=== PATIENT | female | born 1950 | race Caucasian/White ===

== ENCOUNTER 2017-10-14 11:00 | Outpatient (RCR) | payer MEDICARE, OTHER, SELFPAY ==
--- NOTE | 2017-06-27 13:07 | HP.PTEVAL_ITS ---
Patient's Visit Information DANIS CARRILLO is a 67 year old F referred to Physical Therapy by DO ZIA Reyna with a diagnosis of L knee scope. Date of Evaluation: 06/27/17 Physical Therapist: Anurag Beatty PT, - Visit Plan Frequency: 2-3x /Week Duration: 4 Weeks Plan: L LE stretching and strengthening, balance and proprio, core stab ex's, bike, and HEP - Subjective Subjective: DOS: 06/11/17. Pt reports a chronic Hx of L knee pain for several years. Pt reports she was able to hold off the pain with steroid injections until recently. Pt reports her L knee is still very sore. Pt notes she was hoping that her pain would lessen, but it still hasnt. Pt reports she will have to have a TKA in the future. Pt reports she is also starting to get LBP from sitting around a lot. Occasional tingling in L LE. No sleep diff secondary to pain. Pt does has stairs at home, she has been practicing with. Pt notes she can ascend stairs with no prob at this time, but descending stairs one at a time. 3/10 pain at rest, 6/10 at worst (walking too much) - Pain L knee pain Pain Intensity (Out of 10): 3 Pain Intensity Range: 6 - Objective Neuro: B LE sensation is WNL to light touch. B achilles reflex= 2/3. Girth at joint line: R knee 36 cm, L 37.5 cm. ROM: R knee 0-135, L knee 0-5-105. MMT: R knee 5/5, L knee 4-/5 and painful - Goals Goal 1:: Decrease L knee pain x 50% to aid with ambulation Goal Time Frame: 4-6 Weeks Goal 2:: Increase L knee strength x 1 grade to aid with stair negotiation Goal Time Frame: 4-6 Weeks Goal 3:: Increase L knee ROM x 20 degrees to aid with restoring a normalized gait pattern Goal Time Frame: 4-6 Weeks Goal 4:: I with HEP Goal Time Frame: 4-6 Weeks - Rehabilitation Potential Physical Therapy Diagnosis: L knee pain, swelling and weakness secondary to L knee arthroscopy Rehabilitation Potential: Good - Anticipated Interventions Patient/Client Instruction: Educate patient on: Condition, Plan of Care For the Purpose of:: To improve self management Therapeutic Exercise to Include: Strength training, Endurance training, Balance training, Flexibilty training, Gait and locomotor training, Dynamic Lumbar Stabilization For the Purpose of:: To decrease pain, To increase ROM, To improve muscle performance and motor function Cryotherapy (ice pack, ice massage): Yes For the Purpose of:: To decrease pain Thank you for the opportunity to evaluate your patient. For Medicare and Medicare HMO plans, please review the plan of care and approve it. It will need to be FAXED BACK to us at [phone] for Medicare purposes. Please let me know if there are questions or concerns regarding this plan of care. Physician Signature: Date:
--- NOTE | 2017-07-22 11:03 | HP.PTREVAL_ITS ---
Evans Elmore DO, It has been my pleasure to treat DANIS CARRILLO over the last 10 visits for L knee scope. Please see the progress note below for an update on the physical therapy plan of care! Subjective: Minor pain this date Objective/Function: L knee pain 0/10. L knee MMT: ext= 4/5, flex= 4+/5. L knee ROM: 0-2-122. Pt is progressing well toward Rx goals Plan Plan: L LE stretching and strengthening, balance and proprio, core stab ex's, bike, and HEP Goals Goal 1:: Decrease L knee pain x 50% to aid with ambulation Goal Time Frame: 4-6 Weeks Goal Progress: Goal Met Goal 2:: Increase L knee strength x 1 grade to aid with stair negotiation Goal Time Frame: 4-6 Weeks Goal Progress: Progressing Goal 3:: Increase L knee ROM x 20 degrees to aid with restoring a normalized gait pattern Goal Time Frame: 4-6 Weeks Goal Progress: Progressing Goal 4:: I with HEP Goal Time Frame: 4-6 Weeks Goal Progress: Progressing Anticipated Interventions Patient/Client Instruction: Educate patient on: Condition, Plan of Care For the Purpose of:: To improve self management Therapeutic Exercise to Include: Strength training, Endurance training, Balance training, Flexibilty training, Gait and locomotor training, Dynamic Lumbar Stabilization For the Purpose of:: To decrease pain, To increase ROM, To improve muscle performance and motor function Cryotherapy (ice pack, ice massage): Yes For the Purpose of:: To decrease pain Please do not hesitate to contact me at [phone] by phone or Fax: if you have questions or concerns regarding this new plan of care! Sincerely, Anurag Beatty, PT,
--- NOTE | 2017-08-29 11:15 | HP.PTREVAL_ITS ---
Evans Elmore DO, It has been my pleasure to treat DANIS CARRILLO over the last 20 visits for L knee scope. Please see the progress note below for an update on the physical therapy plan of care! Subjective: Pain is minimal this date Objective/Function: L knee pain 1/10, increases to 4/10 with prolonged walking. L knee ROM: 0-1-122. L knee strength: 4/5 throughout. I with HEP Plan Plan: F/U after vacation Goals Goal 1:: Decrease L knee pain x 50% to aid with ambulation Goal Time Frame: 4-6 Weeks Goal Progress: Goal Met Goal 2:: Increase L knee strength x 1 grade to aid with stair negotiation Goal Time Frame: 4-6 Weeks Goal Progress: Progressing Goal 3:: Increase L knee ROM x 20 degrees to aid with restoring a normalized gait pattern Goal Time Frame: 4-6 Weeks Goal Progress: Progressing Goal 4:: I with HEP Goal Time Frame: 4-6 Weeks Goal Progress: Progressing Anticipated Interventions Patient/Client Instruction: Educate patient on: Condition, Plan of Care For the Purpose of:: To improve self management Therapeutic Exercise to Include: Strength training, Endurance training, Balance training, Flexibilty training, Gait and locomotor training, Dynamic Lumbar Stabilization For the Purpose of:: To decrease pain, To increase ROM, To improve muscle performance and motor function Cryotherapy (ice pack, ice massage): Yes For the Purpose of:: To decrease pain Please do not hesitate to contact me at [phone] by phone or Fax: if you have questions or concerns regarding this new plan of care! Sincerely, Anurag Beatty PT,
--- NOTE | 2017-10-14 11:32 | HP.PTDCSUM ---
HP - PT D/C Summary It has been my pleasure to treat DANIS CARRILLO under orders from Evans Elmore DO, for the diagnosis of L knee scope for a total of 21 visit(s). Discharge Date: Please see the following information for a summary of their discharge status. - Subjective Subjective: Pt reports her pain is about the same today. - Pain L knee pain Pain Intensity (Out of 10): 3 - Overall Improvement % Improvement: 90 - Objective Objective/Function: L knee pain is ranging from 3/10-5/10. L knee ROM: 0-120 degrees. L knee MMT: Flex= 5/5, ext 4-/5 and painful. Pt is I with HEP - Goals Goal 1:: Decrease L knee pain x 50% to aid with ambulation Goal Progress: Goal Met Goal 2:: Increase L knee strength x 1 grade to aid with stair negotiation Goal Progress: Progressing Goal 3:: Increase L knee ROM x 20 degrees to aid with restoring a normalized gait pattern Goal Progress: Progressing Goal 4:: I with HEP Goal Progress: Progressing - Plan Plan: Discharge - D/C Information If there are questions or concerns regarding this patient's physical therapy, please feel free to call me at [phone]. Thank you for the referral of this patient. Sincerely, Anurag Beatty, PT,
== END 2017-10-14 19:00 | disposition home or self-care (01) ==
LOC: PT 11:00
PROVIDERS: Family Provider Internal Medicine; PCP Internal Medicine; Visit Provider Orthopaedic Surgery
DX: Z98.890 Other specified postprocedural states (principal)
CPT/HCPCS: 97110; 97161; 97164; 97530

== ENCOUNTER 2018-01-04 14:58 | Emergency (ER) | payer MEDICARE, OTHER, SELFPAY ==
[2018-01-04 14:58] VITALS: BP 141/78; PULSE 69; RESP 16; TEMP 36.2; BMI 25.9
--- NOTE | 2018-01-04 15:45 | RAD_ITS ---
STUDY: X-RAY - RIGHT WRIST REASON FOR EXAM: Female, 67 years old. Fall. Pain. TECHNIQUE: 4 view(s) of the wrist were obtained. COMPARISON: February 16, 2016 FINDINGS: There is generalized osteopenia. There is a transverse comminuted fracture of the distal radius with minimal displacement and intra-articular extension. Normal radiocarpal articulation. Normal distal radioulnar articulation. Normal carpal bones. There is moderate arthrosis of the radial carpal row. There is moderate arthrosis of the first carpometacarpal joint. Normal visualized metacarpal bones. The soft tissue structures are unremarkable. RAD/Wrist min 3 Views IMPRESSION: Osteopenia with osteoarthrosis. Distal radial fracture as described. Electronically Signed: Paulino Martinez MD at 16:41 EDT , Service support ,
--- NOTE | 2018-01-04 15:50 | RAD_ITS ---
STUDY: X-RAY - LEFT WRIST REASON FOR EXAM: Female, 67 years old. Fall. Pain. TECHNIQUE: Over view(s) of the wrist were obtained. COMPARISON: None. FINDINGS: There is generalized osteopenia. There is a nondisplaced comminuted transverse fracture of the distal radius with slight buckling at the fracture site. Normal radiocarpal articulation. Normal distal radioulnar articulation. Normal carpal bones. There is arthrosis of the radial carpal row. There is arthrosis of the first carpometacarpal joint. Normal visualized metacarpal bones. The soft tissue structures are unremarkable. RAD/Wrist min 3 Views IMPRESSION: Osteopenia with osteoarthrosis. Distal radial fracture as described. Electronically Signed: Paulino Martinez MD at 16:40 EDT , Service support ,
--- NOTE | 2018-01-04 17:27 | ED.VISSUMM ---
- ER Visit Summary Date of Service: 01/04/18 Chief Complaint: Bilateral wrist injuries History of Present Illness: The patient is a 67 F presents with bilateral wrist injuries occurred today. Patient states she tripped and fell and landed on her outstretched hands bilaterally. Patient states she felt something crack in both wrists. Patient admits to some swelling of the left wrist. Patient states her pain is worse with some movements. Patient denies any paresthesias or weakness. Patient denies any head injury or loss of consciousness. Patient denies any other injuries. Physical Examination: Vital signs are stable. Patient is afebrile. Patient is in no acute distress. Musculoskeletal exam reveals tenderness over the bilateral wrists and distal radius areas. There is some mild edema noted. There is no obvious deformity noted. Range of motion was limited in all motions of the wrist bilaterally secondary to pain. Radial pulses are equal bilateral. Sensation was intact to light touch in the radial, median, and ulnar areas bilaterally. Strength is 5/5 bilaterally in the upper extremities. The remaining physical exam is within normal limits. Test Results: X-rays of the bilateral wrists were obtained. There is a comminuted fracture of the left distal radius with extension into the radiocarpal joint. There is no displacement noted. There is also a nondisplaced fracture of the right distal radius. There is no extension into the radiocarpal joint. Emergency Department Course and Treatment: Patient was placed in AP splint bilaterally. Patient was given a prescription for Tylenol with codeine. Patient was instructed to ice and elevate the wrist bilaterally. Patient was instructed to follow-up with her orthopedic physician in 5-7 days. Patient and her understood and were agreeable with the plan. All questions were answered. Disposition: Discharged home Impression: Bilateral distal radius fracture This note was generated with [employer] dictation software. It may contain incorrect words, spelling, and punctuation that were not noted in review of the chart prior to signing ED Disposition - Plan for ED Patient: Disposition: Home or Assisted Living Chief Complaint: Upper Extremity Injury Diagnosis: Closed fracture of both radius bones Instructions: ED Fx Colles Wrist No Redu Requ Prescriptions: Acetaminophen with Codeine [Tylenol with Codeine #3 Tablet] 1 ea PO Q6H PRN PRN 3 Days #12 tab PRN Reason: Pain Referrals: Chelsea Moss DO [Primary Care Provider] -
[2018-01-04 18:04] VITALS: BP 159/92; PULSE 63; RESP 1; O2SAT 98
== END 2018-01-04 18:08 | disposition home or self-care (01) ==
PROVIDERS: Emergency Provider Emergency Medicine; Family Provider Internal Medicine; PCP Internal Medicine
DX: S52.501A Unspecified fracture of the lower end of right radius, initial encounter for closed fracture (principal); S52.502A Unspecified fracture of the lower end of left radius, initial encounter for closed fracture; W01.0XXA Fall on same level from slipping, tripping and stumbling without subsequent striking against object, initial encounter; Y93.9 Activity, unspecified; Y92.9 Unspecified place or not applicable; I10 Essential (primary) hypertension; Z96.642 Presence of left artificial hip joint; Z79.899 Other long term (current) drug therapy
CPT/HCPCS: 29125; 73110; 99282

== ENCOUNTER 2018-01-15 10:37 | Day surgery (SDC) | payer MEDICARE, OTHER, SELFPAY ==
[2018-01-15] VITALS (10 sets, daily range): BP systolic 130–164; BP diastolic 62–99; PULSE 63–85; RESP 14–16; TEMP 36.1–36.8; O2SAT 91–96; BMI 26.4
[2018-01-15 11:08] LABS: Hematocrit 41.7 % (37-47); Hemoglobin 13.8 g/dl (12.0-15.0); Mean Corp Hgb Conc 33.1 g/gl (32-36); Mean Corpuscular Hgb 30.1 pg (27.0-32.0); Mean Corpuscular Volume 90.8 fL (81-99); Mean Platelet Vol. 9.2 fl (6.2-12.0); Platelet Count 327 K/mm3 (150-450); RBC Distribution Width CV 13.7 % (11.6-14.6); RBC Distribution Width SD 45.3 fl (35.1-43.9); Red Blood Count 4.59 M/mm3 (4.2-5.4); Scan Indicated on CBC? Y/N NO; White Blood Count 4.7 K/mm3 (4.4-11.0)
[2018-01-15 11:19] LABS: Prothrombin Time (Protime)PT. 13.2 SECONDS (11.7-14.9)
[2018-01-15 11:20] LABS: Partial Thromboplast Time 26.1 Seconds (24.1-36.2)
[2018-01-15 11:28] LABS: AST(SGOT) 22 U/L (15-37); Alanine Aminotransfer ALT/SGPT 19 U/L (13-56); Albumin, Serum 3.6 g/dL (3.2-5.0); Alkaline Phosphatase 114 U/L (45-117); Anion Gap 8 (5-15); BUN 18 mg/dL (7-18); BUN/Creat Ratio 20.3 RATIO (10-20); Calcium,Total 9.2 mg/dL (8.5-10.1); Chloride 105 mmol/L (98-107); Creatinine, Serum 0.89 mg/dL (0.55-1.02); EST Glomerular Filtration Rate 67 mL/min (>60); Est Glom Filt Rate - Afr Amer 82 mL/min (>60); Estimated Creatinine Clearance 55.19 ml/min; Globulin 3.9 g/dL (2.2-4.2); Glucose 88 mg/dL (74-106); Potassium 3.7 mmol/L (3.5-5.1); Protein, Total 7.5 g/dL (6.4-8.2); Sodium Level 142 mmol/L (136-145)
--- NOTE | 2018-01-15 11:51 | PCM.DC.ORTHO ---
Discharge Diet: No Restrictions - may use fingers as much as possible, leave dressings in place, call with concerns, follow up in 2 weeks, keep dressing clean/dry Discharge Activity: May Not Drive May shower in (days): 1 Ice area for (Minutes): 20 - Every hour while awake. Weight Bearing Status: Weight bearing as tolerated Keep extremity elevated above heart level: Operative Extremity Call your doctor if your incision/area has: Continuous Slow Oozing, Sudden Increased Bleeding, Increased Pain/ Swelling, Increased Redness, Foul Smelling Discharge Call your doctor if you observe: Fever of 101 or Higher, Coldness, Increased Pain, Numbness or Tingling, Change in Color, Calf discomfort Allergies/Adverse Reactions: Allergies amoxicillin [From Augmentin] Allergy (Mild, Verified 01/15/18 10:55) diarrhea, nausea clavulanic acid [From Augmentin] Allergy (Mild, Verified 01/15/18 10:55) diarrhea, nausea pseudoephedrine [From Bettye-D] Allergy (Mild, Verified 01/15/18 10:55) unknown prochlorperazine edisylate [From Compazine] Adverse Reaction (Verified 01/15/18 10:55) Nausea/Vom/Diarrhea Medications to take at Discharge Cholecalciferol (Vitamin D3) [Vitamin D3] 5,000 unit PO DAILY 04/02/17 Escitalopram Oxalate [Lexapro] 10 mg PO DAILY 04/02/17 Fexofenadine HCl [Bettye Allergy] 60 mg PO DAILY 04/02/17 Hydrochlorothiazide [Hctz] 25 mg PO DAILY 04/02/17 Lorazepam [Ativan] 0.25 mg PO DAILY PRN PRN 04/02/17 Lactobacillus Combination No.4 [Probiotic] 1 each PO CONT 06/04/17 Naproxen Sodium 2 tab PO QHS 06/04/17 Acetaminophen with Codeine [Tylenol with Codeine #3 Tablet] 1 ea PO Q6H PRN PRN 3 Days #12 tab 01/04/18 tramadol 50 mg tablet 50 mg PO Q6H PRN #30 tab 01/10/18 Docusate Sodium [Colace] 100 mg PO PRN PRN 01/14/18 Hydrocodone Bitart/Apap 5-325 [[place] 5MG-325MG] 1 - 2 tablet PO Q6H PRN PRN 5 Days #40 tablet 01/15/18 The following prescriptions were given: Hydrocodone Bitart/Apap 5-325 [[place] 5MG-325MG] 1 - 2 tablet PO Q6H PRN PRN 5 Days #40 tablet PRN Reason: Pain Primary Care Physician: Chelsea Moss DO [Primary Care Provider] - Test Results: Test results from this visit will be discussed in further detail at your follow-up appointment, if applicable. Please Follow Up With: Deb Alba DO - [phone]
--- NOTE | 2018-01-15 11:54 | DCINST_ITS ---
Discharge Diet: No Restrictions - may use fingers as much as possible, leave dressings in place, call with concerns, follow up in 2 weeks, keep dressing clean/dry Discharge Activity: May Not Drive May shower in (days): 1 Ice area for (Minutes): 20 - Every hour while awake. Weight Bearing Status: Weight bearing as tolerated Keep extremity elevated above heart level: Operative Extremity Call your doctor if your incision/area has: Continuous Slow Oozing, Sudden Increased Bleeding, Increased Pain/ Swelling, Increased Redness, Foul Smelling Discharge Call your doctor if you observe: Fever of 101 or Higher, Coldness, Increased Pain, Numbness or Tingling, Change in Color, Calf discomfort Allergies/Adverse Reactions: Allergies amoxicillin [From Augmentin] Allergy (Mild, Verified 01/15/18 10:55) diarrhea, nausea clavulanic acid [From Augmentin] Allergy (Mild, Verified 01/15/18 10:55) diarrhea, nausea pseudoephedrine [From Bettye-D] Allergy (Mild, Verified 01/15/18 10:55) unknown prochlorperazine edisylate [From Compazine] Adverse Reaction (Verified 01/15/18 10:55) Nausea/Vom/Diarrhea Medications to take at Discharge Cholecalciferol (Vitamin D3) [Vitamin D3] 5,000 unit PO DAILY 04/02/17 Escitalopram Oxalate [Lexapro] 10 mg PO DAILY 04/02/17 Fexofenadine HCl [Bettye Allergy] 60 mg PO DAILY 04/02/17 Hydrochlorothiazide [Hctz] 25 mg PO DAILY 04/02/17 Lorazepam [Ativan] 0.25 mg PO DAILY PRN PRN 04/02/17 Lactobacillus Combination No.4 [Probiotic] 1 each PO CONT 06/04/17 Naproxen Sodium 2 tab PO QHS 06/04/17 Acetaminophen with Codeine [Tylenol with Codeine #3 Tablet] 1 ea PO Q6H PRN PRN 3 Days #12 tab 01/04/18 tramadol 50 mg tablet 50 mg PO Q6H PRN #30 tab 01/10/18 Docusate Sodium [Colace] 100 mg PO PRN PRN 01/14/18 Hydrocodone Bitart/Apap 5-325 [[place] 5MG-325MG] 1 - 2 tablet PO Q6H PRN PRN 5 Days #40 tablet 01/15/18 The following prescriptions were given: Hydrocodone Bitart/Apap 5-325 [[place] 5MG-325MG] 1 - 2 tablet PO Q6H PRN PRN 5 Days #40 tablet PRN Reason: Pain Primary Care Physician: Chelsea Moss DO [Primary Care Provider] - Test Results: Test results from this visit will be discussed in further detail at your follow- up appointment, if applicable. Please Follow Up With: Deb Alba DO - [phone]
--- NOTE | 2018-01-15 11:56 | OP.PCM_ITS ---
Report of Operation Date of Procedure: 01/15/18 Pre-Operative Diagnosis: bilateral distal radius fracture, right carpal tunnel syndrome Post-Operative Diagnosis: same Surgery/Procedure Performed:: b/l distal radius orif, right ctr guide alpine: Pablo Clifford guide alpine: Vane Guajardo Type of Anesthesia:: General Anesthesiologist: Levon Bravo Estimated Blood Loss (mL): none Fluids Replaced: 1100ml Description of Procedure: Preoperative note Patient is a 67-year-old female who is seen in my clinic. Patient fell and tripped and extended both of her wrists and had bilateral distal radius fracture is extra-articular. Patient was in the office and is having some carpal tunnel like symptoms that started after her fall. They are not acute or progressive in nature however she was having some numbness and tingling. At that time the decision was made to take her to the OR to do an ORIF of her distal radius and a right carpal tunnel release. On the left side she was not having carpal tunnel symptoms however because patient is in a wedding in a few weeks patient elected to proceed with a plate and screws so she would not have to wear a cast. Risks benefits and alternatives surgery discussed with patient. Risks including but not limited to blood loss, blood clot, infection, neurovascular injury, failure procedure, loss of life and loss of limb. Patient is aware would like proceed with right carpal tunnel release ORIF distal radius left distal radius ORIF. Operative note Patient seen and examined preoperative holding area. Right wrist was marked for carpal tunnel release. Patient was brought to the operating room placed supine on the operating table. Sign, anesthesia, antibiotics were administered. The right arm by the right arm was first prepped and draped in usual sterile fashion with a tourniquet around her upper arm. Timeout was performed. We then marked out our incision for our distal radius fracture as well as her carpal tunnel release. The arm was elevated exsanguinated and tourniquet was raised her pressure of 250 torr. We then used a 15 blade to cut through the skin over the level of the distal radius just medial to the FCR. We then dissected outside the level of the FCR fascia this is released we then dissected down further to the pronator quadratus was excised sharply off of its radial border and he is an elevator to sweep it ulnarly. We then were able place our plate and then transfixed with 2 K wires at the appropriate level of the distal radius. We then placed 3 proximal screws to 7 cortical screws and then placed a screw in the radial styloid as well as the ulnar facet of the radial radius and this restored our volar tilt better. We then placed locking screws in the remaining holes. We irrigated with copious nonsterile saline we placed a pronator on top of the plate we sewed the subcuticular with 2 oh excuse me 3-0 Vicryl the skin with 4-0 running Monocryl sterile series were applied. We then moved to her carpal tunnel release. We marked out our incisions for our carpal tunnel release at the intersection of Roberth's line in the fourth ray flexed. We extended about a centimeter and a half. We then used a 15 blade to make a skin incision. We then dissected down tenotomies down to the level of the transverse carpal ligament. We then used a new 15 blade cut through the transverse carpal ligament down to the level of the median nerve. We then further released the median nerve the combination of the 15 blade and tenotomies. The nerve was grayish in color and adherent to the transverse carpal ligament volarly. We released the transverse carpal ligament distally to the fat pad and then proximally under standard technique. We then palpated to ensure that we released all of the transverse carpal ligament which we did. We irrigated the incision with copious amounts of sterile saline. All bleeders were coagulated. The incision was closed with interrupted 4-0 nylon stitches. Tourniquet was deflated for total working time of 60 minutes. We then moved to the left distal radius. The left arm was prepped ed and draped in usual sterile fashion with a tourniquet around her upper arm. Timeout was performed. We then marked out our incision for our distal radius fracture. The arm was elevated exsanguinated and tourniquet was raised her pressure of 250 torr. We then used a 15 blade to cut through the skin over the level of the distal radius just medial to the FCR. We then dissected outside the level of the FCR fascia this is released we then dissected down further to the pronator quadratus was excised sharply off of its radial border and he is an elevator to sweep it ulnarly. We then were able place our plate and then transfixed with 2 K wires at the appropriate level of the distal radius. We then placed 3 proximal screws to 7 cortical screws and then placed a screw in the radial styloid as well as the ulnar facet of the radial radius and this restored our volar tilt better. We then placed locking screws in the remaining holes. We irrigated with copious nonsterile saline we placed a pronator on top of the plate we sewed the subcuticular with 2 oh excuse me 3-0 Vicryl the skin with 4-0 running Monocryl sterile series were applied. Patient tolerated procedure well there were no complications. Patient transferred to recovery room in stable condition. right VA [address] plate, right 6 hole head/3 hole shaft 3 2.7 cortex screw shaft 12, 14mm, 14mm 2 2.7 corex scrw distal 18mm 4 2.4 locking screws distal 16mm, 18mm left 6 hole head/3 hole shaft 3 2.7 cortex screw shaft 12,14mm 2 2.4 cortex screw distal 20mm 4 2.4 VA locking screws distal 16/20 Postoperative note Hospital pharmacy has prescription Leave dressing clean dry and intact Follow-up in 2 weeks Call with concerns This note was generated with [employer] dictation software. It may contain incorrect words, spelling, and punctuation that were not noted in checking the note before signing
[2018-01-15] MEDS: Cefazolin 2 GM in 0.9% Normal Saline 100 ML IV (12:03)
--- NOTE | 2018-01-15 12:10 | RAD_ITS ---
STUDY: X-RAY - RIGHT WRIST REASON FOR EXAM: ORIF right wrist. TECHNIQUE: 4 fluoroscopic view(s) of the wrist were obtained. COMPARISON: Radiographs 01/04/2018. FINDINGS: There is an orthopedic plate and screws transfixing a distal radial fracture in anatomical alignment and position. Electronically Signed: Lambert Pardo MD at 16:32 EDT Tel , Service support , RAD/Wrist min 3 Views
--- NOTE | 2018-01-15 13:25 | RAD_ITS ---
STUDY: X-RAY - LEFT WRIST REASON FOR EXAM: Female, 67 years old. Fracture TECHNIQUE: 3 view(s) of the wrist were obtained. COMPARISON: 01/15/2018 FINDINGS: There is fixation at the distal radius. RAD/Wrist min 3 Views IMPRESSION: Status post fixation, distal radius Electronically Signed: Abhilash Pyle MD at 21:14 EDT Tel , Service support ,
[2018-01-15] MEDS: HYDROcodone Bitartrate/Apap 5/325 Tablet PO (16:50)
== END 2018-01-15 18:10 | disposition home or self-care (01) ==
LOC: SDC 10:37 → AC 10:39
PROVIDERS: Family Provider Internal Medicine; PCP Internal Medicine; Visit Provider Orthopaedic Surgery
PROC: (CPT 25607; principal; 2018-01-15 12:25)
DX: S52.552A Other extraarticular fracture of lower end of left radius, initial encounter for closed fracture (principal); S52.551A Other extraarticular fracture of lower end of right radius, initial encounter for closed fracture; W01.0XXA Fall on same level from slipping, tripping and stumbling without subsequent striking against object, initial encounter; Y93.9 Activity, unspecified; Y92.9 Unspecified place or not applicable; G56.01 Carpal tunnel syndrome, right upper limb; K21.9 Gastro-esophageal reflux disease without esophagitis; I10 Essential (primary) hypertension; Z79.899 Other long term (current) drug therapy
CPT/HCPCS: 25607; 64721; 36415; 73110; 76000; 80048; 80076; 85027; 85610; 85730; 93005; C1713; J7120; J2405

== ENCOUNTER → 2018-01-28 09:47 | Outpatient (CLI) | payer MEDICARE, OTHER, SELFPAY | PROVIDERS: Family Provider Internal Medicine; PCP Internal Medicine; Visit Provider Orthopaedic Surgery | DX: M25.531 Pain in right wrist (principal); M25.532 Pain in left wrist | CPT/HCPCS: 73110 ==

== ENCOUNTER 2018-03-06 11:00 | Outpatient (RCR) | payer MEDICARE, OTHER, SELFPAY ==
--- NOTE | 2018-01-28 16:27 | HP.OTEVAL_ITS ---
Patient's Visit Information DANIS CARRILLO is a 67 year old F, referred to Occupational Therapy by Deb Alba DO, with a diagnosis of Bilateral ORIF, R CTR. Date of Evaluation: 01/28/18 Occupational Therapist: Eboni Valentin - Subjective Subjective: Pt seen for initial occupational therapy evaluation s/p fall onto bilateral wrists when tripped over a cord and fell into a wall. Pt had bilateral ORIF's and R CTR 01/15/18. Pt lives with spouse, bilevel home, pt has been mowing on riding mower. She requires some assist with BADL's; cutting her food, spouse assisting with meals and shower tasks as needed. L hand dominent. - Pain L wrist 4 Pain Intensity Range: 0, 1, 2, 3, 4 - Objective Objective/Observation: Pt demo decreased ROM of bilateral wrists with decreased bilateral hand strength to complete all BADL's/IADL's independently. - ROM Wrist: R 35/30 L 45/45 Opposition: Not able to complete Thumb Oppostion R hand ROM Comments: Pt able to make composite fists. - Strength Core Drill Operator: R 15#, L 30# Lateral Pinch: R 4#, L 6# Tripod Pinch: R 0#, L 4# - Edema Other: Pt demo slight edema bilateral wrists - Sensation Sensation Comments: Pt states numbness at incision sites bilateral wrists and Numbness/tingling R digits 1, 2, and 3. - DASH-Disabilities of Arm, Shoulder& Hand DASH Sum: 89 - Goals Goal:: Pt will progress with R hand manager housekeeping strength by 25# to increase her independence with cooking tasks. Pt will progress with L hand manager housekeeping strength by 15# to increase her independence with self feeding cutting her food independently. Goal:: Pt will progress with L wrist extension by 5' and L wrist flexion by 15' to increase independence to complete all grooming and bathing tasks independently. Pt will progress with R wrist extension by 10' and L wrist flexion by 15' to increase independence with BADL's. Goal:: Pt will demo 1/10 or less pain bilateral wrists by d/c from OT services. Goal:: Pt will be educated on scar mngmt techniques of bilateral wrists and R hand with good understanding and demo 100%x. Goal:: Pt will be independent with all BADL's and light meal prep tasks by d/c from OT services. Goal:: Pt will be educated on BUE HEP with good understanding and demo 100%x. - Rehabilitation General Assessment: Pt demonstrates decreased bilateral wrist ROM and R thumb opposition with increased pain of bilateral wrists. Pt demonstrates decreased bilateral wrist/hand strength. Pt would benefit from direct skilled occupational therapy services to increase bilateral wrist/hand ROM, R thumb opposition, educate on scar mngmt techniques, increase bilateral wrist/hand strength and educate on HEP all to increase independence with functional living tasks, BADL's to return back to PLOF with decreased pain of bilateral wrists/ hands. Rehabilitation Potential: Excellent - Anticipated Interventions Anticipated Interventions: A/AAROM/PROM, Strengthening, Edema Control, Scar Care , Massage, Desensitization, Modalities, Orthoses, Joint Protection/Energy Conservation, Fine Motor Coord/Sukhdeep, ADL Training, Education re Skin Care and Precautions, Education re Self Massage Techniques, Education re Correct Donning Tech,Care&Wearing Sched Comp Garments, Caregiver Training, Home Program - Visit Plan Frequency: 1-2x /Week Duration: 4-6 Weeks General Plan: Pt demonstrates decreased bilateral wrist ROM and R thumb opposition with increased pain of bilateral wrists. Pt demonstrates decreased bilateral wrist/hand strength. Pt would benefit from direct skilled occupational therapy services to increase bilateral wrist/hand ROM, R thumb opposition, educate on scar mngmt techniques, increase bilateral wrist/hand strength and educate on HEP all to increase independence with functional living tasks, BADL's to return back to PLOF with decreased pain of bilateral wrists/ hands. TEXT: Thank you for the opportunity to evaluate your patient. For Medicare and Medicare HMO plans, please review the plan of care and approve it. It will need to be FAXED BACK to us at [phone] for Medicare purposes. Please let me know if there are questions or concerns regarding this plan of care. Physician Signature: Date:
--- NOTE | 2018-07-02 10:18 | HP.OT.NRP ---
HP - Discharge Summary - Patient Information DANIS CARRILLO was seen in my office for initial evaluation on 01/28/18. The following Plan of Care was established for this patient: Initial Frequency: 1-2x /Week Initial Duration: 4-6 Weeks Plan: cont w/ prior POC - Anticipated Interventions Anticipated Interventions: A/AAROM/PROM, Strengthening, Edema Control, Scar Care, Massage, Desensitization, Modalities, Orthoses, Joint Protection/Energy Conservation, Fine Motor Coord/Sukhdeep, ADL Training, Education re Skin Care and Precautions, Education re Self Massage Techniques, Education re Correct Donning Tech,Care&Wearing Sched Comp Garments, Caregiver Training, Home Program This patient was last seen in our office 03/06/18. Pertinent comments regarding their Occupational therapy will appear below: Pt last seen 03/06/18. Pt was participating with direct occupational therapy care for scar managment techniques to bilateral wrists and increasing bilateral wrist ROM and bilateral networks computer consultant strength activities/exercises. D/C OT services secondary to non-returning pt. At this point I will be discontinuing this patient from occupational therapy. I would be happy to see this patient again in the future if found appropriate by the physician. Thank you! Eboni Valentin
== END 2018-03-06 19:00 | disposition home or self-care (01) ==
LOC: OT 11:00
PROVIDERS: Family Provider Internal Medicine; PCP Internal Medicine; Visit Provider Orthopaedic Surgery
DX: M25.531 Pain in right wrist (principal); M25.532 Pain in left wrist
CPT/HCPCS: 73110; 97110; 97140; 97166; 97530

== ENCOUNTER → 2018-04-15 10:50 | Outpatient (CLI) | payer MEDICARE, OTHER, SELFPAY ==
--- NOTE | 2018-04-15 10:53 | RAD_ITS ---
STUDY: X-RAY - RIGHT WRIST REASON FOR EXAM: Female, 67 years old. Postoperative evaluation after ORIF of distal radius. TECHNIQUE: 3 view(s) of the wrist were obtained. COMPARISON: January 28, 2018 FINDINGS: There is stable generalized osteopenia. The volar plate and screw fixation of the distal radius is stable with increased callus formation at the fracture site. Normal radiocarpal articulation. Normal distal radioulnar articulation. Normal carpal bones. There is arthrosis of the radial carpal row unchanged. There is stable arthrosis of the first carpometacarpal joint. Normal second through fifth carpometacarpal articulations. Normal visualized metacarpal bones. The soft tissue structures are unremarkable. RAD/Wrist min 3 Views IMPRESSION: Stable appearance of the right wrist with no complications. Electronically Signed: Paulino Martinez MD at 16:50 EST , Service support ,
--- NOTE | 2018-04-15 10:53 | RAD_ITS ---
STUDY: X-RAY - LEFT WRIST REASON FOR EXAM: 3 month postop follow-up. TECHNIQUE: 3 view(s) of the wrist were obtained. COMPARISON: Radiographs 01/28/2018. FINDINGS: There is osteopenia. There is orthopedic plate and screws transfixing a healing distal radial fracture in anatomical alignment and position. Normal radiocarpal articulation. Normal distal radioulnar articulation. Normal carpal bones. There is joint space narrowing of the triscaphe articulation. Normal carpometacarpal articulation of the thumb. Normal second through fifth carpometacarpal articulations. Normal visualized metacarpal bones. The soft tissue structures are unremarkable. RAD/Wrist min 3 Views IMPRESSION: ORIF of healing distal radial fracture without evidence of complication. Triscaphe arthrosis. Electronically Signed: Lambert Pardo MD at 7:29 EST Tel , Service support ,
== END ==
PROVIDERS: Family Provider Internal Medicine; PCP Internal Medicine; Referring Provider Orthopaedic Surgery; Visit Provider Orthopaedic Surgery
DX: M25.531 Pain in right wrist (principal); M25.532 Pain in left wrist
CPT/HCPCS: 73110

== ENCOUNTER 2018-10-12 10:08 | Emergency (ER) | payer MEDICARE, OTHER, SELFPAY ==
[2018-10-12 10:09] VITALS: BP 120/97; PULSE 57; RESP 17; TEMP 36.7; O2SAT 100; BMI 27.8
--- NOTE | 2018-10-12 10:28 | CT_ITS ---
STUDY: CT ABDOMEN AND PELVIS WITHOUT CONTRAST REASON FOR EXAM: Female, 68 years old. Right flank pain into right lower quadrant since this morning. Cholecystectomy and appendectomy and left hip replacement. RADIATION DOSAGE (If Supplied By Facility): CTDIvol = ( 9.02 ) mGy, DLP = ( 450.81 ) mGycm TECHNIQUE: Transaxial images were obtained from the dome of the diaphragm to the symphysis pubis without oral contrast, and without intravenous contrast. Sagittal and coronal images were reconstructed. Individualized dose optimization techniques were used for this CT. COMPARISON: None. FINDINGS: The visualized lung bases demonstrate bibasilar dependent atelectasis and a small focus of subsegmental atelectasis within the lateral periphery of the left lower lobe. The visualized portions of the heart are within normal limits. Normal liver. The patient is status post cholecystectomy. There is approximately 1.9 cm distention of the common bile duct without CT evident etiology, sequence 2, image 46. 2 punctate calcifications involve the splenic parenchyma. The spleen otherwise appears unremarkable. Normal pancreas. Normal bilateral adrenal glands. Normal right kidney. Normal left kidney. There is no ureteral calculi. There is no ureterectasis. Normal visualized stomach. Normal small intestine. Multiple uncomplicated diverticula are seen throughout the colon, predominantly involving the sigmoid colon. Surgical clips are seen at the cecal tip in the region of the appendix. No appendix is visualized. Normal abdominal aorta except for calcified plaque throughout the aortoiliac system. No demonstrated aneurysm.. Normal inferior vena cava. Normal retroperitoneum. There is no free fluid. There is no free air. No evidence of obstruction. Normal urinary bladder. The uterus is surgically absent. Both ovaries are surgically absent. There is a tiny fatty umbilical hernia, sequence 2, image 100. There is no acute osseous abnormality. There is no suspicious lytic or blastic osseous pathology. Diffuse spinal degenerative changes are identified. Patient is status post left hip arthroplasty which appears in anatomic alignment. No evidence of hardware failure or loosening on the submitted images. CT/Abdomen/Pelvis without Cont IMPRESSION: No evident nephrolithiasis/nephrocalcinosis, hydronephrosis, ureteral calculi or ureterectasis. The urinary bladder appears unremarkable. Status post appendectomy and BORIS/BSO. Diverticulosis without evidence of diverticulitis. Status post cholecystectomy with distention of the common bile duct. Please note that biliary ectasia is a common finding in postcholecystectomy patients. No free fluid. No free air. No evidence of obstruction. Multifocal calcified vascular plaque throughout the aortoiliac system without demonstration of aneurysm. Punctate splenic calcifications are most consistent with sequela of prior systemic infection with granulomatous disease. Electronically Signed: Alan Allen MD at 11:40 EDT , Service support ,
[2018-10-12] MEDS: 0.9% Normal Saline 1,000 ML 150 ML IV (10:43)
[2018-10-12] MEDS: HYDROmorphone 1 MG/ML Syringe IV ×2 (10:43→12:05)
[2018-10-12] MEDS: Ketorolac 15 MG/ML Vial IV (10:43)
[2018-10-12] MEDS: Ondansetron 4 MG/2 ML Vial IV (10:43)
[2018-10-12 10:55] LABS: Absolute Lymphocyte Count 1.52 X10^3/ul (0.83-4.51); Absolute Neutrophil Count 3.3 X10^3/uL (2.0-7.7); Basophil# 0.02 X10^3/uL; Basophil% 0.4 % (0-1); Eosinophil# 0.15 X10^3/uL; Eosinophils% 2.8 % (0-5); Hemoglobin 14.3 g/dl (12.0-15.0); Lymphocyte # 1.52 X10^3/ul (4.0); Lymphocyte % 27.9 % (19-41); Mean Corp Hgb Conc 33.3 g/gl (32-36); Mean Corpuscular Hgb 30.4 pg (27.0-32.0); Mean Corpuscular Volume 91.5 fL (81-99); Mean Platelet Vol. 9.4 fl (6.2-12.0); Monocyte# 0.44 X10^3/uL; Monocyte% 8.1 % (0-10); Neutrophil % 60.6 % (47-70); POSITIVE COUNT NO; POSITIVE DIFFERENTIAL NO; POSITIVE MORPHOLOGY NO; Platelet Count 290 K/mm3 (150-450); RBC Distribution Width CV 14.1 % (11.6-14.6); RBC Distribution Width SD 47.5 fl (35.1-43.9); White Blood Count 5.4 K/mm3 (4.4-11.0)
[2018-10-12 11:03] LABS: BUN 16 mg/dL (7-18); BUN/Creat Ratio 16.6 RATIO (10-20); Calcium,Total 8.8 mg/dL (8.5-10.1); Chloride 106 mmol/L (98-107); Creatinine, Serum 0.96 mg/dL (0.55-1.02); EST Glomerular Filtration Rate 61 mL/min (>60); Est Glom Filt Rate - Afr Amer 74 mL/min (>60); Estimated Creatinine Clearance 50.47 ml/min; Glucose 112 mg/dL (74-106); Potassium 3.5 mmol/L (3.5-5.1); Sodium Level 143 mmol/L (136-145)
[2018-10-12 11:04] LABS: Anion Gap 8 (5-15)
[2018-10-12 11:31] LABS: Bacteria 0 SEEN /hpf (None Seen); Color, Urine Yellow (Yellow); Glucose, Dipstick Normal (Normal); Ketone-Dipstick Negative (Negative); Leukocyte Esterase-Dipstick Negative /ul (Negative); Mucous, Urine 0 SEEN /hpf (<or=2+); Nitrite-Dipstick Negative (Negative); Occult Blood-Urine 10 /ul (Negative); Protein-Dipstick 15 mg/dl (Negative); Red Blood Cells-Urine 0 SEEN /hpf (0-5); Urine Bilirubin Dipstick Negative (Negative); Urine Clarity Clear (Clear); Urine Urobilinogen Normal (Normal); White Blood Cells 0 SEEN /hpf (0-5)
[2018-10-12 11:38] LABS: Squamous Epithelial Cells - UA 0-5 SEEN /hpf (5-10)
[2018-10-12 12:17] LABS: D-Dimer Quantitative (DVT/PE) 0.56 FEU/ug/m (0.27-0.49)
--- NOTE | 2018-10-12 12:22 | CT_ITS ---
STUDY: CTA OF THE ABDOMINAL AORTA REASON FOR EXAM: Female, 68 years old. Back pain. Abdominal pain RADIATION DOSAGE (If Supplied By Facility): CTDIvol = ( 12.98 ) mGy, DLP = ( 820.57 ) mGycm TECHNIQUE: Axial CT angiography multi-detector data acquisition was obtained from the diaphragm to the sacrum following intravenous administration of 100ml IV Isovue 370. Axial images and MIP images were reconstructed from the axial data set. Post-processing of the angiographic images was performed, with multiplanar reformation and 3D reconstruction. Individualized dose optimization techniques were used for this CT. TECHNICAL QUALITY: Good COMPARISON: CT. Descriptors of Narrowing: None (0%) Mild (< 50%) Moderate (50-70%) Severe (70-90%) Subtotal/Total Occlusion (90-100%) Non-Evaluable (technically non-diagnostic FINDINGS: Abdominal aorta: There is diffuse atherosclerotic calcification of the abdominal aorta, without a demonstrated aneurysm. No demonstrated narrowing. Celiac and superior mesenteric arteries: No demonstrated narrowing. Inferior mesenteric artery: No demonstrated narrowing. Right renal artery(arteries): No demonstrated narrowing. Left renal artery(arteries): No demonstrated narrowing. Right common iliac artery: No demonstrated narrowing. Mild plaque. Right external iliac artery: No demonstrated narrowing. Right internal iliac artery: No demonstrated narrowing. Left common iliac artery: No demonstrated narrowing. Mild plaque. Left external iliac artery: No demonstrated narrowing. Left internal iliac artery: No demonstrated narrowing. There are scattered small right pulmonary calcifications consistent with old granulomatous disease. The visualized portions of the heart are within normal limits. Normal liver. There are surgical clips in the gallbladder fossa consistent with a prior cholecystectomy. The common bile duct measures 1.0 cm at the pancreatic head. Normal spleen. Normal pancreas. Normal bilateral adrenal glands. Normal right kidney. Normal left kidney. Normal visualized stomach. Normal small intestine. There are multiple colonic diverticula consistent with diverticulosis. There are surgical clips in the region of the appendix consistent with a prior appendectomy. Normal inferior vena cava. Normal retroperitoneum. Normal abdominal wall. There are diffuse degenerative changes of the visualized lumbar spine. CT/CTA Abdomen W/WO Contrast IMPRESSION: Atherosclerosis. No high-grade stenosis or occlusion. No aneurysm or dissection. Colonic diverticulosis. No obstruction or abscess. Postoperative change. Electronically Signed: Iron Huffman MD at 13:22 EDT , Service support ,
--- NOTE | 2018-10-12 12:22 | CT_ITS ---
STUDY: CTA CHEST REASON FOR EXAM: Female, 68 years old. Pain. RADIATION DOSAGE (If Supplied By Facility): CTDIvol = ( 12.98 ) mGy, DLP = ( 820.57 ) mGycm TECHNIQUE: The examination was performed with the intravenous administration of 100ml IV Isovue 370. Post-processing of the angiographic images was performed, with multiplanar reformation and 3D reconstruction. Individualized dose optimization techniques were used for this CT. COMPARISON: None. FINDINGS: Normal enhancement of the main pulmonary artery and right and left pulmonary arteries. Normal enhancement of the bilateral peripheral pulmonary arteries. There is no demonstrated pulmonary embolism. Normal thoracic aorta and visualized great vessels. There is no demonstrated aortic dissection. Normal heart and pericardium. Normal mediastinum. There is a nonspecific 1 cm calcified lymph node in the right hilar region.. Normal visualized trachea and bronchi. There is mild bibasilar compressive atelectasis. Normal pulmonary parenchyma. Normal pleura. Normal chest wall structures. Normal osseous structures. Normal visualized upper abdomen. CT/CTA Chest W/WO Contrast IMPRESSION: Bibasilar compressive atelectasis. No evidence for pulmonary embolism. Nonspecific calcified lymph node in the right hilar region. Old granulomatous disease is a possibility. Electronically Signed: Cole Irene, at 13:12 EDT Tel , Service support ,
[2018-10-12 12:27] VITALS: BP 119/75; PULSE 56; RESP 12; O2SAT 93
--- NOTE | 2018-10-12 13:27 | ED.VISSUMM ---
- ER Visit Summary Date of Service: 10/12/18 Chief Complaint: [Right flank pain] History of Present Illness: The patient is a 68 F [presents to the ER with complaint of pain in her right flank that she initially noticed last evening. Patient states that this morning the pain became severe and more unbearable. Patient states that pain tends to radiate a little bit to the right lower abdomen. She denies urinary symptoms. She is never had pain like this before. She denies any injury to her back. She denies any pain radiating down her legs or paresthesias or weakness in extremities. Patient states she recently came home from [place] and she and her had driven back and just got back yesterday. Patient denies any fever or urinary symptoms.] Physical Examination: [HEENT-PERRLA, EOMI. Cranial nerves II through XII grossly intact. TMs clear. Mucous membranes moist. No adenopathy. Cardiovascular-regular rate and rhythm without murmur or ectopy Lungs-clear to auscultation, chest wall stable without crepitus or subcu emphysema Abdomen-normoactive bowel sounds, soft. Patient has some mild tenderness over the right lower quadrant. There is no rebound, rigidity, or perineal signs. She does have CVA tenderness on the right. Back exam-patient has no tenderness over the thoracic or lumbar spine. Patient does have tenderness palpation of the right lumbar paraspinal musculature that seems to somewhat read to produce her pain. Extremities-intact ?4, normal range of motion, normal pulses, atraumatic] Test Results: CBC with differential obtained was normal. Chemistries were normal. Urinalysis was normal. CT flank showed diverticulosis otherwise nothing acute. Patient had a d-dimer test that was elevated 0.56 however when corrected for age it was technically normal. Patient is adamant that she does not feel that her pain is musculoskeletal and a CTA of the chest and abdomen was obtained to further rule out dissection versus renal infarct versus lower lobe PE. Both CTA of the abdomen and chest were unremarkable.] Emergency Department Course and Treatment: [Patient was medicated with Dilaudid and Zofran initially and she had some relief with that however the pain returned and she needed a second dose of Dilaudid.] Treatment Plan: [Patient will be given a prescription for Percocet as well as Flexeril. Patient follow-up with her primary care physician within next 3 to 5 days. Patient advised to return if worsening pain, fever, or condition should worsen anyway.] Disposition: [Discharged home in stable condition] Impression: [Right flank pain-suspect muscular skeletal etiology] This note was generated with [employer] dictation software. It may contain incorrect words, spelling, and punctuation that were not noted in review of the chart prior to signing ED Disposition - Plan for ED Patient: Referrals: Chelsea Moss DO [Primary Care Provider] -
--- NOTE | 2018-10-12 13:30 | ED.DEP ---
ED Disposition - Plan for ED Patient: Instructions: ED Flank Pain Uncertain Cause Prescriptions: Oxycodone HCl/Acetaminophen [Percocet 5/325] 1 tab PO Q6H PRN PRN 5 Days #20 tab PRN Reason: Pain Cyclobenzaprine [Flexeril] 10 mg PO TID PRN #20 tab PRN Reason: Muscle Spasm Referrals: Chelsea Moss DO [Primary Care Provider] - 3-5 Days
[2018-10-12 13:41] VITALS: BP 117/89; PULSE 877; RESP 144; O2SAT 99
== END 2018-10-12 13:44 | disposition home or self-care (01) ==
PROVIDERS: Emergency Provider Emergency Medicine; Family Provider Internal Medicine; PCP Internal Medicine
DX: R10.31 Right lower quadrant pain (principal); M54.5 Low back pain; R11.0 Nausea; I10 Essential (primary) hypertension; F41.9 Anxiety disorder, unspecified; Z90.49 Acquired absence of other specified parts of digestive tract; Z79.899 Other long term (current) drug therapy
CPT/HCPCS: 71275; 74175; 74176; 80048; 81001; 85025; 85379; 96361; 96374; 96375; 96376; 99283; J7030; Q9967; A4216; J2405

== ENCOUNTER → 2019-11-06 11:07 | Outpatient (CLI) | payer MEDICARE, OTHER, SELFPAY ==
[2019-10-22 13:51] VITALS: BMI 27.8
--- NOTE | 2019-11-06 11:09 | MRI_ITS ---
STUDY: MRI RIGHT KNEE REASON FOR EXAM: Mechanical right knee pain, catching and locking for 3 months, no specific injury, prior surgery in 1989. TECHNIQUE: Standardized fat and water weighted pulse sequences were obtained in all 3 orthogonal planes. COMPARISON: Radiographs 11/12/2016. FINDINGS: Normal medial meniscus. There is mild arthrosis of the medial femorotibial compartment with small marginal osteophytes and mild chondral thinning of the medial femoral condyle (T2 sagittal image 19). Normal medial femoral condyle and tibial plateau. Normal medial collateral ligamentous complex (MCL). Normal distal semimembranosus, gracilis and semitendinosus tendons. There is a partial lateral meniscectomy. There is a complex signal alteration of the posterior horn of the lateral meniscus (proton density sagittal images 13-17) and body of the lateral meniscus (proton-density coronal images 16-18), either scarring or recurrent lateral meniscal tear. There is peripheral subluxation of the lateral meniscus. There is arthrosis of the lateral femorotibial compartment with marginal osteophytes, chondral loss (T2 coronal image 16) and mild subchondral bone edema of the lateral tibial plateau. Normal proximal tibiofibular articulation. Normal lateral collateral (fibular) ligament. Normal popliteus tendon. Normal biceps femoris tendon. Normal anterior cruciate ligament (ACL). Normal posterior cruciate ligament (PCL). Normal congruent patellofemoral articulation. Normal hyaline cartilage of the patellofemoral compartment. There are minimal marginal osteophytes of the patellofemoral compartment. Normal medial and lateral patellar retinaculum. Normal visualized quadriceps tendon. Normal patellar tendon. Normal Hoffa''s fat pad. There is a small joint effusion. There is a popliteal cyst measuring 6.9 cm in length with extravasation of fluid (T2 sagittal images 13-21). There is mild edema in the anterior subcutis adipose space. There is a very small focus of bone edema in the inferior aspect of the medial patella (T2 coronal image 32). MRI/Lower Ext Joint Only (Routine) IMPRESSION: Partial lateral meniscectomy with signal alteration of the lateral meniscus, either scarring or recurrent lateral meniscal tear. Arthrosis of the lateral femorotibial compartment and mild arthrosis of the medial femorotibial compartment. Small joint effusion. Popliteal cyst with extravasation of fluid. Electronically Signed: Lambert Pardo MD at 13:04 EDT Tel , Service support ,
[2020-02-08 10:48] VITALS: BMI 27.4
--- OUTSIDE RECORDS SUMMARY | 2020-03-22 19:20 | XMS RPT_ITS | CCD ---
:1950 External Reference #:[id number] Author Organization [facility] Care Team Providers Name Role Phone Kailyn Unavailable Shriner Unavailable Saleh Unavailable Natasha, E Unavailable [facility] Unavailable Ramírez, S Unavailable Chicorelli Unavailable Physical Therapy Unavailable Messenger Unavailable Unavailable Flaquito Unavailable Unavailable Slarb Unavailable Unavailable [facility] [place] Unavailable Phillips PSYCH THERAPIST, S Unavailable Ramírez, S Unavailable Baum, N Unavailable Baum, N Unavailable KAMILLE, H Unavailable Unavailable BABKA Unavailable Unavailable KAILYN, K Unavailable Unavailable KAMILLE, H Unavailable Unavailable SELF Unavailable Unavailable KAILYN, K Unavailable Unavailable KAMILLE, H Unavailable Unavailable KAMILLE, H Unavailable Unavailable KAILYN, K Unavailable Unavailable Kailyn Unavailable Shriner Unavailable Saleh Unavailable Natasha, E Unavailable [facility] Unavailable Ramírez, S Unavailable Chicorelli Unavailable Physical Therapy Unavailable Messenger Unavailable Unavailable Flaquito Unavailable Unavailable Slarb Unavailable Unavailable [facility] Unavailable Long, L Unavailable Unavailable Baum, N Unavailable Baum, N Unavailable Phillips PSYCH THERAPIST, S Unavailable Mike Unavailable Unavailable Kulwinder 74 Unavailable Messenger Unavailable Unavailable Gravius Unavailable Unavailable Manchak Unavailable Unavailable Cross Unavailable Unavailable Allergies Reported Allergen Reaction(s) Severity Date of Onset Location fexofenadine Critical, 09-17-2013 - [facility] Medicine and Orthopaedics (8 8787) prochlorperazine nausea Critical, 09-17-2013 - [facility] Medicine and Orthopaedics (5 5847) Prochlorperazine Comprehensi ve Translations: [ Internal Med icine Compazine (75304) *ANTIPSYCHOTICS*] Medications Medication Name Sig Date Prescriber Location Albuterol ProAir RespiClick 07-31-2019 Jeimy Mar Compreh ensive 108 (90 Base) Internal Medic ine MCG/ACT Inhalation (02044) Aerosol Powder Breath Activated 2 (two) Puff q 6hr prn sob or cough for 0 days Quantity: 1 {Inhaler} Refills: 0 Ordered: 31-Jul-2019 Jeimy Mar RN Start : 31-Jul-2019 Active Alendronate Alendronate Sodium 05-14-2016 Jeimy Abebee hensive 70 MG Oral Tablet 1 - Internal Medicine (one) Tablet Tablet 12-19-2018 (08466) qweek for 0 days Quantity: 12 {Tablet} Refills: 3 Ordered: 19-Dec-2018 Jeimy Mar RN Start : 14-May-2016 End : 19-Dec-2018 Inactive Amoxicillin AMOXICILLIN, 875MG 04-23-2007 Jeimy Abebee hensive (Oral Tablet) 1 - Internal Med icine Tablet Twice daily 09-10-2007 (86879) for 0 days Quantity: 10 {Tablet} Refills: 0 Ordered: 23-Apr-2007 Jeimy Mar RN Start : 23-Apr-2007 End : 10-Sep-2007 Inactive Amoxicillin / Amoxicillin-Pot 01-30-2019 Jeimy Ibrahim nsive Clavulanate Clavulanate 875-125 - Internal Medicine MG Oral Tablet 1 09-18-2019 (73369) (one) Tablet bid for 0 days Quantity: 20 {Tablet} Refills: 0 Ordered: 18-Sep-2019 Jeimy Mar RN Start : 30-Jan-2019 End : 18-Sep-2019 Inactive Augmentin 875-125 MG 04-30-2017 - Jeimy Crockett Comprehensi ve Internal Oral Tablet 1 Tablet bid 05-14-2017 Medicin e (32279) for 14 days Quantity: 28 {Tablet} Refills: 0 Ordered: 30-Apr-2017 Jeimy Crockett Start : 30-Apr-2017 End : 14-May-2017 Inactive Ascorbic Acid / CENTRUM SILVER 09-10-2007 Jeimy Mar Compreh ensive Internal Beta Carotene / (Oral Tablet) 50+ Medicin e (53704) Copper Sulfate / for 0 days Refills: Selenite / 0 Ordered: Vitamin E / Zinc 10-Sep-2007 Jeimy Paiz RN End : 10-Sep-2007 Inactive Menopause Oral Tablet 1 qd Jeimy Abebe ehensive Internal Medicine Active Comments: 731 (74233) Comment: 731 aspirin ASPIRIN LOW DOSE, 12-11-2011 - Jeimy Mar [facility] 81MG (Oral Tablet) 1 05-02-2015 Sports Medicine and QD for 0 days Orthopaedics ( 05344) Refills: 0 Ordered: 02-May-2015 Jeimy Mar RN Start : 27-Feb-2013 End : 02-May-2015 Inactive ASPIRIN 81 MG TABS One tablet by 12-11-2011 [facility] Sports Medicine mouth daily ASPIRIN a nd Orthopaedics (22941) [id number] Deb Alba Azithromycin Zithromax Z-Izabela 250 07-31-2019 - Jeimy Abebe ehensive MG Oral Tablet tad 09-18-2019 Internal Medicine Tablet qd for 0 (79817) days Quantity: 1 {Package} Refills: 0 Ordered: 18-Sep-2019 Jeimy Mar RN Start : 31-Jul-2019 End : 18-Sep-2019 Inactive ZITHROMAX Z-IZABELA, 250MG 06-08-2008 Pamela Machadoen sive Internal (Oral Tablet) 1 Tablet 12-24-2008 Medicine (01838) TAD for 0 days Quantity: 1 {Package(s)} Refills: 0 Ordered: 08-Jun-2008 DONNA Polk Start : 08-Jun-2008 End : 24-Dec-2008 Inactive benzonatate Benzonatate 200 MG 07-31-2019 - Jeimy Lanier hensive Oral Capsule 1 (one) 09-18-2019 Interna l Medicine Capsule tid prn for (22543) 0 days Quantity: 30 {Capsule} Refills: 0 Ordered: 18-Sep-2019 Jeimy Mar RN Start : 31-Jul-2019 End : 18-Sep-2019 Inactive Biactive Biactive End : 03-12-2007 Crystal Galindo 12-Mar-2007 Internal Medici ne Discontinued (07679) Biactive End : 12-Mar-200703-12-2007 Crystal Lanier [facility] Internal Medicine Discontinued (29793) Biactive End : 12-Mar-200703-12-2007 [facility] Internal Medicine Discontinued (58332) Biactive End : 12-Mar-200703-12-2007 [facility] Internal Medicine Discontinued (89776) Biactive End : 12-Mar-200703-12-2007 [facility] Internal Medicine Discontinued (92447) Biactive End : 12-Mar-200703-12-2007 Crystal [facility] Internal Medicine Discontinued (29319) Biactive End : 12-Mar-200703-12-2007 Crystal [facility] Internal Medicine Discontinued (26209) Biactive End : 12-Mar-200703-12-2007 Crystal Patel [facility] Internal Medicine Discontinued (57077) Biactive End : 12-Mar-200703-12-2007 [facility] Internal Medicine Discontinued (89090) Biactive End : 12-Mar-200703-12-2007 Crystal [facility] Internal Medicine Discontinued (15941) Biactive End : 12-Mar-200703-12-2007 Crystal Pat[facility] Internal Medicine Discontinued (76412) Biactive End : 12-Mar-200703-12-2007 Crystal [facility] Internal Medicine Discontinued (25702) Biactive End : 12-Mar-200703-12-2007 Crystal Pat[facility] Internal Medicine Discontinued (94516) Biactive End : 12-Mar-200703-12-2007 Crystal Pat[facility] Internal Medicine Discontinued (53137) Biactive End : 12-Mar-200703-12-2007 Crystal Pat[facility] Internal Medicine Discontinued (25078) Biactive End : 12-Mar-200703-12-2007 Crystal Pat[facility] Internal Medicine Discontinued (30109) Calcium 600 + CALCIUM 600 + 09-10-2007 Jeimy Mar Compreh lilliana Minerals MINERALS, Jeimy Mar Internal Med icine [id number]-IFIC (Oral (00736) Tablet) 2 QD for 0 days Refills: 0 Ordered: 10-Sep-2007 Jeimy Mar LPN End : 10-Sep-2007 Inactive CALCIUM 600 + CALCIUM 600 + 09-10-2007 Jeimy Mar Comprehens lilliana MINERALS, MINERALS, Internal Medici ne [id number]-[id number] (Oral (4469 1) (Oral Tablet) Tablet) 2 QD for 0 days Refills: 0 Ordered: 10-Sep-2007 Jeimy Mar RN End : 10-Sep-2007 Inactive CALCIUM 600 + MINERALS, 09-10-2007 Jeimy Mar Comprehely nsive Internal [id number] (Oral Tablet) 2 M edicine (41685) QD for 0 days Refills: 0 Ordered: 10-Sep-2007 Jeimy Mar RN End : 10-Sep-2007 Inactive CALCIUM 600 + MINERALS, 09-10-2007 Jeimy Ibrahim nsive Internal [id number] (Oral Tablet) 2 M edicine (95401) QD for 0 days Refills: 0 Ordered: 10-Sep-2007 Jeimy Mar RN End : 10-Sep-2007 Inactive CALCIUM 600 + MINERALS, 09-10-2007 Jeimy Ibrahim nsive Internal [id number] (Oral Tablet) 2 M edicine (19740) QD for 0 days Refills: 0 Ordered: 10-Sep-2007 Jeimy Mar RN End : 10-Sep-2007 Inactive CALCIUM 600 + MINERALS, 09-10-2007 Jeimy Ibrahim nsive Internal [id number] (Oral Tablet) 2 M edicine (94669) QD for 0 days Refills: 0 Ordered: 10-Sep-2007 Jeimy Mar RN End : 10-Sep-2007 Inactive CALCIUM 600 + MINERALS, 09-10-2007 Jeimy Ibrahim nsive Internal [id number] (Oral Tablet) 2 M edicine (27395) QD for 0 days Refills: 0 Ordered: 10-Sep-2007 Jeimy Mar RN End : 10-Sep-2007 Inactive CALCIUM 600 + MINERALS, 09-10-2007 Jeimy Ibrahim nsive Internal [id number] (Oral Tablet) 2 M edicine (34744) QD for 0 days Refills: 0 Ordered: 10-Sep-2007 Jeimy Mar LPN End : 10-Sep-2007 Inactive CALCIUM 600 + MINERALS, 09-10-2007 Jeimy Mar Comprehe nsive Internal [id number] (Oral Tablet) 2 M edicine (16313) QD for 0 days Refills: 0 Ordered: 10-Sep-2007 Jeimy Mar LPN End : 10-Sep-2007 Inactive CALCIUM 600 + MINERALS, 09-10-2007 Jeimy Mar Comprehe nsive Internal [id number] (Oral Tablet) 2 M edicine (75546) QD for 0 days Refills: 0 Ordered: 10-Sep-2007 Jeimy Mar LPN End : 10-Sep-2007 Inactive CALCIUM 600 + MINERALS, 09-10-2007 Jemiy Isabela Comprehe nsive Internal [id number] (Oral Tablet) 2 M edicine (06573) QD for 0 days Refills: 0 Ordered: 10-Sep-2007 Jeimy Mar LPN End : 10-Sep-2007 Inactive CALCIUM 600 + MINERALS, 09-10-2007 Jeimy Isabela Comprehe nsive Internal [id number] (Oral Tablet) 2 M edicine (87394) QD for 0 days Refills: 0 Ordered: 10-Sep-2007 Jeimy Mar LPN End : 10-Sep-2007 Inactive CALCIUM 600 + MINERALS, 09-10-2007 Jeimy Isabela Comprehe nsive Internal [id number] (Oral Tablet) 2 M edicine (91777) QD for 0 days Refills: 0 Ordered: 10-Sep-2007 Jeimy Mar LPN End : 10-Sep-2007 Inactive CALCIUM 600 + MINERALS, 09-10-2007 Jeimy Isabela Comprehe nsive Internal [id number] (Oral Tablet) 2 M edicine (79462) QD for 0 days Refills: 0 Ordered: 10-Sep-2007 Jeimy Mar LPN End : 10-Sep-2007 Inactive CALCIUM 600 + MINERALS, 09-10-2007 Jeimy Isabela Comprehe nsive Internal [id number] (Oral Tablet) 2 M edicine (02941) QD for 0 days Refills: 0 Ordered: 10-Sep-2007 Jeimy Mar LPN End : 10-Sep-2007 Inactive CALCIUM 600 + MINERALS, 09-10-2007 Jeimy Isabela Comprehe nsive Internal [id number] (Oral Tablet) 2 M edicine (60084) QD for 0 days Refills: 0 Ordered: 10-Sep-2007 Jeimy Mar LPN End : 10-Sep-2007 Inactive celecoxib CeleBREX 200 MG Oral 06-01-2019 Basia Prince [facility] Capsule 1 Capsule qd Chelsea Kailyn Spor ts Medicine and for 90 days Quantity: Orthop aedics (35761) 90 {Capsule} Refills: 2 Ordered: 01-Jun-2019 Kailyn DO, Chelsea Kailyn DO, Chelsea Start : 01-Jun-2019 Active CeleBREX 200 MG Oral 02-23-2019 Jaylin Rick Green [facility] Capsule 1 Capsule qd Chelsea Kailyn Sports Medi cine and for 90 days Quantity: Orthopaedi cs (29526) 90 {Capsule} Refills: 0 Ordered: 23-Feb-2019 Kailyn DO, Chelsea Kailyn DO, Chelsea Start : 23-Feb-2019 Active CeleBREX 200 MG Oral 12-03-2018 Jeimy Mar [facility] Capsule 1 Capsule qd Chelsea Kailyn Sports Medi cine and for 90 days Quantity: Orthopaedi cs (58469) 90 {Capsule} Refills: 0 Ordered: 03-Dec-2018 Kailyn DO, Chelsea Kailyn DO, Chelsea Start : 03-Dec-2018 Active CeleBREX 200 MG Oral 08-01-2018 Chelsea Kailyn [facility] Capsule 1 Capsule qd Sports Medi cine and for 0 days Quantity: Orthopaedic s (17999) 30 {Capsule} Refills: 3 Ordered: 01-Aug-2018 Kailyn DO, Chelsea Kailyn DO, Chelsea Start : 01-Aug-2018 Active CeleBREX 200 MG Oral 04-04-2017 Chelsea Kailyn [facility] Capsule 1 Capsule qd Sports Medi cine and for 0 days Quantity: Orthopaedic s (71426) 30 {Capsule} Refills: 3 Ordered: 04-Apr-2017 Kailyn DO, Chelsea Kailyn DO, Chelsea Start : 04-Apr-2017 Active CELEBREX CAPS as 09-17-2013 [facility] directed Sports Medic ine and CELECOXIB CAPS Orthopaedics (36 499) [id number] Deb Alba CELEBREX CAPS as 09-17-[address] [facility] [address] directed Sports Medic ine and CELECOXIB CAPS Orthopaedics (44 691) [id number] Deb Chaneyli CELEBREX CAPS as 09-17-[address] [facility] [address] directed Sports Medic ine and CELECOXIB CAPS Orthopaedics (44 691) [id number] Deb Verdugoorelli CELEBREX CAPS as 09-17-[address] [facility] [address] directed Sports Medic ine and CELECOXIB CAPS Orthopaedics (44 691) [id number] Deb Verdugoorelli CELEBREX CAPS as 09-17-[address] [facility] [address] directed Sports Medic ine and CELECOXIB CAPS Orthopaedics (44 691) [id number] Deb Verdugoorelli CELEBREX CAPS as 09-17-[address] [facility] [address] directed Sports Medic ine and CELECOXIB CAPS Orthopaedics (44 691) [id number] Deb Verdugoorelli CELEBREX CAPS as 09-17-[address] [facility] [address] directed Sports Medic ine and CELECOXIB CAPS Orthopaedics (44 691) [id number] Deb Verdugoorelli CELEBREX CAPS as 09-17-[address] [facility] [address] directed Sports Medic ine and CELECOXIB CAPS Orthopaedics (44 691) [id number] Deb Verdugoorelli CELEBREX CAPS as 09-17-[address] [facility] [address] directed Sports Medic ine and CELECOXIB CAPS Orthopaedics (44 691) [id number] Adrianaely Alba CELEBREX, 200MG (Oral 07-20-2013 - Chelsea Avina [facility] Capsule) 1 (one) 07-20-2013 Sports Medicine and Capsule daily for 0 Orthopaedics (97256) days Quantity: 30 {Capsule} Refills: 3 Ordered: 20-Jul-2013 Chelsea Avina DO, DO, Kathleen Start : 20-Jul-2013 End : 20-Jul-2013 Inactive Comments: nsaid use with possible gastritis Comment: nsaid use with possible augustus ritis Centrum Silver CENTRUM SILVER 09-10-2007 Jeimy Messenger Comprehe nsive (Oral Tablet) 50+ Jeimy Messenger Interna l Medicine for 0 days Refills: (33456) 0 Ordered: 10-Sep-2007 Jeimy Mar LPN End : 10-Sep-2007 Inactive CENTRUM SILVER CENTRUM SILVER 09-10-2007 Jeimy Mar Comprehe nsive (Oral Tablet) (Oral Tablet) 50+ Internal Medicine for 0 days Refills: (43585) 0 Ordered: 10-Sep-2007 Jeimy Mar RN End : 10-Sep-2007 Inactive CENTRUM SILVER (Oral Tablet) 09-10-2007 Jeimy Mar Com prehensive Internal 50+ for 0 days Refills: 0 Medici ne (55561) Ordered: 10-Sep-2007 Jeimy Mar RN End : 10-Sep-2007 Inactive CENTRUM SILVER (Oral Tablet) 09-10-2007 Jeimy Isabela Com prehensive Internal 50+ for 0 days Refills: 0 Medici ne (43006) Ordered: 10-Sep-2007 Jeimy Mar LPN End : 10-Sep-2007 Inactive CENTRUM SILVER (Oral Tablet) 09-10-2007 Jeimy Isabela Com prehensive Internal 50+ for 0 days Refills: 0 Medici ne (55330) Ordered: 10-Sep-2007 Jeimy Mar LPN End : 10-Sep-2007 Inactive CENTRUM SILVER (Oral Tablet) 09-10-2007 Jeimy Isabela Com prehensive Internal 50+ for 0 days Refills: 0 Medici ne (66810) Ordered: 10-Sep-2007 Jeimy Mar LPN End : 10-Sep-2007 Inactive CENTRUM SILVER (Oral Tablet) 09-10-2007 Jeimy Isabela Com prehensive Internal 50+ for 0 days Refills: 0 Medici ne (94086) Ordered: 10-Sep-2007 Jeimy Mar LPN End : 10-Sep-2007 Inactive CENTRUM SILVER (Oral Tablet) 09-10-2007 Jeimy Isabela Com prehensive Internal 50+ for 0 days Refills: 0 Medici ne (42827) Ordered: 10-Sep-2007 Jeimy Mar LPN End : 10-Sep-2007 Inactive CENTRUM SILVER (Oral Tablet) 09-10-2007 Jeimy Isabela Com prehensive Internal 50+ for 0 days Refills: 0 Medici ne (85244) Ordered: 10-Sep-2007 Jeimy Mar LPN End : 10-Sep-2007 Inactive CENTRUM SILVER (Oral Tablet) 09-10-2007 Jeimy Mar Com prehensive Internal 50+ for 0 days Refills: 0 Medici ne (55695) Ordered: 10-Sep-2007 Jeimy Mar MICHELLE End : 10-Sep-2007 Inactive CENTRUM SILVER (Oral Tablet) 09-10-2007 Jeimy Casas prehensive Internal 50+ for 0 days Refills: 0 Medici ne (13089) Ordered: 10-Sep-2007 Jeimy Mar PSYCH THERAPIST End : 10-Sep-2007 Inactive CENTRUM SILVER (Oral Tablet) 09-10-2007 Jeimy Casas prehensive Internal 50+ for 0 days Refills: 0 Medici ne (32364) Ordered: 10-Sep-2007 Jeimy Mar PSYCH THERAPIST End : 10-Sep-2007 Inactive Cholecalciferol Vitamin D3 125 MCG Jeimy Casas prehensive (5000 UT) Oral Tablet Adobe Maker al Medicine Disintegrating 1 bid (90825) (125 MCG (5000 UT)) Active Ciprofloxacin Ciprofloxacin HCl 500 Chelsealizzie Ovalleson [facility] MG Oral Tablet 1 (one) 0 Inter nal Medicine Tablet bid for 0 days (33854 ) Quantity: 20 {Tablet} Refills: 0 Ordered: 21-Mar-2020 Chelsea Avina DO, DO, Kathleen Start : 21-Mar-2020 Active CIPRO, 500MG (Oral 03-08-2014 - Comprehensive Internal Tablet) 1 (one) Tablet 03-18-2014 Medicine (88198) bid for 10 days Quantity: 20 {Tablet} Refills: 0 Ordered: 08-Mar-2014 Start : 08-Mar-2014 End : 18-Mar-2014 Inactive CIPRO, 250MG (Oral 08-08-2012 - Jeimy Mar Comprehensive Internal Tablet) 1 Tablet bid 08-18-2012 Chelsea Avina Medicine (4 4691) for 10 days Quantity: 20 {Tablet} Refills: 0 Ordered: 08-Aug-2012 Chelsea Avina DO, DO, Kathleen Start : 08-Aug-2012 End : 18-Aug-2012 Inactive Clarithromycin BIAXIN, 500MG (Oral 04-30-2012 - Shanta Allen Compre hensive Tablet) 1 Tablet bid 05-10-2012 Interna l Medicine for 10 days (35127) Quantity: 20 {Tablet} Refills: 0 Ordered: 30-Apr-2012 Shanta Allen CNP Start : 30-Apr-2012 End : 10-May-2012 Inactive Codeine / GUAIATUSSIN AC, 06-08-2008 - DONNA Comprehensiv e guaiFENesin 100-10MG/5ML (Oral 12-24-2008 [facility] Medicine Syrup) 1 Syrup 1tsp (89310) at hs for 0 days Quantity: 6 {Ounce(s)} Refills: 0 Ordered: 08-Jun-2008 DONNA Polk LPN Start : 08-Jun-2008 End : 24-Dec-2008 Inactive cyclobenzaprine Cyclobenzaprine HCl 05-29-2019 - Jeimy Compr ehensive 10 MG Oral Tablet 1 06-08-2019 [facility] Internal Medicine Tablet tid for 10 (98278) days Quantity: 30 {Tablet} Refills: 0 Ordered: 29-May-2019 Jeimy Mar RN Start : 29-May-2019 End : 08-Jun-2019 Inactive Desoximetasone Topicort 0.25 % 03-08-2017 - Jeimy Tejeda lilliana External Cream TAD 12-19-2018 [facility] Internal Medicine Cream daily for 0 (01136) days Quantity: 15 {Applicator} Refills: 4 Ordered: 19-Dec-2018 Jeimy Mar RN Start : 08-Mar-2017 End : 19-Dec-2018 Inactive DULoxetine CYMBALTA, 30MG (Oral 03-12-2007 - DONNA Machado ensive Capsule Delayed 05-22-2007 [facility] Internal Med icine Release Particles) 1 (38131) (one) Capsule DR Part Daily for 0 days Quantity: 30 {Capsule_DR_Part} Refills: 8 Ordered: 22-May-2007 DONNA Polk LPN Start : 12-Mar-2007 End : 22-May-2007 Discontinued CYMBALTA, 30MG (Oral 03-12-2007 - DONNA Tejedai ve Internal Capsule Delayed Release 05-22-2007 Medicine (34734) Particles) 1 (one) Capsule DR Part Daily for 0 days Quantity: 30 {Capsule_DR_Part} Refills: 8 Ordered: 22-May-2007 DONNA Polk Start : 12-Mar-2007 End : 22-May-2007 Discontinued escitalopram Lexapro 20 MG [facility] 08-24-2019 [facility] Tablet QD Chelsea [facility] Sports Medicine and for 0 days Quantity: Orthopa edics (11904) 90 {Tablet} Refills: 3 Ordered: 24-Aug-2019 Kailyn DO, Chelsea Kailyn DO, Chelsea Start : 24-Aug-2019 Active Lexapro 20 MG Oral Tablet 03-04-2018 Jeimy Mar [facility] Sports 1 Tablet QD for 0 days Chelsea Kailyn Medicine and Orthopaedics Quantity: 90 {Tablet} (61555) Refills: 3 Ordered: 04-Mar-2018 Kailyn DO, Chelsea Kailyn DO, Chelsea Start : 04-Mar-2018 Active LEXAPRO TABS as directed 09-17-2013 [facility] ESCITALOPRAM Medicine and Orthopaedics OXALATE TABS [id number] (58118) Deb Alba LEXAPRO TABS as directed 09-17-2013 [facility] ESCITALOPRAM Medicine and Orthopaedics OXALATE TABS [id number] (57084) Deb Alba LEXAPRO TABS as directed 09-17-2013 [facility] ESCITALOPRAM Medicine and Orthopaedics OXALATE TABS [id number] (19570) Deb Alba LEXAPRO TABS as directed 09-17-2013 [facility] ESCITALOPRAM Medicine and Orthopaedics OXALATE TABS [id number] (83233) Deb Alba LEXAPRO TABS as directed 09-17-2013 [facility] ESCITALOPRAM Medicine and Orthopaedics OXALATE TABS [id number] (83815) Deb Alba LEXAPRO TABS as directed 09-17-2013 [facility] ESCITALOPRAM Medicine and Orthopaedics OXALATE TABS [id number] (48567) Deb Alba LEXAPRO TABS as directed 09-17-2013 [facility] ESCITALOPRAM Medicine and Orthopaedics OXALATE TABS [id number] (17390) Deb Alba LEXAPRO TABS as directed 09-17-2013 [facility] ESCITALOPRAM Medicine and Orthopaedics OXALATE TABS [id number] (50033) Deb Alba LEXAPRO TABS as directed 09-17-2013 [facility] ESCITALOPRAM Medicine and Orthopaedics OXALATE TABS [id number] (66735) Deb Alba Estradiol LILIANA-DOT, 04-13-2011 - Jeimy Mar Comprehensiv e 0.05MG/24HR 08-17-2011 Internal Medici ne (Transdermal Patch (70611) Biweekly) 1 Patch Biweekly uad for 0 days Quantity: 24 {Patch_Biweekly} Refills: 3 Ordered: 17-Aug-2011 Messenger Jeimy PEREZ Start : 13-Apr-2011 End : 17-Aug-2011 Inactive Comments: taper off Comment: taper off fexofenadine SNEHA ALLERGY TABS [facility] daily Medici ne and Orthopaedics FEXOFENADINE HCL (30251) TABS [id number] Adrianaely Verdugoorelli SNEHA ALLERGY TABS One 12-11-2011 [facility] Sports tablet by mouth daily Medicine a nd Orthopaedics FEXOFENADINE HCL (446 91) TABS [id number] Adriana Chicorelli SNEHA ALLERGY TABS One 12-11-[address] [facility] Sports tablet by mouth daily Medicine a nd Orthopaedics FEXOFENADINE HCL (446 91) TABS [id number] Adriana Chicorelli SNEHA ALLERGY TABS One 12-11-2011 [facility] Sports tablet by mouth daily Medicine a nd Orthopaedics FEXOFENADINE HCL (446 91) TABS [id number] Adriana Chicorelli SNEHA ALLERGY TABS One 12-11-2011 [facility] Sports tablet by mouth daily Medicine a nd Orthopaedics FEXOFENADINE HCL (446 91) TABS [id number] Adriana Chicorelli SNEHA ALLERGY TABS One 12-11-2011 [facility] Sports tablet by mouth daily Medicine a nd Orthopaedics FEXOFENADINE HCL (446 91) TABS [id number] Deb Chaneyli SNEHA ALLERGY TABS One 12-11-2011 [facility] Sports tablet by mouth daily Medicine a nd Orthopaedics FEXOFENADINE HCL (446 91) TABS [id number] Deb Camacho Chicorelli SNEHA ALLERGY TABS One 12-11-2011 [facility] Sports tablet by mouth daily Medicine a nd Orthopaedics FEXOFENADINE HCL (446 91) TABS [id number] Deb Chaneyli SNEHA ALLERGY TABS One 12-11-2011 [facility] by mouth daily Medicine a nd Orthopaedics FEXOFENADINE HCL (446 91) TABS [id number] Deb Alba SNEHA, 180MG (Oral Tablet) 12-07-2010 Stella Estrada [facility] Sports 1 Tablet qd prn for 0 days Medic ine and Orthopaedics Quantity: 30 {Tablet} (58469) Refills: 3 Ordered: 07-Dec-2010 Stella Estrada Start : 07-Dec-2010 Active Fluconazole Fluconazole 150 MG 03-21-2020 Chelsea Avina Compre hensive Internal Oral Tablet 1 (one) Medicine (60792) Tablet once, then repeat when done with antibiotic for 0 days Quantity: 2 {Tablet} Refills: 1 Ordered: 21-Mar-2020 Chelsea Avina DO, DO, Kathleen Start : 21-Mar-2020 Active Diflucan 150 MG Oral 10-12-2015 - Itzel Slarb Comprehensi ve Internal Tablet 1 (one) Tablet qd 12-20-2015 Medicin e (90793) for 0 days Quantity: 2 {Tablet} Refills: 0 Ordered: 20-Dec-2015 Slarb PSYCH THERAPIST Itzel Start : 12-Oct-2015 End : 20-Dec-2015 Discontinued Comments: take one now and repeat in 4 days. FLUCONAZOLE, 150MG (Oral 12-07-2010 - Pauly Kan Compreh ensive Internal Tablet) 1 (one) Tablet 09-12-2011 Medicine (27069) once for 0 days Quantity: 1 {Tablet} Refills: 0 Ordered: 12-Sep-2011 Pauly Kan LPN Start : 07-Dec-2010 End : 12-Sep-2011 Inactive DIFLUCAN, 150MG (Oral 04-01-2008 - Megan Johnna Comprehens lilliana Internal Tablet) 1 Tablet one 06-08-2008 Medicine (4 4691) time dose for 0 days Quantity: 1 {Tablet} Refills: 0 Ordered: 01-Apr-2008 Megan Oropeza Start : 01-Apr-2008 End : 08-Jun-2008 Discontinued Comment: take one now and repeat in 4 days. FLUoxetine PROZAC, 20MG (Oral 02-15-2012 - Chelsea Avina Comprely hensive Capsule) 1/2 (one 02-15-2012 Internal M edicine half) Capsule qd for (19209) 0 days Quantity: 30 {Capsule} Refills: 3 Ordered: 15-Feb-2012 Chelsea Avina DO, DO, Kathleen Start : 15-Feb-2012 End : 15-Feb-2012 Discontinued Comments: christine Comment: christine fluticasone Fluticasone 03-27-2019 [facility] Propionate 50 MCG/ACT Chelsea Avina Spo rts Medicine and Nasal Suspension 1 Orthopaed ics (30497) (one) Suspension each nostril daily for 0 days Quantity: 3 {Bottle} Refills: 3 Ordered: 27-Mar-2019 Chelsea Avina DO, DO, Kathleen Start : 27-Mar-2019 Active Fluticasone Propionate 08-23-2017 [facility] MCG/ACT Nasal Sports Medicine and Suspension 1 (one) Orthopaedics (09588) Suspension each nostril daily for 0 days Quantity: 3 {Bottle} Refills: 3 Ordered: 23-Aug-2017 Chelsea Avina DO, DO, Kathleen Start : 23-Aug-2017 Active FLONASE SUSP as needed 12-11-2011 [facility] FLUTICASONE Sports Me dicine and PROPIONATE SUSP Orthopaedics (88 711) [id number] Deb Alba FLONASE SUSP as needed 12-11-2011 [facility] FLUTICASONE Sports Me dicine and PROPIONATE SUSP Orthopaedics (99 992) [id number] Adriana Chicorelli FLONASE SUSP as needed 12-11-2011 [facility] FLUTICASONE Sports Me dicine and PROPIONATE SUSP Orthopaedics (44 691) [id number] Deb Chaneyli FLONASE SUSP as needed 12-11-2011 [facility] FLUTICASONE Sports Me dicine and PROPIONATE SUSP Orthopaedics (44 691) [id number] Deb Verdugoorelli FLONASE SUSP as needed 12-11-2011 [facility] FLUTICASONE Sports Me dicine and PROPIONATE SUSP Orthopaedics (44 691) [id number] Deb Chaneyli FLONASE SUSP as needed 12-11-2011 [facility] FLUTICASONE Sports Me dicine and PROPIONATE SUSP Orthopaedics (44 691) [id number] Deb Verdugoorelli FLONASE SUSP as needed 12-11-2011 [facility] FLUTICASONE Sports Me dicine and PROPIONATE SUSP Orthopaedics (44 691) [id number] Deb Chaneyli FLONASE SUSP as needed 12-11-2011 [facility] FLUTICASONE Sports Me dicine and PROPIONATE SUSP Orthopaedics (44 691) [id number] Deb Chaneyli FLONASE SUSP as needed 12-11-2011 [facility] FLUTICASONE Sports Me dicine and PROPIONATE SUSP Orthopaedics (44 691) [id number] Deb PATNASE, 50MCG/DOSE 07-01-2006 - Pauly Kan [facility] (Nasal Inhalant) 1 spray 07-01-2006 Sports Medicine and PRN QD for 0 days Orthopaedics ( 00895) Refills: 0 Ordered: 01-Jul-2006 Pauly Kan LPN Start : 01-Jul-2006 End : 01-Jul-2006 Discontinued Comments: This order discontinued per [facility]. Comment: This order discontinued per [facility]. gabapentin NEURONTIN, 300MG 07-14-2015 - Jeimy dejesusive (Oral Capsule) 1 08-31-2015 Internal Me dicine (one) Capsule qhs (68892) for 5days and then bid for 0 days Quantity: 60 {Capsule} Refills: 0 Ordered: 31-Aug-2015 Jeimy Mar RN Start : 14-Jul-2015 End : 31-Aug-2015 Inactive Comments: substitue generic Comment: substitue generic hydroCHLOROthiazide hydroCHLOROthiazide 25 02-29-2020 Radha bauer [facility] Oral Tablet 1 (one) [facility] Tablet daily for 0 days Kailyn Medi cine and Quantity: 90 {Tablet} Orthop aedics Refills: 3 Ordered: (14047) 29-Feb-2020 Akilyn DO, Chelsea Kailyn DO, Chelsea Start : 29-Feb-2020 Active hydroCHLOROthiazide 25 MG Oral 02-23-2019 Jaylin Cabrera [facility] Tablet 1 (one) Tablet daily for Chelsea Kailyn Sports Medicine and 0 days Quantity: 90 {Tablet} Ort hopaedics (75509) Refills: 3 Ordered: 23-Feb-2019 Kailyn DO, Chelsea Kailyn DO, Chelsea Start : 23-Feb-2019 Active HydroCHLOROthiazide 25 MG Oral 02-26-2018 Jeimy [facility] Tablet 1 (one) Tablet daily for Chelsea Kailyn Sports Medicine and 0 days Quantity: 90 {Tablet} Ort hopaedics (49721) Refills: 3 Ordered: 26-Feb-2018 Kailyn DO, Chelsea Kailyn DO, Chelsea Start : 26-Feb-2018 Active HYDROCHLOROTHIAZIDE TABS as 09-17-2013 [facility] directed Sports Medic ine and HYDROCHLOROTHIAZIDE TABS Orthopa edics (91966) [id number] Deb Alba HYDROCHLOROTHIAZIDE TABS as 09-17-2013 [facility] directed Sports Medic ine and HYDROCHLOROTHIAZIDE TABS Orthopa edics (60675) [id number] Deb Alba HYDROCHLOROTHIAZIDE TABS as 09-17-2013 [facility] directed Sports Medic ine and HYDROCHLOROTHIAZIDE TABS Orthopa edics (79814) [id number] Deb Alba HYDROCHLOROTHIAZIDE TABS as 09-17-2013 [facility] directed Sports Medic ine and HYDROCHLOROTHIAZIDE TABS Orthopa edics (07777) [id number] Deb Camacho Anjali HYDROCHLOROTHIAZIDE TABS as 09-17-2013 [facility] directed Sports Medic ine and HYDROCHLOROTHIAZIDE TABS Orthopa edics (64220) [id number] Deb Verdugosean HYDROCHLOROTHIAZIDE TABS as 09-17-2013 [facility] directed Sports Medic ine and HYDROCHLOROTHIAZIDE TABS Orthopa edics (40670) [id number] Deb Verdugosean HYDROCHLOROTHIAZIDE TABS as 09-17-2013 [facility] directed Sports Medic ine and HYDROCHLOROTHIAZIDE TABS Orthopa edics (01327) [id number] Deb Camacho Anjali HYDROCHLOROTHIAZIDE TABS as 09-17-2013 [facility] directed Sports Medic ine and HYDROCHLOROTHIAZIDE TABS Orthopa edics (74190) [id number] Deb Camacho Anjali HYDROCHLOROTHIAZIDE TABS as 09-17-2013 [facility] directed Sports Medic ine and HYDROCHLOROTHIAZIDE TABS Orthopa edics (84677) [id number] Deb Alba HYDROCHLOROTHIAZIDE 25 MG TABS 12-11-2011 [facility] One tablet by mouth daily Sports Medicine and HYDROCHLOROTHIAZIDE O rthopaedics (06008) [id number] Deb Alba Ibuprofen IBUPROFEN, 800MG 08-17-2011 - DONNA Dumont sive (Oral Tablet) 1 04-30-2012 Internal Med icine Tablet tid with food (35045) for 0 days Quantity: 60 {Tablet} Refills: 0 Ordered: 30-Apr-2012 DONNA Polk LPN Start : 17-Aug-2011 End : 30-Apr-2012 Inactive Comments: sixty Comment: sixty Lactobacillus CULTURELLE, 10B 09-12-2011 - DONNA Phillip ve rhamnosus GG CELL (Oral Capsule) 04-30-2012 [facility] Medicine 1 Capsule bid for 0 (21153) days Quantity: 30 {Capsule} Refills: 0 Ordered: 30-Apr-2012 DONNA Polk LPN Start : 12-Sep-2011 End : 30-Apr-2012 Inactive levoFLOXacin LEVAQUIN, 500MG 04-01-2008 - Megan Calame Comprehensi ve (Oral Tablet) 1 06-08-2008 Internal Med icine (one) Tablet Daily (55343) for 0 days Quantity: 10 {Tablet} Refills: 0 Ordered: 01-Apr-2008 Megan Oropeza Start : 01-Apr-2008 End : 08-Jun-2008 Discontinued LORazepam LORazepam 0.5 MG 08-24-2019 - Basia Comprehensi ve Oral Tablet 1 09-23-2019 [facility] Tablet qd prn for Chelsea (37803) 30 days Quantity: Kailyn 30 {Tablet} Refills: 0 Ordered: 24-Aug-2019 Kailyn DOChelseaon DO, Chelsea Start : 24-Aug-2019 End : 23-Sep-2019 Inactive Comments: THIRTYanxiety F41.9 LORazepam 0.5 MG Oral 06-17-2018 - Jeimy Machadoens lilliana Internal Tablet 1 Tablet qd prn 07-17-2018 Chelsea Ovalleson Medicine (63256) for 30 days Quantity: 30 {Tablet} Refills: 0 Ordered: 17-Jun-2018 Kailyn DO, Chelsea Kailyn DO, Chelsea Start : 17-Jun-2018 End : 17-Jul-2018 Inactive Comments: THIRTYanxiety F41.9 Comment: THIRTYanxiety F41.9 Menopause Oral Tablet Menopause Oral Tablet Jeimy miranda Comprehensive Internal 1 qd Active Comments: Medici ne (27799) 731 Menopause Oral Tablet 1 qd Jeimy Abebe ensive Internal Medicine Active Comments: 731 (69003) Comment: 731 metaxalone Metaxalone 800 MG 09-05-2016 - Jeimy Mar Compreh ensive Oral Tablet 1 03-08-2017 Internal Medic ine Tablet tid for 0 (21768) days Quantity: 30 {Tablet} Refills: 0 Ordered: 08-Mar-2017 Jeimy Mar RN Start : 05-Sep-2016 End : 08-Mar-2017 Inactive Comments: thirty Comment: thirty methylprednisoLONE MEDROL 4 MG TBPK take as 01-18-2016 [facility] directed Ramírez Sports M edicine METHYLPREDNISOLONE and Ortho paedics [phone] [facility] (46848 ) Ramírez MEDROL 4 MG TBPK take as directed 01-18-[address] [facility] Sports METHYLPREDNISOLONE Me dicine and Orthopaedics [phone] [facility] [place] (4469 1) MEDROL 4 MG TBPK take as directed 01-18-[address] [facility] Sports METHYLPREDNISOLONE Me dicine and Orthopaedics [phone] [facility] [place] (4469 1) MEDROL 4 MG TBPK take as directed 01-18-[address] [facility] Sports METHYLPREDNISOLONE Me dicine and Orthopaedics [phone] [facility] [place] (4469 1) MEDROL 4 MG TBPK take as directed 01-18-[address] [facility] Sports METHYLPREDNISOLONE Me dicine and Orthopaedics [phone] [facility] [place] (4469 1) Mometasone NASONEX, 50MCG/ACT 09-24-2011 - Jeimy Abebee hensive (Nasal Suspension) 2 11-29-2011 Interna l Medicine (two) Suspension (89874) daily for 0 days Quantity: 1 {Suspension} Refills: 1 Ordered: 29-Nov-2011 Jeimy Mar RN Start : 24-Sep-2011 End : 29-Nov-2011 Inactive Morphine Morphine Sulfate 15 08-01-2016 - Jeimy Abebe ehensive MG Oral Tablet 1 03-08-2017 Internal Me dicine (one) Tablet Tablet (76958) bid for 0 days Quantity: 30 {Tablet} Refills: 0 Ordered: 08-Mar-2017 Jeimy Mar RN Start : 01-Aug-2016 End : 08-Mar-2017 Inactive Comments: thirty Comment: thirty naproxen NAPROXEN SODIUM, 02-27-2013 - Jeimy Mar [facility] 220MG (Oral Capsule) 08-31-2015 Sports Medicine and 1 Capsule Capsule qd Orthopa edics (73312) for 30 days Refills: 0 Ordered: 31-Aug-2015 Jeimy Mar RN Start : 27-Feb-2013 End : 31-Aug-2015 Inactive ALEVE 220 MG TABS One tablet by 12-11-2011 [facility] Sports Medicine mouth daily NAPROXEN and Orthopaedics (16541) SODIUM [id number] Deb Alba Nitrofurantoin Nitrofurantoin 07-08-2019 - Jeimy Comprehi ve Macrocrystal 100 MG 09-18-2019 [facility] Internal Medicine Oral Capsule 1 (10450) (one) Capsule bid for 0 days Quantity: 20 {Capsule} Refills: 0 Ordered: 18-Sep-2019 Messenger ANAJeimy Start : 08-Jul-2019 End : 18-Sep-2019 Inactive NITROFURANTOIN, Macrobid 100 MG 11-25-2017 - Chelsea Dumont sive MACROCRYSTALS / Oral Capsule 1 12-05-2017 Kailyn Internal M edicine Nitrofurantoin, (one) Capsule bid (08015) Monohydrate for 10 days Quantity: 20 {Capsule} Refills: 0 Ordered: 25-Nov-2017 Kailyn DOChelsea DOChelsea Start : 25-Nov-2017 End : 05-Dec-2017 Inactive Nystatin NYSTATIN, 04-04-2012 - Shanta Sykes [facility] Comprehensive [id number] 04-14-2012 Internal Medic ine (External Powder) 1 (93315) Powder bid for 10 days Refills: 0 Ordered: 04-Apr-2012 Ciesa SHARONDAShanta Start : 04-Apr-2012 End : 14-Apr-2012 Inactive NYSTATIN, 899944ZGXG/GM 04-04-2012 - Mary Lou Ciesa Comprehe nsive Internal (External Powder) 1 04-14-2012 Medicine (44 691) Powder bid for 10 days Refills: 0 Ordered: 04-Apr-2012 Ciesa SHARONDAShanta Start : 04-Apr-2012 End : 14-Apr-2012 Inactive NYSTATIN, 739715CFZN/GM 04-04-2012 - Mary Lou Ciesa Comprehe nsive Internal (External Powder) 1 04-14-2012 Medicine (44 691) Powder bid for 10 days Refills: 0 Ordered: 04-Apr-2012 Ciesa SHARONDAShanta Start : 04-Apr-2012 End : 14-Apr-2012 Inactive NYSTATIN, 673169GSLA/GM 04-04-2012 - Mary Lou Ciesa Comprehe nsive Internal (External Powder) 1 04-14-2012 Medicine (44 691) Powder bid for 10 days Refills: 0 Ordered: 04-Apr-2012 Ciesa SHARONDAShanta Start : 04-Apr-2012 End : 14-Apr-2012 Inactive NYSTATIN, 744332LBUH/GM 04-04-2012 - Shanta Sykes [facility] Comprehe nsive Internal (External Powder) 1 04-14-2012 Medicine (44 691) Powder bid for 10 days Refills: 0 Ordered: 04-Apr-2012 hSanta Allen CNP Start : 04-Apr-2012 End : 14-Apr-2012 Inactive NYSTATIN, 685691SJNN/GM 04-04-2012 - Shanta Sykes [place] Comprehe nsive Internal (External Powder) 1 04-14-2012 Medicine (44 691) Powder bid for 10 days Refills: 0 Ordered: 04-Apr-2012 Shanta Allen CNP Start : 04-Apr-2012 End : 14-Apr-2012 Inactive NYSTATIN, 243041QASH/GM 04-04-2012 - Shanta Sykes [place] Comprehe nsive Internal (External Powder) 1 04-14-2012 Medicine (44 691) Powder bid for 10 days Refills: 0 Ordered: 04-Apr-2012 Shanta Allen CNP Start : 04-Apr-2012 End : 14-Apr-2012 Inactive NYSTATIN, 042254DMPT/GM 04-04-2012 - Shanta Sykes [place] Comprehe nsive Internal (External Powder) 1 04-14-2012 Medicine (44 691) Powder bid for 10 days Refills: 0 Ordered: 04-Apr-2012 Shanta Allen CNP Start : 04-Apr-2012 End : 14-Apr-2012 Inactive NYSTATIN, 595903ZWRR/GM 04-04-2012 - Shanta Sykes [place]iesa Comprehe nsive Internal (External Powder) 1 04-14-2012 Medicine (44 691) Powder bid for 10 days Refills: 0 Ordered: 04-Apr-2012 Shanta Allen CNP Start : 04-Apr-2012 End : 14-Apr-2012 Inactive NYSTATIN, 812862EJVB/GM 04-04-2012 - Shanta Sykes Ciesa Comprehe nsive Internal (External Powder) 1 04-14-2012 Medicine (44 691) Powder bid for 10 days Refills: 0 Ordered: 04-Apr-2012 Shanta Allen CNP Start : 04-Apr-2012 End : 14-Apr-2012 Inactive NYSTATIN, 327445PZXU/GM 04-04-2012 - Shanta Sykes Ciesa Comprehe nsive Internal (External Powder) 1 04-14-2012 Medicine (44 691) Powder bid for 10 days Refills: 0 Ordered: 04-Apr-2012 Shanta Allen CNP Start : 04-Apr-2012 End : 14-Apr-2012 Inactive NYSTATIN, 063954KPYX/GM 04-04-2012 - Shanta Ibrahim nsive Internal (External Powder) 1 04-14-2012 Medicine (44 691) Powder bid for 10 days Refills: 0 Ordered: 04-Apr-2012 Shanta Allen CNP Start : 04-Apr-2012 End : 14-Apr-2012 Inactive Ospemifene OSPHENA, 60MG (Oral 11-03-2013 - Jeimy Mar Compr ehensive Tablet) 1 (one) 05-02-2015 Internal Med icine Tablet Tablet daily (52759) for 0 days Quantity: 30 {Tablet} Refills: 11 Ordered: 02-May-2015 Jeimy Mar RN Start : 03-Nov-2013 End : 02-May-2015 Inactive pantoprazole PROTONIX, 40MG 12-24-2013 - [facility] ([facility] Tablet 05-02-2015 Sports Medicine and Delayed Release) 1 Orthopaed ics (59283) (one) Tablet DR Tablet DR qd for 30 days Quantity: 30 {Tablet} Refills: 3 Ordered: 02-May-2015 Jeimy Mar RN Start : 24-Dec-2013 End : 02-May-2015 Inactive PROTONIX TBEC as directed 09-17-2013 [facility] Sports Medicine PANTOPRAZOLE SODIUM TBEC [id number] and Orthopaedics (24179) Deb Alba PROTONIX TBEC as directed 09-17-2013 [facility] Sports Medicine PANTOPRAZOLE SODIUM TBEC 62827455123 and Orthopaedics (02783) Deb Verdugoorelgiuseppe PROTONIX TBEC as directed 09-17-2013 [facility] Sports Medicine PANTOPRAZOLE SODIUM TBEC 00543360031 and Orthopaedics (97422) Deb Verdugoorelgiuseppe PROTONIX TBEC as directed 09-17-2013 [facility] Sports Medicine PANTOPRAZOLE SODIUM TBEC 32347474184 and Orthopaedics (32819) Deb Verdugoorelgiuseppe PROTONIX TBEC as directed 09-17-2013 [facility] Sports [facility] PANTOPRAZOLE SODIUM TBEC 84859800864 and Orthopaedics (33883) AdrianaJanice Alba PROTONIX TBEC as directed 09-17-2013 [facility] PANTOPRAZOLE SODIUM TBEC [id number] and Orthopaedics (53214) Adrianaely Alba PROTONIX TBEC as directed 09-17-2013 [facility] Sports [facility] PANTOPRAZOLE SODIUM TBEC 90846344091 and Orthopaedics (59207) Adrianaely Alba PROTONIX TBEC as directed 09-17-2013 [facility] PANTOPRAZOLE SODIUM TBEC [id number] and Orthopaedics (12295) Deb Alba PROTONIX TBEC as directed 09-17-2013 [facility] PANTOPRAZOLE SODIUM TBEC [id number] and Orthopaedics (45598) Deb Alba Phenazopyridine Pyridium 100 MG 12-20-2015 - Shanta Machadoen sive Oral Tablet 1 12-22-2015 Internal Medic ine Tablet tid for 2 (47118) days Quantity: 6 {Tablet} Refills: 0 Ordered: 20-Dec-2015 Shanta Allen CNP Start : 20-Dec-2015 End : 22-Dec-2015 Inactive Potassium Chloride KLOR-CON M20, 07-14-2013 - Jeimy Mar Compr ehensive 20MEQ (Oral 05-02-2015 Internal Medici ne Tablet Extended (97678) Release) 1 (one) Tablet ER Tablet ER bid for 30 days Refills: 0 Ordered: 02-May-2015 Jeimy Mar RN Start : 14-Jul-2013 End : 02-May-2015 Inactive prasterone Intrarosa 6.5 MG 09-24-2019 Chelsea Avina Comprehely nsive Vaginal Insert 1 Internal Me dicine (one) Unit qhs (73023) for 0 days Quantity: 30 {Applicator} Refills: 3 Ordered: 24-Sep-2019 Chelsea Avina DO, DO, Kathleen Start : 24-Sep-2019 Active predniSONE predniSONE 10 MG 07-31-2019 - Jeimy Messenger Comprehe nsive Oral Tablet 1 09-18-2019 Internal Medic ine (one) Tablet qd (68492) for 0 days Quantity: 3 {Tablet} Refills: 0 Ordered: 18-Sep-2019 Jeimy Mar RN Start : 31-Jul-2019 End : 18-Sep-2019 Inactive PredniSONE 20 MG Oral 03-21-2017 - Jeimy Tejeda lilliana Internal Tablet 1 (one) Tablet 03-29-2017 Medicine ( 61373) bid for 2days then qd wiht food for 0 days Quantity: 9 {Tablet} Refills: 0 Ordered: 29-Mar-2017 Jeimy Mar RN Start : 21-Mar-2017 End : 29-Mar-2017 Inactive traMADol TraMADol HCl 50 MG Jeimy Mar Comprely hensive Oral Tablet 1 prn (50 Adobe Maker al Medicine MG) Inactive (19423) valACYclovir VALTREX, 1GM (Oral 04-10-20 Jeimy Mar Comprely hensive Tablet) 1 Tablet tid 10 - Interna l Medicine for 0 days Quantity: 08-17-19 (31425) 21 {Tablet} Refills: 12 0 Ordered: 17-Aug-2011 Jeimy Mar RN Start : 10-Apr-2010 End : 17-Aug-2011 Inactive Wt Smart one A day Wt Smart one A day 06-28-19 Pauly Suggs omprehensive End : 28-Jun-2006 07 Internal M edicine Discontinued (41695) Wt Smart one A day End : 06-28-2006 Pauly Kan Compreh ensive Internal 28-Jun-2006 Discontinued Medicin e (79634) Wt Smart one A day End : 06-28-2006 Pauly Kan Compreh ensive Internal 28-Jun-2006 Discontinued Medicin e (51168) Wt Smart one A day End : 06-28-2006 Pauly Kan Compreh ensive Internal 28-Jun-2006 Discontinued Medicin e (95755) Wt Smart one A day End : 06-28-2006 Pauly Kan Compreh ensive Internal 28-Jun-2006 Discontinued Medicin e (43015) Wt Smart one A day End : 06-28-2006 Pauly Kan Compreh ensive Internal 28-Jun-2006 Discontinued Medicin e (99759) Wt Smart one A day End : 06-28-2006 Pauly Kan Compreh ensive Internal 28-Jun-2006 Discontinued Medicin e (85121) Wt Smart one A day End : 06-28-2006 Pauly Lucius Compreh ensive Internal 28-Jun-2006 Discontinued Medicin e (83104) Wt Smart one A day End : 06-28-2006 Pauly Lucius Compreh ensive Internal 28-Jun-2006 Discontinued Medicin e (92486) Wt Smart one A day End : 06-28-2006 Pauly Lucius Compreh ensive Internal 28-Jun-2006 Discontinued Medicin e (04484) Wt Smart one A day End : 06-28-2006 Pauly Lucius Compreh ensive Internal 28-Jun-2006 Discontinued Medicin e (61785) Wt Smart one A day End : 06-28-2006 Pauly Lucius Compreh ensive Internal 28-Jun-2006 Discontinued Medicin e (08135) Wt Smart one A day End : 06-28-2006 Pauly Lucius Compreh ensive Internal 28-Jun-2006 Discontinued Medicin e (72144) Wt Smart one A day End : 06-28-2006 Pauly Lucius Compreh ensive Internal 28-Jun-2006 Discontinued Medicin e (42253) Wt Smart one A day End : 06-28-2006 Pauly Lucius Compreh ensive Internal 28-Jun-2006 Discontinued Medicin e (44247) Wt Smart one A day End : 06-28-2006 Pauly Lucius Compreh ensive Internal 28-Jun-2006 Discontinued Medicin e (18465) zolpidem Ambien 10 MG Oral 09-24-2019 Jeimy [facility] Tablet 1 Tablet Chelsea Avina Sports Me dicine and qhs/prn for 0 days Orthopaed ics (98234) Quantity: 30 {Tablet} Refills: 1 Ordered: 24-Sep-2019 Chelsea Avina DO, DO, Kathleen Start : 24-Sep-2019 Active Ambien 10 MG Oral Tablet 12-19-2018 [facility] Sports 1 Tablet qhs for 0 days Medicine and Orthopaedics Quantity: 30 {Tablet} (09824) Refills: 1 Ordered: 19-Dec-2018 Jeimy Mar LPN Start : 19-Dec-2018 Active Ambien 10 MG Oral Tablet 08-23-2017 [facility] Sports 1 Tablet qhs for 0 days Chelsealizzie Avina Medicine and Orthopaedics Quantity: 30 {Tablet} (67752) Refills: 1 Ordered: 23-Aug-2017 Chelsea Avina DO, DO Chelsea Start : 23-Aug-2017 Active AMBIEN 10 MG TABS as 12-11-2011 [facility] Sports needed Medicine and O rthopaedics ZOLPIDEM TARTRATE (08517) [id number] Deb Camacho Anjali Problems Active Problems Category Problem Name Status Date Location Abdominal pain Acute abdominal pain Active 05-02-2015 - Compr ehensive Internal Medicine (37052 ) Comment: ? divert vs appy Acute bronchitis Acute bronchitis Active 12-20-2009 - Compreh ensive Internal Medicine (57360 ) Allergic reactions Eczema Active Comprehen sive Internal Medicine (41325 ) Anxiety disorders Anxiety Active Comprehens lilliana Internal Medicine (51281 ) Chronic obstructive Bronchitis Active 09-24-2019 - Comprehe nsive Internal pulmonary disease and Medici ne (35917) bronchiectasis Conditions associated Dizziness and Active Compr ehensive Internal with dizziness or giddiness Medicine ( 16959) vertigo Comment: apart of sinus or discontinu ation sx of lexapro Disorders of lipid Hypercholesterolemia Active C omprehensive metabolism Internal Medici ne (41063) Essential Benign essential Active Comprehensi ve hypertension hypertension Internal Medici ne (36811) Fluid and electrolyte Hyperpotassemia Active Com prehensive disorders [place] (01272) Genitourinary Blood in urine Active 09-24-19 Comprehensiv e symptoms and 20 - Internal Medici ne ill-defined (62058) conditions Immunizations and Need for prophylactic Active C omprehensive screening for vaccination and inoculation Internal Medicine infectious disease against influenza (977 24) Infective arthritis Unspecified infective Active Comprehensive and osteomyelitis arthritis, site unspecified Internal Medicine (except that caused (23395) by tuberculosis or sexually transmitted disease) Joint disorders and Derangement of knee Active 04-05-20 [facility] dislocations; 16 - Sports Medicin e and trauma-related Orthopaedics (42698) Lymphadenitis Lymphadenopathy Active Comprehensi ve Internal Medici ne (33910) Comment: will send ct to dr mclean to see if he thinks it needs bx -- but clustered no dominant nodule , and not of clinical signif size Menopausal disorders Menopausal syndrome Active Comprehensive Internal Medicine (13619) Comment: weaning off hrt -- rec takin g evening primrose Mood disorders [facility] Internal Medicine (34342) Comment: doesnt want more meds - she talks her self out of--very short lived Mycoses Candidiasis Active 02-27-2013 - Comprehensive I nternal Medicine (87981) Comment: bilateral underarms Nausea and vomiting Nausea Active 05-02-2015 - Comprehe nsive Internal Medicine (78847) Comment: etiology unclear?- part of p roblem or from pot supplements at this point 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 gerd? cbd stone?- Nutritional deficiencies Vitamin D deficiency Active Comprehensive Internal Medicine (35627 ) Comment: currently taking 10K daily f or immunity building with covid Osteoarthritis Osteoarthritis of left Active [facility] knee joint Sports Medicine and Orthopaedics (4 6360) Other [facility] (50168) Other circulatory disease Elevated blood-pressure Active Comprehensive Internal reading without diagnosis Me joyce (80774) of hypertension Other connective tissue Tendinitis Active Comp rehensive Internal disease Medicine (94477 ) Comment: h/o s/p clip Other connective Pain in right lower Active Comp rehensive Internal tissue disease limb Medicine (737 40) Other connective Hematoma Active 11-02-2008 - Comprehensi ve Internal tissue disease Medicine (470 02) Comment: reassurance has gotten small er. told when need to call Other connective tissue disease Spasm Active Comprehensive Internal Medicine (61588) Comment: muscle energy technique done to rlease spasm-- pt did get immediate relief Other connective tissue Other bursitis of hip, Active Comprehensive Internal disease left hip Medicine (80724 ) Other diseases of veins Other lymphedema Active [facility] Internal and lymphatics Medicine (768 64) Other endocrine disorders Disorder of endocrine Active [facility] Internal system Medicine (40292 ) Other female genital Leukorrhea, not Active Comp rehensive Internal disorders specified as infective Medic ine (64072) Other female genital Dyspareunia Active Compreh ensive Internal disorders Medicine (82390 ) Other female genital Vaginal dryness Active Comp rehensive Internal disorders Medicine (16528 ) Other gastrointestinal Personal history of Active [facility] Internal disorders other diseases of Medicine ( 48355) digestive system Other lower respiratory Cough Active Comp rehensive Internal disease 0 - Medicine (35828 ) Other lower respiratory Wheezing Active Comp rehensive Internal disease 9 - Medicine (06868 ) Other nervous system Cervical radiculopathy Active [facility] disorders 6 - Sports Medicine and Orthopaedics (4 4691) Other nervous system Hyperreflexia Active Compre hensive Internal disorders Medicine (31051 ) Other non-traumatic joint Knee pain Active [facility] disorders 4 - Sports Medicine and Orthopaedics (4 4691) Other non-traumatic joint Joint pain Active [facility] Internal disorders Medicine (73403 ) Other non-traumatic joint Hip pain Active [facility] m[facility] Internal disorders Medicine (63514 ) Other nutritional; Body mass index 25-29 Active [facility] Internal endocrine; and metabolic - overweight 7 - Med icine (43474) disorders Other screening for Mammography abnormal Active [facility] Internal suspected conditions (not 6 - Me dicine (28500) mental disorders or infectious disease) Comment: didnt repeat bc on pred - Other skin disorders Inflamed seborrheic Active 12-24-2008 - [facility] Internal keratosis Medicine (53950 ) Other upper Allergic rhinitis Active Comprehens lilliana Internal respiratory disease due to other Medicine (19016) allergen Other upper Pain in throat Active [facility] Internal respiratory disease Medicine (48942) Other upper Allergic rhinitis Active Comprehens lilliana Internal respiratory disease Medicine (79116) Other upper Chronic rhinitis Active Comprehensi ve Internal respiratory disease Medicine (88034) Other upper Congestion of nasal Active Comprehe nsive Internal respiratory disease sinus Medicine (96243) Comment: allergy and drainage related --n hernandez pot Other upper Posterior rhinorrhea Active 09-12-2011 - Compreh ensive Internal respiratory infections Medic ine (27819) Otitis media and Otitis media Active 11-02-2008 - Comprehensi ve Internal related conditions Medicine (25907) Residual codes; History of Active Comprehensiv e Internal unclassified appendectomy Medicine (93309 ) Comment: 01/15 Residual codes; Body mass index (BMI) Active Com prehensive Internal unclassified 24.0-24.9, adult Medicine (4 4200) Residual codes; Decreased libido Active Comprehe nsive Internal unclassified Medicine (22530 ) Residual codes; Postmenopausal state Active Comp rehensive Internal unclassified Medicine (71412 ) Comment: dexa done 2015 Residual codes; Insomnia Active Comprehensiv e Internal unclassified Medicine (21952 ) Residual codes; Needs influenza Active Comprehen sive Internal unclassified immunization Medicine (80503 ) Skin and subcutaneous Wound cellulitis Active 09-24-2019 Co mprehensive Internal tissue infections - Medicine ( 19068) Comment: accidnetal dog bite Spondylosis; Sciatica Active 04-28-2014 - [facility] intervertebral disc Sports M edicine and disorders; other back Orthop aedics (53284) problems Unclassified Unilateral primary Active 07-18-2017 - [facility] osteoarthritis, left [facility] knee / M17.12(ICD-10) (00803 ) Unclassified Knee Pain / 269769() Active 07-18-2017 - [facility] (86327) Unclassified Follow-up / 145() Active 07-18-2017 - [facility] (12481) Unclassified Presence of left Active 07-18-2017 - [facility] artificial hip joint / [facility] Z96.642(ICD-10) (84659) Unclassified Non-smoker Active Comprehensive Internal Medici ne (91745) Unclassified Iliotibial band Active Comprehensiv e tendonitis Internal Medici ne (95634) Unclassified Osteoarthritis of both Active Compr ehensive knees, unspecified Internal Medicine osteoarthritis type (29123) Unclassified Abnormal TSH Active [facility] Internal Medici ne (05259) Unclassified Fall at home, initial Active Compre hensive encounter Internal Medici ne (29359) Unclassified Inversion sprain of Active Comprehe nsive ankle, right, initial [employer] Medicine encounter (61366) Unclassified Bursitis of left hip Active Compreh ensive Internal Medici ne (19695) Unclassified BMI 25.0-25.9,adult Active Comprehe nsive Internal Medici ne (76247) Unclassified Chronic pain of both Active Compreh ensive knees Internal Medici ne (93318) Unclassified Breast cancer Active Comprehensive screening Internal Medici ne (27356) Unclassified BMI 26.0-26.9,adult Active Comprehe nsive Internal Medici ne (76587) Unclassified Chronic pain of left Active Compreh ensive knee Internal Medici ne (79272) Unclassified Diverticulosis Active Comprehensive (562.10) Internal Medic[place] (09330) Unclassified Breast mass (611.72) Active Compreh ensive Internal Medici ne (44436) Unclassified CANDIDIASIS, Active Comprehensive VULVA/VAGINA (112.1) Interna l Medicine (98707) Unclassified Well Woman Exam Active Comprehensiv e (V72.31) Internal Medici ne (Pap,Mammo,Routine (58740) Female) Unclassified Current non-smoker Active Comprehen sive Internal Medici ne (84826) Unclassified Shingles (053.9) Active Comprehensi ve Internal Medici ne (97113) Unclassified Active Comprehensive Internal Medici ne (39730) Unclassified Muscle spasm (728.85) Active Compre hensive Internal Medici ne (86624) Unclassified Elevated Blood Active Comprehensive Pressure without Internal Me dicine diagnosis of (16458) Hypertension (796.2) Unclassified Unspecified Active Comprehensive psychosexual disorder [employer] Medicine (302.9) (53957) Urinary tract Urinary tract Active 12-20-2009 - Comprehensive infections infectious disease Internal Medicine (20983) Varicose veins of Varicose veins of Active Compr ehensive lower extremity lower extremity Internal Medicine (59566) Viral infection Viral disease Active 08-17-2011 - Comprehensi ve Internal Medici ne (59830) Comment: going out of town Past or Other Problems Category Problem Name Status Date Location Administrative/social Medical Completed 02-27-2013 [facility] admission examinations/reports - Interna l Medicine status (19489) Diverticulosis and Diverticulosis of Comp rehensive diverticulitis large intestine Internal M edicine (11298) External cause codes: Fall in home Compre hensive Fall Internal Medici ne (66056) Comment: missed step Hemorrhoids Hemorrhoids Completed 12-20-2009 - [facility] I nternal Medicine (99471) Comment: Internal - colonoscopy 07/13 Influenza Influenza Comprehensive I nternal Medicine (85098 ) 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 2 - Me dicine (48244) Nonmalignant breast Breast lump Completed Comprehe nsive Internal conditions 2 - Medicine (11879 ) Other aftercare Follow-up orthopedic Completed [facility] assessment 4 - Sports Medicine and Orthopaedics (4 2091) Other aftercare Other tear of lateral Completed [facility] meniscus, current 4 - Sports Med icine and injury, left knee, Orthopaed ics (03626) subsequent encounter Other connective tissue Foot pain Completed Comp rehensive Internal disease 5 - Medicine (06037 ) Other connective tissue Bursitis of left hip Comprehensive Internal disease Medicine (62896 ) Other connective tissue Trochanteric bursitis Completed [facility] disease Sports Medicine and Orthopaedics (4 4691) Other connective tissue Olecranon bursitis Completed [facility] disease Sports Medicine and Orthopaedics (4 4691) Other ear and sense Impacted cerumen Completed Comp rehensive Internal organ disorders 9 - Medicine (44 691) Other ear and sense Otalgia Completed Comprehe nsive Internal organ disorders 9 - Medicine (44 691) Other ear and sense Impacted cerumen in C omprehensive Internal organ disorders right ear Medicine (44 691) Other fractures Stress fracture, Completed [facility] unspecified site, 7 - Sports Med icine and initial encounter for Orthop aedics (52434) fracture Other non-traumatic Pain in wrist Completed [facility] joint disorders 6 - - Sports Medic ine and Orthopaedics (4 4691) 0 - Other non-traumatic Pain in left knee Completed [facility] joint disorders 4 - Sports Medic ine and Orthopaedics (4 4691) Other non-traumatic Pain in unspecified Completed [facility] joint disorders hip 4 - Sports Medic ine and Orthopaedics (4 4691) Other skin disorders Eruption Completed Compreh ensive Internal 3 - Medicine (54869 ) Comment: bilateral under arms sometim e abdominal area itching Sprains and Supination-internal Completed 04-04-2017 - Comprehe nsive strains rotation injury of ankle Int ernal Medicine (49958) Superficial Contusion of right wrist, Completed 02-20-2016 - [facility] injury; contusion initial encounter Sport s Medicine and Orthopaedics (26270) Unclassified Unilateral primary 07-18-2017 - [place] [facility] osteoarthritis, left knee [facility] (58439) Unclassified Follow-up 07-18-2017 - [facility] (24135) Unclassified Presence of left 07-18-2017 - [facility] artificial hip joint [facility] (03525) Unclassified NEOP, NOS, BONE/SOFT Compreh ensive TISSUE/SKIN (239.2) Internal Medicine (81506) Unclassified LYMPHEDEMA NEC (457.1) Compr ehensive Internal Medici ne (10599) Unclassified LYMPHADENOPATHY, NOS Compreh ensive (785.6) Internal Medici ne (53942) Unclassified Rash (782.1) Comprehensive Internal Medici ne (37763) Unclassified Cora infection (112.9) Co mprehensive Internal Medici ne (83061) Unclassified Otalgia, unspecified Compreh ensive (388.70) Internal Medici ne (00310) Unclassified Foot pain, left Comprehensiv e Internal Medici ne (12921) Unclassified Abdominal Pain,LUQ Comprehen sive (789.02) Internal Medici ne (92201) Unclassified Abdominal Comprehensive Pain,RUQ(789.01) Internal Me dicine (39462) Unclassified Abnormal CT of Comprehensive Abdomen(794.9) Internal Medi cine (66184) Unclassified Cerumen impaction (380.4) Co mprehensive Internal Medici ne (83694) Unclassified Midline thoracic back Compre hensive pain Internal Medici ne (34796) Unclassified Muscle spasm Comprehensive Internal Medici ne (67971) Unclassified Cervical radiculopathy, Comp rehensive acute Internal Medici ne (80935) Unclassified Post-menopausal Comprehensiv e Internal Medici ne (97520) Unclassified Other abnormal finding of Co mprehensive urine Internal Medici ne (45430) Unclassified ETD (Eustachian tube Compreh ensive dysfunction), left Internal Medicine (62929) Unclassified Pain of right anterior Compr ehensive lower extremity Internal Med icine (04491) Unclassified Varicose vein of leg Compreh ensive Internal Medici ne (56240) Unclassified Encounter for screening Completed Comp rehensive mammogram for breast Interna l Medicine cancer (Renamed from (83738) Encounter for screening mammogram for malignant neoplasm of breast) Unclassified Impacted cerumen of right Co mprehensive ear Internal Medici ne (33009) Unclassified Arthralgia, unspecified Comp rehensive joint Internal Medici ne (73013) Unclassified CRP elevated Comprehensive Internal Medici ne (61954) Unclassified Acute pain of left knee Comp rehensive Internal Medici ne (68682) Unclassified Knee osteoarthritis Comprehe nsive Internal Medici ne (12852) Unclassified Primary osteoarthritis of Co mprehensive left knee Internal Medici ne (20118) Unclassified UTI symptoms Comprehensive Internal Medici ne (29931) Unclassified Hip pain, left Comprehensive Internal Medici ne (36665) Unclassified Osteoarthritis of left Compr ehensive hip, unspecified Internal Me dicine osteoarthritis type (40857) Unclassified Wrist pain, acute, right Com prehensive Internal Medici ne (80402) Unclassified Sciatica of left side Compre hensive Internal Medici ne (59703) Unclassified Abdominal Pain,RLQ Comprehen sive (789.03) Internal Medici ne (64527) Unclassified Patient encounter status Com prehensive Internal Medici ne (50406) Unclassified vaginal discharge 623.5 Comp rehensive (Renamed from Leukorrhea, In ternal Medicine not specified as (96002) infective (623.5)) Unclassified Body mass index 20-24 - Comp rehensive normal Internal Medici ne (00279) Unclassified Abnormal mammogram Comprehen sive (793.80) Internal Medici ne (13437) Unclassified ARTHRITIS, INFECTIVE NOS, Co mprehensive UNSPECIFIED SITE (711.90) In ternal Medicine (99325) Unclassified Unspecified Diagnosis Compre hensive Internal Medici ne (95846) Unclassified Screening status Comprehensi ve Internal Medici ne (61124) Comment: orederd cologard Unclassified History of repair of hip joint Comprehensive Internal Medicine (18903) Unclassified Leukorrhea, not specified as Comprehensive Internal Medicine infective (623.5) (40311) Unclassified Hysterectomy, Total Comprehe nsive Internal Medicine (97925) Unclassified Cellulitis of left lower Com prehensive Internal Medicine extremity (94541) Unclassified Hormonal Imbalance (259.9) C omprehensive Internal Medicine (96209) Unclassified Hot Flashes (782.62) Compreh ensive Internal Medicine (18327) Unclassified Exposure to SARS virus Compr ehensive Internal Medicine (64100) Unclassified Vaginal cora Comprehensiv e Internal Medicine (39406) Results Result Name Value Range Unit Interpretation Flag Date Location urinalysis, office (81481) Ordered By: Basia Prince on 2020-03-21 Bilirubin Ql (U) + Abnormal 03-21-2020 [facility] Internal Medicine ( 74356) Glucose Test strip (U) Negative Normal 020 [facility] Internal [Mass/Vol] Medicine (09219) Hemoglobin Ql (U) Negative Normal 03-21-2020 [facility] Medicine ( 37395) Ketones Ql (U) Negative Normal 03-21-2020 Comp rehensive Internal Medicine ( 51658) Leukocyte esterase Test Negative Normal 2019 Comprehensive Internal strip Ql (U) Medicin e (11618) Nitrite Ql (U) Negative Normal 03-21-2020 [facility] ( 34529) pH (U) 6.0 1 Normal 03-21-2020 [facility] ( 84673) Protein Ql (U) Trace Normal 03-21-2020 Comp [facility] Medicine ( 81508) Specific gravity (U) 1.030 1 Abnormal 0 Comprehensive Internal [Rel density] Medici ne (63377) Urobilinogen (24H U) 2 mg/dL Normal 0 Comprehensive Internal [Mass/Time] Medicine (49133) sars-cov-2 antibody, igg Ordered By: Instrument Processing Tech on 2019-12-07 Negative Normal 12-07-2019 [facility] Internal [facility] (08425) Comment: This sample does not contain detectable SARS-CoV-2 IgG antibodies.This negative result does not rul e out SARS-CoV-2 infection.Correlation with epidemiologic risk factors a nd other clinical andlaboratory findings is recommended. Serologic resul ts should not beused as the sole basis to diagnose or exclude recent S [id number].This assay was performed using the Sharma SARS-CoV-2 IgG assay. Test(s) 715733-BBWW-XpY-5 An tibody, IgGhas not been FDA cleared or approved. This test hasbeen authorized by FDA under an Emergency Use Authorization(EUA). This destinee t is only authorized for the duration of thedeclaration that circumst ances exist justifying the authorizationof emergency use of in vitro di agnostics for detection and/ordiagnosis of COVID-19 under Section 564(b )(1) of the Act, 21U.S.C. 360bbb-3(b)(1), unless the authorization is termina daysi orrevoked sooner. This test has been authorized only for detectin gthe presence of antibodies against SARS-CoV-2, not for any otherviruses or pathogens.PATIENT NOT FASTINGPERFORMED BY: LETICIA RealScoutox [facility] [id number] urinalysis, w/ micro (96244) Ordered By: Instrument Processing Tech on 2019-09-25 Appearance (U) Clear Normal 09-25-2019 [facility] Internal Medicine (96455) Comment: Test(s) 323220-IOH-S; 269085 -LDL-C; 732517-NXX-O; 156323-Blrwwlhirkyeu; 042149-Kxszhanavlt, Total; 8 33628-DFL-N (Total);902677-Bjzxv LDL-P; 921018-BXZ Size; 282382-ZZ-M R Scorewas developed and its performance characteristics determinedby [employer]. It has not been cleared or approved by the Foodand Drug Administrat [facility].PATIENT WAS FASTINGPERFORMED BY: Torax MedicalMatheny Medical and Educational CenterPhgyyezzrc7140 [facility] [id number] BY: [employer] Mzjcie7004 Pardo ad[facility] [id number] Bilirubin Ql (U) Negative Normal 09-25-2019 [facility] Internal Medicine (78349) Comment: Test(s) 897475-WKY-P; 480873 -LDL-C; 011771-TUJ-R; 891702-Ungudmirjbned; 470774-Zyhireawiaj, Total; 8 74806-VAD-B (Total);490733-Iizjy LDL-P; 242888-LMN Size; 703081-TO-H R Scorewas developed and its performance characteristics determinedby [employer]. It has not been cleared or approved by the Foodand Drug Administrat ion.PATIENT WAS FASTINGPERFORMED BY: Kleermail [facility] [id number] BY: Savelli70 Pardo [facility] [id number] Color (U) Yellow Normal 09-25-2019 [facility] Internal [facility] (85018) Comment: Test(s) 035525-EAZ-P; 881697 -LDL-C; 785175-QCN-N; 525743-Lquhgjlrjolon; 309258-Bnbzolzzhrz, Total; 8 69979-XQT-T (Total);442431-Uvifj LDL-P; 499364-UCT Size; 020531-JC-J R Scorewas developed and its performance characteristics determinedby [employer]. It has not been cleared or approved by the Foodand Drug Administrat ion.PATIENT WAS FASTINGPERFORMED BY: Magnetic Software7 [facility] [id number] BY: Melon #[email or web address] Pardo [facility] [id number] Glucose Ql (U) Negative Normal 09-25-2019 [facility] Internal Medicine (46593) Comment: Test(s) 893413-MKL-B; 447365 -LDL-C; 971581-PJJ-A; 859033-Oumzfabmiyfzs; 054408-Szxalafgsef, Total; 8 11128-CXF-I (Total);730224-Mtdty LDL-P; 196234-IXI Size; 018254-KL-X R Scorewas developed and its performance characteristics determinedby [employer]. It has not been cleared or approved by the Foodand Drug Administrat ion.PATIENT WAS FASTINGPERFORMED BY: Kleermail [facility] [id number] BY: GeckoGo6370 Pardo Ro [facility] [id number] Hemoglobin Ql (U) Negative Normal 09-25-2019 [facility] Internal [facility] (95020) Comment: Test(s) 626021-GQR-I; 719148 -LDL-C; 451089-TPQ-S; 656821-Uqluprpuzzane; 225137-Uycqyywvbnw, Total; 8 62075-KPK-U (Total);538627-Zgzjr LDL-P; 304561-OPJ Size; 161782-NO-Z R Scorewas developed and its performance characteristics determinedby [employer]. It has not been cleared or approved by the Foodand Drug Administrat ion.PATIENT WAS FASTINGPERFORMED BY: [employer] [place] [address] [id number] BY: GeckoGo6370 Pardo Ro [facility] [id number] Ketones Ql (U) Negative Normal 09-25-2019 [facility] Internal [facility] (91882) Comment: Test(s) 459325-KGQ-O; 579201 -LDL-C; 679792-DHN-G; 246013-Mtxcambktsyaq; 323368-Sbpeavyadwn, Total; 8 26544-AWP-N (Total);885393-Hqlkj LDL-P; 207747-RHM Size; 712243-SG-G R Scorewas developed and its performance characteristics determinedby [employer]. It has not been cleared or approved by the Foodand Drug Administrat ion.PATIENT WAS FASTINGPERFORMED BY: Team Everest[address] [id number] BY: GeckoGo6370 Pardo [facility] [id number] Leukocyte esterase Test Negative Normal 2019 Comprehensive Internal strip Ql (U) Medicin e (30730) Comment: Test(s) 323604-TOU-P; 989924 -LDL-C; 922713-UMH-O; 954983-Hbmoagrvhlmxn; 764165-Gtnlyobbblk, Total; 8 23598-LES-B (Total);283237-Dxgek LDL-P; 014457-YBW Size; 383485-GY-H R Scorewas developed and its performance characteristics determinedby [employer]. It has not been cleared or approved by the Foodand Drug Administrat [facility].PATIENT WAS FASTINGPERFORMED BY: Team Everest[address] [id number] BY: Events [employer] Jstmwq8379 Pardo [place] [id number] Microscopic observation See below: Normal 09-24 Comprehensive Internal LM Nom (Urine sed) [facility] (46061) Comment: Microscopic was indicated an d was performed. Test(s) 408872-TVB-L; 428259 -LDL-C; 892695-JGP-M; 864681-Fmxkktbazoogg; 273207-Niutslmmdna, Total; 8 10317-BUV-U (Total);525460-Vmuhe LDL-P; 704244-ZFM Size; 447840-TA-O R Scorewas developed and its performance characteristics determinedby [employer]. It has not been cleared or approved by the Foodand Drug Administrat ion.PATIENT WAS FASTINGPERFORMED BY: Team Everest[address] [id number] BY: Metabarrp Zzdyyw8614 Pardo [place] [id number] Microscopic observation LM MICRON Normal Comprehensive Internal Nom (Urine sed) [facility] (06462) Comment: Microscopic follows if indic ated. Test(s) 043659-QYF-W; 228091 -LDL-C; 077100-KRR-K; 642796-Nvvjtpmajqtge; 404351-Xlbwklwvhud, Total; 8 76005-DDD-B (Total);265752-Wjabh LDL-P; 496186-OSF Size; 220555-WR-F R Scorewas developed and its performance characteristics determinedby [employer]. It has not been cleared or approved by the Foodand Drug Administrat ion.PATIENT WAS FASTINGPERFORMED BY: Enviviorp Imofdetbax1104 [facility] [id number] BY: CB [facility] Awroim9489 Pardo [place] [id number] Nitrite Ql (U) Negative Normal 09-25-2019 Comp rehensive Internal Medicine (48658) Comment: Test(s) 349193-WNW-B; 661320 -LDL-C; 304968-EHF-Y; 036156-Xfxntpdmpilwd; 412376-Xxyquaupncn, Total; 8 28623-HCE-F (Total);009366-Ignjx LDL-P; 784259-RUG Size; 828015-TY-B R Scorewas developed and its performance characteristics determinedby [employer]. It has not been cleared or approved by the Foodand Drug Administrat ion.PATIENT WAS FASTINGPERFORMED BY: Team Everest[address] [id number] BY: Savelli70 Pardo [facility] [id number] pH (U) 5.5 5.0-7.5 1 Normal 09-25-2019 [facility] Internal [facility] (98290) Comment: Test(s) 490631-PHX-E; 688667 -LDL-C; 335043-GKI-B; 211838-Dcobergbbocfw; 110326-Nklexopohor, Total; 8 62618-GES-G (Total);993108-Qhaqu LDL-P; 435932-FEK Size; 039573-RS-F R Scorewas developed and its performance characteristics determinedby [employer]. It has not been cleared or approved by the Foodand Drug Administrat ion.PATIENT WAS FASTINGPERFORMED BY: Team Everestton1447 [facility] [id number] BY: GeckoGo6370 Pardo [facility] [id number] Protein Ql (U) Trace Normal 09-25-2019 [facility] (02930) Comment: Test(s) 058109-ZKX-Z; 649949 -LDL-C; 820620-KHP-S; 084981-Hxgfkfveunznd; 057532-Fdxzbdhuonv, Total; 8 57580-VNZ-G (Total);663929-Jimbr LDL-P; 729636-KIA Size; 696448-OV-L R Scorewas developed and its performance characteristics determinedby [employer]. It has not been cleared or approved by the Foodand Drug Administrat ion.PATIENT WAS FASTINGPERFORMED BY: [employer] Networks1447 [facility] [id number] BY: Savelli70 Pardo Ro [facility] [id number] Specific gravity (U) 1.028 1.005-1.030 1 Normal 020 Comprehensive Internal [Rel density] Medici ne (44134) Comment: Test(s) 588154-UVG-G; 125454 -LDL-C; 929176-JZC-O; 621893-Ysctelfnskkmu; 174657-Ifqytlmzupr, Total; 8 69850-XXG-H (Total);929827-Pjrls LDL-P; 545516-RQW Size; 966670-WE-W R Scorewas developed and its performance characteristics determinedby [employer]. It has not been cleared or approved by the Foodand Drug Administrat [facility].PATIENT WAS FASTINGPERFORMED BY: [employer] [place] [address] [id number] BY: Savelli70 Pardo [facility] [id number] Urobilinogen Test strip 0.2 0.2-1.0 mg/dL Normal 2019 [facility] Internal (U) [Mass/Vol] Medic ine (20417) Comment: Test(s) 227250-TEE-S; 365184 -LDL-C; 136290-MSA-X; 089346-Nboapupunylpn; 698060-Sgcdvlxvpla, Total; 8 25769-DTP-Z (Total);406473-Xicvc LDL-P; 826524-ECB Size; 532264-BP-J R Scorewas developed and its performance characteristics determinedby [employer]. It has not been cleared or approved by the Foodand Drug Administrat [facility].PATIENT WAS FASTINGPERFORMED BY: [employer]1447 [facility] [id number] BY: GeckoGo6370 P[facility] [id number] tsh (41765) Ordered By: Instrument Processing Tech on 2019-09-25 TSH Qn 3.720 0.450-4.500 {uIU/mL} Normal 09-25-[address] [facility] Internal Medicine (62277) Comment: Test(s) 086773-FLW-X; 841984 -LDL-C; 682555-PDK-S; 518835-Rtedmqivyormi; 755057-Ckzubiziyey, Total; 8 60300-QUR-Z (Total);612365-Bpxgt LDL-P; 813657-YBG Size; 505340-NJ-R R Scorewas developed and its performance characteristics determinedby [employer]. It has not been cleared or approved by the Foodand Drug Administrat ion.PATIENT WAS FASTINGPERFORMED BY: Kleermail [facility] [id number] BY: Savelli70 P[facility] [id number] nmr profile (75822) Ordered By: Instrument Processing Tech on 2019-09-25 Cholesterol [Mass/Vol] 219 100-199 mg/dL Abnormal 020 [facility] Internal [facility] ( [address]) Comment: Test(s) 947791-NRX-U; 627560 -LDL-C; 345896-MAM-N; 974465-Yarkhstlzogfa; 728604-Tqiojdgidck, Total; 8 56784-WQX-S (Total);335455-Uibbi LDL-P; 453088-PQR Size; 236581-KM-D R Scorewas developed and its performance characteristics determinedby [employer]. It has not been cleared or approved by the Foodand Drug Administrat [facility].PATIENT WAS FASTINGPERFORMED BY: Kleermail [facility] [id number] BY: GeckoGo6370 [facility] [id number] Lipoprotein.alpha [Moles/Vol] 41.1 umol/L Normal 09-25-2019 [facility] Internal Medicine ( 37574) Comment: Test(s) 798482-MBQ-V; 254127 -LDL-C; 255015-HTK-Q; 096062-Lvjjhhbafcsgr; 512038-Mdeqplqsujr, Total; 8 20308-MIF-K (Total);535805-Vhyfi LDL-P; 979971-OMX Size; 168685-YS-G R Scorewas developed and its performance characteristics determinedby [employer]. It has not been cleared or approved by the Foodand Drug Administrat ion.PATIENT WAS FASTINGPERFORMED BY: [employer]1447 [facility] [id number] BY: [employer] Ifbrbe8156 [facility] [id number] Lipoprotein.beta.subparticle 21.4 nm Normal 0 09-25-2019 [facility] [Entitic length] Int [facility] (84438) Comment: INTERPRETATIVE INFORMATION PARTICLE AMAYA NTRATION AND SIZE <--Lower CVD Risk Higher CVD Risk--> LDL AND HDL PARTICLE S Percentile in Reference Population HDL-P (total) High 75th 50th 25th Low >34.9 34.9 30.5 26.7 <26.7 . Small LDL-P Low 25th 50th 75th High <117 117 527 839 >839 . LDL Size <-Large (Pattern A)-> <-Small (Pattern B)-> 23.0 2 0.6 20.5 19.0 Small LDL-P and LDL Size are associated with CVD risk, but not afterLDL-P is taken into account. Test(s) 607005-XBP-L; 828059 -LDL-C; 907812-MGL-L; 435311-Ywvmsguzwxwbn; 908567-Zromnyxpifm, Total; 8 87013-XOJ-E (Total);766782-Stcmq LDL-P; 424224-MSK Size; 935885-LP-R R Scorewas developed and its performance characteristics determinedby [employer]. It has not been cleared or approved by the Foodand Drug Administrat ion.PATIENT WAS FASTINGPERFORMED BY: Moozeyton1447 [facility] [id number] BY: [facility] Goivum8305 Pardo [facility] [id number] Lipoprotein.beta.subparticle 1470 nmol/L Abnormal 0 09-25-2019 [facility] [Moles/Vol] Internal Medicine (93439) Comment: Low < 1000 Moderate 1000 - 1 299 Borderline-High 1300 - 1599 High 1600 - 2000 Very High > 2000 Test(s) 396118-UWH-Q; 789868 -LDL-C; 778076-YZZ-S; 986131-Oviekrhfynitq; 723791-Uzgrlbglfuu, Total; 8 47395-NGU-P (Total);737736-Zhpxc LDL-P; 024293-YEI Size; 959757-WZ-T R Scorewas developed and its performance characteristics determinedby [employer]. It has not been cleared or approved by the Foodand Drug Administrat ion.PATIENT WAS FASTINGPERFORMED BY: [employer]7 [facility] [id number] BY: GeckoGo6370 [facility] [id number] Lipoprotein.beta.subparticle.small 564 nmol/L Abnor mal 09-25-2019 [facility] [Moles/Vol] Internal Medicine (75515) Comment: Test(s) 057340-PTG-Y; 572038 -LDL-C; 735632-CQZ-T; 086561-Avlhglymlwcjw; 138875-Zhupkfqnslo, Total; 8 34558-HMQ-O (Total);844370-Seitf LDL-P; 484395-EUJ Size; 272282-VY-L R Scorewas developed and its performance characteristics determinedby [employer]. It has not been cleared or approved by the Foodand Drug Administrat ion.PATIENT WAS FASTINGPERFORMED BY: Team Everestton1447 [facility] [id number] BY: [facility] Ycrkji1943 Pardo [facility] [id number] Triglyceride [Mass/Vol] 144 0-149 mg/dL Normal 2019 [facility] Internal Medicine ( 45852) Comment: Test(s) 456472-IWW-Q; 990797 -LDL-C; 119769-ZVV-G; 603964-Zbxpzztbsifop; 856061-Brsgvrneboh, Total; 8 80373-RUP-G (Total);250805-Bksig LDL-P; 969493-DLY Size; 115330-XN-Y R Scorewas developed and its performance characteristics determinedby [employer]. It has not been cleared or approved by the Foodand Drug Administrat ion.PATIENT WAS FASTINGPERFORMED BY: Team Everest[address] [id number] BY: Fobbler6370 [facility] [id number] 131 0-99 mg/dL Abnormal 09-25-2019 [facility] Internal Medicine (84011) Comment: . Optimal < 100 Above optima l 100 - 129 Borderline 130 - 159 High 160 - 189 Very high > 189 .LDL-C is in accurate if patient is non-fasting. Test(s) 510443-ETX-A; 622980 -LDL-C; 157892-VHA-Q; 284213-Rpraxwswexioj; 793080-Jkccccqqjzu, Total; 8 53831-TES-H (Total);267725-Vfupd LDL-P; 944564-HYB Size; 618084-BQ-S R Scorewas developed and its performance characteristics determinedby [employer]. It has not been cleared or approved by the Foodand Drug Administrat ion.PATIENT WAS FASTINGPERFORMED BY: Moozeyton1447 [facility] [id number] BY: Cloudtoplin6370 [facility] [id number] 59 mg/dL Normal 09-25-2019 [facility] Internal Medicine (00100) Comment: Test(s) 553484-CUP-X; 023845 -LDL-C; 244255-WPB-T; 622985-Cnknwtkfmryhc; 900667-Hmssrcaeizc, Total; 8 95781-ISF-O (Total);325950-Rhzcg LDL-P; 322443-RJF Size; 131196-JS-U R Scorewas developed and its performance characteristics determinedby [employer]. It has not been cleared or approved by the Foodand Drug Administrat ion.PATIENT WAS FASTINGPERFORMED BY: Team Everest[address] [id number] BY: [facility] Ifejhu5492 [facility] [id number] microalbumin Ordered By: Instrument Processing Tech on 2019-09-25 Albumin DL <= 20 mg/L (U) 21.9 ug/mL Normal 09-08 [facility] Internal [Mass/Vol] Medicine (98760) Comment: Test(s) 107465-AXH-T; 809802 -LDL-C; 328655-HOF-F; 297350-Bvpjohcnsidnr; 382727-Nawakaxfqkv, Total; 8 86668-CFE-T (Total);231665-Dvtfw LDL-P; 605310-QXU Size; 594434-NH-P R Scorewas developed and its performance characteristics determinedby [employer]. It has not been cleared or approved by the Foodand Drug Administrat [facility].PATIENT WAS FASTINGPERFORMED BY: [employer]1447 [facility] [id number] BY: LETICIA [facility] Yfdpgp4013 Pardo [facility] [id number] Albumin/Creatinine (U) 8 0-29 {mg/g_creat} Normal 09-08 [facility] [Mass ratio] Interna l Medicine (49593) Comment: Normal: 0 - 29 Moderately in creased: 30 - 300 Severely increased: >300 Please note reference inte rval change Test(s) 723521-GVN-Q; 919200 -LDL-C; 598359-AMU-N; 442288-Fhdqaktmcfuvc; 163643-Xhwdihikzds, Total; 8 66224-EEL-F (Total);988258-Dhfqe LDL-P; 136502-BLH Size; 454602-VI-T R Scorewas developed and its performance characteristics determinedby [employer]. It has not been cleared or approved by the Foodand Drug Administrat [facility].PATIENT WAS FASTINGPERFORMED BY: Team Everest[address] [id number] BY: Savelli70 [facility] [id number] Creatinine (U) [Mass/Vol] 264.3 mg/dL Normal 09-08 [facility] Internal Medicine ( 23676) Comment: Test(s) 454406-TIO-C; 378336 -LDL-C; 021262-ZZM-F; 918917-Wfelnraojmwfa; 142699-Bbkoyxfkaim, Total; 8 91109-MDX-C (Total);011572-Uqjmq LDL-P; 697038-RKG Size; 739309-QD-S R Scorewas developed and its performance characteristics determinedby [employer]. It has not been cleared or approved by the Foodand Drug Administrat ion.PATIENT WAS FASTINGPERFORMED BY: Team Everest[address] [id number] BY: GeckoGo6370 [facility] [id number] metabolic panel, comprehensive (78839) Ordered By: Instrument Processing Tech on 2019-09-25 Albumin [Mass/Vol] 4.2 3.8-4.8 g/dL Normal 09-25-2019 [facility] Internal [facility] (21503) Comment: Test(s) 883909-EUF-X; 757379 -LDL-C; 149620-QVS-N; 258269-Laeraplnhlmwn; 735985-Jbxnojoizlk, Total; 8 54787-RQB-E (Total);121854-Xlxfw LDL-P; 774850-RPP Size; 994615-RS-O R Scorewas developed and its performance characteristics determinedby [employer]. It has not been cleared or approved by the Foodand Drug Administrat [facility].PATIENT WAS FASTINGPERFORMED BY: Team Everest[address] [id number] BY: GeckoGo6370 [facility] [id number] Albumin/Globulin [Mass 1.5 1.2-2.2 1 Normal 020 [facility] Internal [facility]] Medicine ( 37677) Comment: Test(s) 807204-ASZ-N; 861664 -LDL-C; 889846-XIU-I; 002851-Itguyefuhbijm; 352404-Aklckxwoqgf, Total; 8 72336-CAT-Z (Total);868138-Kexfr LDL-P; 457698-BVZ Size; 741153-QS-D R Scorewas developed and its performance characteristics determinedby [employer]. It has not been cleared or approved by the Foodand Drug Administrat ion.PATIENT WAS FASTINGPERFORMED BY: [employer] [id number] BY: Tor[facility] MedicalHudson County Meadowview HospitalXqfptw3149 P[facility] [id number] ALP [Catalytic 104 39-117 [iU]/L Normal 09-25-2019 Comp rehensive Internal activity/Vol] Medici [place] (50610) Comment: Test(s) 212725-RFQ-I; 784193 -LDL-C; 403078-WCB-D; 270252-Umnytawbcdpym; 859997-Swiygkijbfe, Total; 8 78135-RMK-R (Total);226160-Rmzmt LDL-P; 567134-MJI Size; 142112-XH-F R Scorewas developed and its performance characteristics determinedby [employer]. It has not been cleared or approved by the Foodand Drug Administrat ion.PATIENT WAS FASTINGPERFORMED BY: [employer] [id number] BY: Tor[facility] MedicalSanta Fe Indian HospitalPyytpp0448 P[facility] [id number] ALT [Catalytic 18 0-32 [iU]/L Normal 09-25-2019 Comp rehensive Internal activity/Vol] Medici ne (58991) Comment: Test(s) 285650-PVA-U; 822322 -LDL-C; 683261-KYK-X; 103605-Jkibwyahdyigy; 416380-Aruycqfoaee, Total; 8 00097-HVM-N (Total);985881-Asrjp LDL-P; 780466-NXK Size; 079623-QH-Z R Scorewas developed and its performance characteristics determinedby [employer]. It has not been cleared or approved by the Foodand Drug Administrat ion.PATIENT WAS FASTINGPERFORMED BY: [employer] [id number] BY: GeckoGo6370 [place] ad[place] [id number] AST [Catalytic 23 0-40 [iU]/L Normal 09-25-2019 Comp rehensive Internal activity/Vol] Medici ne (34649) Comment: Test(s) 326959-BYX-A; 354660 -LDL-C; 828366-UKP-H; 328759-Fhftnrftiueka; 786356-Hkdmoukxxye, Total; 8 34167-NXG-M (Total);855425-Vkskt LDL-P; 120516-WMO Size; 292809-HP-W R Scorewas developed and its performance characteristics determinedby [employer]. It has not been cleared or approved by the Foodand Drug Administrat ion.PATIENT WAS FASTINGPERFORMED BY: Team Everest[address] [id number] BY: GeckoGo6370 [place] adDublin [place] [id number] Bilirubin [Mass/Vol] 0.3 0.0-1.2 mg/dL Normal 0 [facility] Internal Medicine ( 13968) Comment: Test(s) 114436-ZSP-U; 011319 -LDL-C; 483429-YGT-V; 869983-Wkvgqofldtuky; 826889-Sanjgdmhcfg, Total; 8 88009-PVT-N (Total);848758-Cxkgr LDL-P; 854190-FBT Size; 051819-OJ-T R Scorewas developed and its performance characteristics determinedby [employer]. It has not been cleared or approved by the Foodand Drug Administrat ion.PATIENT WAS FASTINGPERFORMED BY: Team Everest[address] [id number] BY: GeckoGo6370 [place] ad[place] [id number] Calcium [Mass/Vol] 9.5 8.7-10.3 mg/dL Normal 09-25-2019 [facility] Internal Medicine ( 23837) Comment: Test(s) 741407-PCT-E; 609920 -LDL-C; 470757-HAV-C; 610835-Ignipwvsrhxuz; 915852-Qmstqisadop, Total; 8 66593-RUY-K (Total);132176-Guuqu LDL-P; 128945-UQI Size; 335393-SF-Z R Scorewas developed and its performance characteristics determinedby [employer]. It has not been cleared or approved by the Foodand Drug Administrat ion.PATIENT WAS FASTINGPERFORMED BY: Team Everestton1447 [facility] [id number] BY: [facility] Fmppfw9095 Pardo adDAt[facility] [id number] Chloride [Moles/Vol] 102 96-106 mmol/L Normal [address] [place] [address] Internal Medicine ( 04733) Comment: Test(s) 722620-SZE-C; 082325 -LDL-C; 605645-SYW-D; 197733-Pzzrsuezeidze; 955671-Yfcxwzmanrs, Total; 8 95376-QTM-Q (Total);311964-Asvbg LDL-P; 497526-THX Size; 514612-PR-N R Scorewas developed and its performance characteristics determinedby [employer]. It has not been cleared or approved by the Foodand Drug Administrat ion.PATIENT WAS FASTINGPERFORMED BY: Team Everest[address] [id number] BY: Metabar Yizkgl6027 Pardo adDAtrium Health Cabarrus [id number] CO2 [Moles/Vol] 23 20-29 mmol/L Normal 09-25-2019 [facility] Internal Medicine (65997) Comment: Test(s) 841449-WHL-F; 305518 -LDL-C; 765270-MOU-H; 634397-Hqizxsremzbre; 697368-Felpztkwzdg, Total; 8 51240-LOE-L (Total);565272-Crpzn LDL-P; 695278-IUZ Size; 142716-OY-G R Scorewas developed and its performance characteristics determinedby [employer]. It has not been cleared or approved by the Foodand Drug Administrat ion.PATIENT WAS FASTINGPERFORMED BY: Team Everest[address] [id number] BY: [employer] Ebdiao3542 [facility] [id number] Creatinine [Mass/Vol] 0.95 0.57-1.00 mg/dL Normal 09-25-19 [facility] Internal Medicine ( 14460) Comment: Test(s) 852535-FNW-H; 944758 -LDL-C; 816667-FCO-X; 572976-Mvfotmhfvcmvp; 948633-Puqdwrswzfi, Total; 8 03831-NDI-K (Total);673336-Ekmnq LDL-P; 795585-PQT Size; 416322-CT-E R Scorewas developed and its performance characteristics determinedby [employer]. It has not been cleared or approved by the Foodand Drug Administrat ion.PATIENT WAS FASTINGPERFORMED BY: [employer] [place] [address] [id number] BY: Fobbler6370 [facility] [id number] GFR/1.73 sq M predicted 71 mL/min/1.73 Normal 09-08 [facility] Internal among blacks CKD-EPI [facility] (03931) (S/P/Bld) [Vol rate/Area] Comment: Test(s) 434447-NOF-B; 627422 -LDL-C; 806704-RUU-B; 202898-Vmjyajtiehdwa; 626145-Sulkhesufms, Total; 8 78382-CND-E (Total);907179-Dddqn LDL-P; 162861-PLZ Size; 616730-CW-I R Scorewas developed and its performance characteristics determinedby [employer]. It has not been cleared or approved by the Foodand Drug Administrat ion.PATIENT WAS FASTINGPERFORMED BY: Moozey[address] [id number] BY: [employer] Yvddoy5567 [facility] [id number] GFR/1.73 sq M predicted 61 mL/min/1.73 Normal 09-08 [facility] Internal among non-blacks CKD-EPI Medicine (21010) (S/P/Bld) [Vol rate/Area] Comment: Test(s) 310449-YZJ-A; 430508 -LDL-C; 182356-VMH-M; 000445-Aofgjmnftcipo; 484491-Dxrurbbzpkn, Total; 8 82289-TCT-P (Total);557292-Sasay LDL-P; 930270-QVJ Size; 296626-AY-V R Scorewas developed and its performance characteristics determinedby [employer]. It has not been cleared or approved by the Foodand Drug Administrat ion.PATIENT WAS FASTINGPERFORMED BY: Moozey[address] [id number] BY: [facility] Fwqlrc5732 [facility] [id number] Globulin (S) [Mass/Vol] 2.8 1.5-4.5 g/dL Normal 2019 [facility] Internal Medicine ( 70795) Comment: Test(s) 686191-HGM-T; 047975 -LDL-C; 877658-LNA-Q; 119058-Ozjwmbyfwwrbo; 229372-Srmuhydylml, Total; 8 71331-KVU-G (Total);611299-Ewpbw LDL-P; 102036-LEZ Size; 067260-LZ-B R Scorewas developed and its performance characteristics determinedby [employer]. It has not been cleared or approved by the Foodand Drug Administrat ion.PATIENT WAS FASTINGPERFORMED BY: Moozeyton1447 [facility] [id number] BY: Fobbler6370 [facility] [id number] Glucose [Mass/Vol] 89 65-99 mg/dL Normal 09-25-2019 [facility] Internal Medicine (31058) Comment: Test(s) 142143-TBE-N; 947918 -LDL-C; 959126-UHF-H; 935477-Dsiffbjvxgoyp; 230667-Rzxawhidqgp, Total; 8 33860-UYJ-E (Total);820897-Ihmjs LDL-P; 311936-JFN Size; 193998-KJ-S R Scorewas developed and its performance characteristics determinedby [employer]. It has not been cleared or approved by the Foodand Drug Administrat ion.PATIENT WAS FASTINGPERFORMED BY: Team Everest[address] [id number] BY: [employer] Ayapgf3087 [facility] [id number] Potassium [Moles/Vol] 4.2 3.5-5.2 mmol/L Normal 09-25-19 [facility] Internal Medicine ( 12911) Comment: Test(s) 040209-FDH-A; 762831 -LDL-C; 433332-SKQ-U; 008458-Fkkweazvcluve; 374408-Hfofyxxakcf, Total; 8 46837-WGI-G (Total);285292-Ensho LDL-P; 593834-PDF Size; 613166-XV-G R Scorewas developed and its performance characteristics determinedby [employer]. It has not been cleared or approved by the Foodand Drug Administrat ion.PATIENT WAS FASTINGPERFORMED BY: Team Everest[address] [id number] BY: GeckoGo6370 [facility] [id number] Protein [Mass/Vol] 7.0 6.0-8.5 g/dL Normal 09-25-2019 [facility] Internal Medicine (03568) Comment: Test(s) 680113-TEG-F; 099249 -LDL-C; 026032-JKI-H; 206446-Wsqeyxirnyfcw; 571061-Djiwbreqjjy, Total; 8 95191-TXA-C (Total);952622-Wuhuv LDL-P; 832502-ECM Size; 754439-UD-T R Scorewas developed and its performance characteristics determinedby [employer]. It has not been cleared or approved by the Foodand Drug Administrat [facility].PATIENT WAS FASTINGPERFORMED BY: Team Everestton1447 [facility] [id number] BY: GeckoGo6370 [facility] [id number] Sodium [Moles/Vol] 140 134-144 mmol/L Normal 09-25-2019 [facility] Internal Medicine ( 25835) Comment: Test(s) 300042-DDB-R; 378643 -LDL-C; 216933-CUA-H; 749328-Lvzazfmtnlate; 919032-Eqwzrrorqub, Total; 8 52693-QTS-F (Total);707429-Krrxd LDL-P; 074868-XIS Size; 209271-ZP-T R Scorewas developed and its performance characteristics determinedby [employer]. It has not been cleared or approved by the Foodand Drug Administrat [facility].PATIENT WAS FASTINGPERFORMED BY: Team Everest[address] [id number] BY: [address]70 Pardo [facility] [id number] Urea nitrogen [Mass/Vol] 21 8-27 mg/dL Normal 09-24 [facility] Internal Medicine ( 16772) Comment: Test(s) 058851-HBA-C; 426878 -LDL-C; 000926-FUK-N; 432273-Rdkkmoupuuxgy; 992210-Kmxsbljgxiq, Total; 8 48838-BLQ-G (Total);446335-Lcnpo LDL-P; 026322-FGZ Size; 097771-NY-K R Scorewas developed and its performance characteristics determinedby [employer]. It has not been cleared or approved by the Foodand Drug Administrat [facility].PATIENT WAS FASTINGPERFORMED BY: Team Everest[address] [id number] BY: Savelli70 Pardo [facility] [id number] Urea nitrogen/Creatinine [Mass 22 12-28 1 Normal 09-25-2019 [facility] Internal [facility] Medicine ( 53668) Comment: Test(s) 733404-DCG-T; 762285 -LDL-C; 678556-RLM-C; 018438-Vqzhnyvthjyvm; 189475-Nbpejmmuxmb, Total; 8 59867-AKL-U (Total);670840-Zwzmf LDL-P; 956048-SMN Size; 469187-BM-H R Scorewas developed and its performance characteristics determinedby [employer]. It has not been cleared or approved by the Foodand Drug Administrat [facility].PATIENT WAS FASTINGPERFORMED BY: Team Everest[address] [id number] BY: Savelli70 [facility] [id number] cbc w/auto diff wbc (69781) Ordered By: Instrument Processing Tech on 2019-09-25 Basophils (Bld) 0.0 0.0-0.2 {x10E3/uL} Normal 09-25-2019 [facility] Internal [#/Vol] Medicine ( 74047) Comment: Test(s) 949149-BZO-P; 140347 -LDL-C; 425813-WGZ-F; 372690-Tnoetbddktchr; 230035-Mgnlxvuufdv, Total; 8 36283-JZZ-T (Total);565844-Cyyfu LDL-P; 254805-PNN Size; 421181-NO-M R Scorewas developed and its performance characteristics determinedby [employer]. It has not been cleared or approved by the Foodand Drug Administrat ion.PATIENT WAS FASTINGPERFORMED BY: Team Everest[address] [id number] BY: [address]70 [facility] [id number] Basophils/100 WBC (Bld) 1 % Normal 2019 [facility] Internal Medicine (79965) Comment: Test(s) 935739-ETX-P; 113902 -LDL-C; 189810-NZN-M; 613077-Izxjlzcpxaqqx; 737749-Hcnknqihcru, Total; 8 45825-RDL-N (Total);626085-Bqjvz LDL-P; 469450-ORD Size; 566557-MS-W R Scorewas developed and its performance characteristics determinedby [employer]. It has not been cleared or approved by the Foodand Drug Administrat [facility].PATIENT WAS FASTINGPERFORMED BY: Team Everest[address] [id number] BY: Fobbler6370 [facility] [id number] Eosinophils (Bld) 0.2 0.0-0.4 {x10E3/uL} Normal 09-25-2019 [facility] Internal [#/Vol] Medicine ( 90202) Comment: Test(s) 172319-NLD-P; 582190 -LDL-C; 540086-ZNQ-N; 411680-Jeyxokcghmhxr; 693869-Ucbhmmzqknp, Total; 8 87021-RFR-K (Total);577981-Wgwir LDL-P; 656750-ONK Size; 966079-II-A R Scorewas developed and its performance characteristics determinedby [employer]. It has not been cleared or approved by the Foodand Drug Administrat ion.PATIENT WAS FASTINGPERFORMED BY: Team Everest[address] [id number] BY: [facility] MedicalHudson County Meadowview HospitalYimdaw0375 [facility] [id number] Eosinophils/100 WBC (Bld) 4 % Normal 09-08 [facility] (65636) Comment: Test(s) 248457-VXO-L; 678682 -LDL-C; 159660-GUJ-W; 559826-Ivlzweuzvftau; 004242-Yckrngphuis, Total; 8 64787-NLB-X (Total);221936-Kefjh LDL-P; 661692-TFE Size; 323969-FK-W R Scorewas developed and its performance characteristics determinedby [employer]. It has not been cleared or approved by the Foodand Drug Administrat [facility].PATIENT WAS FASTINGPERFORMED BY: Team Everest[address] [id number] BY: [facility] MedicalSanta Fe Indian [id number] [facility] [id number] Erythrocyte distribution 13.3 11.7-15.4 % Normal 09-24 [facility] width (RBC) [Ratio] Medicine (31720) Comment: Test(s) 284582-MSY-Q; 851112 -LDL-C; 923648-DMS-G; 040073-Pqvhxamdtulnb; 714272-Acuaqlsnsoc, Total; 8 85347-QRC-N (Total);423716-Idjas LDL-P; 768043-NWN Size; 702727-NE-N R Scorewas developed and its performance characteristics determinedby [employer]. It has not been cleared or approved by the Foodand Drug Administrat [facility].PATIENT WAS FASTINGPERFORMED BY: Team Everest[address] [id number] BY: GeckoGo6370 [facility] [id number] Hematocrit (Bld) [Volume 43.7 34.0-46.6 % Normal 09-24 [facility] Internal fraction] Medicine ( 58129) Comment: Test(s) 015916-YJQ-N; 502132 -LDL-C; 569996-NDI-Y; 419950-Auirwuoipidat; 790762-Bhixlefmafq, Total; 8 64878-THG-Q (Total);391664-Uvelj LDL-P; 311131-MBW Size; 040743-LX-V R Scorewas developed and its performance characteristics determinedby [employer]. It has not been cleared or approved by the Foodand Drug Administrat ion.PATIENT WAS FASTINGPERFORMED BY: Team Everest[address] [id number] BY: GeckoGo6370 [facility] [id number] Hemoglobin (Bld) 14.1 11.1-15.9 g/dL Normal 09-25-2019 [facility] Internal [Mass/Vol] Medicine (21789) Comment: Test(s) 850248-IBC-D; 984436 -LDL-C; 003950-WNA-U; 754670-Lhxnwhrfdbszq; 950776-Tfpbetttlix, Total; 8 60166-RHM-G (Total);568020-Eldqf LDL-P; 459129-BXW Size; 822956-OG-U R Scorewas developed and its performance characteristics determinedby [employer]. It has not been cleared or approved by the Foodand Drug Administrat [facility].PATIENT WAS FASTINGPERFORMED BY: [employer] [address] [id number] BY: GeckoGo6370 [facility] [id number] Immature granulocytes 0.0 0.0-0.1 {x10E3/uL} Normal 020 [facility] Internal (Bld) [#/Vol] Medici ne (78121) Comment: Test(s) 836481-GMP-Y; 041988 -LDL-C; 391429-CLX-N; 014184-Kfdgsukmmjgma; 396065-Fxljaojtyow, Total; 8 04473-IHA-F (Total);441863-Beols LDL-P; 994437-FAF Size; 415093-UI-O R Scorewas developed and its performance characteristics determinedby [employer]. It has not been cleared or approved by the Foodand Drug Administrat ion.PATIENT WAS FASTINGPERFORMED BY: Team Everestton1447 [facility] [id number] BY: [address] Stark70 [facility] [id number] Immature granulocytes/100 WBC 0 % Normal 09-25-2019 [facility] Internal (Bld) Medicine ( 48683) Comment: Test(s) 226141-JMO-F; 657748 -LDL-C; 578000-PRY-P; 891876-Iqhdlxazpivvi; 505126-Pyxsfsnxwnn, Total; 8 74427-XOO-C (Total);544944-Vmagi LDL-P; 381094-KNF Size; 400551-PK-D R Scorewas developed and its performance characteristics determinedby [employer]. It has not been cleared or approved by the Foodand Drug Administrat ion.PATIENT WAS FASTINGPERFORMED BY: [employer]1447 [facility] [id number] BY: GeckoGo6370 [facility] [id number] Lymphocytes (Bld) 1.3 0.7-3.1 {x10E3/uL} Normal 09-25-2019 [facility] Internal [#/Vol] Medicine ( 19519) Comment: Test(s) 179612-BMM-P; 236955 -LDL-C; 731403-JFU-W; 700956-Igjckpwwtunet; 251890-Qhcpllschwx, Total; 8 61513-HCI-G (Total);650780-Jyubs LDL-P; 162387-WMX Size; 758740-KH-G R Scorewas developed and its performance characteristics determinedby [employer]. It has not been cleared or approved by the Foodand Drug Administrat ion.PATIENT WAS FASTINGPERFORMED BY: Team Everest[address] [id number] BY: Metabar Fhkcbp9602 [facility] [id number] Lymphocytes/100 WBC (Bld) 29 % Normal 09-08 [facility] Internal [facility] (84074) Comment: Test(s) 058264-RIY-B; 419501 -LDL-C; 305115-MFM-G; 264788-Mgqacifecqdpd; 102074-Aaxjuflvfdu, Total; 8 97694-CMC-U (Total);513158-Nlvvy LDL-P; 024703-PJK Size; 521637-JB-B R Scorewas developed and its performance characteristics determinedby [employer]. It has not been cleared or approved by the Foodand Drug Administrat ion.PATIENT WAS FASTINGPERFORMED BY: Team Everestton1447 [facility] [id number] BY: GeckoGo6370 [facility] [id number] MCH (RBC) [Entitic 29.5 26.6-33.0 pg Normal 09-25-2019 [facility] Internal [facility] ( 33670) Comment: Test(s) 236239-OPE-C; 013949 -LDL-C; 176001-ZMI-C; 644157-Dljrlzxwszywc; 604613-Cqjopmhuexx, Total; 8 61732-RCN-A (Total);169385-Yhmae LDL-P; 958331-UTW Size; 670248-EO-P R Scorewas developed and its performance characteristics determinedby [employer]. It has not been cleared or approved by the Foodand Drug Administrat ion.PATIENT WAS FASTINGPERFORMED BY: Team Everestton1447 [facility] [id number] BY: Metabar Wlpcva4006 [facility] [id number] MCHC (RBC) [Mass/Vol] 32.3 31.5-35.7 g/dL Normal 09-25-19 [facility] Internal [facility] ( 05427) Comment: Test(s) 971986-BOS-B; 505191 -LDL-C; 554187-YGI-N; 225863-Rrimhklxifliv; 921853-Nvqzbdsszlh, Total; 8 41057-KQN-S (Total);162415-Ckhzl LDL-P; 290757-PKA Size; 223526-LQ-P R Scorewas developed and its performance characteristics determinedby [employer]. It has not been cleared or approved by the Foodand Drug Administrat ion.PATIENT WAS FASTINGPERFORMED BY: Team Everest[address] [id number] BY: LETICIA [employer] Hjcvqm5625 [facility] [id number] MCV (RBC) [Entitic vol] 91 79-97 fL Normal 2019 [facility] Internal Medicine (28824) Comment: Test(s) 248331-TSA-P; 300470 -LDL-C; 396746-VVW-S; 533519-Wmsihbugmkhhw; 440808-Tblpnwetxvg, Total; 8 40059-KZX-E (Total);243661-Glhgw LDL-P; 489787-YAC Size; 370531-RG-E R Scorewas developed and its performance characteristics determinedby [employer]. It has not been cleared or approved by the Foodand Drug Administrat ion.PATIENT WAS FASTINGPERFORMED BY: [employer] [place] [address] [id number] BY: LETICIA Fobbler6370 [facility] [id number] Monocytes (Bld) 0.4 0.1-0.9 {x10E3/uL} Normal 09-25-2019 [facility] Internal [#/Vol] Medicine ( 22033) Comment: Test(s) 392740-VCV-S; 503564 -LDL-C; 259834-HYJ-Y; 180310-Xetbxlpyjrxho; 162945-Qtvvvbdeoox, Total; 8 22734-LFM-C (Total);925093-Cnlks LDL-P; 941665-UFN Size; 824158-EA-A R Scorewas developed and its performance characteristics determinedby [employer]. It has not been cleared or approved by the Foodand Drug Administrat ion.PATIENT WAS FASTINGPERFORMED BY: Team Everest[address] [id number] BY: Fobbler6370 [facility] [id number] Monocytes/100 WBC (Bld) 8 % Normal 2019 [facility] Internal Medicine (53776) Comment: Test(s) 522562-TGF-J; 540193 -LDL-C; 548882-AFW-T; 037577-Mauqslepxkwvm; 825143-Uaqgpianzsk, Total; 8 88725-LKC-O (Total);812567-Mxcvv LDL-P; 106441-EEG Size; 241151-QC-J R Scorewas developed and its performance characteristics determinedby [employer]. It has not been cleared or approved by the Foodand Drug Administrat ion.PATIENT WAS FASTINGPERFORMED BY: Team Everest[address] [id number] BY: GeckoGo6370 [facility] [id number] Neutrophils (Bld) 2.7 1.4-7.0 {x10E3/uL} Normal 09-25-2019 [facility] Internal [#/Vol] Medicine ( 81165) Comment: Test(s) 566070-SSR-W; 797245 -LDL-C; 236692-CIF-D; 945057-Euhlkvlrbgsqj; 902292-Tliceqcmbnm, Total; 8 55189-TUL-K (Total);933785-Mhvco LDL-P; 574661-UHV Size; 636236-CC-J R Scorewas developed and its performance characteristics determinedby [employer]. It has not been cleared or approved by the Foodand Drug Administrat ion.PATIENT WAS FASTINGPERFORMED BY: Team Everest[address] [id number] BY: Cloudtoplin6370 [facility] [id number] Neutrophils/100 WBC (Bld) 58 % Normal 09-08 [facility] Internal Medicine (63056) Comment: Test(s) 521958-XAR-K; 475191 -LDL-C; 733857-HZA-A; 391264-Cpezztxdxoswk; 659873-Plammggiaga, Total; 8 49593-MZX-S (Total);748771-Qypim LDL-P; 574471-TRP Size; 205708-NU-E R Scorewas developed and its performance characteristics determinedby [employer]. It has not been cleared or approved by the Foodand Drug Administrat ion.PATIENT WAS FASTINGPERFORMED BY: Ofelia Feliz [facility] Irrphnvkdn0081 [facility] [id number] BY: LETICIA [employer] Srcmvu2233 [facility] [id number] Platelets (Bld) 364 150-450 {x10E3/uL} Normal 09-25-2019 [facility] Internal [#/Vol] Medicine ( 86229) Comment: Test(s) 816074-MNX-B; 635053 -LDL-C; 254116-RZS-G; 766196-Medanyfeievge; 060522-Mdgzsmntbrl, Total; 8 80522-YVN-S (Total);243909-Ktsee LDL-P; 663765-OOU Size; 939253-TA-E R Scorewas developed and its performance characteristics determinedby [employer]. It has not been cleared or approved by the Foodand Drug Administrat ion.PATIENT WAS FASTINGPERFORMED BY: Enviviorp Ax[address]rye[address] [id number] BY: [facility] Qacpfq1288 [facility] [id number] RBC (Bld) [#/Vol] 4.78 3.77-5.28 {x10E6/uL} Normal 09-25-2019 [facility] Internal Medicine ( 42188) Comment: Test(s) 649459-WKJ-K; 596406 -LDL-C; 100779-PRL-Q; 936684-Kyrginxvmqhur; 075675-Qosnutqrzjl, Total; 8 88742-NQH-W (Total);326536-Zwzpe LDL-P; 907188-UMH Size; 878510-QP-E R Scorewas developed and its performance characteristics determinedby [employer]. It has not been cleared or approved by the Foodand Drug Administrat ion.PATIENT WAS FASTINGPERFORMED BY: [facility]. [facility] Mtysgpawpc6201 [facility] [id number] BY: CB [employer] Onpkez2807 [address] [place] [id number] WBC (Bld) [#/Vol] 4.6 3.4-10.8 {x10E3/uL} Normal 09-25-2019 [facility] ( 16986) Comment: Test(s) 753986-UOW-S; 041351 -LDL-C; 534401-NDD-R; 000873-Xvukdxbbzkrdl; 536702-Yviydjmvaoq, Total; 8 78244-NBP-B (Total);800022-Kkozp LDL-P; 045405-PCA Size; 749351-RN-E R Scorewas developed and its performance characteristics determinedby [employer]. It has not been cleared or approved by the Foodand Drug Administrat [facility].PATIENT WAS FASTINGPERFORMED BY: Torax MedicalJoanne [place] 062777 [facility] [id number] BY: [facility] Buebnx3996 [address] adDublin [place] [id number] calcifidiol (66652) vit d 25 Ordered By: Instrument Processing Tech on 2019-09-25 25-Hydroxyvitamin 72.1 30.0-100.0 ng/mL Normal 09-25-2019 Comprehensive D2+25-Hydroxyvitamin D3 Internal Medicine [Mass/Vol] (25996) Comment: Vitamin D deficiency has bee n defined by the [place] ofMedicine and an Endocrine Society practice g uideline as alevel of serum 25-OH vitamin D less than 20 ng/mL (1,2).The Endo crine Society went on to further define vitamin Dinsufficiency as a level be tween 21 and 29 ng/mL (2).1. IOM ([place] of Medicine). 2010. Dietary ref erence intakes for calcium and D. [place]: The National Academies Press .2. Alina MF, Sundeep NC, Shannen VILLALBA, et al. Evaluation, treatment , and prevention of vitamin D deficiency: an Endocrine Society clinical p joe guideline. JCEM. 2010; 96(7):1911-30. Test(s) 830520-XAC-I; 121803 -LDL-C; 701564-JKM-L; 695517-Ufsjkuhrkesgz; 343226-Etascdrrrhi, Total; 8 13218-NWO-K (Total);192847-Qaior LDL-P; 147912-IYN Size; 027225-JP-L R Scorewas developed and its performance characteristics determinedby [facility]. It has not been cleared or approved by the Foodand Drug Administrat [facility].PATIENT WAS FASTINGPERFORMED BY: [facility]1447 [facility] [id number] BY: LETICIA [facility] Nfhyex7483 [facility] [id number] urine alexandru culture-identificatn (17314) Ordered By: Instrument Processing Tech on 2019-07-08 Bacteria identified Escherichia coli Abnormal [facility] Internal Cx Nom (U) Medicine (50120) Comment: Greater than 100,000 colony forming units per mLCefazolin <=4 ug/mLCefazolin with an LENIN <=16 predicts ryan sceptibility to the oral agentscefaclor, cefdinir, cefpodoxime, cefpr ozil, cefuroxime, cephalexin,and loracarbef when used for therapy of uncompli cated urinary tractinfections due to E. coli, Klebsiella pneumoniae, and P roteusmirabilis. PATIENT NOT FASTINGPERFORMED BY: LETICIA [facility] Qjtlux0837 [facility] [id number] Information: SRC:PRITI Bacteria identified Cx Final report Abnormal 06-11 [facility] Internal Nom (U) Medicine ( 39459) Comment: PATIENT NOT FASTINGPERFORMED BY: [facility]6370 [facility] [id number] Information: SRC:PRITI Other Antibiotic [Susc] MIHEAD Normal 2019 [facility] Medicine (52132) Comment: S = Susceptible; I = Inte rmediate; R = Resistant P = Positive; N = Negative MICS are expressed in micrograms per mL Antibiotic RSLT#1 RSLT#2 RSLT#3 RSLT#4Amoxicillin/Cla vulanic Acid SAmpicillin SCefepime SCeftriaxone SCefuroxime SCiprofloxacin S Ertapenem SGentamicin SImipenem SLevofloxacin SMeropenem SNitrofurantoin S Piperacillin/Tazobactam STetracycline STobramycin STrimethoprim/Ryan lfa S PATIENT NOT FASTINGPERFORMED BY: CB [facility] Ppttkv1735 [place] [id number] Information: SRC:PRITI urinalysis, office (83775) Ordered By: DONAN Polk on 2019-07-08 Bilirubin Ql (U) Negative Normal 07-08-2019 [facility] m[facility] Medicine ( 47367) Glucose Test strip (U) Negative Normal 020 [facility] Internal [Mass/Vol] Medicine (05654) Hemoglobin Ql (U) + Abnormal 07-08-2019 C omprehensive Internal Medicine ( 37717) Ketones Ql (U) Negative Normal 07-08-2019 Comp rehensive Internal Medicine ( 91111) Leukocyte esterase Test Moderate Normal 2019 Comprehensive Internal strip Ql (U) Medicin e (65091) Nitrite Ql (U) Negative Normal 07-08-2019 Comp rehensive Internal Medicine ( 28893) pH (U) 6.0 1 Normal 07-08-2019 Comprehen sive Internal Medicine ( 78356) Protein Ql (U) Negative Normal 07-08-2019 Comp rehensive Internal Medicine ( 37595) Specific gravity (U) 1.015 1 Normal 0 [facility] Internal [Rel density] Medici ne (98360) Urobilinogen (24H U) 2 mg/dL Normal 0 [facility] Internal [Mass/Time] Medicine (80776) prothrombin time w/inr Ordered By: Instrument Processing Tech on 2018-01-15 INR Coag RelTime (PPP) 1.0 1 Normal 018 [facility] Medicine (24464) Comment: [facility] [address] [place], [address] Prothrombin time (PT) 13.2 11.7-14.9 s Normal 01-16-20 18 [facility] Internal Coag time (PPP) Medi cine (16767) Comment: [facility] [address] [place], [address] partial thromboplast time Ordered By: Instrument Processing Tech on 2018-01-15 aPTT Coag time (Bld) 26.1 24.1-36.2 s Normal 8 [facility] ( 59435) aPTT Coag time (PPP) 26.1 24.1-36.2 s Normal 8 [facility] ( 60914) Comment: [facility] [address] [place], [place], [address] liver profile Ordere d By: Instrument Processing Tech on 2018-01-15 Albumin mass conc 3.6 3.2-5.0 g/dL Normal 01-15-2018 C omprehensive Internal Medicine (28540) Comment: [facility] [address] [place], [place], [address] ALP enzyme act/vol 114 45-117 U/L Normal 01-15-2018 [facility] (23936) [facility] [place], [place], [address] ALT enzyme act/vol 19 13-56 U/L Normal 01-15-2018 [facility] (76202) [facility] [place], [place], [address] AST enzyme act/vol 22 15-37 U/L Normal 01-15-2018 [facility] (67646) [facility] [place], [place], [address] Bilirubin mass conc 0.40 0.20-1.00 mg/dL Normal 01-15-2018 [facility] ( 10833) [facility] [place], [place], [address] Bilirubin.direct mass 0.10 0.00-0.30 mg/dL Normal 01-16-20 18 Comprehensive conc Internal M edicine (34755) Comment: [facility] [place], [place], [address] Globulin Calculated mass 3.9 2.2-4.2 g/dL Normal 01-15 [facility] Internal conc (S) Medicine ( 12313) Globulin mass conc (S) 3.9 2.2-4.2 g/dL Normal 018 [facility] ( 41120) [facility] [place], [address] Protein mass conc 7.5 6.4-8.2 g/dL Normal 01-15-2018 C omprehensive Internal Medicine (92675) Comment: [facility] [place], [address] cbc-complete blood cnt no diff Ordered By: Instrument Processing Tech on 2018-01-15 Erythrocyte distribution 13.7 11.6-14.6 % Normal 01-15 [facility] Internal width Auto Ratio (RBC) Medicine (77074) Erythrocyte distribution 13.7 11.6-14.6 % Normal 01-15 [facility] Internal width Ratio (RBC) Nv dicine (19570) Comment: [facility] [place], [address] Hematocrit Auto Volume 41.7 37-47 % Normal 018 [facility] Internal Fraction (Bld) Medic ine (68183) Hematocrit Volume Fraction 41.7 37-47 % Normal [facility] Internal (Bld) Medicine ( 99192) Comment: [facility] [place], [address] Hemoglobin mass conc 13.8 12.0-15.0 g/dL Normal 8 [facility] Internal (Bld) Medicine ( 77640) Comment: [facility] [place], [id number] MCH Auto Entitic mass 30.1 27.0-32.0 pg Normal 01-16-20 18 [facility] Internal (RBC) Medicine ( 41721) MCH Entitic mass (RBC) 30.1 27.0-32.0 pg Normal 018 [facility] Medicine ( 81620) Comment: [facility] [place], [address] MCHC Auto mass conc 33.1 32-36 {g/gl} Normal 01-15-2018 [facility] Internal (RBC) Medicine ( 65310) MCHC mass conc (RBC) 33.1 32-36 {g/gl} Normal 8 [facility] ( 38463) Comment: [facility] [address] [place], [address] MCV Auto Entitic volume 90.8 81-99 fL Normal 2017 [facility] (RBC) Medicine ( 95685) MCV Entitic volume (RBC) 90.8 81-99 fL Normal 01-15 [facility] Medicine ( 74198) Comment: [facility] [address] [place], [address] Platelet mean volume 9.2 6.2-12.0 fL Normal 8 [facility] Internal Auto Entitic volume Medicine (01153) (Bld) Platelet mean volume 9.2 6.2-12.0 fL Normal 8 [facility] Internal Entitic volume (Bld) Medicine (57679) Comment: [facility] [address] [place], [place], [address] Platelets #/vol (Bld) 327 150-450 K/mm3 Normal 01-16-20 18 [facility] ( 76483) Comment: [facility] [address] [place], [place], [address] Platelets Auto #/vol 327 150-450 K/mm3 Normal 8 [facility] Internal (Bld) Medicine ( 50987) RBC #/vol (Bld) 4.59 4.2-5.4 {M/mm3} Normal 01-15-2018 [facility] prehensive Internal Medicine ( 46409) Comment: [facility] [address] [place], [place], [address] RBC Auto #/vol 4.59 4.2-5.4 {M/mm3} Normal 01-15-2018 [facility] rehensive Internal (Bld) Medicine ( 01478) WBC #/vol (Bld) 4.7 4.4-11.0 K/mm3 Normal 01-15-2018 Com prehensive Internal Medicine ( 45190) Comment: [facility] [address] [place], [place], [address] WBC Auto #/vol 4.7 4.4-11.0 K/mm3 Normal 01-15-2018 Comp rehensive Internal (Bld) Medicine ( 59380) 45.3 35.1-43.9 fL Abnormal 01-15-2018 Comprehen sive Internal Medicine ( 32815) Comment: [facility] [address] [place], [place], [address] basic metabolic profile (bmp) Ordered By: Instrument Processing Tech on 2018-01-15 Basic metabolic 2000 panel 8 5-15 1 Normal [facility] Medicine (76449) Comment: [facility] [address] [place], [place], [address] Basic metabolic 2000 20.3 10-20 {RATIO} Abnormal 8 Comprehensive Internal panel Medicine ( 60867) Comment: [facility] [address] [place], [place], [address] Basic metabolic 2000 9.2 8.5-10.1 mg/dL Normal 8 Comprehensive Internal panel Medicine ( 74766) Comment: [facility] [address] [place], [place], [address] Basic metabolic 2000 panel 67 mL/min Normal [facility] Internal Medicine ( 83561) Comment: Non- GFR Jamar c [facility] [address] [place], [place], [address] Basic metabolic 2000 0.89 0.55-1.02 mg/dL Normal 8 [facility] Internal panel Medicine ( 83245) Comment: The validity of the calculat ed GFR AND GFRAA in patients over70 years has not been determined. Clinica l correlation isessential. [facility] [address] [place], [place], [address] Basic metabolic 2000 55.19 ml/min Normal 8 [facility] Internal panel Medicine ( 97256) Comment: [facility] [place], [place], [address] Basic metabolic 2000 29.0 21.0-32.0 mmol/L Normal 8 [facility] Internal panel Medicine ( 59360) Comment: [facility] [place], [place], [address] Basic metabolic 2000 panel 82 mL/min Normal [facility] Medicine ( 03476) Comment: GFR Calc [facility] [place], [place], [address] Basic metabolic 2000 18 7-18 mg/dL Normal 8 Comprehensive Internal panel Medicine ( 84593) Comment: [place] [address] [place], [place], [address] Basic metabolic 2000 3.7 3.5-5.1 mmol/L Normal 8 [facility] Internal panel Medicine ( 92276) Comment: [facility] [place], [place], [address] Basic metabolic 2000 88 74-106 mg/dL Normal 8 [facility] Internal panel Medicine ( 80522) Comment: Please note revised GLUCOSE reference range vjcsovepo71/02/2018. [facility] [place], [place], [address] Basic metabolic 2000 142 136-145 mmol/L Normal 201 8 [facility] Internal panel Medicine ( 57576) Comment: [facility] [place], [place], [address] Basic metabolic 2000 105 98-107 mmol/L Normal 201 8 [facility] Internal panel Medicine ( 17484) Comment: [facility] [place], [place], [address] urine alexandru culture-emily col count (09167) Ordered By: Instrument Processing Tech on 2017-11-25 Bacteria identified Citrobacter koseri Abnormal 0 11-25-2017 [facility] Internal Cx Nom (U) Medicine (26690) Comment: Greater than 100,000 colony forming units per mL PATIENT NOT FASTINGPERFORMED BY: LETICIA [facility] Cgbzhp5166 [facility] [id number] Information: SRC:PRITI Bacteria identified Cx Final report Abnormal 11-08 [facility] Internal Nom (U) Medicine ( 03515) Comment: PATIENT NOT FASTINGPERFORMED BY: LETICIA [facility] Iqkdmr5454 [facility] [id number] Information: SRC:PRITI Other Antibiotic susc MIHEAD Normal 11-26-19 [facility] Medicine (21242) Comment: S = Susceptible; I = Inte rmediate; R = Resistant P = Positive; N = Negative MICS are expressed in micrograms per mL Antibiotic RSLT#1 RSLT#2 RSLT#3 RSLT#4Amoxicillin/Cla vulanic Acid SCefepime SCeftriaxone SCefuroxime ICiprofloxacin SErtapenem SG entamicin SImipenem SLevofloxacin SMeropenem SNitrofurantoin SPiperacilli n/Tazobactam STetracycline STobramycin STrimethoprim/Sulfa S PATIENT NOT FASTINGPERFORMED BY: LETICIA [facility] Qaxbor0344 [facility] [id number] Information: SRC:PRITI urinalysis, office (74157) Ordered By: Jeimy Mar on 2017-11-25 Bilirubin Ql (U) Negative Normal 11-25-2017 Co mprehensive Internal Medicine ( 05513) Glucose Test strip Negative Normal 11-25-2017 [facility] Internal mass conc (U) Medici ne (40391) Hemoglobin Ql (U) Hemolyzed Small Normal 2017 [facility] ( 76479) Hemoglobin Test strip Hemolyzed Small Normal [facility] Internal Ql (U) Medicine ( 90427) Ketones Ql (U) Negative Normal 11-25-2017 Comp rehensive Internal Medicine ( 88816) Leukocyte esterase Moderate Normal 11-25-2017 [facility] Internal Test strip Ql (U) Me dicine (48076) Nitrite Ql (U) Negative Normal 11-25-2017 Comp rehensive Internal Medicine ( 27760) Nitrite Test strip Ql Negative Normal 11-26-19 18 [facility] (U) Medicine ( 66874) pH (U) 6 1 Abnormal 11-25-2017 Comprehen sive Internal Medicine ( 47189) pH Test strip (U) 6 1 Abnormal 11-25-2017 C omprehensive Internal Medicine ( 58940) Protein Ql (U) Negative Normal 11-25-2017 Comp rehensive Internal Medicine ( 43659) Protein Test strip Ql Negative Normal 11-26-19 18 [facility] (U) Medicine ( 38480) Specific gravity 1.015 1 Normal 11-25-2017 Co mprehensive Internal Relative Density (U) Medicine (81186) Urobilinogen mass/time Normal Normal 018 [facility] (24H U) Medicine ( 42548) xr knee left with bilateral standing 1 v iew on 2017-07-22 XR KNEE LEFT ADDENDUM #1 Tiny Nor mal 07-22-2017 [facility] WITH BILATERAL focus of intra-articular air in University STANDING 1 VIEW the superior and lateral aspect [facility] knee joint is most Center (48515) likely iatrogenic given patient had a left knee jointinjection prior to obtaining the radiograph. I personally viewed and interpreted these images and I have reviewed andapproved this report. ORIGINAL REPORT EXAM: XR KNEE LEFT WITH BILATERAL STANDING 2 VIEWS 4 VIEWS, 07/18/2017 13:52PMCOMPARISON: No prior studies available for comparison.CLINICAL INDICATIONS: PainRELEVANT CLINICAL HISTORY: M17.12:Unilateral primary osteoarthritis, leftkneeFINDINGS: 4 images obtained.Effusion: There is a joint effusion present.Soft Tissue: There is no significant soft tissue swelling.Bone: No acute osseous abnormality. Joint: Medial compartment predominant osteoarthritis of the left knee, withsevere medial compartment joint space narrowing, and subchondral cystformation.TibFib syndesmosis: The proximal tibiofibular syndesmosis is anatomicallyaligned.Limited evaluation of the right knee demonstrate moderate to severebicompartmental osteoarthritis, with severe lateral compartment joint spacenarrowing.IMPRESSION: 1. Severe medial compartment predominant tricompartmental osteoarthritis ofthe left knee joint. Joint effusion is present.2. Lateral compartment predominant osteoarthritis of the right knee joint. I personally viewed and interpreted these images and I have reviewed andapproved this report. xr hip left 2 views on 2017-07-18 XR HIP LEFT 2 EXAM: XR HIP LEFT 3 VIEWS,, Normal 07-18-2017 [facility] 07/18/2017 11:26 AMCOMPARISON: [facility] Compared to prior study dated [facility] January 16, 2017.CLINICAL (14371) INDICATIONS: hip painRELEVANT CLINICAL HISTORY: Z96.642:Presence of left artificial hip jointFINDINGS:3 images obtained.Soft Tissue: There is no obvious soft tissue swelling.Bone: No acute osseous abnormality is identified.Hip: Total hip arthroplasty in place. Hardware intact and stable inalignment. No periprosthetic lucency.IMPRESSION: Stable left total hip arthroplasty. No acute osseous abnormality. rapid strep test, office (12046) Ordered By: Jaylin Green on 2017-04-30 S. pyogenes Ag IA Ql Negative Normal 7 [facility] (Unsp spec) Medicine (32877) metabolic panel, basic (46526) Ordered By: Instrument Processing Tech on 2017-04-04 Calcium mass conc 9.5 8.7-10.3 mg/dL Normal 04-04-2017 C omprehensive Internal Medicine ( 73580) Comment: PATIENT NOT FASTINGPERFORMED BY: CB [facility] Kwfimj6185 [facility] [id number] Chloride molar conc 97 96-106 mmol/L Normal 04-04-2017 [facility] ( 67320) Comment: PATIENT NOT FASTINGPERFORMED BY: CB [facility] Ribxqr6367 [address] [facility] [id number] CO2 molar conc 27 18-29 mmol/L Normal 04-04-2017 [facility] Internal Medicine (68654) Comment: PATIENT NOT FASTINGPERFORMED BY: CB [facility] Gbrzek3181 Pardo RoadDublin [place] [id number] Creatinine mass conc 0.80 0.57-1.00 mg/dL Normal 7 [facility] ( 56132) Comment: PATIENT NOT FASTINGPERFORMED BY: CB [facility] Stqgjf6378 Pardo RoadDublin [place] [id number] GFR/1.73 sq M predicted 89 mL/min/1.73 Normal 03-11 [facility] Internal among blacks CKD-EPI Medicine (85688) vol rate/area (S/P/Bld) Comment: PATIENT NOT FASTINGPERFORMED BY: CB [facility] Esclcq7333 Pardo Roadblin [place] [id number] GFR/1.73 sq M predicted 77 mL/min/1.73 Normal 03-11 [facility] Internal among non-blacks CKD-EPI Medicine (67063) vol rate/area (S/P/Bld) Comment: PATIENT NOT FASTINGPERFORMED BY: CB [facility] Svaimm7717 [address] [facility] [place] [id number] Glucose mass conc 94 65-99 mg/dL Normal 04-04-2017 [facility] (04462) Comment: PATIENT NOT FASTINGPERFORMED BY: CB [facility] Exwyna7803 [address] [facility] [place] [id number] Potassium molar conc 3.8 3.5-5.2 mmol/L Normal 7 [facility] ( 09953) Comment: PATIENT NOT FASTINGPERFORMED BY: CB [facility] Vgkvkj0643 Pardo RoadMission Family [facility] Centerin [place] [id number] Sodium molar conc 143 134-144 mmol/L Normal 04-04-2017 [facility] ( 86050) Comment: PATIENT NOT FASTINGPERFORMED BY: CB [facility] Jncqrg7011 [address]ardo Roadblin [place] [id number] Urea nitrogen mass conc 16 8-27 mg/dL Normal 2016 [facility] Medicine ( 96724) Comment: PATIENT NOT FASTINGPERFORMED BY: CB [facility] Dqjgng0234 [address] [facility]in [place] [id number] Urea nitrogen/Creatinine mass 20 - 1 Normal 04-04-2017 [facility] ratio Medicine ( 59974) Comment: PATIENT NOT FASTINGPERFORMED BY: LETICIA [facility] Hmqcop5232 [facility] [id number] lactic acid Ordered By: Instrument Processing Tech on 2017-04-02 Lactate molar conc 1.5 0.4-2.0 mmol/L Normal 04-02-2017 [facility] ( 29790) Comment: Yes/No query for Sepsis Lact ate Rule [facility] [address] [place], [place], [id number] erythrocyte sed rate Ordered By: Instrument Processing Tech on 2017-04-02 51 0-30 mm/h Abnormal 04-02-2017 [facility] Internal Medicine (37365) Comment: [facility] [address] [place], [place], [phone] crp Ordered By: [employer] on 2017-04-02 CRP High sensitivity 102.00 0.0-3.0 mg/L Abnormal 7 [facility] Internal method mass conc Med icine (58681) Comment: C-Reactive Protein (CRP) pro tom useful information for thediagnosis, therapy and monitoring of in flammatory processesand associated diseases. For the evaluation of Relative R iskfor Cardiovascular Disease, a High Sensitivity CRP (HSCRP)shoul d be ordered. [facility] [address] [place], [place], [phone] comprehensive metabolic profil Ordered By: Instrument Processing Tech on 2017-04-02 Comprehensive metabolic 14 7-18 mg/dL Normal 2016 [facility] Internal 2000 panel Medicine (20880) Comment: [facility] [address] [place], [address] Comprehensive metabolic 3.9 2.2-4.2 g/dL Normal 2016 [facility] Internal 2000 panel Medicine (12381) Comment: [facility] [address] [place], [place], [id number] Comprehensive metabolic 0.30 0.20-1.00 mg/dL Normal 2016 [facility] Internal 2000 panel Medicine (81318) Comment: [facility] [address] [place], [place], [address] Comprehensive metabolic 0.87 0.55-1.02 mg/dL Normal 2016 [facility] Internal 2000 panel Medicine (35318) Comment: The validity of the calculat ed GFR AND GFRAA in patients over70 years has not been determined. Clinica l correlation isessential. [facility] af[address] [place], [place], [address] Comprehensive metabolic 2000 6 5-15 1 Normal 1 [facility] Internal panel Medicine ( 79622) Comment: [facility] [address] [place], [place], [address] Comprehensive metabolic 32.0 21.0-32.0 mmol/L Normal 2016 [facility] Internal 2000 panel Medicine (24790) Comment: [facility] [address] [place], [place], [address] Comprehensive metabolic 97 98-107 mmol/L Abnormal 2016 [facility] Internal 2000 panel Medicine (59230) Comment: [facility] [address] [place], [place], [address] Comprehensive metabolic 16.1 10-20 {RATIO} Normal 2016 [facility] Internal 2000 panel Medicine (31529) Comment: [facility] [address] [place], [place], [address] Comprehensive metabolic 3.1 3.5-5.1 mmol/L Abnormal 2016 [facility] Internal 2000 panel Medicine (81476) Comment: [facility] [address] [place], [place], [address] Comprehensive metabolic 2000 83 mL/min Normal 1 [facility] Internal panel Medicine ( 42708) Comment: GFR Calc [facility] [address] [place], [place], [address] Comprehensive metabolic 135 136-145 mmol/L Abnormal 2016 [facility] Internal 2000 panel Medicine (79541) Comment: [facility] [address] [place], [place], [phone] Comprehensive metabolic 78 45-117 U/L Normal 2016 [facility] Internal 2000 panel Medicine (06534) Comment: [facility] [address] [place], [place], [address] Comprehensive metabolic 21 12-78 U/L Normal 2016 [facility] Internal 2000 panel Medicine (39152) Comment: [facility] [address] [place], [place], [address] Comprehensive metabolic 0.8 0.9-2.4 {RATIO} Abnormal 2016 [facility] Internal 2000 panel Medicine (74313) Comment: [facility] [address] [place], [place], [address] Comprehensive metabolic 2000 69 mL/min Normal 1 [facility] Internal panel Medicine ( 21243) Comment: Non- GFR Jamar c [facility] [address] [place], [place], [address] Comprehensive metabolic 3.1 3.4-5.0 g/dL Abnormal 2016 [facility] Internal 2000 panel Medicine (02449) Comment: Please note revised Albumin AND Globulin reference rangeeffective 2017. [facility] [address] [place], [place], [address] Comprehensive metabolic 25 15-37 U/L Normal 2016 [facility] Internal 2000 panel Medicine (98566) Comment: [facility] [address] [place], [place], [address] Comprehensive metabolic 8.6 8.5-10.1 mg/dL Normal 2016 [facility] Internal 2000 panel Medicine (81183) Comment: [facility] [address] [place], [place], [address] Comprehensive metabolic 7.0 6.4-8.2 g/dL Normal 2016 [facility] Internal 2000 panel Medicine (22147) Comment: [facility] [address] [place], [place], [address] Comprehensive metabolic 57.24 ml/min Normal 2016 [facility] Internal 2000 panel Medicine (96540) Comment: [facility] [address] [place], [place], [address] Comprehensive metabolic 127 70-110 mg/dL Abnormal 2016 [facility] Internal 2000 panel Medicine (90559) Comment: Fasting Glucose result great er than or equal to 126 mg/dLsuggests DIABETES MELLITUS per A.D.A. criteria . [facility] [address] [place], [place], [phone] cbc w/diff, automated Ordered By: Instrument Processing Tech on 2017-04-02 Absolute Neut 5.4 2.0-7.7 {X10_3/uL} Normal 04-02-2017 [facility] rehensive Internal Medicine ( 63700) Comment: [facility] dom[address]mart[address] [place], [place], [phone](815 Basophils/100 WBC (Bld) 0.0 0-1 % Normal 2016 [facility] (66307) Comment: [facility] [place], [address] Basophils/100 WBC Auto (Bld) 0.0 0-1 % Normal 1 [facility] ( 90214) Eosinophils/100 WBC (Bld) 0.7 0-5 % Normal - [facility] ( 04027) Comment: [facility] [address] [place], [address] Eosinophils/100 WBC Auto 0.7 0-5 % Normal 04-02 [facility] (Bld) Medicine ( 02142) Erythrocyte distribution 13.3 11.6-14.6 % Normal 04-02 [facility] Internal width Auto Ratio (RBC) Medicine (41628) Erythrocyte distribution 13.3 11.6-14.6 % Normal 04-02 [facility] Internal width Ratio (RBC) Me dicine (63244) Comment: [facility] [address] [place], [place], [address] Hematocrit Auto Volume 38.9 37-47 % Normal 017 [facility] Internal Fraction (Bld) Medic ine (42125) Hematocrit Volume Fraction 38.9 37-47 % Normal [facility] (Bld) Medicine ( 93895) Comment: [facility] [address] [place], [address] Hemoglobin mass conc 12.4 12.0-15.0 g/dL Normal 7 [facility] (Bld) Medicine ( 72843) Comment: [facility] [address] [place], [place], [phone] IM GRAN % 0.100 0.0-0.9 % Normal 04-02-2017 Comprehen [facility] Internal Medicine (41295) Comment: IG% - Immature Granulocytes (promyelocytes, myelocytes andmetamyelocytes) > 1% indicates that a LEFT BRIAN FT is Present. [facility] [address] [place], [place], [phone] Lymphocytes #/vol 0.96 0.83-4.51 {X10_3/ul} Normal 04-02-2017 Comprehensive (Bld) Internal M edicine (28783) Comment: [facility] [address] [place], [address] Lymphocytes/100 WBC (Bld) 14.2 19-41 % Abnormal 03-11 [facility] ( 81208) Comment: [facility] [address] [place], [address] Lymphocytes/100 WBC Auto 14.2 19-41 % Abnormal 04-02 [facility] (Bld) Medicine ( 95250) MCH Auto Entitic mass 30.3 27.0-32.0 pg Normal 04-02-20 17 [facility] (RBC) Medicine ( 15422) MCH Entitic mass (RBC) 30.3 27.0-32.0 pg Normal 017 [facility] Medicine ( 82776) Comment: [facility] [address] [place], [address] MCHC Auto mass conc 31.9 32-36 {g/gl} Abnormal 04-02-2017 [facility] (RBC) Medicine ( 85808) MCHC mass conc (RBC) 31.9 32-36 {g/gl} Abnormal 7 [facility] ( 23805) Comment: [facility] [address] [place], [address] MCV Auto Entitic volume 95.1 81-99 fL Normal 2016 [facility] (RBC) Medicine ( 41683) MCV Entitic volume (RBC) 95.1 81-99 fL Normal 04-02 [facility] ( 87813) Comment: [facility] [place], [address] Monocytes/100 WBC (Bld) 4.3 0-10 % Normal 2016 [facility] (19852) Comment: [facility] [place], [address] Monocytes/100 WBC Auto 4.3 0-10 % Normal 017 [facility] (Bld) Medicine ( 61106) Neutrophils/100 WBC (Bld) 80.7 47-70 % Abnormal 03-11 [facility] ( 14260) Comment: [facility] [address] [place], [address] Neutrophils/100 WBC Auto 80.7 47-70 % Abnormal 04-02 [facility] (Bld) Medicine ( 22686) Platelet mean volume Auto 9.1 6.2-12.0 fL Normal 03-11 [facility] Internal Entitic volume (Bld) Medicine (67730) Platelet mean volume 9.1 6.2-12.0 fL Normal 7 [facility] Internal Entitic volume (Bld) Medicine (62767) Comment: [facility] [address] [place], [place], [address] Platelets #/vol (Bld) 350 150-450 K/mm3 Normal 04-02-20 17 [facility] Medicine ( 38394) Comment: [facility] [address] [place], [place], [address] Platelets Auto #/vol 350 150-450 K/mm3 Normal 7 [facility] (Bld) Medicine ( 72001) RBC #/vol (Bld) 4.09 4.2-5.4 {M/mm3} Abnormal 04-02-2017 [facility] prehensive Internal Medicine ( 47905) Comment: [facility] [address] [place], [place], [address] RBC Auto #/vol 4.09 4.2-5.4 {M/mm3} Abnormal 04-02-2017 Comp rehensive Internal (d) Medicine ( 55054) RDW SD 46.0 35.1-43.9 fL Abnormal 04-02-2017 [facility] Internal Medicine ( 02155) Comment: [facility] [place], [place], [address] WBC #/vol (Bld) 6.7 4.4-11.0 K/mm3 Normal 04-02-2017 [facility] prehensive Internal Medicine (70627) Comment: [facility] [place], [place], [address] WBC Auto #/vol 6.7 4.4-11.0 K/mm3 Normal 04-02-2017 Comp rehensive Internal (Bld) Medicine ( 04268) 0.100 0.0-0.9 % Normal 04-02-2017 [facility] Internal [facility] ( 10086) Comment: IG% - Immature Granulocytes (promyelocytes, myelocytes andmetamyelocytes) > 1% indicates that a LEFT BRIAN FT is Present. 46.0 35.1-43.9 fL Abnormal 04-02-2017 [facility] Internal Medicine (76895) 0.96 0.83-4.51 {X10_3/ul} Normal 04-02-2017 Comprehe nsive Internal Medicine (12214) 5.4 2.0-7.7 {X10_3/uL} Normal 04-02-2017 [facility] (92951) tsh (83457) Ordered By: Instrument Processing Tech on 2017-03-29 Thyrotropin Qn 1.590 0.450-4.500 {uIU/mL} Normal 03-29-2017 Co mprehensive Internal Medicine ( 73185) Comment: PATIENT NOT FASTINGPERFORMED BY: CB [facility] Cojpjs4893 [address]ardo RoadDublin [place] [id number] t4, free (thyroxine) (29395) Ordered By: Instrument Processing Tech on 2017-03-29 T4 free mass conc 1.40 0.82-1.77 ng/dL Normal 03-29-2017 [facility] ( 82559) Comment: PATIENT NOT FASTINGPERFORMED BY: CB [facility] Ylxloj9167 [address] RoadDublin [place] [id number] t3, free (tridothyronine) (99354) Ordered By: Instrument Processing Tech on 2017-03-29 T3 free mass conc 3.0 2.0-4.4 pg/mL Normal 03-29-2017 [facility] (40822) Comment: PATIENT NOT FASTINGPERFORMED BY: LETICIA [facility] Wdhfrx5895 [address] RoadDublin [place] [id number] sed rate erythrocyte (56998) Ordered By: Instrument Processing Tech on 2017-03-29 ESR Velocity (Bld) 16 0-40 mm/h Normal 03-29-2017 [facility] (22742) Comment: PATIENT NOT FASTINGPERFORMED BY: CB [facility] Yiosif8736 [address] RoadDublin [place] [id number] rheumatoid factor-quant (39344) Ordered By: Instrument Processing Tech on 2017-03-29 Rheumatoid factor Qn 10.4 0.0-13.9 {IU/mL} Normal 7 [facility] Medicine ( 38830) Comment: PATIENT NOT FASTINGPERFORMED BY: CB [facility] Uvjncp9472 [address] RoadDublin [place] [id number] metabolic panel, comprehensive (43710) Ordered By: Instrument Processing Tech on 2017-03-29 Albumin mass conc 3.8 3.6-4.8 g/dL Normal 03-29-2017 C omprehensive Internal Medicine (09399) Comment: PATIENT NOT FASTINGPERFORMED BY: LETICIA Hanks6370 [facility] [id number] Albumin/Globulin mass ratio 1.4 1.2-2.2 1 Normal Comprehensive Internal Medicine ( 54695) Comment: PATIENT NOT FASTINGPERFORMED BY: LETICIA Ng70 [facility] [id number] ALP enzyme act/vol 76 39-117 [iU]/L Normal 03-29-2017 [facility] Medicine (69192) Comment: PATIENT NOT FASTINGPERFORMED BY: LETICIA Hanks6370 [facility] [id number] ALT enzyme act/vol 15 0-32 [iU]/L Normal 03-29-2017 [facility] Medicine (44936) Comment: PATIENT NOT FASTINGPERFORMED BY: LETICIA Hanks6370 [facility] [id number] AST enzyme act/vol 17 0-40 [iU]/L Normal 03-29-2017 [facility] Medicine (92840) Comment: PATIENT NOT FASTINGPERFORMED BY: LETICIA Hanks6370 [facility] [id number] Bilirubin mass conc 0.4 0.0-1.2 mg/dL Normal 03-29-2017 [facility] ( 22062) Comment: PATIENT NOT FASTINGPERFORMED BY: LETICIA Hanks6370 [facility] [id number] Calcium mass conc 9.4 8.7-10.3 mg/dL Normal 03-29-2017 [facility] ( 00731) Comment: PATIENT NOT FASTINGPERFORMED BY: LETICIA Hanks6370 [facility] [id number] Chloride molar conc 99 96-106 mmol/L Normal 03-29-2017 [facility] Medicine ( 89839) Comment: PATIENT NOT FASTINGPERFORMED BY: LETICIA Wallslin6370 [facility] [id number] CO2 molar conc 25 18-29 mmol/L Normal 03-29-2017 [facility] Internal Medicine (14211) Comment: PATIENT NOT FASTINGPERFORMED BY: CB [facility] Lbclcr9885 [address] RoadDublin [place] [id number] Creatinine mass conc 0.79 0.57-1.00 mg/dL Normal 7 Comprehensive Internal Medicine ( 72489) Comment: PATIENT NOT FASTINGPERFORMED BY: CB [facility] Cfrtsv6648 [address] RoadDublin [place] [id number] GFR/1.73 sq M predicted 90 mL/min/1.73 Normal 03-11 Comprehensive Internal among blacks CKD-EPI Medicine (31202) vol rate/area (S/P/Bld) Comment: PATIENT NOT FASTINGPERFORMED BY: CB [facility] Amjsjc6497 [address] RoadDublin [place] [id number] GFR/1.73 sq M predicted 78 mL/min/1.73 Normal 03-11 [facility] Internal among non-blacks CKD-EPI Medicine (89944) vol rate/area (S/P/Bld) Comment: PATIENT NOT FASTINGPERFORMED BY: CB [facility] Zzegwl4184 [address] RoadDublin [place] [id number] Globulin Calculated mass 2.8 1.5-4.5 g/dL Normal 03-29 Comprehensive Internal conc (S) Medicine ( 35709) Globulin mass conc (S) 2.8 1.5-4.5 g/dL Normal 017 Comprehensive Internal Medicine ( 45786) Comment: PATIENT NOT FASTINGPERFORMED BY: CB [facility] Jfprxd8067 [address] RoadDublin [place] [id number] Glucose mass conc 83 65-99 mg/dL Normal 03-29-2017 [facility] Internal Medicine (48417) Comment: PATIENT NOT FASTINGPERFORMED BY: CB [facility] Zwupdf8680 [address] RoadDublin [place] [id number] Potassium molar conc 4.4 3.5-5.2 mmol/L Normal 7 Comprehensive Internal Medicine ( 61639) Comment: PATIENT NOT FASTINGPERFORMED BY: CB [facility] Fziurc6864 [address] RoadDublin [place] [id number] Protein mass conc 6.6 6.0-8.5 g/dL Normal 03-29-2017 C omprehensive Internal Medicine (62539) Comment: PATIENT NOT FASTINGPERFORMED BY: LETICIA [facility] Vaqmht2596 [address] [facility] [id number] Sodium molar conc 142 134-144 mmol/L Normal 03-29-2017 C omprehensive Internal Medicine ( 90733) Comment: PATIENT NOT FASTINGPERFORMED BY: CB [facility] Ubdayu1154 [address] [facility] [id number] Urea nitrogen mass conc 16 8-27 mg/dL Normal 2016 Comprehensive Internal Medicine ( 84494) Comment: PATIENT NOT FASTINGPERFORMED BY: CB [facility] Eldhpi4565 [address] [facility] [id number] Urea nitrogen/Creatinine mass 20 12- 1 Normal 03-29-2017 Comprehensive Internal ratio Medicine ( 05650) Comment: PATIENT NOT FASTINGPERFORMED BY: CB [facility] Cdkmir7821 [facility] [id number] lyme disease antibody w/ reflex (45489) Ordered By: Instrument Processing Tech on 2017-03-29 B. burgdorferi <0.91 0.00-0.90 {index_val} Normal 03-29-2017 Co mprehensive IgG+IgM Qn (S) Inter nal Medicine (55435) Comment: Negative <0.91 Equivocal 0.9 1 - 1.09 Positive >1.09 PATIENT NOT FASTINGPERFORMED BY: CB [facility] Hecmab8022 [facility] [id number] cbc (auto) (28443) O rdered By: Instrument Processing Tech on 2017-03-29 Erythrocyte distribution 13.6 12.3-15.4 % Normal 03-29 Comprehensive Internal width Auto Ratio (RBC) Medicine (62396) Erythrocyte distribution 13.6 12.3-15.4 % Normal 03-29 Comprehensive Internal width Ratio (RBC) Nv dicine (71337) Comment: PATIENT NOT FASTINGPERFORMED BY: CB [facility] Mvbjrn4411 [address] [facility] [id number] Hematocrit Auto Volume 42.6 34.0-46.6 % Normal 017 Comprehensive Internal Fraction (Bld) Medic ine (67466) Hematocrit Volume 42.6 34.0-46.6 % Normal 03-29-2017 C omprehensive Internal Fraction (Bld) Medic ine (77554) Comment: PATIENT NOT FASTINGPERFORMED BY: CB [facility] Bdmahj5871 [address] [facility] [place] [id number] Hemoglobin mass conc 14.4 11.1-15.9 g/dL Normal 7 Comprehensive Internal (Bld) Medicine ( 09025) Comment: PATIENT NOT FASTINGPERFORMED BY: CB [facility] Wqlylk9468 [address]ardo RoadMission [facility] Centerin [place] [id number] MCH Auto Entitic mass 30.6 26.6-33.0 pg Normal 03-29-20 17 Comprehensive Internal (RBC) Medicine ( 47245) MCH Entitic mass (RBC) 30.6 26.6-33.0 pg Normal 017 Comprehensive Internal Medicine ( 05805) Comment: PATIENT NOT FASTINGPERFORMED BY: CB [facility] Tyjdfb3196 [address] [facility] [id number] MCHC Auto mass conc 33.8 31.5-35.7 g/dL Normal 03-29-2017 Comprehensive Internal (RBC) Medicine ( 55700) MCHC mass conc (RBC) 33.8 31.5-35.7 g/dL Normal 7 Comprehensive Internal Medicine ( 75431) Comment: PATIENT NOT FASTINGPERFORMED BY: CB [facility] Dykeaw7973 [address] [facility] [id number] MCV Auto Entitic volume 90 79-97 fL Normal 2016 Comprehensive Internal (RBC) Medicine ( 01330) MCV Entitic volume (RBC) 90 79-97 fL Normal 03-29 Comprehensive Internal Medicine ( 67610) Comment: PATIENT NOT FASTINGPERFORMED BY: CB [facility] Halcmz0877 [address] [facility] [facility] [place] [id number] Platelets #/vol 401 150-379 {x10E3/uL} Abnormal 03-29-2017 [facility] mprehensive Internal (Bld) Medicine ( 19567) Comment: PATIENT NOT FASTINGPERFORMED BY: CB [facility] Gwxajp3867 [address] [facility] [place] [id number] Platelets Auto 401 150-379 {x10E3/uL} Abnormal 03-29-2017 Com prehensive #/vol (Bld) Internal Medicine (09702) RBC #/vol (Bld) 4.71 3.77-5.28 {x10E6/uL} Normal 03-29-2017 [facility] [place] [facility] edicine (29216) Comment: PATIENT NOT FASTINGPERFORMED BY: CB [facility] Jbjbpl3863 Pardo RoadDublin [place] [id number] RBC Auto #/vol 4.71 3.77-5.28 {x10E6/uL} Normal 03-29-2017 Com prehensive Internal (Bld) Medicine ( 24040) WBC #/vol (Bld) 5.9 3.4-10.8 {x10E3/uL} Normal 03-29-2017 [facility] ( 53563) Comment: PATIENT NOT FASTINGPERFORMED BY: CB [facility] Nwrchz0602 [address]ardo RoadDublin [place] [id number] WBC Auto #/vol 5.9 3.4-10.8 {x10E3/uL} Normal 03-29-2017 Com prehensive Internal (d) Medicine ( 55167) c-reactive protein (47642) Ordered By: Instrument Processing Tech on 2017-03-29 CRP mass conc 63.6 0.0-4.9 mg/L Abnormal 03-29-2017 [facility] (61536) Comment: PATIENT NOT FASTINGPERFORMED BY: CB [facility] Ukuxgb3418 Pardo RoadM[facility] Centerin [place] [id number] angtensin 1-convrt enzym (96678) Ordered By: Instrument Processing Tech on 2017-03-29 Angiotensin converting 67 14-82 U/L Normal 017 [facility] Internal enzyme enzyme act/vol Medicine (95102) Comment: PATIENT NOT FASTINGPERFORMED BY: CB [facility] Ondzkv0677 [address]ardo RoadDublin [place] [id number] becki (antinuclear antibody) (07779) Ordered By: Instrument Processing Tech on 2017-03-29 Nuclear Ab Ql (S) Negative Normal 03-29-2017 C omprehensive Internal Medicine (83255) Comment: PATIENT NOT FASTINGPERFORMED BY: CB [facility] Sozllf1963 [address] [facility]Duinspir[facility] [place] [id number] office visit on 12-17-27 Protein mass Done Invalid 03-07-2017 - [facility] conc Interpretation Code 03-07-2017 [facility] (54549) Tobacco Never Invalid 03-07-2017 [facility] smoking status Interpretation Code 03-07 [facility] NHIS and Orthop aedics (90607) Tobacco Never smoker Invalid 03-07-2017 - [facility] smoking status Interpretation Code 03-07 [facility] and Orthop aedics (47017) office visit on 12-14-25 Documentation of Done Invalid 01-02-2017 - [facility] current medications Interpretation Code 01-02-2017 [facility] (procedure) Medicine and Orthopaedi cs (34205) Protein mass conc Done 01-02-2017 - [facility] 01-02-2017 [facility] (77498) Tobacco smoking Never 01-02-2017 - [facility] status [facility] smoker 01-02-2017 [facility] (22863) Tobacco smoking Never Invalid 01-02-2017 - [facility] Interpretation Code 01-03-20 17 [facility] a nd Orthopaedi [facility] (23886) Tobacco use CPHS Never Invalid 01-02-2017 - [facility] smoker Interpretation Code 01-02-2017 [facility]opa[facility] (93279) office visit on 12-14-12 Documentation of Done Invalid 12-20-2016 - [facility] current medications Interpretation Code 12-20-2016 [facility] (procedure) Medicine and Orthopaedi cs (18404) Tobacco smoking Never Invalid 12-20-2016 - [facility] status NH[facility] Interpretation Code 12-21-19 17 [facility] nd Orthopaedi cs (93231) Tobacco use CPHS Never Invalid 12-20-2016 - [facility] smoker Interpretation Code 12-20-2016 [facility]opa[facility] (94222) office visit on 201 12-13-04 Documentation of Done Invalid 11-12-2016 - [facility] current medications Interpretation Code 11-12-2016 [facility] (procedure) Medicine and Orthopaedi cs (64064) Protein mass conc Done 11-12-2016 - [facility] 11-12-2016 [facility] (93996) Tobacco smoking Never 11-12-2016 - [facility] status [facility] smoker 11-12-2016 [facility] (99056) Tobacco smoking Never Invalid 11-12-2016 - [facility] status [facility] Interpretation Code 11-13-19 [facility] (23533) Tobacco use CPHS Never Invalid 11-12-2016 - [facility] smoker Interpretation Code 11-12-2016 [facility]opa[facility] (71342) office visit on 201 11-17-26 Documentation of Done Invalid 04-05-2016 - [facility] current medications Interpretation Code 04-05-2016 [facility] (procedure) Medicine and Orthopaedi cs (95822) Tobacco smoking Never Invalid 04-05-2016 - [facility] status NHIS Interpretation Code 04-05-20 16 [facility] nd [facility]opaedi cs (93098) Tobacco use CPHS Never Invalid 04-05-2016 - [facility] smoker Interpretation Code 04-05-2016 [facility] a nd Orthopaedi cs (73611) urine alexandru culture-emily col count (14825) Ordered By: Instrument Processing Tech on 2015-12-20 Bacteria identified Escherichia coli Abnormal Comprehensive Internal Cx Nom (U) Medicine (53368) Comment: Greater than 100,000 colony forming units per mL PATIENT NOT FASTINGPERFORMED BY: CB [facility] Ygpusp2430 [address] [facility] [id number] Information: SRC:UR [id number] Bacteria identified Cx Final report Abnormal 12-08 [facility] Internal Nom (U) Medicine ( 41529) Comment: PATIENT NOT FASTINGPERFORMED BY: CB [facility] Plertz0492 [address] [facility] [id number] Information: SRC:URC [id number] Other Antibiotic susc MIHEAD Normal 12-20-19 [facility] Internal Medicine (91508) Comment: S = Susceptible; I = Inte rmediate; R = Resistant P = Positive; N = Negative MICS are expressed in micrograms per mL Antibiotic RSLT#1 RSLT#2 RSLT#3 RSLT#4Amoxicillin/Cla vulanic Acid SAmpicillin SCefepime SCeftriaxone SCefuroxime ICephalothin ICi profloxacin SErtapenem SGentamicin SImipenem SLevofloxacin SNitrofurantoi n SPiperacillin STetracycline STobramycin STrimethoprim/Sulfa S PATIENT NOT FASTINGPERFORMED BY: LETICIA [facility] Phmiuy5712 Pardo RoadDublin [place] [id number] Information: SRC:[facility] [id number] urinalysis, office (14458) Ordered By: Bakari Riggs on 2015-12-20 Bilirubin Ql (U) Negative Normal 12-20-2015 [facility] Medicine ( 20281) Glucose Test strip Negative Normal 12-20-2015 [facility] Internal mass conc (U) Medici ne (55272) Hemoglobin Ql (U) Hemolyzed Large Normal 2015 [facility] Medicine ( 44320) Hemoglobin Test strip Hemolyzed Large Normal [facility] Internal Ql (U) Medicine ( 33765) Ketones Ql (U) Small Normal 12-20-2015 Comp rehensive Internal Medicine ( 57406) Leukocyte esterase Small Normal 12-20-2015 [facility] Internal Test strip Ql (U) Me dicine (08494) Nitrite Ql (U) Negative Normal 12-20-2015 Comp rehensive Internal Medicine ( 91470) Nitrite Test strip Ql Negative Normal 12-20-19 16 [facility] Internal (U) Medicine ( 50913) pH (U) 5 1 Abnormal 12-20-2015 [facility] ( 70945) pH Test strip (U) 5 1 Abnormal 12-20-2015 C omprehensive Internal Medicine ( 75657) Protein Ql (U) Negative Normal 12-20-2015 Comp rehensive Internal Medicine ( 62339) Protein Test strip Ql Negative Normal 12-20-19 16 [facility] Internal (U) Medicine ( 71421) Specific gravity 1.030 1 Abnormal 12-20-2015 Co m[facility] Internal Relative Density (U) Medicine (83877) Urobilinogen mass/time Normal Normal 016 [facility] Internal (24H U) Medicine ( 18386) fecal occult blood , office (82602) Ordered By: Bakari Riggs on 2015-11-30 Hemoglobin.gastrointestinal Ql negative Normal 11-30-2015 Comprehensive (St) Internal M edicine (00724) potassium Ordered By : Instrument Processing Tech on 2015-09-05 Potassium molar conc 4.4 3.5-5.1 mmol/L Normal 6 [facility] Internal Medicine ( 70213) Comment: [facility] [address] [place], [address] urinalysis, w/ micro (49547) Ordered By: Instrument Processing Tech on 2015-08-31 Appearance Nom (U) Clear Normal 08-31-2015 [facility] Internal Medicine (60635) Comment: PATIENT WAS FASTINGPERFORMED BY: CB [facility] Dfpbwu5058 [address]ardo RoadDublin [place] [id number] Bilirubin Ql (U) Negative Normal 08-31-2015 [facility] Internal Medicine (18550) Comment: PATIENT WAS FASTINGPERFORMED BY: CB [facility] Zmwcbr6696 [address] RoadDublin [place] [id number] Color Nom (U) Yellow Normal 08-31-2015 [facility] (08399) Comment: PATIENT WAS FASTINGPERFORMED BY: CB [facility] Gbkfya0625 [address] RoadDublin [place] [id number] Glucose Ql (U) Negative Normal 08-31-2015 [facility] Medicine (25692) Comment: PATIENT WAS FASTINGPERFORMED BY: CB [facility] Psgfub1715 [address] RoadDublin [place] [id number] Hemoglobin Ql (U) Negative Normal 08-31-2015 [facility] (26855) Comment: PATIENT WAS FASTINGPERFORMED BY: CB [facility] Mvfiqy3004 [address] RoadDublin [place] [id number] Hemoglobin Test strip Ql Negative Normal 08-30 [facility] Internal (U) Medicine ( 19501) Ketones Ql (U) Negative Normal 08-31-2015 [facility] ( 81652) Comment: PATIENT WAS FASTINGPERFORMED BY: CB [facility] Cnaage2793 [address] RoadDublin [place] [id number] Leukocyte esterase Test Negative Normal 2015 Comprehensive Internal strip Ql (U) Medicin e (13490) Comment: PATIENT WAS FASTINGPERFORMED BY: CB [facility] Tflhku4839 [address] RoadDublin [place] [id number] Microscopic observation See below: Normal 08-30 [facility] Internal LM Nom (Urine sed) M edicine (98205) Comment: Microscopic was indicated an d was performed. PATIENT WAS FASTINGPERFORMED BY: LETICIA [facility] Nsblmc1654 [address] RoadDublin [place] [id number] Nitrite Ql (U) Negative Normal 08-31-2015 [facility] (74522) Comment: PATIENT WAS FASTINGPERFORMED BY: CB [facility] Ncersp0006 [address] RoadDublin [place] [id number] Nitrite Test strip Ql Negative Normal 08-31-19 16 [facility] Internal (U) Medicine ( 22605) pH (U) 7.0 5.0-7.5 1 Normal 08-31-2015 [facility] Internal Medicine ( 87700) Comment: PATIENT WAS FASTINGPERFORMED BY: LETICIA [facility] Wsjhkx3144 [address] RoadDublin [place] [id number] pH Test strip (U) 7.0 5.0-7.5 1 Normal 08-31-2015 C omprehensive Internal Medicine (66642) Protein Ql (U) 1+ Abnormal 08-31-2015 [facility] Internal Medicine (24184) Comment: PATIENT WAS FASTINGPERFORMED BY: LETICIA [facility] Omveta9661 [address] RoadDublin [place] [id number] Protein Test strip 1+ Abnormal 08-31-2015 [facility] Internal Ql (U) Medicine ( 22368) Specific gravity 1.026 1.005-1.030 1 Normal 08-31-2015 [facility] Internal Relative Density (U) Medicine (85428) Comment: PATIENT WAS FASTINGPERFORMED BY: CB [facility] Zfdera7293 [address] RoadDublin [place] [id number] Urobilinogen Test strip 0.2 0.2-1.0 mg/dL Normal 2015 Comprehensive Internal mass conc (U) Medici ne (67446) Comment: PATIENT WAS FASTINGPERFORMED BY: CB [facility] Ocwjsa8941 [address] RoadDublin [place] [id number] tsh (80631) Ordered By: Instrument Processing Tech on 2015-08-31 Thyrotropin Qn 3.210 0.450-4.500 {uIU/mL} Normal 08-31-2015 [facility] [place] [facility] ( 48441) Comment: PATIENT WAS FASTINGPERFORMED BY: LETICIA [facility] Ufqela7714 [address] RoadDublin [place] [id number] microscopic examination Ordered By: Instrument Processing Tech on 2015-08-31 Bacteria LM.HPF #/area None seen Normal 016 [facility] Internal (Urine sed) Medicine (76065) Comment: PATIENT WAS FASTINGPERFORMED BY: CB [facility] Juwzkz9110 [address] RoadDublin [place] [id number] Epithelial cells LM.HPF 0-10 0 - 10 Normal 2015 Comprehensive Internal #/area (Urine sed) M edicine (91010) Comment: PATIENT WAS FASTINGPERFORMED BY: CB [facility] Qjsixf5119 [address] RoadDublin [place] [id number] Mucus LM Ql (Urine sed) Present Normal 2015 [facility] Internal Medicine (26936) Mucus Ql (Urine sed) Present Normal 6 [facility] Internal Medicine (98233) Comment: PATIENT WAS FASTINGPERFORMED BY: CB [facility] Gvftwc0573 [address] RoadDublin [place] [id number] RBC LM.HPF #/area (Urine 0-2 0 - 2 Normal 08-30 [facility] Internal Medicine sed) (40108) Comment: PATIENT WAS FASTINGPERFORMED BY: CB [facility] Nejugv8535 [address] RoadDublin [place] [id number] WBC LM.HPF #/area (Urine 0-5 0 - 5 Normal 08-30 [facility] Internal Medicine sed) (93929) Comment: PATIENT WAS FASTINGPERFORMED BY: CB [facility] Oactjz0574 [address] RoadDublin [place] [id number] microalbumin Ordered By: Instrument Processing Tech on 2015-08-31 Albumin DL <= 20 22.1 0.0-17.0 ug/mL Abnormal 08-31-2015 [facility] [place] [facility] Internal mg/L mass conc (U) M edicine (46593) Comment: PATIENT WAS FASTINGPERFORMED BY: CB [facility] Khxjzs0728 [address] RoadDublin [place] [id number] Albumin/Creatinine mass 12.2 0.0-30.0 {mg/g_creat} Normal Comprehensive ratio (U) Internal M edicine (60449) Comment: PATIENT WAS FASTINGPERFORMED BY: LETICIA LabCodiaz HanksHfgfxo0147 [address] [facility] [place] [id number] Creatinine mass conc 180.9 15.0-278.0 mg/dL Normal 08-31-19 16 Comprehensive Internal (U) Medicine ( 08061) Comment: PATIENT WAS FASTINGPERFORMED BY: LETICIA [facility] Irfkew5405 [address] [facility] [place] [id number] metabolic panel, comprehensive (55123) Ordered By: Instrument Processing Tech on 2015-08-31 Albumin mass conc 4.3 3.6-4.8 g/dL Normal 08-31-2015 C ompohiohealthensive Internal Medicine (18221) Comment: PATIENT WAS FASTINGPERFORMED BY: LETICIA [facility] Psvuue8713 [address] [facility] [place] [id number] Albumin/Globulin mass ratio 1.5 1.1-2.5 1 Normal Comprehensive Internal Medicine ( 97423) Comment: PATIENT WAS FASTINGPERFORMED BY: LETICIA [facility] Gpfxcf3371 [address] [facility]in [place] [id number] ALP enzyme act/vol 108 39-117 [iU]/L Normal 08-31-2015 Comprehensive Internal Medicine ( 39920) Comment: PATIENT WAS FASTINGPERFORMED BY: LETICIA [facility] Dbsfus5016 [address] [facility] [place] [id number] ALT enzyme act/vol 15 0-32 [iU]/L Normal 08-31-2015 [facility] Internal Medicine (75142) Comment: PATIENT WAS FASTINGPERFORMED BY: [facility] Hnvjac0894 [address] [facility] [place] [id number] AST enzyme act/vol 23 0-40 [iU]/L Normal 08-31-2015 Comprehensive Internal Medicine (42985) Comment: PATIENT WAS FASTINGPERFORMED BY: LETICIA [facility] Fjixdr0493 [address] [facility] [place] [id number] Bilirubin mass conc 0.3 0.0-1.2 mg/dL Normal 08-31-2015 [facility] Internal Medicine ( 25217) Comment: PATIENT WAS FASTINGPERFORMED BY: [facility] Iuqowx0141 [address] [facility] [place] [id number] Calcium mass conc 9.8 8.7-10.3 mg/dL Normal 08-31-2015 [facility] Internal Medicine ( 65472) Comment: PATIENT WAS FASTINGPERFORMED BY: LETICIA LabCodiaz WallsTttxec3044 [facility] [id number] Chloride molar conc 101 97-108 mmol/L Normal 08-31-2015 Comprehensive Internal Medicine ( 44807) Comment: PATIENT WAS FASTINGPERFORMED BY: CB [facility] Zzmchp2769 [facility] [id number] CO2 molar conc 25 18-29 mmol/L Normal 08-31-2015 [facility] Internal Medicine (00818) Comment: PATIENT WAS FASTINGPERFORMED BY: LETICIA [facility] Mphoro1690 [facility] [id number] Creatinine mass conc 0.89 0.57-1.00 mg/dL Normal 6 Comprehensive Internal Medicine ( 52087) Comment: PATIENT WAS FASTINGPERFORMED BY: LETICIA [facility] Xrtcet1144 [facility] [id number] GFR/1.73 sq M predicted 79 mL/min/1.73 Normal 08-09 Comprehensive Internal among blacks CKD-EPI Medicine (66354) vol rate/area (S/P/Bld) Comment: PATIENT WAS FASTINGPERFORMED BY: [facility] Znlmuj8781 [facility] [id number] GFR/1.73 sq M predicted 68 mL/min/1.73 Normal 08-09 Comprehensive Internal among non-blacks CKD-EPI Medicine (77761) vol rate/area (S/P/Bld) Comment: PATIENT WAS FASTINGPERFORMED BY: CB [facility] Vtadep4127 [facility] [id number] Globulin Calculated mass 2.8 1.5-4.5 g/dL Normal 08-30 Comprehensive Internal conc (S) Medicine ( 45619) Globulin mass conc (S) 2.8 1.5-4.5 g/dL Normal 016 [facility] Internal Medicine ( 53965) Comment: PATIENT WAS FASTINGPERFORMED BY: LETICIA [facility] Kpuxwv0998 [facility] [id number] Glucose mass conc 84 65-99 mg/dL Normal 08-31-2015 [facility] (31153) Comment: PATIENT WAS FASTINGPERFORMED BY: LETICIA Hanks6370 [facility] [id number] Potassium molar conc 5.4 3.5-5.2 mmol/L Abnormal 6 Comprehensive Internal Medicine ( 43314) Comment: PATIENT WAS FASTINGPERFORMED BY: LETICIA Sheryl Hanks6370 [facility] [id number] Protein mass conc 7.1 6.0-8.5 g/dL Normal 08-31-2015 [facility] Internal Medicine (67890) Comment: PATIENT WAS FASTINGPERFORMED BY: LETICIA Sheryl Hanks6370 [facility] [id number] Sodium molar conc 144 134-144 mmol/L Normal 08-31-2015 [facility] Internal Medicine ( 88492) Comment: PATIENT WAS FASTINGPERFORMED BY: LETICIA Sheryl Hanks6370 [facility] [id number] Urea nitrogen mass conc 19 8-27 mg/dL Normal 2015 Comprehensive Internal Medicine ( 75541) Comment: PATIENT WAS FASTINGPERFORMED BY: LETICIA Hanks6370 [facility] [id number] Urea nitrogen/Creatinine mass 21 11-26 1 Normal 08-31-2015 Comprehensive Internal ratio Medicine ( 51142) Comment: PATIENT WAS FASTINGPERFORMED BY: LETICIA Ada Cdopus0606 [facility] [id number] lipid panel (24463) Ordered By: Instrument Processing Tech on 2015-08-31 Cholesterol in HDL mass 67 mg/dL Normal 2015 Comprehensive Internal [facility] Medicine ( 64806) Comment: According to ATP-III Guideli zainab, HDL-C >59 mg/dL is considered anegative risk factor for CHD. PATIENT WAS FASTINGPERFORMED BY: LETICIA SocratesCo Elluak2690 [facility] [id number] Cholesterol in LDL mass 142 0-99 mg/dL Abnormal 2015 Comprehensive Internal [facility] Medicine ( 80351) Comment: PATIENT WAS FASTINGPERFORMED BY: [facility] Cxjjgo9752 [facility] [id number] Cholesterol in 2.1 0.0-3.2 {ratio_units} Normal 08-31-2015 [facility] LDL/Cholesterol in HDL Internal Medicine mass ratio (71533) Comment: LDL/HDL Ratio Men Women 1/2 Avg.Risk 1.0 1.5 Avg.Risk 3.6 3.2 2X Avg.Risk 6.2 5.0 3X Avg.Risk 8.0 6.1 PATIENT WAS FASTINGPERFORMED BY: [facility] Aznxmo3065 [facility] [id number] Cholesterol in VLDL mass 29 5-40 mg/dL Normal 08-30 [facility] Internal [facility] Medicine ( 68030) Comment: PATIENT WAS FASTINGPERFORMED BY: [facility] Ewscft9354 [facility] [id number] Cholesterol mass conc 238 100-199 mg/dL Abnormal 08-31-19 16 [facility] Internal Medicine ( 09178) Comment: PATIENT WAS FASTINGPERFORMED BY: [facility] Hsdfdu8111 [facility] [id number] Triglyceride mass conc 144 0-149 mg/dL Normal 016 [facility] Internal Medicine ( 67934) Comment: PATIENT WAS FASTINGPERFORMED BY: [facility] Hsfbwe3127 [facility] [id number] cbc w/auto diff wbc (95642) Ordered By: Instrument Processing Tech on 2015-08-31 Basophils #/vol 0.0 0.0-0.2 {x10E3/uL} Normal 08-31-2015 Fl mprehensive Internal (Bld) Medicine ( 32794) Comment: PATIENT WAS FASTINGPERFORMED BY: [facility] Rsbscu1882 [facility] [id number] Information: [id number] Basophils Auto #/vol 0.0 0.0-0.2 {x10E3/uL} Normal 08-31-19 16 Comprehensive Internal (d) Medicine ( 03896) Basophils/100 WBC 1 % Normal 08-31-2015 C omprehensive Internal (Bld) Medicine ( 35532) Comment: PATIENT WAS FASTINGPERFORMED BY: [facility]6370 [facility] [id number] Information: [id number] Basophils/100 WBC Auto 1 % Normal 016 [facility] Internal (Bld) Medicine ( 62517) Eosinophils #/vol (Bld) 0.1 0.0-0.4 {x10E3/uL} Normal 08-30 [facility] Internal Medicine ( 33729) Comment: PATIENT WAS FASTINGPERFORMED BY: [facility]CoH[facility]owview HospitalOmucbe9939 [facility] [id number] Information: [id number] Eosinophils Auto 0.1 0.0-0.4 {x10E3/uL} Normal 08-31-2015 C omprehensive Internal #/vol (Bld) Medicine (70218) Eosinophils/100 WBC 2 % Normal 08-31-2015 Comprehensive Internal (Bld) Medicine ( 50404) Comment: PATIENT WAS FASTINGPERFORMED BY: [facility]6370 [facility] [id number] Information: [id number] Eosinophils/100 WBC Auto 2 % Normal 08-30 [facility] Internal (Bld) Medicine ( 93948) Erythrocyte distribution 14.0 12.3-15.4 % Normal 08-30 Comprehensive Internal width Auto Ratio (RBC) [facility] (53246) Erythrocyte distribution 14.0 12.3-15.4 % Normal 08-30 Comprehensive Internal width Ratio (RBC) [facility] (88871) Comment: PATIENT WAS FASTINGPERFORMED BY: [facility]6370 [facility] [id number] Information: [id number] Hematocrit Auto Volume 43.2 34.0-46.6 % Normal 016 Comprehensive Internal Fraction (Bld) Medic ine (44639) Hematocrit Volume 43.2 34.0-46.6 % Normal 08-31-2015 C omprehensive Internal Fraction (Bld) Medic ine (14125) Comment: PATIENT WAS FASTINGPERFORMED BY: LabCore[facility]6370 [facility] [id number] Information: [id number] Hemoglobin mass conc 14.4 11.1-15.9 g/dL Normal 6 Comprehensive Internal (Bld) Medicine ( 80050) Comment: PATIENT WAS FASTINGPERFORMED BY: LETICIA [facility]6370 [facility] [id number] Information: [id number] Immature granulocytes 0.0 0.0-0.1 {x10E3/uL} Normal 016 Comprehensive Internal #/vol (Bld) Medicine (40235) Comment: PATIENT WAS FASTINGPERFORMED BY: [address] [id number] Information: [id number] Immature granulocytes/100 WBC 0 % Normal 08-31-2015 Comprehensive Internal (Bld) Medicine ( 40324) Comment: PATIENT WAS FASTINGPERFORMED BY: [address] [id number] Information: [id number] Lymphocytes #/vol 1.9 0.7-3.1 {x10E3/uL} Normal 08-31-2015 Comprehensive Internal (Bld) Medicine ( 62650) Comment: PATIENT WAS FASTINGPERFORMED BY: LabCore[facility]6370 [facility] [id number] Information: [id number] Lymphocytes Auto 1.9 0.7-3.1 {x10E3/uL} Normal 08-31-2015 C omprehensive Internal #/vol (Bld) Medicine (53836) Lymphocytes/100 WBC 33 % Normal 08-31-2015 Comprehensive Internal (Bld) Medicine ( 86093) Comment: PATIENT WAS FASTINGPERFORMED BY: [place] 9420470 [facility] [id number] Information: [id number] Lymphocytes/100 WBC Auto 33 % Normal 08-30 Comprehensive Internal (Bld) Medicine ( 83298) MCH Auto Entitic mass 30.2 26.6-33.0 pg Normal 08-31-19 16 Comprehensive Internal ([facility]) Medicine ( 51569) MCH Entitic mass (RBC) 30.2 26.6-33.0 pg Normal 016 Comprehensive Internal Medicine ( 79676) Comment: PATIENT WAS FASTINGPERFORMED BY: LETICIA LabCorewell [facility] Hospital6370 [facility] [id number] Information: [id number] MCHC Auto mass conc 33.3 31.5-35.7 g/dL Normal 08-31-2015 Comprehensive Internal (RBC) Medicine ( 10571) MCHC mass conc (RBC) 33.3 31.5-35.7 g/dL Normal 6 Comprehensive Internal Medicine ( 68466) Comment: PATIENT WAS FASTINGPERFORMED BY: LETICIA LabCoVictor [place] 1733570 [facility] [id number] Information: [id number] MCV Auto Entitic volume 91 79-97 fL Normal 2015 Comprehensive Internal (RBC) Medicine ( 57382) MCV Entitic volume (RBC) 91 79-97 fL Normal 08-30 [facility] Internal Medicine ( 42145) Comment: PATIENT WAS FASTINGPERFORMED BY: LETICIA LabCoHudson County Meadowview HospitalSeleut8779 [facility] [id number] Information: [id number] Monocytes #/vol 0.5 0.1-0.9 {x10E3/uL} Normal 08-31-2015 Co mprehensive Internal (Bld) Medicine ( 26700) Comment: PATIENT WAS FASTINGPERFORMED BY: LETICIA LabCorewell Health Greenville Hospital6370 [facility] [id number] Information: [id number] Monocytes Auto #/vol 0.5 0.1-0.9 {x10E3/uL} Normal 08-31-19 16 [facility] Internal (Bld) Medicine ( 45632) Monocytes/100 WBC 8 % Normal 08-31-2015 C omprehensive Internal (Bld) Medicine ( 55215) Comment: PATIENT WAS FASTINGPERFORMED BY: LETICIA LabCoHudson County Meadowview HospitalYayeim7915 [facility] [id number] Information: [id number] Monocytes/100 WBC Auto 8 % Normal 016 [facility] Internal (d) Medicine ( 35784) Neutrophils #/vol (Bld) 3.2 1.4-7.0 {x10E3/uL} Normal 08-30 [facility] Internal Medicine ( 98433) Comment: PATIENT WAS FASTINGPERFORMED BY: LETICIA SocratesYannick WallsPbqeiw5496 [facility] [id number] Information: [id number] Neutrophils Auto 3.2 1.4-7.0 {x10E3/uL} Normal 08-31-2015 C omprehensive Internal #/vol (Bld) Medicine (01674) Neutrophils/100 WBC 56 % Normal 08-31-2015 [facility] Internal (d) Medicine ( 46167) Comment: PATIENT WAS FASTINGPERFORMED BY: LETICIA Hanks6370 [facility] [id number] Information: [id number] Neutrophils/100 WBC Auto 56 % Normal 08-30 [facility] ([facility]) Internal edicine (32688) Platelets #/vol (Bld) 355 150-379 {x10E3/uL} Normal 016 [facility] Internal edicine (09253) Comment: PATIENT WAS FASTINGPERFORMED BY: LETICIA LabYannick WallsLuctzh1162 [facility] [id number] Information: [id number] Platelets Auto 355 150-379 {x10E3/uL} Normal 08-31-2015 [facility] prehensive Internal #/vol (Bld) Medicine (13190) RBC #/vol (Bld) 4.77 3.77-5.28 {x10E6/uL} Normal 08-31-2015 [facility] Internal Medicine ( 53040) Comment: PATIENT WAS FASTINGPERFORMED BY: LETICIA [facility] Axkihr1242 [facility] [id number] Information: [id number] RBC Auto #/vol 4.77 3.77-5.28 {x10E6/uL} Normal 08-31-2015 [facility] prehensive Internal (Bld) Medicine ( 90775) WBC #/vol (Bld) 5.8 3.4-10.8 {x10E3/uL} Normal 08-31-2015 Co mprehensive Internal Medicine ( 15739) Comment: PATIENT WAS FASTINGPERFORMED BY: LETICIA Fobbler6370 [facility]in [place] [id number] Information: [id number] WBC Auto #/vol 5.8 3.4-10.8 {x10E3/uL} Normal 08-31-2015 Com prehensive Internal (Bld) Medicine ( 84584) calcifidiol (72740) vit d 25 Ordered By: Instrument Processing Tech on 2015-08-31 25-Hydroxyvitamin 42.2 30.0-100.0 ng/mL Normal 08-31-2015 Comprehensive D2+25-Hydroxyvitamin D3 Internal Medicine mass conc (03379) Comment: Vitamin D deficiency has bee n defined by the [place] ofMedicine and an Endocrine Society practice g uideline as alevel of serum 25-OH vitamin D less than 20 ng/mL (1,2).The Endo crine Society went on to further define vitamin Dinsufficiency as a level be tween 21 and 29 ng/mL (2).1. IOM ([place] of Medicine). 2010. Dietary ref erence intakes for calcium and D. [place]: The National Academies Press .2. Alina MF, Sundeep NC, Shannen VILLALBA, et al. Evaluation, treatment , and prevention of vitamin D deficiency: an Endocrine Society clinical p joe guideline. JCEM. 2010; 96(7):1911-30. PATIENT WAS FASTINGPERFORMED BY: Metabarrp Slzzlj1367 [facility] [id number] tsh (51670) Ordered By: Instrument Processing Tech on 2015-07-01 Thyrotropin Qn 3.550 0.450-4.500 {uIU/mL} Normal 07-01-2015 Co mprehensive Internal Medicine ( 03043) Comment: PATIENT NOT FASTINGPERFORMED BY: Tufin [facility] Hegcwy6880 [facility]in [place] [id number] t4, free (thyroxine) (71435) Ordered By: Instrument Processing Tech on 2015-07-01 T4 free mass conc 1.05 0.82-1.77 ng/dL Normal 07-01-2015 C omprehensive Internal Medicine ( 53298) Comment: PATIENT NOT FASTINGPERFORMED BY: CB [facility] Zaetta8736 [address]ardo RoadDublin [place] [id number] Information: [id number] t3, free (tridothyronine) (45447) Ordered By: Instrument Processing Tech on 2015-07-01 T3 free mass conc 2.5 2.0-4.4 pg/mL Normal 07-01-2015 [facility] Internal Medicine (66025) Comment: PATIENT NOT FASTINGPERFORMED BY: CB [facility] Tkllne3501 [address]ardo RoadDublin [place] [id number] urinalysis, w/ micro (06069) Ordered By: Instrument Processing Tech on 2015-05-03 Appearance Nom (U) Clear Normal 05-03-2015 Comprehensive Internal Medicine (25462) Comment: PATIENT WAS FASTINGPERFORMED BY: CB [facility] Jqetad2273 [address]ardo RoadDublin [place] [id number] Bilirubin Ql (U) Negative Normal 05-03-2015 [facility] Internal Medicine (49186) Comment: PATIENT WAS FASTINGPERFORMED BY: CB [facility] Cflkcg7722 [address] RoadDublin [place] [id number] Color Nom (U) Yellow Normal 05-03-2015 [facility] Internal Medicine (30724) Comment: PATIENT WAS FASTINGPERFORMED BY: CB [facility] Yoypwh2120 [address] RoadDublin [place] [id number] Glucose Ql (U) Negative Normal 05-03-2015 [facility] (99773) Comment: PATIENT WAS FASTINGPERFORMED BY: CB [facility] Fzlqph8091 [address]ardo RoadDublin [place] [id number] Hemoglobin Ql (U) Negative Normal 05-03-2015 [facility] Internal Medicine (35690) Comment: PATIENT WAS FASTINGPERFORMED BY: CB [facility] Adxycz7032 [address] RoadDublin [place] [id number] Hemoglobin Test strip Ql Negative Normal 05-03 Comprehensive Internal (U) Medicine ( 34724) Ketones Ql (U) Negative Normal 05-03-2015 [facility] ( 39544) Comment: PATIENT WAS FASTINGPERFORMED BY: CB [facility] Sldacs4955 [address] RoadDublin [place] [id number] Leukocyte esterase Test Trace Abnormal 2014 Comprehensive Internal strip Ql (U) Medicin e (28436) Comment: PATIENT WAS FASTINGPERFORMED BY: LETICIA [facility] Lrfnrc2443 [address] RoadDublin [place] [id number] Microscopic observation See below: Normal 05-03 Comprehensive Internal LM Nom (Urine sed) M edicine (89566) Comment: Microscopic was indicated an d was performed. PATIENT WAS FASTINGPERFORMED BY: CB [facility] Zbetbh7133 [address]ardo RoadDublin [place] [id number] Nitrite Ql (U) Negative Normal 05-03-2015 [facility] Internal Medicine (90249) Comment: PATIENT WAS FASTINGPERFORMED BY: CB [facility] Qsxvhz0134 [address] RoadDublin [place] [id number] Nitrite Test strip Ql Negative Normal 05-03-20 15 Comprehensive Internal (U) Medicine ( 80879) pH (U) 6.5 5.0-7.5 1 Normal 05-03-2015 [facility] Internal Medicine ( 52860) Comment: PATIENT WAS FASTINGPERFORMED BY: CB [facility] Dyehrp2483 [address]ardo RoadDublin [place] [id number] pH Test strip (U) 6.5 5.0-7.5 1 Normal 05-03-2015 [facility] (50914) Protein Ql (U) Trace Normal 05-03-2015 [facility] Internal Medicine (47100) Comment: PATIENT WAS FASTINGPERFORMED BY: CB [facility] Sdkwzh6935 [address] RoadDublin [place] [id number] Protein Test strip Ql Trace Normal 05-03-20 15 Comprehensive Internal (U) Medicine ( 31756) Specific gravity 1.024 1.005-1.030 1 Normal 05-03-2015 Comprehensive Internal Relative Density (U) Medicine (75830) Comment: PATIENT WAS FASTINGPERFORMED BY: CB [facility] Xmyeen0795 [address] RoadDublin [place] [id number] Urobilinogen Test strip 0.2 0.2-1.0 mg/dL Normal 2014 Comprehensive Internal mass conc (U) Medici ne (60544) Comment: PATIENT WAS FASTINGPERFORMED BY: LETICIA LabCo Awddxl6611 [address] [facility] [id number] tsh (31136) Ordered By: Instrument Processing Tech on 2015-05-03 Thyrotropin Qn 5.130 0.450-4.500 {uIU/mL} Abnormal 05-03-2015 [facility] ( 56592) Comment: PATIENT WAS FASTINGPERFORMED BY: LETICIA LabCo Vdfegc9809 [address] [facility] [id number] microscopic examination Ordered By: Instrument Processing Tech on 2015-05-03 Bacteria LM.HPF #/area Few Normal 015 Comprehensive Internal Medicine (Urine sed) (88826) Comment: PATIENT WAS FASTINGPERFORMED BY: LETICIA [facility]Co Yaikbr1616 [facility] [id number] Epithelial cells LM.HPF 0-10 0 - 10 Normal 2014 Comprehensive Internal #/area (Urine sed) M edicine (40740) Comment: PATIENT WAS FASTINGPERFORMED BY: LETICIA [facility] Xkdmae6137 [facility] [id number] Mucus LM Ql (Urine sed) Present Normal 2014 Comprehensive Internal Medicine (94791) Mucus Ql (Urine sed) Present Normal 5 Comprehensive Internal Medicine (54163) Comment: PATIENT WAS FASTINGPERFORMED BY: LETICIA LabCo Udljcm2642 [facility]in [place] [id number] RBC LM.HPF #/area (Urine 0-2 0 - 2 Normal 05-03 Comprehensive Internal Medicine sed) (48719) Comment: PATIENT WAS FASTINGPERFORMED BY: LETICIA LabCo Nhwrxf9326 [facility] [id number] WBC LM.HPF #/area (Urine 0-5 0 - 5 Normal 05-03 Comprehensive Internal Medicine sed) (48913) Comment: PATIENT WAS FASTINGPERFORMED BY: LETICIA LabCo Phhocg9565 [facility] [id number] microalbumin Ordered By: Instrument Processing Tech on 2015-05-03 Albumin DL <= 20 28.8 0.0-17.0 ug/mL Abnormal 05-03-2015 Co mprehensive Internal mg/L mass conc (U) M edicine (37774) Comment: PATIENT WAS FASTINGPERFORMED BY: [facility] Bzmvgd3088 [address]ardo RoadDublin [place] [id number] Albumin/Creatinine mass 12.2 0.0-30.0 {mg/g_creat} Normal Comprehensive ratio (U) Internal edicine (70703) Comment: PATIENT WAS FASTINGPERFORMED BY: [facility] Dactum9774 [address] [facility] Hospitalblin [place] [id number] Creatinine mass conc 235.5 15.0-278.0 mg/dL Normal 05-03-20 15 Comprehensive Internal (U) Medicine ( 31715) Comment: PATIENT WAS FASTINGPERFORMED BY: [facility] Kljbfs0866 [address] [facility] Hospitalblin [place] [id number] metabolic panel, comprehensive (97076) Ordered By: Instrument Processing Tech on 2015-05-03 Albumin mass conc 4.2 3.6-4.8 g/dL Normal 05-03-2015 C omprehensive Internal Medicine (52154) Comment: PATIENT WAS FASTINGPERFORMED BY: LabCo Hfnagd5171 [address] [facility]in [place] [id number] Albumin/Globulin mass ratio 1.5 1.1-2.5 1 Normal Comprehensive Internal Medicine ( 35175) Comment: PATIENT WAS FASTINGPERFORMED BY: [facility] Qfdvhk2223 [address] [facility] [id number] ALP enzyme act/vol 97 39-117 [iU]/L Normal 05-03-2015 Comprehensive Internal Medicine (74900) Comment: PATIENT WAS FASTINGPERFORMED BY: [facility] Hgswgf1830 [address] [facility] [id number] ALT enzyme act/vol 14 0-32 [iU]/L Normal 05-03-2015 Comprehensive Internal Medicine (36284) Comment: PATIENT WAS FASTINGPERFORMED BY: CB [facility] Nnhjxq4129 [address] [facility]bl[facility] [place] [id number] AST enzyme act/vol 23 0-40 [iU]/L Normal 05-03-2015 Comprehensive Internal Medicine (09939) Comment: PATIENT WAS FASTINGPERFORMED BY: [facility] Krffju5163 [address] [facility] [id number] Bilirubin mass conc 0.3 0.0-1.2 mg/dL Normal 05-03-2015 Comprehensive Internal Medicine ( 45784) Comment: PATIENT WAS FASTINGPERFORMED BY: CB [facility] Ycxqie3895 [address] [facility] [id number] Calcium mass conc 9.8 8.7-10.3 mg/dL Normal 05-03-2015 [facility] ( 88651) Comment: PATIENT WAS FASTINGPERFORMED BY: CB [facility] Bmfocl4981 [address] [facility] [id number] Chloride molar conc 100 97-108 mmol/L Normal 05-03-2015 Comprehensive Internal Medicine ( 89446) Comment: PATIENT WAS FASTINGPERFORMED BY: CB [facility] Tipcuh2456 [address] [facility] [id number] CO2 molar conc 26 18-29 mmol/L Normal 05-03-2015 [facility] Internal Medicine (21417) Comment: PATIENT WAS FASTINGPERFORMED BY: CB [facility] Hktrxq2969 [facility] [id number] Creatinine mass conc 1.02 0.57-1.00 mg/dL Abnormal 5 Comprehensive Internal Medicine ( 38655) Comment: PATIENT WAS FASTINGPERFORMED BY: CB [facility] Jpobzd6129 [address] [facility] [id number] GFR/1.73 sq M predicted 67 mL/min/1.73 Normal 04-11 Comprehensive Internal among blacks CKD-EPI Medicine (07110) vol rate/area (S/P/Bld) Comment: PATIENT WAS FASTINGPERFORMED BY: CB [facility] Hskqlb5758 [facility] [id number] GFR/1.73 sq M predicted 58 mL/min/1.73 Abnormal 04-11 Comprehensive Internal among non-blacks Med icine (31026) CKD-EPI vol rate/area (S/P/Bld) Comment: PATIENT WAS FASTINGPERFORMED BY: CB [facility] Nzcynq6629 [address] [facility] [id number] Globulin Calculated mass 2.8 1.5-4.5 g/dL Normal 05-03 Comprehensive Internal conc (S) Medicine ( 55619) Globulin mass conc (S) 2.8 1.5-4.5 g/dL Normal 015 Comprehensive Internal Medicine ( 31218) Comment: PATIENT WAS FASTINGPERFORMED BY: LETICIA LabCodiaz WallsVkvjxf7658 [facility] [id number] Glucose mass conc 85 65-99 mg/dL Normal 05-03-2015 [facility] (12170) Comment: PATIENT WAS FASTINGPERFORMED BY: LETICIA [facility] Gsxkee1416 [facility] [id number] Potassium molar conc 5.1 3.5-5.2 mmol/L Normal 5 Comprehensive Internal Medicine ( 60046) Comment: PATIENT WAS FASTINGPERFORMED BY: LETICIA [facility] Ypgkpa5111 [facility] [id number] Protein mass conc 7.0 6.0-8.5 g/dL Normal 05-03-2015 [facility] Internal Medicine (23322) Comment: PATIENT WAS FASTINGPERFORMED BY: LETICIA [facility] Szscax8467 [facility] [id number] Sodium molar conc 139 134-144 mmol/L Normal 05-03-2015 [facility] Internal Medicine ( 85356) Comment: PATIENT WAS FASTINGPERFORMED BY: LETICIA [facility] Oodlav1351 [facility] [id number] Urea nitrogen mass conc 17 8-27 mg/dL Normal 2014 Comprehensive Internal Medicine ( 06711) Comment: PATIENT WAS FASTINGPERFORMED BY: LETICIA [facility] Ihmafd8098 [facility] [id number] Urea nitrogen/Creatinine mass 17 - 1 Normal 05-03-2015 Comprehensive Internal ratio Medicine ( 45812) Comment: PATIENT WAS FASTINGPERFORMED BY: LETICIA [facility] Wvbirj3910 [facility] [id number] lipid panel (99979) Ordered By: Instrument Processing Tech on 2015-05-03 Cholesterol in HDL mass 73 mg/dL Normal 2014 Comprehensive Internal [facility] Medicine ( 71796) Comment: According to ATP-III Guideli zainab, HDL-C >59 mg/dL is considered anegative risk factor for CHD. PATIENT WAS FASTINGPERFORMED BY: LETICIA [facility] Hicqjd2293 [facility] [id number] Cholesterol in LDL mass 125 0-99 mg/dL Abnormal 2014 [facility] Internal [facility] Medicine ( 53947) Comment: PATIENT WAS FASTINGPERFORMED BY: LETICIA [facility] Mvxisu2496 [facility] [id number] Cholesterol in 1.7 0.0-3.2 {ratio_units} Normal 05-03-2015 [facility] LDL/Cholesterol in HDL Internal Medicine mass ratio (32048) Comment: LDL/HDL Ratio Men Women 1/2 Avg.Risk 1.0 1.5 Avg.Risk 3.6 3.2 2X Avg.Risk 6.2 5.0 3X Avg.Risk 8.0 6.1 PATIENT WAS FASTINGPERFORMED BY: LETICIA LabCoHudson County Meadowview HospitalBbvqbk8781 [facility] [id number] Cholesterol in VLDL mass 22 5-40 mg/dL Normal 05-03 [facility] Internal [facility] Medicine ( 17776) Comment: PATIENT WAS FASTINGPERFORMED BY: LETICIA [facility] Xfxqyi6785 [facility] [id number] Cholesterol mass conc 220 100-199 mg/dL Abnormal 05-03-20 15 [facility] Internal Medicine ( 44582) Comment: PATIENT WAS FASTINGPERFORMED BY: LETICIA [facility] Tbrzva8614 [facility] [id number] Triglyceride mass conc 110 0-149 mg/dL Normal 015 [facility] Internal Medicine ( 55404) Comment: PATIENT WAS FASTINGPERFORMED BY: [facility] Lkebzv0131 [facility] [id number] cbc w/auto diff wbc (10580) Ordered By: Instrument Processing Tech on 2015-05-03 Basophils #/vol 0.0 0.0-0.2 {x10E3/uL} Normal 05-03-2015 [facility] Internal (Bld) Medicine ( 93101) Comment: PATIENT WAS FASTINGPERFORMED BY: LETICIA [facility] Izzixm3383 [facility] [id number] Information: [id number] Basophils Auto #/vol 0.0 0.0-0.2 {x10E3/uL} Normal 05-03-20 15 Comprehensive Internal (Bld) Medicine ( 91933) Basophils/100 WBC 1 % Normal 05-03-2015 C omprehensive Internal (Bld) Medicine ( 13919) Comment: PATIENT WAS FASTINGPERFORMED BY: LETICIA [facility]6370 [facility] [id number] Information: [id number] Basophils/100 WBC Auto 1 % Normal 015 Comprehensive Internal (Bld) Medicine ( 69475) Eosinophils #/vol (Bld) 0.2 0.0-0.4 {x10E3/uL} Normal 05-03 [facility] Internal Medicine ( 27628) Comment: PATIENT WAS FASTINGPERFORMED BY: LETICIA [facility]6370 [facility] [id number] Information: [id number] Eosinophils Auto 0.2 0.0-0.4 {x10E3/uL} Normal 05-03-2015 C omprehensive Internal #/vol (Bld) Medicine (50650) Eosinophils/100 WBC 3 % Normal 05-03-2015 Comprehensive Internal (Bld) Medicine ( 02223) Comment: PATIENT WAS FASTINGPERFORMED BY: [address] [id number] Information: [id number] Eosinophils/100 WBC Auto 3 % Normal 05-03 Comprehensive Internal (Bld) Medicine ( 29417) Erythrocyte distribution 14.4 12.3-15.4 % Normal 05-03 Comprehensive Internal width Auto Ratio (RBC) Medicine (37840) Erythrocyte distribution 14.4 12.3-15.4 % Normal 05-03 Comprehensive Internal width Ratio (RBC) [facility] (14138) Comment: PATIENT WAS FASTINGPERFORMED BY: [place] 9420470 [facility] [id number] Information: [id number] Hematocrit Auto Volume 41.1 34.0-46.6 % Normal 015 Comprehensive Internal Fraction (Bld) Medic ine (17548) Hematocrit Volume 41.1 34.0-46.6 % Normal 05-03-2015 C omprehensive Internal Fraction (Bld) Medic ine (42092) Comment: PATIENT WAS FASTINGPERFORMED BY: LETICIA Caballero Zzbckd0743 [facility] [id number] Information: [id number] Hemoglobin mass conc 13.7 11.1-15.9 g/dL Normal 5 Comprehensive Internal (Bld) Medicine ( 20454) Comment: PATIENT WAS FASTINGPERFORMED BY: LabAnthony Ville 0836270 [facility] [id number] Information: [id number] Immature granulocytes 0.0 0.0-0.1 {x10E3/uL} Normal 015 Comprehensive Internal #/vol (Bld) Medicine (98871) Comment: PATIENT WAS FASTINGPERFORMED BY: [address] [id number] Information: [id number] Immature granulocytes/100 WBC 0 % Normal 05-03-2015 Comprehensive Internal (Bld) Medicine ( 62397) Comment: PATIENT WAS FASTINGPERFORMED BY: LabCorewell [facility] Hospital6370 [facility] [id number] Information: [id number] Lymphocytes #/vol 1.6 0.7-3.1 {x10E3/uL} Normal 05-03-2015 Comprehensive Internal (Bld) Medicine ( 06210) Comment: PATIENT WAS FASTINGPERFORMED BY: LabCorewell [facility]ville Hospital6370 [facility] [id number] Information: [id number] Lymphocytes Auto 1.6 0.7-3.1 {x10E3/uL} Normal 05-03-2015 C omprehensive Internal #/vol (Bld) Medicine (76499) Lymphocytes/100 WBC 28 % Normal 05-03-2015 Comprehensive Internal (Bld) Medicine ( 74985) Comment: PATIENT WAS FASTINGPERFORMED BY: LabCorewell [facility] Hospital6370 [facility] [id number] Information: [id number] Lymphocytes/100 WBC Auto 28 % Normal 05-03 Comprehensive Internal (Bld) Medicine ( 31830) MCH Auto Entitic mass 29.7 26.6-33.0 pg Normal 05-03-20 15 Comprehensive Internal (RBC) Medicine ( 71070) MCH Entitic mass (RBC) 29.7 26.6-33.0 pg Normal 015 Comprehensive Internal Medicine ( 68169) Comment: PATIENT WAS FASTINGPERFORMED BY: LETICIA LabCoHudson County Meadowview HospitalJzwwqa5061 [facility] [id number] Information: [id number] MCHC Auto mass conc 33.3 31.5-35.7 g/dL Normal 05-03-2015 Comprehensive Internal (RBC) Medicine ( 36118) MCHC mass conc (RBC) 33.3 31.5-35.7 g/dL Normal 5 Comprehensive Internal Medicine ( 83105) Comment: PATIENT WAS FASTINGPERFORMED BY: LETICIA LabCoHudson County Meadowview HospitalHpoyzo2505 [facility] [id number] Information: [id number] MCV Auto Entitic volume 89 79-97 fL Normal 2014 Comprehensive Internal (RBC) Medicine ( 46188) MCV Entitic volume (RBC) 89 79-97 fL Normal 05-03 [facility] Internal Medicine ( 22064) Comment: PATIENT WAS FASTINGPERFORMED BY: LETICIA LabCoHudson County Meadowview HospitalJrkgei4472 [facility] [id number] Information: [id number] Monocytes #/vol 0.6 0.1-0.9 {x10E3/uL} Normal 05-03-2015 Co mprehensive Internal (Bld) Medicine ( 85464) Comment: PATIENT WAS FASTINGPERFORMED BY: LabCo Titvzo9316 [facility] [id number] Information: [id number] Monocytes Auto #/vol 0.6 0.1-0.9 {x10E3/uL} Normal 05-03-20 15 Comprehensive Internal (Bld) Medicine ( 10250) Monocytes/100 WBC 10 % Normal 05-03-2015 C omprehensive Internal (Bld) Medicine ( 06952) Comment: PATIENT WAS FASTINGPERFORMED BY: LETICIA LabCoHudson County Meadowview HospitalSazamo2867 [facility] [id number] Information: [id number] Monocytes/100 WBC Auto 10 % Normal 015 Comprehensive Internal (d) Medicine ( 90939) Neutrophils #/vol (d) 3.4 1.4-7.0 {x10E3/uL} Normal 05-03 [facility] Internal Medicine ( 23028) Comment: PATIENT WAS FASTINGPERFORMED BY: LETICIA LabCoHudson County Meadowview HospitalDoglfv8794 [facility] [id number] Information: [id number] Neutrophils Auto 3.4 1.4-7.0 {x10E3/uL} Normal 05-03-2015 C omprehensive Internal #/vol (Bld) Medicine (58671) Neutrophils/100 WBC 58 % Normal 05-03-2015 [facility] Internal ([facility]) Medicine ( 69871) Comment: PATIENT WAS FASTINGPERFORMED BY: LETICIA LabCorewell [facility] Hospital6370 [facility] [id number] Information: [id number] Neutrophils/100 WBC Auto 58 % Normal 05-03 [facility] ([facility]) Internal edicine (13777) Platelets #/vol (Bld) 355 150-379 {x10E3/uL} Normal 015 [facility] Internal edicine (22085) Comment: PATIENT WAS FASTINGPERFORMED BY: LETICIA LabCorewell Health [facility]ville Hospital6370 [facility] [id number] Information: [id number] Platelets Auto 355 150-379 {x10E3/uL} Normal 05-03-2015 Com prehensive Internal #/vol (Bld) Medicine (59988) RBC #/vol (Bld) 4.61 3.77-5.28 {x10E6/uL} Normal 05-03-2015 Fl mprehensive Internal Medicine ( 17472) Comment: PATIENT WAS FASTINGPERFORMED BY: LETICIA [facility] Ofqlyk1227 [facility] [id number] Information: [id number] RBC Auto #/vol 4.61 3.77-5.28 {x10E6/uL} Normal 05-03-2015 [facility] prehensive Internal (Bld) Medicine ( 47682) WBC #/vol (Bld) 5.8 3.4-10.8 {x10E3/uL} Normal 05-03-2015 Co mprehensive Internal Medicine ( 81347) Comment: PATIENT WAS FASTINGPERFORMED BY: [employer] Tllrey7633 [facility] [id number] Information: [id number] WBC Auto #/vol 5.8 3.4-10.8 {x10E3/uL} Normal 05-03-2015 [facility] prehensive Internal (Bld) Medicine ( 05830) urine alexandru culture-emily col count (43140) Ordered By: Instrument Processing Tech on 2014-03-09 Bacteria identified Cx Final report Abnormal 02-10 Comprehensive Internal Nom (U) Medicine ( 34439) Comment: PATIENT NOT FASTINGPERFORMED BY: Fobbler6370 [facility] [id number] Information: SRC:UR [id number] Bacteria identified Cx Nom BETAGB Abnormal Comprehensive Internal (U) Medicine ( 97380) Comment: Beta hemolytic Streptococcus , group B200 Colonies/mL .Penicillin and ampicillin are drugs of rico ce for treatment ofbeta-hemolytic streptococcal infections. Susceptibility t esting ofpenicillins and other beta-lactam agents approved by the FDA f ortreatment of beta-hemolytic streptococcal infections need not beperfor med routinely because nonsusceptible isolates are extremelyrare in any bet a-hemolytic streptococcus and have not been reportedfor Streptococcus py ogenes (group A). (CLSI 2011)Mixed urogenital flora10,000-25,000 colony fo rming units per mL PATIENT NOT FASTINGPERFORMED BY: [facility] Rfwvkv2264 [facility] [id number] Information: SRC:UR [id number] urinalysis, office (84508) Ordered By: Carola Mike on 2014-03-08 Hemoglobin Test strip Ql Negative Normal 03-08 [facility] (U) [facility] ( 79174) Nitrite Test strip Ql (U) Negative Normal 02-09 [facility] ( 02553) pH Test strip (U) 7.0 1 Normal 03-08-2014 [facility] Medicine ( 33987) Protein Test strip Ql (U) Negative Normal 02-09 [facility] ( 35844) urinalysis, office (99107) on 2014-03-08 Bilirubin Ql (U) Negative Normal 03-08-2014 [facility] Medicine ( 59365) Glucose Test strip mass Negative Normal 2013 [facility] conc (U) Medicine ( 71792) Hemoglobin Ql (U) Negative Normal 03-08-2014 [facility] ( 55609) Ketones Ql (U) Negative Normal 03-08-2014 Comp rehensive Internal Medicine ( 55978) Leukocyte esterase Test Negative Normal 2013 [facility] Internal strip Ql (U) Medicin e (10222) Nitrite Ql (U) Negative Normal 03-08-2014 Comp rehensive Internal Medicine ( 00721) pH (U) 7.0 1 Normal 03-08-2014 Comprehen sive Internal Medicine ( 96620) Protein Ql (U) Negative Normal 03-08-2014 Comp rehensive Internal Medicine ( 95957) Specific gravity Relative 1.015 1 Normal 02-09 [facility] Density (U) Medicine (47544) Urobilinogen mass/time 2 mg/dL Normal 014 [facility] (24H U) Medicine ( 22541) cbcd Ordered By: Lizzette [employer] on 2014-01-08 Erythrocyte 13.9 11.6-14.6 % Normal 01-08-2014 Compreh ensive distribution width I nternal Medicine Auto Ratio (RBC) (44 691) Erythrocyte 13.9 11.6-14.6 % Normal 01-08-2014 Compreh ensive distribution width I nternal Medicine Ratio (RBC) (48616) Hematocrit Auto 42.3 37-47 % Normal 01-08-2014 Com prehensive Volume Fraction Inte rnal Medicine (Bld) (25206) Hematocrit Volume 42.3 37-47 % Normal 01-08-2014 C omprehensive Fraction (Bld) Inter nal Medicine (83732) Hemoglobin mass conc 13.8 12.0-15.0 g/dL Normal 4 Comprehensive (Bld) Internal M edicine (33481) MCH Auto Entitic 29.7 27.0-32.0 pg Normal 01-08-2014 Co mprehensive mass (RBC) Internal Medicine (01033) MCH Entitic mass 29.7 27.0-32.0 pg Normal 01-08-2014 Co mprehensive (RBC) Internal M edicine (35728) MCHC Auto mass conc 32.6 32-36 {g/gl} Normal 01-08-2014 Comprehensive (RBC) Internal M edicine (38936) MCHC mass conc (RBC) 32.6 32-36 {g/gl} Normal 4 [facility] M edicine (34028) MCV Auto Entitic 91.2 81-99 fL Normal 01-08-2014 Co mprehensive volume (RBC) Interna l Medicine (49326) MCV Entitic volume 91.2 81-99 fL Normal 01-08-2014 Comprehensive (RBC) Internal M edicine (52502) Platelet mean volume 10.0 6.2-12.0 fL Normal 4 [facility] Auto Entitic volume Internal Medicine (Bld) (81005) Platelet mean volume 10.0 6.2-12.0 fL Normal 4 [facility] Entitic volume (Bld) Internal Medicine (62341) Platelets #/vol 352 150-450 K/mm3 Normal 01-08-2014 Com prehensive (Bld) Internal M edicine (77164) Platelets Auto #/vol 352 150-450 K/mm3 Normal 4 [facility] (Bld) Internal M edicine (21778) RBC #/vol (Bld) 4.64 4.2-5.4 {M/mm3} Normal 01-08-2014 Com prehensive Internal M edicine (14609) RBC Auto #/vol (Bld) 4.64 4.2-5.4 {M/mm3} Normal 4 [facility] Internal M edicine (85826) WBC #/vol (Bld) 4.2 4.4-11.0 K/mm3 Abnormal 01-08-2014 Com prehensive Internal M edicine (86154) WBC Auto #/vol (Bld) 4.2 4.4-11.0 K/mm3 Abnormal 4 [facility] Internal M edicine (45170) 2.4 0-5 % Normal 01-08-2014 Comprehen [facility] Internal M edicine (85725) 9.6 0-10 % Normal 01-08-2014 Comprehen [facility] Internal M edicine (27345) 0.200 0.0-0.9 % Normal 01-08-2014 [facility] (50783) Comment: IG% - Immature Granulocytes (promyelocytes, myelocytes andmetamyelocytes) > 1% indicates that a LEFT BRIAN FT is Present. 32.5 19-41 % Normal 01-08-2014 [facility] (28852) 0.7 0-1 % Normal 01-08-2014 [facility] (36949) 1.35 0.83-4.51 {X10_3/ul} Normal 01-08-2014 Comprehe nsive Internal Medicine (13633) 54.6 47-70 % Normal 01-08-2014 [facility] (02661) 45.6 35.1-43.9 fL Abnormal 01-08-2014 [facility] (24406) 2.3 2.0-7.7 {X10_3/uL} Normal 01-08-2014 Comprehe nsive Internal Medicine (46834) urinalysis, office (94299) Ordered By: Linda Warner on 2013-11-03 Bilirubin Ql (U) Negative Normal 11-03-2013 [facility] Medicine ( 96168) Glucose Test strip mass Negative Normal 2013 [facility] conc (U) Medicine ( 66853) Hemoglobin Ql (U) Negative Normal 11-03-2013 [facility] Medicine ( 91830) Hemoglobin Test strip Ql Negative Normal 11-03 [facility] (U) Medicine ( 45887) Ketones Ql (U) Small Normal 11-03-2013 Comp rehensive Internal Medicine ( 73287) Leukocyte esterase Test Negative Normal 2013 [facility] Internal strip Ql (U) Medicin e (52571) Nitrite Ql (U) Negative Normal 11-03-2013 Comp rehensive Internal Medicine ( 58425) Nitrite Test strip Ql Negative Normal 05-27-20 14 [facility] (U) Medicine ( 65157) pH (U) 7 1 Normal 11-03-2013 Comprehen sive Internal Medicine ( 03989) pH Test strip (U) 7 1 Normal 11-03-2013 [facility] Medicine ( 96871) Protein Ql (U) 30 mg/dL Normal 11-03-2013 Comp rehensive Internal Medicine ( 22337) Protein Test strip Ql 30 mg/dL Normal 11-04-19 14 [facility] (U) Medicine ( 89908) Specific gravity 1.030 1 Abnormal 11-03-2013 Co mprehensive Internal Relative Density (U) Medicine (35559) Urobilinogen mass/time Normal Normal 014 [facility] (24H U) Medicine ( 88835) urine alexandru culture-emily col count (63596) Ordered By: Instrument Processing Tech on 2013-10-20 Bacteria identified Cx Final report Normal 10-08 [facility] Nom (U) Medicine ( 06831) Comment: PATIENT NOT FASTINGPERFORMED BY: CB [facility] Czqius8325 [facility] [id number] Information: SRC:UR [id number] Bacteria identified Cx Nom MTHREE Normal [facility] (U) Medicine ( 86859) Comment: More than 3 organisms recove red, none predominant. Please submitanother culture if clinically indica daysi.10,000-25,000 colony forming units per mL PATIENT NOT FASTINGPERFORMED BY: CB [facility] Dokznp8262 [facility] [id number] Information: SRC:UR [id number] urinalysis, office (83058) Ordered By: Linda Warner on 2013-10-19 Bilirubin Ql (U) Negative Normal 10-19-2013 [facility] ( 69390) Glucose Test strip Negative Normal 10-19-2013 [facility] mass conc (U) Medici ne (32944) Hemoglobin Ql (U) Non Hemolyzed Normal 10-20-19 14 [facility] Moderate Medicine ( 52757) Hemoglobin Test strip Non Hemolyzed Normal 10-08 [facility] Ql (U) Moderate Medicine ( 05777) Ketones Ql (U) Negative Normal 10-19-2013 Comp rehensive Internal Medicine ( 78675) Leukocyte esterase Moderate Normal 10-19-2013 [facility] Test strip Ql (U) Me dicine (63000) Nitrite Ql (U) Negative Normal 10-19-2013 Comp rehensive Internal Medicine ( 30485) Nitrite Test strip Ql Negative Normal 10-20-19 14 [facility] (U) Medicine ( 69147) pH (U) 5 1 Abnormal 10-19-2013 Comprehen sive Internal Medicine ( 02317) pH Test strip (U) 5 1 Abnormal 10-19-2013 C omprehens[facility] Internal Medicine ( 43665) Protein Ql (U) Negative Normal 10-19-2013 Comp rehensive Internal Medicine ( 73122) Protein Test strip Ql Negative Normal 10-20-19 14 [facility] (U) Medicine ( 82750) Specific gravity 1.015 1 Normal 10-19-2013 Co mprehensive Internal Relative Density (U) Medicine (23078) Urobilinogen Normal Normal 10-19-2013 Compre hensive Internal mass/time (24H U) Me dicine (11579) hepatic function panel (77558) Ordered By: Instrument Processing Tech on 2013-07-28 Albumin mass conc 4.1 3.6-4.8 g/dL Normal 07-28-2013 C omprehensive Internal Medicine (12178) Comment: PATIENT NOT FASTINGPERFORMED BY: LETICIA [facility] Mvuutu5789 [facility] [id number] Information: [id number], [id number] ALP enzyme act/vol 95 39-117 [iU]/L Normal 07-28-2013 [facility] (38646) Comment: PATIENT NOT FASTINGPERFORMED BY: CB [facility] Cefjqs1541 [facility] [id number] Information: [id number], [id number] ALT enzyme act/vol 18 0-32 [iU]/L Normal 07-28-2013 [facility] (12867) Comment: PATIENT NOT FASTINGPERFORMED BY: CB [facility] Hejhji4532 [facility] [id number] Information: [id number], [id number] AST enzyme act/vol 24 0-40 [iU]/L Normal 07-28-2013 [facility] (88419) Comment: PATIENT NOT FASTINGPERFORMED BY: CB [facility] Laapeb9762 [facility] [id number] Information: [id number], 643736 Bilirubin mass conc 0.3 0.0-1.2 mg/dL Normal 07-28-2013 [facility] Internal Medicine ( 89431) Comment: PATIENT NOT FASTINGPERFORMED BY: CB [facility] Xllyhv6009 [address] RoadMission Family Health Centerin [place] [id number] Information: [id number], 826278 Bilirubin.direct mass 0.09 0.00-0.40 mg/dL Normal 07-28-19 14 [facility] Internal edicine (65974) Comment: PATIENT NOT FASTINGPERFORMED BY: CB [facility] Gndjuz0643 [address]ardo RoadMission Family Health Centerin [place] [id number] Information: [id number], 021550 Protein mass conc 6.7 6.0-8.5 g/dL Normal 07-28-2013 [facility] (50856) Comment: PATIENT NOT FASTINGPERFORMED BY: [facility] Bzkins8108 [facility] [id number] Information: [id number], [id number] written authorization Ordered By: Instrument Processing Tech on 2013-07-16 WAR Normal 07-16-2013 [facility] Internal [facility] (62966) Comment: Written Authorization Receiv ed.Authorization received from CHELSEA AVINA DO [id number] by Lana Degroot PATIENT NOT FASTINGPERFORMED BY: [facility] Qnmlbc5242 [facility] [id number] helicobacter pylori, igm ab Ordered By: Instrument Processing Tech on 2013-07-16 <9.0 0.0-8.9 Normal 07-16-2013 [facility] Internal Medicine (49812) Comment: Negative <9.0 Equivocal 9.0 - 11.0 Positive >11.0 . This test was developed and its performance characte ristics determined by [facility]. It has not been cleared or approved by the ood and Drug Administration. Results of this test are for investigational purposes only. The result should not be used as a diagnostic procedure witho ut confirmation of the diagnosis by another medically diagnostic product or procedure. PATIENT NOT FASTINGPERFORMED BY: CB [facility] Oslmxd8399 [facility] [id number] Information: [id number] sed rate erythrocyte (68658) Ordered By: Instrument Processing Tech on 2013-07-14 ESR Velocity (Bld) 2 0-40 mm/h Normal 07-14-2013 [facility] Internal Medicine (34597) Comment: PATIENT NOT FASTINGPERFORMED BY: LETICIA [facility] Zdxfxo8000 [facility] [id number] metabolic panel, basic (52830) Ordered By: Instrument Processing Tech on 2013-07-14 Calcium mass conc 9.0 8.6-10.2 mg/dL Normal 07-14-2013 [facility] Internal Medicine ( 13244) Comment: PATIENT NOT FASTINGPERFORMED BY: LETICIA CrowellCodiaz WallsImpept1596 [facility] [id number] Information: [id number],[id number] Chloride molar conc 101 97-108 mmol/L Normal 07-14-2013 [facility] Internal Medicine ( 03841) Comment: PATIENT NOT FASTINGPERFORMED BY: LETICIA [facility] Ebidim3818 [facility] [id number] Information: [id number],[id number] CO2 molar conc 25 19-28 mmol/L Normal 07-14-2013 [facility] Internal [facility] (93451) Comment: PATIENT NOT FASTINGPERFORMED BY: LETICIA [facility] Egcgcj5386 [facility] [id number] Information: [id number],Q57414 Creatinine mass conc 0.87 0.57-1.00 mg/dL Normal 4 [facility] Internal [facility] ( 06355) Comment: PATIENT NOT FASTINGPERFORMED BY: CB [facility] Fnzjcf9695 [facility] [id number] Information: 127121,W63440 GFR/1.73 sq M predicted 82 mL/min/1.73 Normal [facility] Internal among blacks CKD-EPI Medicine (69426) vol rate/area (S/P/Bld) Comment: PATIENT NOT FASTINGPERFORMED BY: CB [facility] Rlomyr4287 [facility] [id number] Information: 409746,I21148 GFR/1.73 sq M predicted 71 mL/min/1.73 Normal [facility] Internal among non-blacks CKD-EPI Medicine (07685) vol rate/area (S/P/Bld) Comment: PATIENT NOT FASTINGPERFORMED BY: LETICIA [facility] Haovcn1593 [facility] [id number] Information: [id number],Q82118 Glucose mass conc 85 65-99 mg/dL Normal 07-14-2013 C omprehensive Internal Medicine (91686) Comment: PATIENT NOT FASTINGPERFORMED BY: CB [facility] Kudjpt2329 [facility] [id number] Information: [id number] Potassium molar conc 4.4 3.5-5.2 mmol/L Normal 4 [facility] ( 32399) Comment: PATIENT NOT FASTINGPERFORMED BY: CB [facility] Jqiuhk2059 [facility] [id number] Information: 776118,[id number] Sodium molar conc 139 134-144 mmol/L Normal 07-14-2013 [facility] Internal Medicine ( 10077) Comment: PATIENT NOT FASTINGPERFORMED BY: CB [facility] Lcpzxr6142 [facility] [id number] Information: 855427,Q98432 Urea nitrogen mass conc 18 8-27 mg/dL Normal 2013 [facility] ( 44089) Comment: PATIENT NOT FASTINGPERFORMED BY: CB [facility] Erqdoi3731 [facility] [id number] Information: [id number] Urea nitrogen/Creatinine mass 21 11-26 1 Normal 07-14-2013 [facility] ratio Medicine ( 26108) Comment: PATIENT NOT FASTINGPERFORMED BY: CB [facility] Vjynvm1636 [facility] [id number] Information: [id number] lipase (87779) Order ed By: Instrument Processing Tech on 2013-07-14 Lipase enzyme act/vol 33 0-59 U/L Normal 07-14-19 14 [facility] (78489) Comment: PATIENT NOT FASTINGPERFORMED BY: LETICIA [facility] Pikgqr8697 [address]ardo RoadDublin [place] [id number] helicobacter pylori antibody profile igg , igm, iga (68988) Ordered By: Instrument Processing Tech on 2013-07-14 H. pylori IgG IA Qn 5.3 0.0-0.8 U/mL Abnormal 07-14-2013 [facility] (S) Medicine ( 20937) Comment: Negative <0.9 Indeterminate 0.9 - 1.0 Positive >1.0 PATIENT NOT FASTINGPERFORMED BY: CB [facility] Jowbkb5532 [address] RoadDublin [place] [id number] amylase (90930) Orde red By: Instrument Processing Tech on 2013-07-14 Amylase enzyme act/vol 19 31-124 U/L Abnormal 014 [facility] Internal Medicine ( 99384) Comment: PATIENT NOT FASTINGPERFORMED BY: LETICIA [facility] Ddtmrk9354 [address] RoadDublin [place] [id number] urinalysis, w/ micro (48581) Ordered By: Instrument Processing Tech on 2013-03-06 Appearance Nom (U) Clear Normal 03-06-2013 [facility] Internal Medicine (22719) Comment: PATIENT WAS FASTINGPERFORMED BY: CB [facility] Ytrsny4579 [address] RoadDublin [place] [id number] Bilirubin Ql (U) Negative Normal 03-06-2013 [facility] Internal Medicine (78148) Comment: PATIENT WAS FASTINGPERFORMED BY: [facility] Oaoywd3523 [address] RoadDublin [place] [id number] Color Nom (U) Yellow Normal 03-06-2013 [facility] Internal Medicine (43941) Comment: PATIENT WAS FASTINGPERFORMED BY: CB [facility] Mwvrum1319 [address] RoadDublin [place] [id number] Glucose Ql (U) Negative Normal 03-06-2013 [facility] Internal [facility] (21513) Comment: PATIENT WAS FASTINGPERFORMED BY: CB [facility] Rvjbqe3899 [address] RoadDublin [place] [id number] Hemoglobin Ql (U) Negative Normal 03-06-2013 [facility] Medicine (17954) Comment: PATIENT WAS FASTINGPERFORMED BY: CB [facility] Yjlmdc6128 [address] RoadDublin [place] [id number] Hemoglobin Test strip Ql Negative Normal 03-06 [facility] (U) Medicine ( 12837) Ketones Ql (U) Negative Normal 03-06-2013 [facility] ( 33378) Comment: PATIENT WAS FASTINGPERFORMED BY: CB [facility] Gidfdt2379 [address] RoadD[address] [place] [id number] Leukocyte esterase Test Negative Normal 2012 [facility] Internal strip Ql (U) Medicin e (56620) Comment: PATIENT WAS FASTINGPERFORMED BY: CB [facility] Lfktxx7967 [address] RoadDublin [place] [id number] Microscopic observation See below: Normal 03-06 [facility] Internal LM Nom (Urine sed) [facility] (10467) Comment: PATIENT WAS FASTINGPERFORMED BY: CB [facility] Avacbz1306 [address] RoadD[address] [place] [id number] Microscopic observation LM MICRON Normal Comprehensive Internal Nom (Urine sed) [facility] (54346) Comment: Microscopic follows if indic ated. PATIENT WAS FASTINGPERFORMED BY: CB [facility] Rfrprb1924 [address] [place] [id number] Nitrite Ql (U) Negative Normal 03-06-2013 [facility] (11711) Comment: PATIENT WAS FASTINGPERFORMED BY: CB [facility] Mgjoid1557 [address] RoadD[address] [place] [id number] Nitrite Test strip Ql Negative Normal 03-06-20 13 [facility] (U) Medicine ( 98377) pH (U) 7.0 5.0-7.5 1 Normal 03-06-2013 [facility] Internal Medicine ( 42191) Comment: PATIENT WAS FASTINGPERFORMED BY: CB [facility] Ypbsri0524 [address]Dublin [place] [id number] pH Test strip (U) 7.0 5.0-7.5 1 Normal 03-06-2013 [facility] ( 49269) Protein Ql (U) Negative Normal 03-06-2013 [facility] ( 23137) Comment: PATIENT WAS FASTINGPERFORMED BY: CB [facility] Mcnfai5258 [address] [place] [id number] Protein Test strip Negative Normal 03-06-2013 [facility] Ql (U) Medicine ( 03842) Specific gravity 1.021 1.005-1.030 1 Normal 03-06-2013 [facility] Relative Density (U) Medicine (79646) Comment: PATIENT WAS FASTINGPERFORMED BY: LETICIA [facility] Ryrhus6289 [address] RoadDublin [place] [id number] Urobilinogen Test strip 0.2 0.0-1.9 mg/dL Normal 2012 [facility] Internal mass conc (U) [place] (09124) Comment: PATIENT WAS FASTINGPERFORMED BY: LETICIA [facility] Elfeea9112 [address]blin [place] [id number] tsh (09708) Ordered By: Instrument Processing Tech on 2013-03-06 Thyrotropin Qn 3.790 0.450-4.500 {uIU/mL} Normal 03-06-2013 Co mprehensive Internal Medicine ( 51564) Comment: PATIENT WAS FASTINGPERFORMED BY: LETICIA [facility] Lrpkcz2902 [address] [facility]in [place] [id number] microscopic examination Ordered By: Instrument Processing Tech on 2013-03-06 Bacteria LM.HPF #/area Few Normal 013 [facility] Medicine (Urine sed) (71173) Comment: PATIENT WAS FASTINGPERFORMED BY: LETICIA [facility] Urijqd2759 [address] [facility]in [place] [id number] Epithelial cells LM.HPF 0-10 0 - 10 Normal 2012 [facility] Internal #/area (Urine sed) M edicine (46207) Comment: PATIENT WAS FASTINGPERFORMED BY: [facility] Yonsiz6675 [address] [facility] [place] [id number] Mucus LM Ql (Urine sed) Present Normal 2012 [facility] Medicine (18630) Mucus Ql (Urine sed) Present Normal 3 [facility] Medicine (93041) Comment: PATIENT WAS FASTINGPERFORMED BY: [facility] Mkljpk7366 [address] [facility] HospitalD[facility] [place] [id number] RBC LM.HPF #/area (Urine 0-3 0 - 3 Normal 03-06 [facility] Medicine sed) (39672) Comment: PATIENT WAS FASTINGPERFORMED BY: LETICIA [facility] Pictup4818 [address] RoadDublin [place] [id number] WBC LM.HPF #/area (Urine 0-5 0 - 5 Normal 03-06 [facility] Medicine sed) (39555) Comment: PATIENT WAS FASTINGPERFORMED BY: LETICIA [facility] Ljiqsy0474 [address]bl[address] [place] [id number] microalbumin Ordered By: Instrument Processing Tech on 2013-03-06 Albumin DL <= 20 mg/L 9.0 0.0-17.0 ug/mL Normal 03-06-20 13 [facility] Internal mass conc (U) Medici ne (11577) Comment: PATIENT WAS FASTINGPERFORMED BY: LETICIA [facility] Xtgxca8027 [address]bl[address] [place] [id number] Albumin/Creatinine mass 4.6 0.0-30.0 {mg/g_creat} Normal [facility] ratio (U) Internal M edicine (30043) Comment: PATIENT WAS FASTINGPERFORMED BY: [facility] Mvtdno5959 [address] [facility]in [place] [id number] Creatinine mass conc 195.8 15.0-278.0 mg/dL Normal 03-06-20 13 [facility] Internal (U) Medicine ( 51739) Comment: PATIENT WAS FASTINGPERFORMED BY: LETICIA [facility] Hiiyqs7304 [address] [facility]in [place] [id number] metabolic panel, comprehensive (13206) Ordered By: Instrument Processing Tech on 2013-03-06 Albumin mass conc 4.3 3.6-4.8 g/dL Normal 03-06-2013 C omprehensive Internal Medicine (94060) Comment: PATIENT WAS FASTINGPERFORMED BY: LETICIA [facility] Odkpmt5767 [address] [facility]bl[facility] [place] [id number] Albumin/Globulin mass ratio 1.7 1.1-2.5 1 Normal [facility] Medicine ( 82591) Comment: PATIENT WAS FASTINGPERFORMED BY: LETICIA [facility] Urhevt6057 [address] [facility]bl[facility] [place] [id number] ALP enzyme act/vol 102 47-112 [iU]/L Normal 03-06-2013 [facility] Medicine ( 13834) Comment: PATIENT WAS FASTINGPERFORMED BY: LETICIA [facility]6370 [facility] [id number] ALT enzyme act/vol 12 0-32 [iU]/L Normal 03-06-2013 [facility] Internal Medicine (78158) Comment: PATIENT WAS FASTINGPERFORMED BY: LETICIA [facility] Rtrxiu8545 [facility] [id number] AST enzyme act/vol 19 0-40 [iU]/L Normal 03-06-2013 [facility] Internal Medicine (85563) Comment: PATIENT WAS FASTINGPERFORMED BY: LETICIA [facility]6370 [facility] [id number] Bilirubin mass conc 0.3 0.0-1.2 mg/dL Normal 03-06-2013 [facility] Internal Medicine ( 86409) Comment: PATIENT WAS FASTINGPERFORMED BY: LETICIA [facility] Zbriyb4672 [facility] [id number] Calcium mass conc 9.7 8.6-10.2 mg/dL Normal 03-06-2013 [facility] Internal Medicine ( 47466) Comment: PATIENT WAS FASTINGPERFORMED BY: LETICIA [facility]6370 [facility] [id number] Chloride molar conc 104 97-108 mmol/L Normal 03-06-2013 [facility] Internal [facility] ( 39502) Comment: PATIENT WAS FASTINGPERFORMED BY: LETICIA [facility] Inshwp2770 [facility] [id number] CO2 molar conc 24 19-28 mmol/L Normal 03-06-2013 [facility] Internal Medicine (19850) Comment: PATIENT WAS FASTINGPERFORMED BY: LETICIA [facility] Kjbffi7801 [facility] [id number] Creatinine mass conc 0.86 0.57-1.00 mg/dL Normal 3 [facility] Internal Medicine ( 83136) Comment: PATIENT WAS FASTINGPERFORMED BY: LETICIA [facility]6370 [facility] [id number] GFR/1.73 sq M predicted 84 mL/min/1.73 Normal 02-09 [facility] Internal among blacks CKD-EPI Medicine (39777) vol rate/area (S/P/Bld) Comment: PATIENT WAS FASTINGPERFORMED BY: LETICIA [facility] Uetpsh7587 [address] [facility]in [place] [id number] GFR/1.73 sq M predicted 73 mL/min/1.73 Normal 02-09 [facility] Internal among non-blacks CKD-EPI Medicine (67665) vol rate/area (S/P/Bld) Comment: PATIENT WAS FASTINGPERFORMED BY: LabL[facility] CenterJvcizr5808 [address] [facility]in [place] [id number] Globulin Calculated mass 2.6 1.5-4.5 g/dL Normal 03-06 [facility] Internal conc (S) Medicine ( 54746) Globulin mass conc (S) 2.6 1.5-4.5 g/dL Normal 013 [facility] Medicine ( 63234) Comment: PATIENT WAS FASTINGPERFORMED BY: [facility]6370 [facility] [id number] Glucose mass conc 89 65-99 mg/dL Normal 03-06-2013 [facility] (39436) Comment: PATIENT WAS FASTINGPERFORMED BY: [facility] [id number] Potassium molar conc 4.5 3.5-5.2 mmol/L Normal 3 [facility] ( 66370) Comment: PATIENT WAS FASTINGPERFORMED BY: [facility] [id number] Protein mass conc 6.9 6.0-8.5 g/dL Normal 03-06-2013 [facility] (79737) Comment: PATIENT WAS FASTINGPERFORMED BY: [facility] Ziyrqc6453 [facility] [id number] Sodium molar conc 140 134-144 mmol/L Normal 03-06-2013 [facility] ( 16260) Comment: PATIENT WAS FASTINGPERFORMED BY: [facility]Park[facility] Otouua4838 [facility] [id number] Urea nitrogen mass conc 19 8-27 mg/dL Normal 2012 [facility] ( 66040) Comment: PATIENT WAS FASTINGPERFORMED BY: [facility] Zzgtot1702 [facility] [id number] Urea nitrogen/Creatinine mass 22 - 1 Normal 03-06-2013 [facility] ratio Medicine ( 99389) Comment: PATIENT WAS FASTINGPERFORMED BY: LETICIA [facility] Ombrob4213 [facility] [id number] lipid panel (63418) Ordered By: Instrument Processing Tech on 2013-03-06 Cholesterol in HDL mass 62 mg/dL Normal 2012 [facility] conc Medicine ( 13492) Comment: According to ATP-III Guideli zainab, HDL-C >59 mg/dL is considered anegative risk factor for CHD. PATIENT WAS FASTINGPERFORMED BY: LETICIA [facility] Pdhejb3015 [facility] [place] [id number] Cholesterol in LDL mass 135 0-99 mg/dL Abnormal 2012 [facility] conc Medicine ( 42905) Comment: PATIENT WAS FASTINGPERFORMED BY: LETICIA [facility] Xtvhzp7077 [facility] [id number] Cholesterol in 2.2 0.0-3.2 {ratio_units} Normal 03-06-2013 Comprehensive LDL/Cholesterol in HDL Internal Medicine mass ratio (23998) Comment: PATIENT WAS FASTINGPERFORMED BY: LETICIA [facility] Vhhfso2785 [facility] [place] [id number] Cholesterol in VLDL mass 17 5-40 mg/dL Normal 03-06 [facility] conc Medicine ( 67538) Comment: PATIENT WAS FASTINGPERFORMED BY: LETICIA [facility] Xjyzcs9343 [facility] [id number] Cholesterol mass conc 214 100-199 mg/dL Abnormal 03-06-20 13 [facility] ( 23875) Comment: PATIENT WAS FASTINGPERFORMED BY: LETICIA [facility] Vditmh6139 [facility] [place] [id number] Triglyceride mass conc 87 0-149 mg/dL Normal 013 [facility] ( 60424) Comment: PATIENT WAS FASTINGPERFORMED BY: CB [facility] Tsdtwn3849 [facility]in [place] [id number] cbc with manual diff (90106) Ordered By: Instrument Processing Tech on 2013-03-06 Basophils #/vol 0.0 0.0-0.2 {x10E3/uL} Normal 03-06-2013 Co mprehensive Internal (Bld) Medicine ( 20862) Comment: PATIENT WAS FASTINGPERFORMED BY: [facility]6370 [facility] [id number] Information: [id number] Basophils Auto #/vol 0.0 0.0-0.2 {x10E3/uL} Normal 03-06-20 13 [facility] (Bld) Medicine ( 25729) Basophils/100 WBC 0 0-3 % Normal 03-06-2013 C omprehensive Internal (d) Medicine ( 65274) Comment: PATIENT WAS FASTINGPERFORMED BY: [place] 9420470 [facility] [id number] Information: [id number] Basophils/100 WBC Auto 0 0-3 % Normal 013 [facility] (d) Medicine ( 41316) Eosinophils #/vol (Bld) 0.2 0.0-0.4 {x10E3/uL} Normal 03-06 [facility] ( 54601) Comment: PATIENT WAS FASTINGPERFORMED BY: [facility]6370 [facility] [id number] Information: [id number] Eosinophils Auto 0.2 0.0-0.4 {x10E3/uL} Normal 03-06-2013 C omprehensive Internal #/vol (Bld) Medicine (23600) Eosinophils/100 WBC 4 0-5 % Normal 03-06-2013 [facility] (d) Medicine ( 75562) Comment: PATIENT WAS FASTINGPERFORMED BY: [facility]6370 [facility] [id number] Information: [id number] Eosinophils/100 WBC Auto 4 0-5 % Normal 03-06 [facility] (Bld) Medicine ( 84764) Erythrocyte distribution 14.2 12.3-15.4 % Normal 03-06 [facility] Internal width Auto Ratio (RBC) Medicine (50368) Erythrocyte distribution 14.2 12.3-15.4 % Normal 03-06 [facility] Internal width Ratio (RBC) [facility] (35216) Comment: PATIENT WAS FASTINGPERFORMED BY: [facility] Qfttsu4786 [facility] [place] [id number] Information: [id number] Hematocrit Auto Volume 42.0 34.0-46.6 % Normal 013 [facility] Internal Fraction (Bld) Medic ine (46937) Hematocrit Volume 42.0 34.0-46.6 % Normal 03-06-2013 C omprehensive Internal Fraction (Bld) Medic ine (98925) Comment: PATIENT WAS FASTINGPERFORMED BY: [facility] Nbtfpn3905 [facility] [id number] Information: [id number] Hemoglobin mass conc 14.1 11.1-15.9 g/dL Normal 3 [facility] Internal (d) Medicine ( 02874) Comment: PATIENT WAS FASTINGPERFORMED BY: LabCo Oeduaw0337 [facility] [id number] Information: [id number] Immature granulocytes 0.0 0.0-0.1 {x10E3/uL} Normal 013 [facility] Internal #/vol (d) Medicine (78441) Comment: PATIENT WAS FASTINGPERFORMED BY: [facility] Xdbffy4984 [facility] [id number] Information: [id number] Immature granulocytes/100 WBC 0 0-2 % Normal 03-06-2013 [facility] (Bld) Medicine ( 84429) Comment: PATIENT WAS FASTINGPERFORMED BY: [facility] Flgnyx9360 [facility] [id number] Information: [id number] Lymphocytes #/vol 1.9 0.7-3.1 {x10E3/uL} Normal 03-06-2013 [facility] (d) Medicine ( 52369) Comment: PATIENT WAS FASTINGPERFORMED BY: [facility] Zohtmq6860 [facility] [id number] Information: [id number] Lymphocytes Auto 1.9 0.7-3.1 {x10E3/uL} Normal 03-06-2013 C omprehensive Internal #/vol (Bld) Medicine (94363) Lymphocytes/100 WBC 35 14-46 % Normal 03-06-2013 [facility] (Bld) Medicine ( 07788) Comment: PATIENT WAS FASTINGPERFORMED BY: LETICIA [place] 1165470 [facility] [id number] Information: [id number] Lymphocytes/100 WBC Auto 35 14-46 % Normal 03-06 [facility] (Bld) Medicine ( 77101) MCH Auto Entitic mass 30.3 26.6-33.0 pg Normal 03-06-20 13 [facility] Internal (RBC) Medicine ( 55876) MCH Entitic mass (RBC) 30.3 26.6-33.0 pg Normal 013 [facility] ( 63747) Comment: PATIENT WAS FASTINGPERFORMED BY: LETICIA [address] [id number] Information: [id number] MCHC Auto mass conc 33.6 31.5-35.7 g/dL Normal 03-06-2013 [facility] Internal (RBC) Medicine ( 77286) MCHC mass conc (RBC) 33.6 31.5-35.7 g/dL Normal 3 [facility] ( 33218) Comment: PATIENT WAS FASTINGPERFORMED BY: LETICIA [facility]6370 [facility] [id number] Information: [id number] MCV Auto Entitic volume 90 79-97 fL Normal 2012 [facility] (RBC) Medicine ( 64950) MCV Entitic volume (RBC) 90 79-97 fL Normal 03-06 [facility] Medicine ( 90759) Comment: PATIENT WAS FASTINGPERFORMED BY: LETICIA [place] 1165470 [facility] [id number] Information: [id number] Monocytes #/vol 0.5 0.1-0.9 {x10E3/uL} Normal 03-06-2013 Co mprehensive Internal (Bld) Medicine ( 31691) Comment: PATIENT WAS FASTINGPERFORMED BY: LETICIA [facility]6370 [facility] [id number] Information: [id number] Monocytes Auto #/vol 0.5 0.1-0.9 {x10E3/uL} Normal 03-06-20 13 [facility] Internal ([facility]) Medicine ( 72841) Monocytes/100 WBC 8 4-12 % Normal 03-06-2013 C omprehensive Internal ([facility]) Medicine ( 56590) Comment: PATIENT WAS FASTINGPERFORMED BY: LETICIA [facility]6370 [facility] [id number] Information: [id number] Monocytes/100 WBC Auto 8 4-12 % Normal 013 [facility] Internal (d) Medicine ( 30530) Neutrophils #/vol (d) 2.8 1.4-7.0 {x10E3/uL} Normal 03-06 [facility] Internal Medicine ( 90089) Comment: PATIENT WAS FASTINGPERFORMED BY: LETICIA [place] 1165470 [facility] [id number] Information: [id number] Neutrophils Auto 2.8 1.4-7.0 {x10E3/uL} Normal 03-06-2013 C omprehensive Internal #/vol ([facility]) Medicine (41400) Neutrophils/100 WBC 53 40-74 % Normal 03-06-2013 [facility] Internal ([facility]) Medicine ( 12668) Comment: PATIENT WAS FASTINGPERFORMED BY: LETICIA [facility]6[address] [facility] [id number] Information: [id number] Neutrophils/100 WBC Auto 53 40-74 % Normal 03-06 Comprehensive ([facility]) Internal M edicine (48317) Platelets #/vol (Bld) 320 155-379 {x10E3/uL} Normal 013 [facility] Internal edicine (35305) Comment: PATIENT WAS FASTINGPERFORMED BY: LETICIA [facility]6370 [facility] [id number] Information: [id number] Platelets Auto 320 155-379 {x10E3/uL} Normal 03-06-2013 Com prehensive Internal #/vol (Bld) Medicine (19366) RBC #/vol (Bld) 4.65 3.77-5.28 {x10E6/uL} Normal 03-06-2013 [facility] [place] [facility] ( 33620) Comment: PATIENT WAS FASTINGPERFORMED BY: [facility] Bmmgzj9611 [facility] [id number] Information: [id number] RBC Auto #/vol 4.65 3.77-5.28 {x10E6/uL} Normal 03-06-2013 Com prehensive Internal (d) Medicine ( 46573) WBC #/vol (Bld) 5.5 3.4-10.8 {x10E3/uL} Normal 03-06-2013 [facility] ( 47177) Comment: PATIENT WAS FASTINGPERFORMED BY: [facility]6370 [facility] [id number] Information: [id number] WBC Auto #/vol 5.5 3.4-10.8 {x10E3/uL} Normal 03-06-2013 Com prehensive Internal (d) Medicine ( 81522) urinalysis, office (60811) Ordered By: Latia Lomeli on 2012-08-08 Bilirubin Ql (U) Negative Normal 08-08-2012 [facility] ( 80032) Glucose Test strip mass Negative Normal 2012 [facility] Internal conc (U) Medicine ( 98592) Hemoglobin Ql (U) Negative Normal 08-08-2012 C omprehensive Internal Medicine ( 92081) Hemoglobin Test strip Ql Negative Normal 08-08 [facility] Internal (U) Medicine ( 14172) Ketones Ql (U) Negative Normal 08-08-2012 Comp rehensive Internal Medicine ( 36650) Leukocyte esterase Test Trace Normal 2012 [facility] Internal strip Ql (U) Medicin e (17246) Nitrite Ql (U) Negative Normal 08-08-2012 Comp rehensive Internal Medicine ( 27490) Nitrite Test strip Ql (U) Negative Normal [facility] ( 92731) pH (U) 6.0 1 Normal 08-08-2012 Comprehen sive Internal Medicine ( 08866) Comment: 5.5 pH Test strip (U) 6.0 1 Normal 08-08-2012 C omprehensive Internal Medicine (47898) Comment: 5.5 Protein Ql (U) Negative Normal 08-08-2012 [facility] Internal [facility] ( 96195) Protein Test strip Ql (U) Negative Normal [facility] Internal Medicine ( 97850) Specific gravity Relative 1.010 1 Normal [facility] Internal Density (U) Medicine (85625) Urobilinogen mass/time (24H Normal Normal [facility] Internal U) Medicine ( 07509) urine alexandru culture-emily col count (72998) Ordered By: Instrument Processing Tech on 2012-07-09 Bacteria identified Cx Nom ECV Normal [facility] Internal [facility] (U) (03155) Comment: Escherichia coli, identified by an automated biochemical system.Greater than 100,000 colony forming units per mL S = Susceptible; I = Intermediate; R = Resistant P = Posi tive; N = Negative MICS are expressed in micrograms per mL Antibiotic RSLT#1 RSLT#2 RSLT#3 RSLT#4Amoxicillin/Clavulanic Acid SAmpicillin SCefazolin SCefepime SCeftriaxone SCefuroxime SCe phalothin SCiprofloxacin SESBL NErtapenem SGentamicin SImipenem SLevof loxacin SNitrofurantoin SPiperacillin STetracycline STobramycin ST rimethoprim/Sulfa S PATIENT NOT FASTINGPERFORMED BY: CB [facility] Pfoiyy9881 Pardo RoadKindred Hospital [facility] [id number] Information: SRC:UR [id number] Bacteria identified Cx Final report Normal 06-12 [facility] Internal [facility] (U) Medicine ( 45539) Comment: PATIENT NOT FASTINGPERFORMED BY: CB [facility] Irpyfp8906 [address]ardo RoadDublin [place] [id number] Information: SRC:UR [id number] urinalysis, office (84510) Ordered By: Angelina Montes De Oca on 2012-07-09 Bilirubin Ql (U) Negative Normal 07-09-2012 Co [facility] Internal Medicine ( 95412) Glucose Test strip Negative Normal 07-09-2012 [facility] Internal mass conc (U) Medici ne (99882) Hemoglobin Ql (U) Hemolyzed Small Normal 2012 [facility] ( 05260) Hemoglobin Test strip Hemolyzed Small Normal [facility] Internal Ql (U) Medicine ( 72000) Ketones Ql (U) Negative Normal 07-09-2012 Comp rehensive Internal Medicine ( 93443) Leukocyte esterase Large Normal 07-09-2012 [facility] Internal Test strip Ql (U) Me dicine (28410) Nitrite Ql (U) Positive Normal 07-09-2012 Comp rehensive Internal Medicine ( 80860) Nitrite Test strip Ql Positive Normal 07-09-19 13 [facility] Internal (U) Medicine ( 52965) pH (U) 7.5 1 Normal 07-09-2012 [facility] ( 56096) pH Test strip (U) 7.5 1 Normal 07-09-2012 C omprehensive Internal Medicine ( 04135) Protein Ql (U) 30 mg/dL Normal 07-09-2012 [facility] ( 48812) Protein Test strip Ql 30 mg/dL Normal 07-09-19 13 [facility] Internal (U) Medicine ( 37373) Specific gravity 1.015 1 Normal 07-09-2012 Co mprehensive Internal Relative Density (U) Medicine (28064) Urobilinogen Normal Normal 07-09-2012 Compre hensive Internal mass/time (24H U) Me dicine (24727) tsh (03847) Ordered By: Instrument Processing Tech on 2012-03-14 Thyrotropin Qn 3.720 0.450-4.500 {uIU/mL} Normal 03-14-2012 [facility] [place] [facility] ( 58012) Comment: PATIENT NOT FASTINGPERFORMED BY: [facility]CoHudson [facility] Meadowview HospitalZvewvp3089 [facility] [id number] Information: [id number] chest with contrast Ordered By: Instrument Processing Tech on 2012-03-12 See Note Normal 03-12-2012 [facility] (52326) Comment: PROCEDURE: CT CHEST WITH CON TRAST REASON FOR EXAM: Female, 61 years old. Right supraclavicular palpab leabnormality. RADIATION DOSAGE (If Supplied By Facility): CTDIvol = ( 15.45 ) mGy, DLP=( 712.87 ) mGycm TECHNIQUE: High resolution transaxial imagin g was performed followingintravenous administration of 100ml ml o f Isovue 300 contrast material.Multiplanar coronal and sagittal images were reformatted. COMPARISON: None. FINDINGS:There are 6 subcent imeter lymph nodes in the right supraclavicular area. The lungs are normal. There is no demonstrated pleural abnormality. Normal heart and pericardium . Normal mediastinum. Normal hilar regions. Normal enhancement of thepul monary arteries. Normal enhanced thoracic aorta and visualized greatvessels. There are multi-level degenerative changes of the thoracic spine. The antoine ent is status post cholecystectomy. IMPRESSION:There are several subcentimeter lymph nodes in the right supraclaviculararea. Signed: Leonel Horvath M.D.March 12, 2012 at 1:35:08 PM [id number] ectronically Signed GP/GP If you are the referring physician and woul d like to consult with theradiologist who provided this interpretation , please contact Tami Richardson at [phone]. If this radiol ogist is unavailable, youwill be directed to another radiologist to cherelle godwin. If you are a patient with a question regarding this report, gracie econtactyour referring physician directly. Professional Interpretation Provided By: [employer]bler, Phone ,Fax These documents contain legally protected and confidential healthinfor mation intended only for the use of the individual or entity namedab ove. If you are not the intended recipient, you are hereby notifiedthatany d isclosure, copying, distribution, or other use of these documents isstrictl y prohibited. If you have received this information in error,pleasen otify the sender immediately and arrange for the return or destructionofthese documents. Dictated on 03/12/12 0720 by Tiffanie Horvath MD ibed on 03/12/12 1343 by ITS IMPORTSign by Leonel Horvath MD on 08/19 1344 Sign by: Leonel Horvath MD cre Ordered By: [employer] on 2012-03-11 Creatinine mass conc 1.1 0.6-1.0 mg/dL Abnormal 2 [facility] Medicine ( 51136) GFR/1.73 sq M 65 mL/min Normal 03-11-2012 Compr ehensive Internal predicted among blacks Medicine (62349) MDRD vol rate/area (S/P/Bld) GFR/1.73 sq M 54 mL/min Abnormal 03-11-2012 Compr ehensive Internal predicted among Medi cine (79913) non-blacks MDRD vol rate/area (S/P/Bld) head/neck soft tissue Ordered By: Instrument Processing Tech on 2012-03-04 See Note Normal 03-04-2012 Comprehen deannae Internal Medicine (47655) Comment: PROCEDURE: ULTRASOUND OF THE RIGHT SUPRACLAVICULAR AREA. REASON FOR EXAM: Female, 61 years old. Palpab le abnormality. TECHNIQUE: Targeted ultrasound examination of the right sup raclavicularregion was performed. COMPARISON: None. FINDINGS:There is a we ll-defined, hypoechoic 1 cm by 0.7 cm x 0.7 cm nodule in theright supraclav icular area corresponding to the palpable abnormality.Thismost likely represents a small lymph node. Correlation with CT scan isrecommended. IMPRE SSION:Well-defined 1 cm hypoechoic nodule in the right supraclavicular region ,corresponding to the palpable abnormality. This most likely represents asmal l lymph node. Correlation with a CT scan is recommended. Signed:Leonel Horvath M.D.March 04, 2012 at 3:28:08 PM [id number] y Signed GP/GP If you are the referring physician and would like to consult with theradiologist who provided this interpretation, please kahlil Richardson M.D. at [phone]. If this radiologist is unavaila baljeet, youwill be directed to another radiologist to assist. If you are a antoine ent with a question regarding this report, pleasecontactyour referring physician directly. Professional Interpretation Provided By: Radispyoseph, Aron ne , These documents contain legally pr otected and confidential healthinformation intended only for the use of the individual or entity namedabove. If you are not the intended recipient, you are hereby notifiedthatany disclosure, copying, distribution, or ot her use of these documents isstrictly prohibited. If you have rece ived this information in error,pleasenotify the sender immediately and arran ge for the return or destructionofthese documents. Dictated on 03/04 1011 by Yuliet PARK,JulianoriForrestranscribed on 03/04/12 1544 by ITS IMPORTS ign by Yuliet PARK,Leonel on 03/04/12 1544 Sign by: _ Leonel Horvath MD hemoglobin a1c Order ed By: Instrument Processing Tech on 2011-11-23 Hemoglobin 5.9 4.8-5.6 % Abnormal 11-23-2011 Comprehe nsive Internal A1c/Hemoglobin.total mass Medicine (11807) fraction (Bld) Comment: . Increased risk for diabete s: 5.7 - 6.4 Diabetes: >6.4 Glycemic control for adults with diabetes: <7.0 PATIENT WAS FASTINGPERFORMED BY: GeckoGo6370 [facility]iaojuKindred [facility] [id number] glucose, two-hour postprandial Ordered By: Instrument Processing Tech on 2011-11-23 Glucose 2 hours p meal 89 65-139 mg/dL Normal 11-22- 012 Comprehensive Internal mass conc Medicine ( 73492) Comment: PATIENT WAS FASTINGPERFORMED BY: Tufin LabGryphon Networks6370 MeiaojuKindred [facility] [id number] urine culture,comprehensive Ordered By: Instrument Processing Tech on 2011-09-25 Bacteria identified Cx Nom NG36 Normal Comprehensive Internal (U) Medicine ( 88380) Comment: No growth in 36 - 48 hours. PATIENT NOT FASTINGPERFORMED BY: [employer] Muxknc6819 [facility] [id number] Information: SRC:UR [id number] Bacteria identified Cx Final report Normal 09-08 Comprehensive Internal [facility] (U) Medicine ( 11875) Comment: PATIENT NOT FASTINGPERFORMED BY: LETICIA [facility] Ztgnjd8829 [facility] [id number] Information: SRC:UR [id number] urine culture,comprehensive Ordered By: Instrument Processing Tech on 2011-09-21 Bacteria identified Cx Final report Normal 09-08 Comprehensive Internal [facility] (U) Medicine ( 61706) Comment: PATIENT NOT FASTINGPERFORMED BY: LETICIA [facility]ellPark[facility] Center Loifzm5294 [facility] [id number] Information: SRC:UR [id number] Bacteria identified Enterococcus faecalis Normal 09-21-2011 Comprehensive Internal [facility] (U) Medicine (43670) Comment: 3,000 Colonies/mL .Note: thi s isolate is vancomycin-susceptible.This information is provided for epidemiologic purposesonly: vancomycin is not among the antibioticsrecomme nded for therapy of urinary tract infectionscaused by Enteroco ccus.For Enterococcus species, cephalosporins, aminoglycosides (except forh igh-level resistance screening), clindamycin, and trimethoprim-sulfamethox azole are not effective clinically. Fluoroquinolones areused bere sonny for treating urinary tract infections. (CLSI, P259-G79,2009) PATIENT NOT FASTINGPERFORMED BY: LETICIA Caballero Kgwxgq2599 [facility] [id number] Information: SRC:UR [id number] Bacteria identified Cx Nom CNSNSS Normal Comprehensive Internal (U) Medicine ( 04246) Comment: Coagulase negative Staphyloc occus species, not Staphylococcussaprophyticus. 500 Colonies/mLBased on resistance to oxacillin this isolate would be resist ant toall currently available beta-lactam antimicrobial agents, with t heexception of the newer cephalosporins with anti-MRSA activity, such asC eftaroline PATIENT NOT FASTINGPERFORMED BY: LETICIA [facility]ellCorewell [facility]6370 [facility] [id number] Information: SRC:UR [id number] Other Antibiotic susc MIHEAD Normal 09-21-19 12 [facility] Internal Medicine (61398) Comment: S = Susceptible; I = I ntermediate; R = Resistant P = Positive; N = Negative MICS are expresse d in micrograms per mL Antibiotic RSLT#1 RSLT#2 RSLT#3 RSLT#4Ciprofloxacin R SGentamicin ILevofloxacin I SNitrofurantoin S SOxacillin RPenicillin R SRi fampin ITetracycline R RTrimethoprim/Sulfa SVancomycin S S PATIENT NOT FASTINGPERFORMED BY: LETICIA [facility] Xlqydv4862 [address]ardo RoadDublin [place] [id number] Information: SRC:UR [id number] urinalysis, complete Ordered By: Instrument Processing Tech on 2011-09-12 Appearance Nom (U) Cloudy Abnormal 09-12-2011 [facility] Medicine (27617) Comment: PATIENT WAS FASTINGPERFORMED BY: LETICIA [facility] Kkelzp9258 Pardo RoadDublin [place] [id number] Bilirubin Ql (U) Negative Normal 09-12-2011 [facility] Internal Medicine (02752) Comment: PATIENT WAS FASTINGPERFORMED BY: LETICIA [facility] Vpjkjs8598 [address]ardo RoadDublin [place] [id number] Color Nom (U) Yellow Normal 09-12-2011 [facility] Internal Medicine (58561) Comment: PATIENT WAS FASTINGPERFORMED BY: LETICIA [facility] Xquokd7525 [address] RoadDublin [place] [id number] Glucose Ql (U) Negative Normal 09-12-2011 [facility] Internal Medicine (64573) Comment: PATIENT WAS FASTINGPERFORMED BY: CB [facility] Cszgbz1511 [address] RoadDublin [place] [id number] Hemoglobin Ql (U) Negative Normal 09-12-2011 [facility] (32674) Comment: PATIENT WAS FASTINGPERFORMED BY: CB [facility] Yslvbw6151 [address] RoadDublin [place] [id number] Hemoglobin Test strip Ql Negative Normal 09-11 Comprehensive Internal (U) Medicine ( 31891) Ketones Ql (U) Negative Normal 09-12-2011 [facility] ( 36924) Comment: PATIENT WAS FASTINGPERFORMED BY: CB [facility] Jwtacu6934 [address] RoadDublin [place] [id number] Leukocyte esterase Test Negative Normal 2011 Comprehensive Internal strip Ql (U) Medicin e (00581) Comment: PATIENT WAS FASTINGPERFORMED BY: CB [facility] Txcbxj5480 Pardo RoadDublin [place] [id number] Microscopic observation See below: Normal 09-11 [facility] LM Nom (Urine sed) M edicine (83857) Comment: PATIENT WAS FASTINGPERFORMED BY: CB [facility] Dtsnvi3144 Pardo RoadDublin [place] [id number] Microscopic observation LM MICRON Normal [facility] Nom (Urine sed) [facility] (78620) Comment: Microscopic follows if indic ated. PATIENT WAS FASTINGPERFORMED BY: CB [facility] Vdfkcl2765 Pardo RoadDublin [place] [id number] Nitrite Ql (U) Negative Normal 09-12-2011 [facility] (25140) Comment: PATIENT WAS FASTINGPERFORMED BY: CB [facility] Efvofx5198 [address]ardo RoadDublin [place] [id number] Nitrite Test strip Ql Negative Normal 09-12-19 12 [facility] (U) Medicine ( 30673) pH (U) 7.0 5.0-7.5 1 Normal 09-12-2011 [facility] Internal Medicine ( 71100) Comment: PATIENT WAS FASTINGPERFORMED BY: CB [facility] Kprooa1898 [address]ardo RoadDublin [place] [id number] pH Test strip (U) 7.0 5.0-7.5 1 Normal 09-12-2011 [facility] Internal Medicine ( 66818) Protein Ql (U) Negative Normal 09-12-2011 [facility] Internal Medicine ( 31949) Comment: PATIENT WAS FASTINGPERFORMED BY: CB [facility] Jfbmzf3581 [address]ardo RoadDublin [place] [id number] Protein Test strip Negative Normal 09-12-2011 [facility] Ql (U) Medicine ( 93906) Specific gravity 1.007 1.005-1.030 1 Normal 09-12-2011 [facility] Relative Density (U) Medicine (51839) Comment: PATIENT WAS FASTINGPERFORMED BY: CB [facility] Wxgaxj7889 [address] RoadDublin [place] [id number] Urobilinogen Test strip 0.2 0.0-1.9 mg/dL Normal 2011 [facility] Internal mass conc (U) [place] (78211) Comment: PATIENT WAS FASTINGPERFORMED BY: CB [facility] Unztee5043 [address]ardo RoadDublin [place] [id number] tsh Ordered By: [employer] Teacher on 2011-09-12 Thyrotropin Qn 3.850 0.450-4.500 {uIU/mL} Normal 09-12-2011 [facility] Medicine ( 96569) Comment: PATIENT WAS FASTINGPERFORMED BY: CB [facility] Jyqgbn1811 [address]ardo RoadDublin [place] [id number] microscopic examination Ordered By: Instrument Processing Tech on 2011-09-12 Bacteria LM.HPF #/area Moderate Abnormal 012 [facility] (Urine sed) Medicine (57027) Comment: PATIENT WAS FASTINGPERFORMED BY: CB [facility] Ewbtwl8068 [address] RoadDublin [place] [id number] Epithelial cells >10 0 - 10 /[HPF] Abnormal 09-12-2011 [facility] LM.HPF #/area (Urine Medicine (10935) sed) Comment: PATIENT WAS FASTINGPERFORMED BY: CB [facility] Wtkdxh4014 [address] RoadDublin [place] [id number] Mucus LM Ql (Urine sed) Present Normal 2011 [facility] (34793) Mucus Ql (Urine sed) Present Normal 2 [facility] (15858) Comment: PATIENT WAS FASTINGPERFORMED BY: CB [facility] Rjuuub7029 [address] RoadDublin [place] [id number] RBC LM.HPF #/area (Urine 0-3 0 - 3 Normal 09-11 [facility] Medicine sed) (09627) Comment: PATIENT WAS FASTINGPERFORMED BY: CB [facility] Ksebrg8870 [address] RoadDublin [place] [id number] WBC LM.HPF #/area (Urine 0-5 0 - 5 Normal 09-11 [facility] Medicine sed) (58700) Comment: PATIENT WAS FASTINGPERFORMED BY: CB [facility] Enibqi3849 [address] RoadDublin [place] [id number] microalb/creat ratio, randm ur Ordered By: Instrument Processing Tech on 2011-09-12 Albumin DL <= 20 mg/L 11.0 0.0-17.0 ug/mL Normal 09-12-19 12 [facility] Internal mass conc (U) [place] ne (40977) Comment: PATIENT WAS FASTINGPERFORMED BY: LETICIA LabYannick WallsXquygw2547 Pardo RoadDublin [place] [id number] Albumin/Creatinine mass 17.0 0.0-30.0 {mg/g_creat} Normal Comprehensive ratio (U) Internal M edicine (15973) Comment: PATIENT WAS FASTINGPERFORMED BY: LETICIA [facility] Ccxizp7193 [address] RoadDublin [place] [id number] Creatinine mass conc 64.7 15.0-278.0 mg/dL Normal 09-12-19 12 [facility] (U) Medicine ( 89741) Comment: PATIENT WAS FASTINGPERFORMED BY: LETICIA LabYannick WallsZcnufd6713 Pardo RoadDuin [place] [id number] lipid panel with ldl/hdl ratio Ordered By: Instrument Processing Tech on 2011-09-12 Cholesterol in HDL mass 55 mg/dL Normal 2011 [facility] Internal conc Medicine ( 62088) Comment: According to ATP-III Guideli zainab, HDL-C >59 mg/dL is considered anegative risk factor for CHD. PATIENT WAS FASTINGPERFORMED BY: LETICIA LabYannick WallsHerlnu4814 [address] [facility] HospitalDuin [place] [id number] Cholesterol in LDL mass 93 0-99 mg/dL Normal 2011 [facility] Internal conc Medicine ( 46424) Comment: PATIENT WAS FASTINGPERFORMED BY: LETICIA LabCodiaz Wylgko8888 [address] [facility]in [place] [id number] Cholesterol in 1.7 0.0-3.2 {ratio_units} Normal 09-12-2011 Comprehensive LDL/Cholesterol in HDL Internal Medicine mass ratio (90087) Comment: PATIENT WAS FASTINGPERFORMED BY: LETICIA LabCodiaz Vppjsm8400 [address] [facility] HospitalDublin [place] [id number] Cholesterol in VLDL mass 22 5-40 mg/dL Normal 09-11 [facility] Internal conc Medicine ( 13234) Comment: PATIENT WAS FASTINGPERFORMED BY: LETICIA [facility] Zerhqc0857 [address] RoadDublin [place] [id number] Cholesterol mass conc 170 100-199 mg/dL Normal 09-12-19 12 [facility] Medicine ( 28016) Comment: PATIENT WAS FASTINGPERFORMED BY: LETICIA LabCodiaz Wrmmso1159 [facility] [id number] Triglyceride mass conc 109 0-149 mg/dL Normal 012 [facility] Medicine ( 27867) Comment: PATIENT WAS FASTINGPERFORMED BY: LETICIA LabCo Vyxoyd3084 [facility] [id number] comp. metabolic panel (14) Ordered By: Instrument Processing Tech on 2011-09-12 Albumin mass conc 4.2 3.6-4.8 g/dL Normal 09-12-2011 [facility] (69084) Comment: PATIENT WAS FASTINGPERFORMED BY: LETICIA LabFlor Fpgltm4969 [facility] [id number] Albumin/Globulin mass ratio 1.6 1.1-2.5 1 Normal [facility] Internal Medicine ( 13670) Comment: PATIENT WAS FASTINGPERFORMED BY: LETICIA [facility] Gsmcyw3240 [facility] [id number] ALP enzyme act/vol 83 25-165 [iU]/L Normal 09-12-2011 [facility] (97741) Comment: PATIENT WAS FASTINGPERFORMED BY: LETICIA [facility] Zggfug2729 [facility] [id number] ALT enzyme act/vol 22 0-40 [iU]/L Normal 09-12-2011 [facility] (52397) Comment: PATIENT WAS FASTINGPERFORMED BY: [facility] Gklfko2045 [facility] [id number] AST enzyme act/vol 26 0-40 [iU]/L Normal 09-12-2011 [facility] (38679) Comment: PATIENT WAS FASTINGPERFORMED BY: [facility] Ujzycj2039 [facility] [id number] Bilirubin mass conc 0.3 0.0-1.2 mg/dL Normal 09-12-2011 [facility] ( 00880) Comment: PATIENT WAS FASTINGPERFORMED BY: [facility] Sbosse4599 [facility] [id number] Calcium mass conc 10.0 8.6-10.2 mg/dL Normal 09-12-2011 [facility] ( 85938) Comment: PATIENT WAS FASTINGPERFORMED BY: CB [facility] Qtxtch3745 [facility] [id number] Chloride molar conc 99 97-108 mmol/L Normal 09-12-2011 [facility] ( 95481) Comment: PATIENT WAS FASTINGPERFORMED BY: CB [facility] Lxbjln2988 [address] [facility] [id number] CO2 molar conc 27 20-32 mmol/L Normal 09-12-2011 [facility] (36463) Comment: PATIENT WAS FASTINGPERFORMED BY: CB [facility] Hmtiyr1616 [facility] [id number] Creatinine mass conc 0.84 0.57-1.00 mg/dL Normal 2 [facility] ( 07852) Comment: PATIENT WAS FASTINGPERFORMED BY: CB [facility] Tezwfm5572 [facility] [id number] GFR/1.73 sq M predicted 87 mL/min/1.73 Normal [facility] Internal among blacks MDRD vol Medicine (94394) rate/area (S/P/Bld) Comment: Note: A persistent eGFR <60 mL/min/1.73 m2 (3 months or more) mayindicate chronic kidney disease. An e GFR >59 mL/min/1.73 m2 with anelevated urine protein also may indicate ch ronic kidney disease.Calculated using CKD-EPI formula. PATIENT WAS FASTINGPERFORMED BY: CB [facility] Myzyml1957 [facility] [id number] GFR/1.73 sq M predicted 75 mL/min/1.73 Normal [facility] Internal among non-blacks CKD-EPI Medicine (34693) vol rate/area (S/P/Bld) Comment: PATIENT WAS FASTINGPERFORMED BY: CB [facility] Czblki0926 [facility] [id number] Globulin Calculated mass 2.7 1.5-4.5 g/dL Normal 09-11 [facility] conc (S) Medicine ( 12690) Globulin mass conc (S) 2.7 1.5-4.5 g/dL Normal 012 [facility] ( 63792) Comment: PATIENT WAS FASTINGPERFORMED BY: LETICIA LabFlor Txkvce8201 [facility] [id number] Glucose mass conc 82 65-99 mg/dL Normal 09-12-2011 [facility] Medicine (50790) Comment: PATIENT WAS FASTINGPERFORMED BY: LETICIA Lab[facility] Vjvbdx7564 [facility] [id number] Potassium molar conc 4.3 3.5-5.2 mmol/L Normal 2 [facility] ( 51714) Comment: PATIENT WAS FASTINGPERFORMED BY: LETICIA LabParkland [facility] Peemhw4103 [facility] [id number] Protein mass conc 6.9 6.0-8.5 g/dL Normal 09-12-2011 [facility] (21895) Comment: PATIENT WAS FASTINGPERFORMED BY: LETICIA LabCoHudson County Meadowview HospitalJitelg8414 [facility] [id number] Sodium molar conc 140 134-144 mmol/L Normal 09-12-2011 [facility]mpohiohealthensive Internal Medicine ( 73015) Comment: PATIENT WAS FASTINGPERFORMED BY: LETICIA LabParkland [facility] Center Dppvzl8400 [facility] [id number] Urea nitrogen mass conc 16 8-27 mg/dL Normal 2011 [facility] ( 38660) Comment: PATIENT WAS FASTINGPERFORMED BY: LETICIA Lab[facility] Qwayzo6388 [facility] [id number] Urea nitrogen/Creatinine mass 19 11-26 1 Normal 09-12-2011 [facility] Internal ratio Medicine ( 24147) Comment: PATIENT WAS FASTINGPERFORMED BY: LETICIA [facility] Iedsyn8942 [facility] [id number] cbc with differential/platelet Ordered By: Instrument Processing Tech on 2011-09-12 Basophils #/vol 0.0 0.0-0.2 {x10E3/uL} Normal 09-12-2011 [facility] m[facility] Internal (Bld) Medicine ( 96075) Comment: PATIENT WAS FASTINGPERFORMED BY: LETICIA [facility]6370 [facility] [id number] Basophils Auto #/vol 0.0 0.0-0.2 {x10E3/uL} Normal 09-12-19 12 [facility] Internal (Bld) Medicine ( 31280) Basophils/100 WBC 1 0-3 % Normal 09-12-2011 [facility] Internal (Bld) Medicine ( 31405) Comment: PATIENT WAS FASTINGPERFORMED BY: LETICIA LabCoHudson County Meadowview HospitalHwmbss4515 [facility] [id number] Basophils/100 WBC Auto 1 0-3 % Normal 012 [facility] (Bld) Medicine ( 73984) Eosinophils #/vol (Bld) 0.2 0.0-0.4 {x10E3/uL} Normal 09-11 [facility] Medicine ( 67379) Comment: PATIENT WAS FASTINGPERFORMED BY: LETICIA LabCoHudson County Meadowview HospitalPzugpu3477 [facility] [id number] Eosinophils Auto 0.2 0.0-0.4 {x10E3/uL} Normal 09-12-2011 [facility] o[facility]rehensive Internal #/vol (Bld) Medicine (16695) Eosinophils/100 WBC 3 0-7 % Normal 09-12-2011 [facility] (Bld) Medicine ( 35898) Comment: PATIENT WAS FASTINGPERFORMED BY: LETICIA LabCorewell [facility] Hospital6370 [facility] [id number] Eosinophils/100 WBC Auto 3 0-7 % Normal 09-11 [facility] (Bld) Medicine ( 90462) Erythrocyte distribution 14.0 11.7-15.0 % Normal 09-11 [facility] Internal width Auto Ratio (RBC) Medicine (14982) Erythrocyte distribution 14.0 11.7-15.0 % Normal 09-11 [facility] Internal width Ratio (RBC) [facility] (74755) Comment: PATIENT WAS FASTINGPERFORMED BY: LETICIA LabCo Yinbfn6116 [facility] [id number] Hematocrit Auto Volume 42.5 34.0-44.0 % Normal 012 [facility] Internal Fraction (Bld) Medic ine (59071) Hematocrit Volume 42.5 34.0-44.0 % Normal 09-12-2011 [facility] o[facility]rehensive Internal Fraction (Bld) Medic ine (06486) Comment: PATIENT WAS FASTINGPERFORMED BY: CB [facility] Ghbggx5272 [address] [id number] Hemoglobin mass conc 14.3 11.5-15.0 g/dL Normal 2 [facility] Internal (Bld) Medicine ( 77131) Comment: PATIENT WAS FASTINGPERFORMED BY: CB [facility] Zysfjp7298 [facility] [id number] Immature granulocytes 0.0 0.0-0.1 {x10E3/uL} Normal 012 [facility] Internal #/vol (Bld) Medicine (78850) Comment: PATIENT WAS FASTINGPERFORMED BY: CB [facility] Wyyiha0652 [facility] [id number] Immature granulocytes/100 WBC 0 0-2 % Normal 09-12-2011 [facility] (Bld) Medicine ( 79540) Comment: PATIENT WAS FASTINGPERFORMED BY: CB [facility] Kwtpmc5182 [facility] [id number] Lymphocytes #/vol 1.7 0.7-4.5 {x10E3/uL} Normal 09-12-2011 [facility] (Bld) Medicine ( 83260) Comment: PATIENT WAS FASTINGPERFORMED BY: CB [facility] Njqtyg4458 [facility] [id number] Lymphocytes Auto 1.7 0.7-4.5 {x10E3/uL} Normal 09-12-2011 [facility]ive Internal #/vol (Bld) Medicine (01044) Lymphocytes/100 WBC 30 14-46 % Normal 09-12-2011 [facility] (Bld) Medicine ( 99826) Comment: PATIENT WAS FASTINGPERFORMED BY: CB [facility] Aomfuh9557 [address] [facility] [place] [id number] Lymphocytes/100 WBC Auto 30 14-46 % Normal 09-11 [facility] (Bld) Medicine ( 79358) MCH Auto Entitic mass 30.1 27.0-34.0 pg Normal 09-12-19 12 [facility] (RBC) Medicine ( 13487) MCH Entitic mass (RBC) 30.1 27.0-34.0 pg Normal 012 [facility] Medicine ( 10573) Comment: PATIENT WAS FASTINGPERFORMED BY: LETICIA [facility] Gzgglg1080 [facility] [id number] MCHC Auto mass conc 33.6 32.0-36.0 g/dL Normal 09-12-2011 [facility] (RBC) Medicine ( 64414) MCHC mass conc (RBC) 33.6 32.0-36.0 g/dL Normal 2 [facility] Medicine ( 24014) Comment: PATIENT WAS FASTINGPERFORMED BY: LETICIA [facility] Vdpilh1327 [facility] [id number] MCV Auto Entitic volume 90 80-98 fL Normal 2011 [facility] (RBC) Medicine ( 13372) MCV Entitic volume (RBC) 90 80-98 fL Normal 09-11 [facility] Internal Medicine ( 84502) Comment: PATIENT WAS FASTINGPERFORMED BY: LETICIA [facility] Ifaeyp6864 [facility] [id number] Monocytes #/vol 0.5 0.1-1.0 {x10E3/uL} Normal 09-12-2011 [facility] Internal (Bld) Medicine ( 84413) Comment: PATIENT WAS FASTINGPERFORMED BY: LETICIA [facility] Brfugt5084 [facility] [id number] Monocytes Auto #/vol 0.5 0.1-1.0 {x10E3/uL} Normal 09-12-19 12 [facility] (Bld) Medicine ( 47929) Monocytes/100 WBC 9 4-13 % Normal 09-12-2011 [facility]mpohiohealthensive Internal (Bld) Medicine ( 95489) Comment: PATIENT WAS FASTINGPERFORMED BY: CB [facility] Ckywya7088 [facility] [id number] Monocytes/100 WBC Auto 9 4-13 % Normal 012 [facility] (Bld) Medicine ( 25511) Neutrophils #/vol (Bld) 3.3 1.8-7.8 {x10E3/uL} Normal 09-11 [facility] Medicine ( 38917) Comment: PATIENT WAS FASTINGPERFORMED BY: LETICIA [facility] Gqygdc5898 [facility] [id number] Neutrophils Auto 3.3 1.8-7.8 {x10E3/uL} Normal 09-12-2011 C omprehensive Internal #/vol (Bld) Medicine (90558) Neutrophils/100 WBC 57 40-74 % Normal 09-12-2011 [facility] Internal (d) Medicine ( 08693) Comment: PATIENT WAS FASTINGPERFORMED BY: CB [facility] Jsrcqk6191 [facility] [id number] Neutrophils/100 WBC Auto 57 40-74 % Normal 09-11 Comprehensive (d) Internal edicine (48148) Platelets #/vol (d) 347 140-415 {x10E3/uL} Normal [address] [place] [address] Internal edicine (86788) Comment: PATIENT WAS FASTINGPERFORMED BY: LETICIA Sheryl Hanks6370 [facility] [id number] Platelets Auto 347 140-415 {x10E3/uL} Normal 09-12-2011 [facility] prehensive Internal #/vol (Bld) Medicine (40035) RBC #/vol (Bld) 4.75 3.80-5.10 {x10E6/uL} Normal 09-12-2011 [facility] Internal Medicine ( 68988) Comment: PATIENT WAS FASTINGPERFORMED BY: LETICIA SocratesCodiaz HanksZhzpdm4739 [facility] [id number] RBC Auto #/vol 4.75 3.80-5.10 {x10E6/uL} Normal 09-12-2011 [facility] prehensive Internal (d) Medicine ( 50003) WBC #/vol (Bld) 5.7 4.0-10.5 {x10E3/uL} Normal 09-12-2011 [facility] Internal Medicine ( 26798) Comment: PATIENT WAS FASTINGPERFORMED BY: CB [facility] Segggu2797 [address] [id number] WBC Auto #/vol 5.7 4.0-10.5 {x10E3/uL} Normal 09-12-2011 [facility] prehensive Internal (Bld) Medicine ( 20742) dexa bone density study (hp) Ordered By: Instrument Processing Tech on 2011-02-20 See Note Normal 02-20-2011 [facility] Internal Medicine (67744) Comment: PROCEDURE: DUAL ENERGY X-RAY ABSORPTIOMETRY / DEXA. REASON FOR EXAM: Female, 60 years old. The patient is postmenopausal. TECHNIQUE: Bone Mineral Density (BMD) measurements of lumbar spine andbilateral hips were obtained. COMPARISON: Comparison is adriel carroll with prior study dated April. FINDINGS: Lumbar Spine (L1-L 4): g/cm2 (1.480) / T-score (2.5) / Z-score (3.7)Left Femur Total: g/cm2 (1.105) / T-score (0.8) / Z-score (1.7)Right Femur Total: g/cm2 (1.074) / T-score (0.5) / Z-score (1.5) Since prior study, there has been an imp rovement of 17.7% in bonedensity. IMPRESSION:The patient is considered normal , as outlined below according to WorldHealth Organization (WHO) criteria. Fracture risk is low. Reference Information:The T-score is the number of sta ndard deviations above or below thestandard which is normal for young ad ults at their peak bone mineraldensity. The World Health Organization (W HO) interprets the T-scores asfollows: Above -1 Normal bone densityBetween - 1 and -2.5 OsteopeniaEqual to / or below -2.5 Osteoporosis As a practical clinical guideline, osteopenia may be graded as follows:Mild -1 through -1.5 Moderate -1.6 through -2.0Severe -2.1 through -2.4 The Z-score is the numb er of standard deviations above or below age-matchedcontrols. A Z-sco re of less than -1.5 would be considered abnormal. References:1. NIH Osteoporosis and Related Bone Diseases http://www.osteo.org2. Inter national Society for Clinical Densitometry http://www.iscd.org3. Nation al Osteoporosis Foundation http://www.nof.org Dictated on 02/20/11 1026 by Maureen Horvath MDscribed on 02/20/11 2316 by ITS IMPORTSign by Leonel Washington MD on 02/20/11 7242 Sign by: Leonel Butcher MD fecal occult hgb assay- tubes sent home (29617) Ordered By: Jeimy Mar on 2011-02-07 Hemoglobin.gastrointestinal Ql (St) neg Norm al 02-07-2011 [facility] ( 39468) urinalysis, office (88273) Ordered By: Angelina Montes De Oca on 2009-12-07 Bilirubin Ql (U) Negative Normal 12-07-2009 [facility] Internal Medicine ( 84663) Glucose Test strip mass Negative Normal 2009 [facility] Internal conc (U) Medicine ( 83309) Hemoglobin Ql (U) Hemolyzed Trace Normal 2009 [facility] ( 20599) Hemoglobin Test strip Hemolyzed Trace Normal [facility] Internal Ql (U) Medicine ( 87915) Ketones Ql (U) Negative Normal 12-07-2009 Comp rehensive Internal Medicine ( 96842) Leukocyte esterase Test Moderate Normal 2009 [facility] Internal strip Ql (U) Medicin e (96797) Nitrite Ql (U) Negative Normal 12-07-2009 Comp rehensive Internal Medicine ( 94475) Nitrite Test strip Ql Negative Normal 12-08-19 10 [facility] Internal (U) Medicine ( 41475) pH (U) 6.0 1 Normal 12-07-2009 [facility] ( 98534) pH Test strip (U) 6.0 1 Normal 12-07-2009 C o[facility]rehensive Internal Medicine ( 73365) Protein Ql (U) Negative Normal 12-07-2009 Comp rehensive Internal Medicine ( 47517) Protein Test strip Ql Negative Normal 12-08-19 10 [facility] Internal (U) Medicine ( 61569) Specific gravity 1.010 1 Normal 12-07-2009 Co mprehensive Internal Relative Density (U) Medicine (38689) Urobilinogen mass/time Normal Normal 010 [facility] Internal (24H U) Medicine ( 00617) breast unilateral us (hp) Ordered By: Instrument Processing Tech on 2009-05-09 See Note Normal 05-09-2009 [facility] (52403) Comment: Exam Number: [id number] SMITH LEFT BREAST ULTRASOUND HISTORY9 mm density identified in left mammogram . High resolution real time linear images of the mid left breast wereobtained . This included the upper mid, central mid, and lower midaspects of the bob st. At approximately 11:30, immediately adjacent to the nipple, there is asol id nodule identified. This measured 7 X 3 X 9 mm. There appearsto be mild shadowing associated with the lesion. Shadowing is aworrisome finding on ult rasound of the breast, and surgical evaluationis recommended. IMPRESSIONAt 11 :30, adjacent to the nipple, there is a solid mass which issuspicious. Mal ignancy must be excluded. Reported By: ARCELIA JOSHI M.D. Exam Number: [id number] MAMMO GRAM, UNILATERAL LEFT DIAGNOSTIC DIGITAL AND CAD HISTORYAbnormal screening [facility]. Full field digital images of the left breast were obtained in roll craniocaudal, spot craniocaudal, and true lateral projections. The [facility] study is compared to the examination of July 03, 2005,September 17, 008, and April 29, 2009. First identified on the examination of April 29, 2009, is a 9 mmnodule located just medial to the plane of the nipple in t hecraniocaudal view. The margins of this density appear irregular. Thedensity is not identified on the standard mediolateral obliqueprojection. The roll craniocaudal and spot craniocaudal views of theleft breast demonstrate t he density to be a persistent finding. Thedensity is questionably i dentified in true lateral view, being locatedjust above the nipple . The positioning of the nodule is more easilyseen on the ultrasound examination. IMPRESSIONThere is a new density in the inner left breast, no t seenpreviously. This has irregular margins. This nodule is verydifficult to visualize in mediolateral oblique or true lateralprojection. It is jus t above the nipple on ultrasound. Theultrasound examination demonstrates a s uspicious solid massmeasuring 9 mm, located at 11:30, just above the nipple . Thisis associated with shadowing. This density is suspicious formalignancy. Surgical evaluation is recommended. FINAL ASSESSMENTSuspicious for mal ignancy. BIRADS Category 4. A report will be called to Dr. Avina's offic e. A letter regarding the results has been sent to the patient. This interpr etation was rendered by a radiologist certified under theMammography Quality Standards Act of 1992 (MQSA). The mammograms werealso examined with Instant Opinion ter-aided detection software ([employer], [employer], [employer].). Reporte d By: ARCELIA JOSHI M.D. urinalysis, w/ micro (34104) Ordered By: Chelsea Avina on 2009-04-29 Appearance Nom (U) Clear Normal 04-29-2009 [facility] Internal Medicine (07063) Comment: PATIENT WAS FASTINGPERFORMED BY: CB [facility] Ohzgtq2475 [address]ardo RoadDublin [place] [id number] Bilirubin Ql (U) Negative Normal 04-29-2009 [facility] Internal Medicine (74208) Comment: PATIENT WAS FASTINGPERFORMED BY: CB [facility] Qyufxt9244 [address] RoadDublin [place] [id number] Color Nom (U) Yellow Normal 04-29-2009 [facility] Internal Medicine (00444) Comment: PATIENT WAS FASTINGPERFORMED BY: CB [facility] Ysdioi7275 [address]ardo RoadDublin [place] [id number] Glucose Ql (U) Negative Normal 04-29-2009 [facility] Internal Medicine (65990) Comment: PATIENT WAS FASTINGPERFORMED BY: CB [facility] Sqnskx1173 [address] RoadDublin [place] [id number] Hemoglobin Ql (U) Negative Normal 04-29-2009 [facility] Internal Medicine (98668) Comment: PATIENT WAS FASTINGPERFORMED BY: CB [facility] Psyxxz0503 [address] RoadDublin [place] [id number] Hemoglobin Test strip Ql Negative Normal 04-29 [facility] Internal (U) Medicine ( 09077) Ketones Ql (U) Negative Normal 04-29-2009 [facility] Internal Medicine ( 60633) Comment: PATIENT WAS FASTINGPERFORMED BY: CB [facility] Ofcjwd5176 Pardo RoadDublin [place] [id number] Leukocyte esterase Test Negative Normal 2008 [facility] Internal strip Ql (U) Medicin e (80847) Comment: PATIENT WAS FASTINGPERFORMED BY: CB [facility] Jkvewd2035 Pardo RoadDublin [place] [id number] Microscopic observation LM MICRON Normal Comprehensive Internal Nom (Urine sed) [facility] (38286) Comment: Microscopic follows if indic ated. PATIENT WAS FASTINGPERFORMED BY: CB [facility] Pglmix5132 [address]ardo [facility] [place] [id number] Microscopic observation See below: Normal 04-29 [facility] Internal LM Nom (Urine sed) M edicine (27453) Comment: PATIENT WAS FASTINGPERFORMED BY: CB [facility] Wgcgoz0039 Pardo [facility] [place] [id number] Nitrite Ql (U) Negative Normal 04-29-2009 [facility] (49236) Comment: PATIENT WAS FASTINGPERFORMED BY: CB [facility] Sbifgu4485 Pardo [facility] [id number] Nitrite Test strip Ql Negative Normal 04-29-20 09 [facility] Internal (U) Medicine ( 97660) pH (U) 7.0 5.0-7.5 1 Normal 04-29-2009 [facility] Internal Medicine ( 61636) Comment: PATIENT WAS FASTINGPERFORMED BY: CB [facility] Lvpqnb5806 [address]ardo [facility] [place] [id number] pH Test strip (U) 7.0 5.0-7.5 1 Normal 04-29-2009 [facility] Internal Medicine ( 15650) Protein Ql (U) Negative Normal 04-29-2009 [facility] ( 90768) Comment: PATIENT WAS FASTINGPERFORMED BY: CB [facility] Nnxnyb9839 Pardo [facility] [place] [id number] Protein Test strip Negative Normal 04-29-2009 [facility] Ql (U) Medicine ( 75847) Specific gravity 1.015 1.005-1.030 1 Normal 04-29-2009 [facility] Internal Relative Density (U) Medicine (26669) Comment: PATIENT WAS FASTINGPERFORMED BY: CB [facility] Dfhfzs3459 Pardo [facility] [place] [id number] Urobilinogen Test strip 0.2 0.0-1.9 mg/dL Normal 2008 [facility] Internal mass conc (U) [place] (03107) Comment: PATIENT WAS FASTINGPERFORMED BY: CB [facility] Yrbsoz1960 [facility] [id number] tsh (38739) Ordered By: Chelsea Avina on 2009-04-29 Thyrotropin Qn 3.180 0.450-4.500 {uIU/mL} Normal 04-29-2009 [facility] Internal Medicine ( 28630) Comment: PATIENT WAS FASTINGPERFORMED BY: [facility] Vnjznc8114 [facility] [id number] microscopic examination Ordered By: Instrument Processing Tech on 2009-04-29 Bacteria LM.HPF #/area Many Abnormal 009 [facility] Internal (Urine sed) Medicine (33965) Comment: PATIENT WAS FASTINGPERFORMED BY: [facility] Cgjrxh8393 [facility] [id number] Epithelial cells LM.HPF 0-10 0 - 10 Normal 2008 [facility] Internal #/area (Urine sed) M edicine (41520) Comment: PATIENT WAS FASTINGPERFORMED BY: [facility] Ctnwms0590 [facility] [id number] Mucus LM Ql (Urine sed) Present Normal 2008 [facility] Medicine (01585) Mucus Ql (Urine sed) Present Normal 9 [facility] Medicine (49162) Comment: PATIENT WAS FASTINGPERFORMED BY: [facility] Wbzlib8193 [facility] [id number] RBC LM.HPF #/area (Urine 0-3 0 - 3 Normal 04-29 [facility] Internal Medicine sed) (42830) Comment: PATIENT WAS FASTINGPERFORMED BY: [facility] Tbvdwz2562 [facility] [id number] WBC LM.HPF #/area (Urine 0-5 0 - 5 Normal 04-29 [facility] Internal Medicine sed) (97537) Comment: PATIENT WAS FASTINGPERFORMED BY: [facility] Fgbhns9783 [facility] [id number] microalbumin Ordered By: Chelsea Avina on 2009-04-29 Albumin DL <= 20 mg/L 3.4 0.0-17.0 ug/mL Normal 04-29-20 09 Comprehensive Internal mass conc (U) [place] (40385) Comment: PATIENT WAS FASTINGPERFORMED BY: CB [facility] Aurdod7065 [address]ardo RoadDublin [place] [id number] Albumin/Creatinine mass 3.4 0.0-30.0 {mg/g_creat} Normal Comprehensive ratio (U) Internal M edicine (42482) Comment: PATIENT WAS FASTINGPERFORMED BY: CB [facility] Ymzwut2196 [address] Roadblin [place] [id number] Creatinine mass conc 100.1 15.0-278.0 mg/dL Normal 04-29-20 09 [facility] Internal (U) Medicine ( 28027) Comment: PATIENT WAS FASTINGPERFORMED BY: CB [facility] Gxdvbz7553 Pardo [facility] [id number] metabolic panel, comprehensive (52828) Ordered By: Chelsea Avina on 2009-04-29 Albumin mass conc 4.3 3.5-5.5 g/dL Normal 04-29-2009 [facility] (46860) Comment: PATIENT WAS FASTINGPERFORMED BY: CB [facility] Imnfpl9224 Pardo [facility] [id number] Albumin/Globulin mass ratio 1.4 1.1-2.5 1 Normal [facility] Internal Medicine ( 74964) Comment: PATIENT WAS FASTINGPERFORMED BY: CB [facility] Iexiwo2356 Pardo [facility] [id number] ALP enzyme act/vol 86 25-150 [iU]/L Normal 04-29-2009 [facility] Internal Medicine (73561) Comment: PATIENT WAS FASTINGPERFORMED BY: CB [facility] Poozhh1740 [address] [facility] [id number] ALT enzyme act/vol 15 0-40 [iU]/L Normal 04-29-2009 [facility] Medicine (46362) Comment: PATIENT WAS FASTINGPERFORMED BY: CB [facility] Hfuijk8735 [address] [facility] [place] [id number] AST enzyme act/vol 22 0-40 [iU]/L Normal 04-29-2009 [facility] Internal Medicine (10381) Comment: PATIENT WAS FASTINGPERFORMED BY: CB [facility] Guqgmo2848 Pardo [facility] [place] [id number] Bilirubin mass conc 0.3 0.1-1.2 mg/dL Normal 04-29-2009 [facility] Internal Medicine ( 29880) Comment: PATIENT WAS FASTINGPERFORMED BY: LETICIA SocratesCodiaz HanksVgjkil7655 [facility] [id number] Calcium mass conc 9.6 8.5-10.6 mg/dL Normal 04-29-2009 [facility] Internal Medicine ( 06541) Comment: PATIENT WAS FASTINGPERFORMED BY: LETICIA [facility] Dkkvtv0956 [facility] [id number] Chloride molar conc 102 97-108 mmol/L Normal 04-29-2009 [facility] Internal Medicine ( 88091) Comment: PATIENT WAS FASTINGPERFORMED BY: LETICIA [facility] Ruijxr4630 [facility] [id number] CO2 molar conc 22 20-32 mmol/L Normal 04-29-2009 [facility] Internal Medicine (83092) Comment: PATIENT WAS FASTINGPERFORMED BY: LETICIA [facility] Rjywda0623 [facility] [id number] Creatinine mass conc 0.86 0.57-1.00 mg/dL Normal 9 [facility] Internal Medicine ( 10813) Comment: PATIENT WAS FASTINGPERFORMED BY: LETICIA SocratesCo Akjxdx6959 [facility] [id number] GFR/1.73 sq M >59 mL/min/{1.73_m2} Normal 9 Comprehensive Internal predicted among [facility] (03099) blacks MDRD vol rate/area (S/P/Bld) Comment: Note: Persistent reduction f or 3 months or more in an eGFR<60 mL/min/1.73 m2 defines CKD. Patients with e GFR values>/=60 mL/min/1.73 m2 may also have CKD if evidence of persistentpro teinuria is present. Additional information may be found [email or web address]. PATIENT WAS FASTINGPERFORMED BY: LETICIA [facility] Ijrkap9561 [facility] [id number] GFR/1.73 sq >59 mL/min/{1.73_m2} Normal 04-29-2009 [facility] Internal M.predicted MDRD Med [facility] (02521) (S/P/Bld) [Vol rate/Area] Comment: PATIENT WAS FASTINGPERFORMED BY: LETICIA [facility] Abiqip1061 [facility] [id number] GFR/1.73 sq >59 mL/min/{1.73_m2} Normal 04-29-2009 [facility] Internal M.predicted MDRD vol Medicine (32731) rate/area Comment: PATIENT WAS FASTINGPERFORMED BY: LETICIA [facility] Stdesf9936 [facility] [id number] Globulin Calculated mass 3.1 1.5-4.5 g/dL Normal 04-29 [facility] Internal conc (S) Medicine ( 45469) Globulin mass conc (S) 3.1 1.5-4.5 g/dL Normal 009 [facility] Medicine ( 15153) Comment: PATIENT WAS FASTINGPERFORMED BY: LETICIA [facility] Iobvlq5861 [facility] [id number] Glucose mass conc 90 65-99 mg/dL Normal 04-29-2009 [facility] (14480) Comment: PATIENT WAS FASTINGPERFORMED BY: LETICIA [facility] Rlnqin6558 [facility] [id number] Potassium molar conc 4.0 3.5-5.2 mmol/L Normal 9 [facility] Medicine ( 67019) Comment: PATIENT WAS FASTINGPERFORMED BY: LETICIA [facility] Azwrme4507 [facility] [id number] Protein mass conc 7.4 6.0-8.5 g/dL Normal 04-29-2009 [facility] (88762) Comment: PATIENT WAS FASTINGPERFORMED BY: LETICIA [facility] Tkrmti4532 [facility] [id number] Sodium molar conc 139 135-145 mmol/L Normal 04-29-2009 [facility] ( 11542) Comment: PATIENT WAS FASTINGPERFORMED BY: LETICIA [facility] Hssjah1276 [facility] [id number] Urea nitrogen mass conc 14 5-26 mg/dL Normal 2008 [facility] Medicine ( 59711) Comment: PATIENT WAS FASTINGPERFORMED BY: CB [facility] Kimckc2590 [address] [facility] [place] [id number] Urea nitrogen/Creatinine mass 16 8-27 1 Normal 04-29-2009 [facility] Internal ratio Medicine ( 22818) Comment: PATIENT WAS FASTINGPERFORMED BY: CB [facility] Xtfezi1871 Pardo [facility] [id number] lipid panel (42736) Ordered By: Chelsea Avina on 2009-04-29 Cholesterol in HDL mass 58 mg/dL Normal 2008 [facility] Internal conc Medicine ( 13864) Comment: According to ATP-III Guideli zainab, HDL-C >59 mg/dL is considered anegative risk factor for CHD. PATIENT WAS FASTINGPERFORMED BY: CB [facility] Saisin0567 [facility] [id number] Cholesterol in LDL mass 131 0-99 mg/dL Abnormal 2008 [facility] Internal conc Medicine ( 51840) Comment: PATIENT WAS FASTINGPERFORMED BY: CB [facility] Dxdclp6632 [facility] [id number] Cholesterol in 2.3 0.0-3.2 {ratio_units} Normal 04-29-2009 Comprehensive LDL/Cholesterol in HDL Internal Medicine mass ratio (67753) Comment: PATIENT WAS FASTINGPERFORMED BY: CB [facility] Idglgx3584 [facility] [id number] Cholesterol in VLDL mass 38 5-40 mg/dL Normal 04-29 [facility] Internal conc Medicine ( 03295) Comment: PATIENT WAS FASTINGPERFORMED BY: CB [facility] Pnqdxi2724 [facility] [id number] Cholesterol mass conc 227 100-199 mg/dL Abnormal 04-29-20 09 [facility] Medicine ( 39352) Comment: PATIENT WAS FASTINGPERFORMED BY: CB [facility] Begqky7777 Pardo [facility] [id number] Triglyceride mass conc 188 0-149 mg/dL Abnormal 009 [facility] Internal Medicine ( 91916) Comment: PATIENT WAS FASTINGPERFORMED BY: CB [facility] Aeoleu3450 Pardo [facility] [id number] cbc with manual diff (08495) Ordered By: Chelsea Avina on 2009-04-29 Basophils #/vol 0.0 0.0-0.2 {x10E3/uL} Normal 04-29-2009 [facility] (Bld) [facility] ( 14211) Comment: PATIENT WAS FASTINGClinical Information: [id number] PERFORMED BY: [facility] Zrrqet2599 Pardo [facility] [id number] Basophils Auto #/vol 0.0 0.0-0.2 {x10E3/uL} Normal 04-29-20 09 [facility] Internal (d) Medicine ( 41727) Basophils/100 WBC 0 0-3 % Normal 04-29-2009 [facility] Internal (d) Medicine ( 39001) Comment: PATIENT WAS FASTINGClinical Information: [id number] PERFORMED BY: LETICIA [facility] Ybnhyk1758 Pardo [facility] [id number] Basophils/100 WBC Auto 0 0-3 % Normal 009 [facility] Internal (d) Medicine ( 99899) Eosinophils #/vol (Bld) 0.1 0.0-0.4 {x10E3/uL} Normal 04-29 [facility] Internal Medicine ( 89040) Comment: PATIENT WAS FASTINGClinical Information: [id number] PERFORMED BY: [facility] Ylvlrr8723 Pardo [facility] [id number] Eosinophils Auto 0.1 0.0-0.4 {x10E3/uL} Normal 04-29-2009 [facility] Internal #/vol (Bld) Medicine (29999) Eosinophils/100 WBC 2 0-7 % Normal 04-29-2009 [facility] Internal (Bld) Medicine ( 12222) Comment: PATIENT WAS FASTINGClinical Information: [id number] PERFORMED BY: [facility] Fdxnka7127 Pardo [facility] [id number] Eosinophils/100 WBC Auto 2 0-7 % Normal 04-29 [facility] Internal (Bld) Medicine ( 66931) Erythrocyte distribution 14.0 11.7-15.0 % Normal 04-29 Comprehensive Internal width Auto Ratio (RBC) Medicine (28488) Erythrocyte distribution 14.0 11.7-15.0 % Normal 04-29 Comprehensive Internal width Ratio (RBC) Me dicine (16258) Comment: PATIENT WAS FASTINGClinical Information: [id number] PERFORMED BY: LETICIA [facility] Yxbhow1407 [address]ardo [place] adD[place] [id number] Hematocrit Auto Volume 42.9 34.0-44.0 % Normal 009 Comprehensive Internal Fraction (Bld) Medic ine (28259) Hematocrit Volume 42.9 34.0-44.0 % Normal 04-29-2009 [facility] Internal Fraction (Bld) Medic ine (25667) Comment: PATIENT WAS FASTINGClinical Information: [id number] PERFORMED BY: LETICIA [facility] Ankhlw1811 Pardo Ro [facility]DAt[facility] [id number] Hemoglobin mass conc 14.6 11.5-15.0 g/dL Normal 9 [facility] Internal (Bld) Medicine ( 86754) Comment: PATIENT WAS FASTINGClinical Information: [id number] PERFORMED BY: LETICIA [facility] Jyyydj1209 [address] [place] adD[place] [id number] Lymphocytes #/vol 1.9 0.7-4.5 {x10E3/uL} Normal 04-29-2009 [facility] Internal (Bld) Medicine ( 64551) Comment: PATIENT WAS FASTINGClinical Information: [id number] PERFORMED BY: LETICIA [facility] Rzqihk9758 Pardo Ro adD[facility] [id number] Lymphocytes Auto 1.9 0.7-4.5 {x10E3/uL} Normal 04-29-2009 [facility] Internal #/vol (Bld) Medicine (93027) Lymphocytes/100 WBC 35 14-46 % Normal 04-29-2009 [facility] Internal (Bld) Medicine ( 16043) Comment: PATIENT WAS FASTINGClinical Information: [id number] PERFORMED BY: LETICIA [facility] Iuoggl9825 [address]ardo Ro adDublin [place] [id number] Lymphocytes/100 WBC Auto 35 14-46 % Normal 04-29 [facility] Internal (Bld) Medicine ( 99487) MCH Auto Entitic mass 31.4 27.0-34.0 pg Normal 04-29-20 09 [facility] Internal (RBC) Medicine ( 33627) MCH Entitic mass (RBC) 31.4 27.0-34.0 pg Normal 009 [facility] Internal Medicine ( 61213) Comment: PATIENT WAS FASTINGClinical Information: [id number] PERFORMED BY: LETICIA LabCodiaz HanksSirune4028 Pardo [facility] [id number] MCHC Auto mass conc 34.1 32.0-36.0 g/dL Normal 04-29-2009 [facility] Internal (RBC) Medicine ( 06579) MCHC mass conc (RBC) 34.1 32.0-36.0 g/dL Normal 9 [facility] Internal Medicine ( 37704) Comment: PATIENT WAS FASTINGClinical Information: [id number] PERFORMED BY: LETICIA LabYannick Hanks6370 Pardo [facility] [id number] MCV Auto Entitic volume 92 80-98 fL Normal 2008 [facility] Internal (RBC) Medicine ( 37714) MCV Entitic volume (RBC) 92 80-98 fL Normal 04-29 [facility] Internal Medicine ( 30277) Comment: PATIENT WAS FASTINGClinical Information: [id number] PERFORMED BY: LETICIA LabYannick Hanks6370 Pardo [facility] [id number] Monocytes #/vol 0.4 0.1-1.0 {x10E3/uL} Normal 04-29-2009 Co mprehensive Internal (Bld) Medicine ( 35365) Comment: PATIENT WAS FASTINGClinical Information: [id number] PERFORMED BY: LETCIIA [facility] Disqfw2018 Pardo [facility] [id number] Monocytes Auto #/vol 0.4 0.1-1.0 {x10E3/uL} Normal 04-29-20 09 [facility] Internal (Bld) Medicine ( 09888) Monocytes/100 WBC 8 4-13 % Normal 04-29-2009 [facility] Internal (d) Medicine ( 90723) Comment: PATIENT WAS FASTINGClinical Information: [id number] PERFORMED BY: LETICIA [facility] Nyhbtj6912 Pardo [facility] [id number] Monocytes/100 WBC Auto 8 4-13 % Normal 009 Comprehensive Internal (d) Medicine ( 53812) Neutrophils #/vol (Bld) 3.0 1.8-7.8 {x10E3/uL} Normal 04-29 [facility] Internal Medicine ( 32396) Comment: PATIENT WAS FASTINGClinical Information: [id number] PERFORMED BY: LETICIA Hanks6370 P[address] Ro [facility] [id number] Neutrophils Auto 3.0 1.8-7.8 {x10E3/uL} Normal 04-29-2009 C o[facility]rehensive Internal #/vol (Bld) Medicine (28993) Neutrophils/100 WBC 55 40-74 % Normal 04-29-2009 Comprehensive Internal (d) Medicine ( 66454) Comment: PATIENT WAS FASTINGClinical Information: [id number] PERFORMED BY: LETICIA Hanks6370 Pardo [facility] [id number] Neutrophils/100 WBC Auto 55 40-74 % Normal 04-29 Comprehensive (d) Internal M edicine (60839) Platelets #/vol (Bld) 318 140-415 {x10E3/uL} Normal 009 Comprehensive Internal edicine (48365) Comment: PATIENT WAS FASTINGClinical Information: [id number] PERFORMED BY: LETICIA Hanks6370 Pardo [facility] [id number] Platelets Auto 318 140-415 {x10E3/uL} Normal 04-29-2009 Com prehensive Internal #/vol (Bld) Medicine (89674) RBC #/vol (Bld) 4.65 3.80-5.10 {x10E6/uL} Normal 04-29-2009 Fl mprehensive Internal Medicine ( 93155) Comment: PATIENT WAS FASTINGClinical Information: [id number] PERFORMED BY: LETICIA Hanks6370 [address] Ro adDublin [place] [id number] RBC Auto #/vol 4.65 3.80-5.10 {x10E6/uL} Normal 04-29-2009 [facility] prehensive Internal (Bld) Medicine ( 49481) WBC #/vol (Bld) 5.5 4.0-10.5 {x10E3/uL} Normal 04-29-2009 [facility] ( 34804) Comment: PATIENT WAS FASTINGClinical Information: [id number] PERFORMED BY: CB [facility] Mgcmwl4580 Pardo Ro [facility] [id number] WBC Auto #/vol 5.5 4.0-10.5 {x10E3/uL} Normal 04-29-2009 Com prehensive Internal (Bld) Medicine ( 09935) bilat scrn digital & cad Ordered By: Instrument Processing Tech on 2009-04-29 See Note Normal 04-29-2009 Comprehen [facility] Internal Medicine (35800) Comment: Exam Number: [id number] MAMMO GRAM, BILATERAL SCREENING DIGITAL AND CAD HISTORYRoutine screening. Fu ll field digital images were obtained in mediolateral oblique andcran iocaudal projection. CAD images were reviewed. The current study is compare d to the examinations of July 03, 2005,and September 18, 2007. There is mod erately dense fibroglandular parenchyma present. There isno skin thickening o r retraction, architectural distortion, or clusterof suspicious microca lcifications. On the left, there is a densitymeasuring 9 mm in siz e, identified in the inner half of the breast inthe craniocaudal projectio n. This is not identified in themediolateral oblique projection. It was n ot seen on previous studies.For further evaluation, left roll cranio caudal and spot craniocaudalviews are recommended. On the right, t here is a ring calcificationin the upper inner quadrant of the breast. This was presentpreviously. It is benign in appearance and may represent an area offat necrosis or other chronic change related to the patient's trini astreduction surgery. IMPRESSIONThere is a new density seen in the inner le ft breast. Additionalviews are recommended. FINAL ASSESSMENTNeed additio nal imaging evaluation. BIRADS Category 0. A letter regarding these resul ts has been sent to the patient. This interpretation was rendered by a radiologist certified under theMammography Quality Standards Act of 199 2 (MQSA). The mammograms werealso examined with computer-aided detection sof tware ([employer], [employer] Reported By: ARCELIA Sykes M.D. vaginitis/vaginosis, dna probe Ordered By: Instrument Processing Tech on 2008-12-24 GAREQ Normal 12-24-2008 [facility] Internal Medicine (55607) Comment: Equivocal - unable to defini tively determine presence or absence of Gardnerella Clinical Information: SRC:VA PERFORMED BY: [facility] Ilffzo5890 Pardo EverspringDublin [place] [id number] 58284 Negative Normal 12-24-2008 [facility] Internal Medicine (24554) Comment: Clinical Information: SRC:VA PERFORMED BY: [facility] Kliaao8460 Pardo EverspringDublin [place] [id number] 71735 Positive Abnormal 12-24-2008 [facility] Internal Medicine (27124) Comment: Clinical Information: SRC:VA PERFORMED BY: [facility] Zvdzra4281 Pardo EverspringDuOn license of [facility] [id number] urinalysis, office (08395) Ordered By: DONNA Polk on 2008-12-24 Bilirubin Ql (U) Negative Normal 12-24-2008 Co mprehensive Internal Medicine ( 16835) Glucose Test strip Negative Normal 12-24-2008 Comprehensive Internal mass conc (U) Medici ne (70590) Hemoglobin Ql (U) Hemolyzed Trace Normal 2008 [facility] Internal Medicine ( 35804) Hemoglobin Test strip Hemolyzed Trace Normal Comprehensive Internal Ql (U) Medicine ( 20031) Ketones Ql (U) Negative Normal 12-24-2008 Comp rehensive Internal Medicine ( 80566) Leukocyte esterase Moderate Normal 12-24-2008 Comprehensive Internal Test strip Ql (U) Me dicine (26208) Nitrite Ql (U) Negative Normal 12-24-2008 [facility] ( 75117) Nitrite Test strip Ql Negative Normal 12-25-19 09 [facility] Internal (U) Medicine ( 92696) pH (U) 7.0 1 Normal 12-24-2008 [facility] Internal Medicine ( 30776) pH Test strip (U) 7.0 1 Normal 12-24-2008 [facility] o[facility]rehensive Internal Medicine ( 14531) Protein Ql (U) Negative Normal 12-24-2008 Comp rehensive Internal Medicine ( 53841) Protein Test strip Ql Negative Normal 12-25-19 09 [facility] Internal (U) Medicine ( 50832) Specific gravity 1.020 1 Normal 12-24-2008 Co mprehensive Internal Relative Density (U) Medicine (59336) Urobilinogen 2 mg/dL Normal 12-24-2008 Compre hensive Internal mass/time (24H U) Me dicine (02751) chlamydia/gc amplification Ordered By: Instrument Processing Tech on 2008-12-24 C. trachomatis DNA Negative Normal 12-24-2008 Comprehensive Internal CANDELARIO+probe Ql (Unsp spec) Medicine (14346) C. trachomatis rRNA Negative Normal 12-24-2008 [facility] Internal CANDELARIO+probe Ql (Unsp spec) Medicine (81614) Comment: PERFORMED BY: Tufin [facility] Dub wcp7323 Pardo [facility] [id number] N. gonorrhoeae DNA Negative Normal 12-24-2008 Comprehensive Internal CANDELARIO+probe Ql (Unsp spec) Medicine (51617) N. gonorrhoeae rRNA Negative Normal 12-24-2008 [facility] Internal CANDELARIO+probe Ql (Unsp spec) Medicine (61940) Comment: PERFORMED BY: Tufin [facility] Dub dik5471 P[facility] [id number] SPRCS Normal 12-24-2008 [facility] Internal Medicine (00732) Comment: Acceptable specimens for thi s test are male urethral swab,endocervical swab and liquid based pap specime ns, vaginal swabs inAPTIMA transports and first void urine. See online [facility] for test number for rectal and pharyngeal specimens. PERFORMED BY: [facility]in [facility] Dub vot9161 Pardo [facility] [id number] urinalysis, office (85054) Ordered By: DONNA Polk on 2008-02-06 Bilirubin Ql (U) Negative Normal 02-06-2008 Co mprehensive Internal Medicine ( 20060) Glucose Test strip mass Negative Normal 2007 Comprehensive Internal conc (U) Medicine ( 19218) Hemoglobin Ql (U) Negative Normal 02-06-2008 C omprehensive Internal Medicine ( 05154) Hemoglobin Test strip Ql Negative Normal 02-05 Comprehensive Internal (U) Medicine ( 24690) Ketones Ql (U) Negative Normal 02-06-2008 Comp rehensive Internal Medicine ( 26068) Leukocyte esterase Test Negative Normal 2007 Comprehensive Internal strip Ql (U) Medicin e (66251) Nitrite Ql (U) Negative Normal 02-06-2008 Comp rehensive Internal Medicine ( 06871) Nitrite Test strip Ql (U) Negative Normal 01-09 [facility] Internal Medicine ( 18414) pH (U) 7.0 1 Normal 02-06-2008 [facility]hen [facility] ( 64248) pH Test strip (U) 7.0 1 Normal 02-06-2008 C omprehensive Internal Medicine ( 06457) Protein Ql (U) Negative Normal 02-06-2008 [facility] ( 64370) Protein Test strip Ql (U) Negative Normal 01-09 [facility] Internal Medicine ( 91912) Specific gravity Relative 1.005 1 Normal 01-09 [facility] Internal Density (U) Medicine (99431) Urobilinogen mass/time 2 mg/dL Normal 008 Comprehensive Internal (24H U) Medicine ( 36395) lipase Ordered By: [employer] on 2008-02-06 192 114-286 U/L Normal 02-06-2008 [facility] Internal Medicine ([id number]) esr Ordered By: [employer] Teacher on 2008-02-06 ESR Velocity (Bld) 9 0-30 mm/h Normal 02-06-2008 [facility] (74320) comp metabolic Order ed By: Instrument Processing Tech on 2008-02-06 Albumin mass conc 4.0 3.4-5.0 g/dL Normal 02-06-2008 [facility] ( 69264) Albumin/Globulin 1.2 0.9-2.4 {RATIO} Normal 02-06-2008 [facility] mass ratio Medicine (24928) ALP enzyme act/vol 107 50-136 U/L Normal 02-06-2008 [facility] ( 11865) ALT enzyme act/vol 36 30-65 U/L Normal 02-06-2008 [facility] ( 92904) Anion gap 3 molar 6 5-15 1 Normal 02-06-2008 [facility] conc Medicine ( 11591) Anion gap molar conc 6 5-15 1 Normal 8 [facility] ( 97519) AST enzyme act/vol 24 15-37 U/L Normal 02-06-2008 [facility] ( 70860) Bilirubin mass conc 0.52 0.00-1.00 mg/dL Normal 02-06-2008 [facility] ( 01085) Calcium mass conc 9.2 8.5-10.1 mg/dL Normal 02-06-2008 [facility] ( 62820) Chloride molar conc 102 98-107 mmol/L Normal 02-06-2008 [facility] ( 10587) CO2 molar conc 31.7 21.0-32.0 mmol/L Normal 02-06-2008 [facility] rehensive Internal Medicine ( 58537) Creatinine mass conc 1.1 0.6-1.0 mg/dL Abnormal 8 [facility] ( 47233) Globulin Calculated 3.4 2.7-4.2 g/dL Normal 02-06-2008 [facility] Internal mass conc (S) Medici ne (49341) Globulin mass conc 3.4 2.7-4.2 g/dL Normal 02-06-2008 [facility] (S) Medicine ( 26022) Glucose mass conc 73 70-110 mg/dL Normal 02-06-2008 [facility] ( 90345) Potassium molar conc 4.5 3.5-5.1 mmol/L Normal 8 [facility] Internal Medicine ( 74210) Protein mass conc 7.4 6.4-8.2 g/dL Normal 02-06-2008 [facility] ( 85985) Sodium molar conc 140 136-145 mmol/L Normal 02-06-2008 [facility] ( 51913) Urea nitrogen mass 16 7-18 mg/dL Normal 02-06-2008 [facility] conc Medicine ( 07188) Urea 14.5 10-20 {RATIO} Normal 02-06-2008 Comprehen sive Internal nitrogen/Creatinine Medicine (15779) mass ratio cbcd,smear diff Orde red By: Instrument Processing Tech on 2008-02-06 Band form 1 0-5 % Normal 02-06-2008 Comprehen sive neutrophils/100 WBC Internal Medicine (Bld) (25141) Band form 1 0-5 % Normal 02-06-2008 Comprehen sive neutrophils/100 WBC Internal Medicine Manual cnt (Bld) (48 301) Erythrocyte 14.2 11.6-14.6 % Normal 02-06-2008 Compreh ensive distribution width I nternal Medicine Auto Ratio (RBC) (44 691) Erythrocyte 14.2 11.6-14.6 % Normal 02-06-2008 Compreh ensive distribution width I nternal Medicine Ratio (RBC) (49593) Hematocrit Auto Volume 43.1 37-47 % Normal 008 [facility] Fraction (Bld) Inter nal Medicine (88571) Hematocrit Volume 43.1 37-47 % Normal 02-06-2008 [facility] Fraction (Bld) Inter nal Medicine (40890) Hemoglobin mass conc 14.4 12.0-16.0 g/dL Normal 8 [facility] (Bld) Internal M edicine (93781) Lymphocytes/100 WBC 14 19-41 % Abnormal 02-06-2008 [facility] (Bld) Internal M edicine (62509) Lymphocytes/100 WBC 14 19-41 % Abnormal 02-06-2008 [facility] Auto (Bld) Internal Medicine (05638) MCH Auto Entitic mass 31.0 27.0-32.0 pg Normal 02-06-20 08 [facility] (RBC) Internal M edicine (79537) MCH Entitic mass (RBC) 31.0 27.0-32.0 pg Normal 008 [facility] Internal M edicine (95400) MCHC Auto mass conc 33.5 32-36 g/dL Normal 02-06-2008 [facility] (RBC) Internal M edicine (88145) MCHC mass conc (RBC) 33.5 32-36 g/dL Normal 8 [facility] Internal M edicine (73393) MCV Auto Entitic 92.3 81-99 fL Normal 02-06-2008 [facility] volume (RBC) Interna l Medicine (64905) MCV Entitic volume 92.3 81-99 fL Normal 02-06-2008 [facility] (RBC) Internal M edicine (99221) Monocytes/100 WBC 7 0-10 % Normal 02-06-2008 [facility] (Bld) Internal M edicine (35672) Monocytes/100 WBC Auto 7 0-10 % Normal 008 [facility] (Bld) Internal M edicine (83941) Platelets #/vol (Bld) SeeNote Normal 02-06-20 08 [facility] Internal M edicine (89050) Comment: Result: ADEQUATE Platelets #/vol 346 150-450 K/mm3 Normal 02-06-2008 Com prehensive Internal (Bld) Medicine ( 58482) Platelets Auto 346 150-450 K/mm3 Normal 02-06-2008 [facility] rehensive Internal #/vol (Bld) Medicine (92452) RBC #/vol (Bld) 4.67 4.2-5.4 {M/mm3} Normal 02-06-2008 [facility] Internal Medicine ( 84707) RBC Auto #/vol 4.67 4.2-5.4 {M/mm3} Normal 02-06-2008 Comp rehensive Internal (Bld) Medicine ( 40193) WBC #/vol (Bld) 12.2 4.4-11.0 K/mm3 Abnormal 02-06-2008 [facility] Internal Medicine ( 70922) WBC Auto #/vol 12.2 4.4-11.0 K/mm3 Abnormal 02-06-2008 Comp rehensive Internal (Bld) Medicine ( 41216) SeeNote Normal 02-06-2008 Comprehen sive Internal Medicine ( 97008) Comment: Result: NORM C+C Exam Number: [id number] CT AB DOMEN AND PELVIS HISTORYAbdominal pain, right lower quadrant. Following th e oral administration of contrast, helical scans weredisplayed at 3.75-mm int ervals from the lung bases through thesymphysis pubis with the intravenous a dministration of 100 mL ofIsovue 300. The current study is compared to the examination ofJune 28, 2005. The liver is homogeneous. There are no dilatedintrahepatic ducts identified. There are surgical clips in thegallbla dder fossa compatible with a cholecystectomy. The common bileduct measures 6 to 7 mm at the level of the pancreatic head. The ductis larger in caliber proximally measuring 13 mm. The common bile ductmeasured 12 mm on the pr evious examination of June 28, 2005. Themild dilatation of the common nazanin e duct proximally, therefore, doesnot represent an acute change. There is ar tifact in the spleen whichis related to patient breathing motion. The techno logist's notesindicate that the patient had a great deal of difficulty in holdingher breath. No abnormality of the pancreas is identified. Kassy centto the posterior aspect of the right adrenal is a tiny nodulemeasuring 5 mm in size. This has the CT-attenuation coefficient offat. This may represent a small lipoma with a CT-attenuation in therange of fat but highe r than the adjacent fat or this could representa small benign adrenal adenoma . The finding was present June, and is unchanged. There is no le ft adrenal lesion identified. There is no renal mass or hydronephrosis ident ified. There is noperiaortic adenopathy seen. Caliber of the abdominal aor ta is withinnormal limits. Scans through the pelvis demonstrate no abnorm ality of the urinarybladder. The uterus is surgically absent. There is colonicdiverticulosis. Posterior and inferior to the cecum there is abnormals oft tissue density. There is a linear extension of density from thetip of th e cecum which measures 1 cm in size and there is adjacentstreaking of the fat surrounding this structure and the tip of thececum. The wall of the ti p of the cecum is thickened. There is aminimal amount of fluid in the pelvi s. These findings are most likelyto represent an inflammatory process in the right lower quadrant. Based on its location, this is most likely to repre sent appendicitisinvolving a retrocecal appendix. IMPRESSIONThere is abnormal soft tissue density in the right lower quadrant.This most likely re presents an acute inflammatory process in the rightlower quadrant. Based o n its location, this is most likely torepresent appendicitis involving a ret rocecal appendix. Reported By: ARCELIA JOSHI M.D. Exam Number: [id number] CT AB DOMEN AND PELVIS HISTORYAbdominal pain, right lower quadrant. Following th e oral administration of contrast, helical scans weredisplayed at 3.75-mm int ervals from the lung bases through thesymphysis pubis with the intravenous a dministration of 100 mL ofIsovue 300. The current study is compared to the examination ofJune 28, 2005. The liver is homogeneous. There are no dilatedintrahepatic ducts identified. There are surgical clips in thegallbla dder fossa compatible with a cholecystectomy. The common bileduct measures 6 to 7 mm at the level of the pancreatic head. The ductis larger in caliber proximally measuring 13 mm. The common bile ductmeasured 12 mm on the pr evious examination of June 28, 2005. Themild dilatation of the common nazanin e duct proximally, therefore, doesnot represent an acute change. There is ar tifact in the spleen whichis related to patient breathing motion. The techno logist's notesindicate that the patient had a great deal of difficulty in holdingher breath. No abnormality of the pancreas is identified. Kassy centto the posterior aspect of the right adrenal is a tiny nodulemeasuring 5 mm in size. This has the CT-attenuation coefficient offat. This may represent a small lipoma with a CT-attenuation in therange of fat but highe r than the adjacent fat or this could representa small benign adrenal adenoma . The finding was present June, and is unchanged. There is no le ft adrenal lesion identified. There is no renal mass or hydronephrosis ident ified. There is noperiaortic adenopathy seen. Caliber of the abdominal aor ta is withinnormal limits. Scans through the pelvis demonstrate no abnorm ality of the urinarybladder. The uterus is surgically absent. There is colonicdiverticulosis. Posterior and inferior to the cecum there is abnormals oft tissue density. There is a linear extension of density from thetip of th e cecum which measures 1 cm in size and there is adjacentstreaking of the fat surrounding this structure and the tip of thececum. The wall of the ti p of the cecum is thickened. There is aminimal amount of fluid in the pelvi s. These findings are most likelyto represent an inflammatory process in the right lower quadrant. Based on its location, this is most likely to repre sent appendicitisinvolving a retrocecal appendix. IMPRESSIONThere is abnormal soft tissue density in the right lower quadrant.This most likely re presents an acute inflammatory process in the rightlower quadrant. Based o n its location, this is most likely torepresent appendicitis involving a ret rocecal appendix. Reported By: ARCELIA JOSHI M.D. Result: ADEQUATE 100 1 Normal 02-06-2008 [facility] Internal Medicine (42974) 78 47-70 % Abnormal 02-06-2008 [facility] Internal Medicine (85578) crystal Ordered By: [employer] Teacher on 2008-02-06 21 25-115 U/L Abnormal 02-06-2008 [facility] Internal Medicine (85150) bilat scrn digital & cad Ordered By: Instrument Processing Tech on 2007-09-18 See Note Normal 09-18-2007 [facility] Internal Medicine (78905) Comment: Exam Number: [id number] BILAT ERAL SCREENING DIGITAL MAMMOGRAM CLINICAL INFORMATIONScreening. Bilate ral digital mammography was performed as a screening exam. Standard CC and MLO views were obtained. The current study is compared to the previous examinations of December 31 and July 03, 2005. By history, the patien t has hadprevious breast reduction surgery. FINDINGSThere is no signific ant change in the overall appearance of thebreasts. There are scatte red residual fibroglandular and trabecularelements. No domin ant masses are evident and no suspicious groups ofcalcifications are seen. T here are scattered benign calcifications inboth breasts. No areas of spicula tion or distortion are found. Inthe right breast there is seen to be an ovoid essentially lucentstructure with some REM calcification. This was not present in 2005. The mammographic appearance is compatible with a partially calcifiedoil cyst. IMPRESSION1. Stable appearance of the breasts wi th no specific mammographic evidence of malignancy. Incidental note is made of a partially calcified oil cyst in the right breast. Annual mammogr aphy is recommended.2. BIRADS 2 with 1-year followup. A letter regarding the results has been sent to the patient. This interpretation was rendered by a radiologist certified underthe Mammography Quality Standards Act of 199 2 (MQSA). The mammogramswere also examined with computer-aided detection sof tware([employer], [employer] Reported By: ANA ESTRADA M.D. pap lb, rfx hpv ascu Ordered By: Instrument Processing Tech on 2007-09-11 . Normal 09-11-2007 [facility] Internal Medicine (87123) Comment: Source.............Cervical; EndocervicalLMP / Prev Treat...HystNo. of containers..01 CYTYC Thin Pr ep VialPERFORMED BY: [facility] [id number] PAPSMR Normal 09-11-2007 [facility] Internal Medicine (76564) Comment: The Pap smear is a screening test designed to aid in the detection ofpremalignant and malignant conditions of the uterine cervix. It is not adiagnostic procedure and sh ould not be used as the sole means of detectingcervical cancer. Jose th false-positive and false-negative reports do occur. .The HPV DNA reflex c dominik were not met with this specimen resulttherefore, no HPV test ing was performed. . Source.............Cervical; EndocervicalLMP / Prev Treat...HystNo. of containers..01 CYTYC Thin Pr ep VialPERFORMED BY: [facility] Lwuir[address] [place] [id number] SPR Normal 09-11-2007 [facility] Internal Medicine (00924) Comment: NEGATIVE FOR INTRAEPITHELIAL LESION AND MALIGNANCY.Satisfactory for evaluation. No endocervical cells are present. This isconsistent with a history of hysterectomy.V72. 31 ; Routine gynecological examinationDylan Saavedra, Manager Concrete ( CP) Source.............Cervical; EndocervicalLMP / Prev Treat...HystNo. of containers..01 CYTYC Thin Pr ep VialPERFORMED BY: [facility] I[address]kt[address]rvr[address] [place] [id number] urinalysis, office (92287) Ordered By: Maddie Basurto on 2007-09-10 Bilirubin Ql (U) Negative Normal 09-10-2007 [facility] ( 07706) Glucose Test strip Negative Normal 09-10-2007 [facility] Internal mass conc (U) Medici ne (29116) Hemoglobin Ql (U) Non Hemolyzed Trace Normal [facility] ( 50312) Hemoglobin Test strip Non Hemolyzed Trace Normal 09-10-2007 [facility] Internal Ql (U) Medicine ( 12375) Ketones Ql (U) Negative Normal 09-10-2007 [facility] rehensive Internal Medicine ( 07198) Leukocyte esterase Negative Normal 09-10-2007 [facility] Internal Test strip Ql (U) Me dicine (05575) Nitrite Ql (U) Negative Normal 09-10-2007 [facility] ( 34336) Nitrite Test strip Ql Negative Normal 09-10-19 08 [facility] Internal (U) Medicine ( 67638) pH (U) 5.0 1 Normal 09-10-2007 [facility] ( 23124) pH Test strip (U) 5.0 1 Normal 09-10-2007 [facility] ( 03268) Protein Ql (U) Negative Normal 09-10-2007 [facility] ( 26345) Protein Test strip Ql Negative Normal 09-10-19 08 [facility] (U) Medicine ( 92494) Specific gravity 1.015 1 Normal 09-10-2007 [facility] Internal Relative Density (U) Medicine (41345) Urobilinogen mass/time Normal Normal 008 [facility] Internal (24H U) Medicine ( 31198) tsh Ordered By: [employer] Teacher on 2007-03-05 Thyrotropin Qn 3.23 0.34-4.82 {uIU/mL} Normal 03-05-2007 [facility] Internal Medicine ( 55029) routine ua Ordered B y: Instrument Processing Tech on 2007-03-05 Clarity Nom (U) SeeNote Normal 03-05-2007 [facility] (21682) Comment: Result: SL CLOUDY Color Nom (U) YELLOW Normal 03-05-2007 [facility] Internal Medicine (17602) Glucose mass conc SeeNote Normal 03-05-2007 [facility] (34782) Comment: Result: NEGATIVE Protein mass conc SeeNote Normal 03-05-2007 [facility] (50272) Comment: Result: NEGATIVE 1.020 1.002-1.030 1 Normal 03-05-2007 [facility] (24895) SeeNote Normal 03-05-2007 [facility] Internal Medicine (68165) Comment: Result: SL CLOUDY Result: NORM C&C Result: NEGATIVE Result: ADEQUATE 7.0 5.0-8.0 1 Normal 03-05-2007 [facility] Internal Medicine (60556) YELLOW Normal 03-05-2007 [facility] Internal Medicine (19876) 0.2 0.2 - 1.0 EU/dl Normal 03-05-2007 [facility] Internal Medicine (98892) microalbumin,ur Orde red By: Instrument Processing Tech on 2007-03-05 13.0 mg/L Normal 03-05-2007 Comprehen sive Internal Medicine (94126) lipid Ordered By: [employer] Teacher on 2007-03-05 Cholesterol in HDL mass 55 mg/dL Normal 2006 [facility] conc Medicine ( 32310) Comment: Reference Range HDL <40 mg/d L Low HDL Cholesterol HDL >or= 60 mg/dL High HDL Cholesterol Cholesterol in LDL mass 128 0-130 mg/dL Normal 2006 [facility] conc Medicine ( 06491) Cholesterol in VLDL mass 17 5-40 mg/dL Normal 03-05 [facility] conc Medicine ( 10392) Cholesterol mass conc 200 mg/dL Normal 03-05-20 07 [facility] Internal Medicine ( 67823) Comment: <200 mg/dL Desirable 200-240 mg/dL Borderline >240 mg/dL High Risk Triglyceride mass conc 84 mg/dL Normal 007 [facility] (93862) Comment: Serum Triglycerides Referenc e Interval Normal <150 mg/dL Borderline high 150 - 199 mg/dL High 200 - 499 m g/dL Very High > or = 500 mg/dL comp metabolic Order ed By: Instrument Processing Tech on 2007-03-05 Albumin mass conc 3.8 3.4-5.0 g/dL Normal 03-05-2007 [facility] ( 06030) Albumin/Globulin 1.0 0.9-2.4 {RATIO} Normal 03-05-2007 [facility] Internal [facility] Medicine (45812) ALP enzyme act/vol 90 50-136 U/L Normal 03-05-2007 [facility] ( 81681) ALT enzyme act/vol 36 30-65 [iU]/L Normal 03-05-2007 [facility] ( 51076) Anion gap 3 molar 9 5-15 1 Normal 03-05-2007 [facility] conc Medicine ( 17319) Anion gap molar conc 9 5-15 1 Normal 7 [facility] ( 10118) AST enzyme act/vol 24 15-37 U/L Normal 03-05-2007 [facility] ( 26776) Bilirubin mass conc 0.29 0.00-1.00 mg/dL Normal 03-05-2007 [facility] ( 79975) Calcium mass conc 8.5 8.5-10.1 mg/dL Normal 03-05-2007 [facility] ( 97963) Chloride molar conc 102 98-107 mmol/L Normal 03-05-2007 [facility] ( 98105) CO2 molar conc 27.5 21.0-32.0 mmol/L Normal 03-05-2007 Comp rehensive Internal Medicine ( 41648) Comment: Please Note Reference Int erval Change Creatinine mass conc 0.8 0.6-1.0 mg/dL Normal 7 [facility] ( 05992) Globulin Calculated 3.8 2.7-4.2 g/dL Normal 03-05-2007 [facility] Internal mass conc (S) Medici ne (88682) Comment: Please Note Reference Int erval Change Globulin mass conc (S) 3.8 2.7-4.2 g/dL Normal 007 [facility] ( 76232) Comment: Please Note Reference Int erval Change Glucose mass conc 86 70-110 mg/dL Normal 03-05-2007 [facility] ( 38175) Potassium molar conc 3.6 3.5-5.1 mmol/L Normal 7 [facility] ( 21304) Protein mass conc 7.6 6.4-8.2 g/dL Normal 03-05-2007 [facility] ( 07875) Sodium molar conc 138 136-145 mmol/L Normal 03-05-2007 [facility] ( 95128) Urea nitrogen mass 15 7-18 mg/dL Normal 03-05-2007 [facility] Internal conc Medicine ( 91321) Urea 18.8 10-20 {RATIO} Normal 03-05-2007 Comprehen sive Internal nitrogen/Creatinine Medicine (35345) mass ratio cbcd,smear diff Orde red By: Instrument Processing Tech on 2007-03-05 Eosinophils/100 WBC 3 0-5 % Normal 03-05-2007 [facility] (Bld) Internal M edicine (82202) Eosinophils/100 WBC 3 0-5 % Normal 03-05-2007 [facility] Auto (Bld) Internal Medicine (44305) Erythrocyte 13.2 11.6-14.6 % Normal 03-05-2007 Compreh ensive distribution width Auto Internal Medicine Ratio (RBC) (02298) Erythrocyte 13.2 11.6-14.6 % Normal 03-05-2007 Compreh ensive distribution width I nternal Medicine Ratio (RBC) (35633) Hematocrit Auto Volume 42.5 37-47 % Normal 007 [facility] Fraction (Bld) Inter nal Medicine (30300) Hematocrit Volume 42.5 37-47 % Normal 03-05-2007 [facility] Fraction (Bld) Inter nal Medicine (90408) Hemoglobin mass conc 14.3 12.0-16.0 g/dL Normal 7 [facility] (Bld) Internal M edicine (01477) Lymphocytes/100 WBC 39 19-41 % Normal 03-05-2007 [facility] (Bld) Internal M edicine (03626) Lymphocytes/100 WBC 39 19-41 % Normal 03-05-2007 [facility] Auto (Bld) Internal Medicine (16240) MCH Auto Entitic mass 30.7 27.0-32.0 pg Normal 03-05-20 07 [facility] (RBC) Internal M edicine (46213) MCH Entitic mass (RBC) 30.7 27.0-32.0 pg Normal 007 [facility] Internal M edicine (32381) MCHC Auto mass conc 33.5 32-36 g/dL Normal 03-05-2007 [facility] (RBC) Internal M edicine (38309) MCHC mass conc (RBC) 33.5 32-36 g/dL Normal 7 [facility] Internal M edicine (17366) MCV Auto Entitic volume 91.5 81-99 fL Normal 2006 [facility] (RBC) Internal M edicine (13404) MCV Entitic volume 91.5 81-99 fL Normal 03-05-2007 [facility] (RBC) Internal M edicine (86143) Monocytes/100 WBC (Bld) 9 0-10 % Normal 2006 [facility] Internal M edicine (23421) Monocytes/100 WBC Auto 9 0-10 % Normal 007 [facility] (Bld) Internal M edicine (52344) Platelets #/vol (Bld) SeeNote Normal 03-05-20 07 [facility] Internal M edicine (14511) Comment: Result: ADEQUATE Platelets #/vol 349 150-450 K/mm3 Normal 03-05-2007 Com prehensive Internal (Bld) Medicine ( 01185) Platelets Auto #/vol 349 150-450 K/mm3 Normal 7 [facility] Internal (d) Medicine ( 63719) RBC #/vol (Bld) 4.64 4.2-5.4 {M/mm3} Normal 03-05-2007 Com prehensive Internal Medicine ( 91609) RBC Auto #/vol (Bld) 4.64 4.2-5.4 {M/mm3} Normal 7 [facility] Medicine ( 91789) WBC #/vol (Bld) 4.1 4.4-11.0 K/mm3 Abnormal 03-05-2007 Com prehensive Internal Medicine ( 09526) WBC Auto #/vol (Bld) 4.1 4.4-11.0 K/mm3 Abnormal 7 [facility] Medicine ( 52486) 100 1 Normal 03-05-2007 Comprehen sive Internal Medicine ( 76523) 49 47-70 % Normal 03-05-2007 [facility] ( 87063) Vital Signs Vital Sign Description Value / Unit Date Location The following section is limited to 5 en tries per type and includes entries from the following time range: 20181219 - [id number] 2. BMI (Body Mass Index) 26.63 kg/m2 03-21-2020 [facility] [place] [facility] (38383) BMI (Body Mass Index) 26.63 kg/m2 09-24-2019 [facility] [place] [facility] (81915) BMI (Body Mass Index) 25.51 kg/m2 07-31-2019 [facility] [place] [facility] (11541) BMI (Body Mass Index) 25.51 kg/m2 07-08-2019 [facility] [place] [facility] (07467) BMI (Body Mass Index) 25.58 kg/m2 01-30-2019 [facility] [place] [facility] (45044) Body Temperature 96.6 [degF] 03-21-2020 [facility] I nternal Medicine (26335) Body Temperature 96.9 [degF] 07-31-2019 [facility] I nternal Medicine (19704) Body Temperature 97.9 [degF] 07-08-2019 [facility] I nternal Medicine (57431) Body Temperature 97.5 [degF] 01-30-2019 [facility] I nternal Medicine (95059) Body Temperature 98.2 [degF] 09-05-2018 [facility] I nternal Medicine (30577) Body weight 74.84 kg 03-21-2020 [facility] In ternal Medicine (50699) Body weight 74.84 kg 09-24-2019 [facility] In ternal Medicine (84590) Body weight 71.68 kg 07-31-2019 [facility] In ternal Medicine (53290) Body weight 71.68 kg 07-08-2019 [facility] In ternal Medicine (82902) Body weight 71.9 kg 01-30-2019 [facility] In ternal Medicine (52644) BP Diastolic 80 mm[Hg] 03-21-2020 [facility] In ternal Medicine (52874) BP Diastolic 71 mm[Hg] 09-24-2019 [facility] In ternal Medicine (20317) BP Diastolic 68 mm[Hg] 07-31-2019 [facility] In ternal Medicine (98909) BP Diastolic 84 mm[Hg] 07-08-2019 [facility] In ternal Medicine (39409) BP Diastolic 82 mm[Hg] 01-30-2019 [facility] In ternal Medicine (56337) BP Systolic 110 mm[Hg] 03-21-2020 Comprehensive In ternal Medicine (53433) BP Systolic 128 mm[Hg] 09-24-2019 [facility] (56551) BP Systolic 101 mm[Hg] 07-31-2019 [facility] (63333) BP Systolic 120 mm[Hg] 07-08-2019 [facility] (52494) BP Systolic 122 mm[Hg] 01-30-2019 [facility] (41266) BSA (Body Surface Area) 1.84 m2 03-21-2020 Comprehe nsive Internal Medicine (87812) BSA (Body Surface Area) 1.84 m2 09-24-2019 Comprehe nsive Internal Medicine ([id number]) BSA (Body Surface Area) 1.81 m2 07-31-2019 Comprehe nsive Internal Medicine ([id number]) BSA (Body Surface Area) 1.81 m2 07-08-2019 Comprehe nsive Internal Medicine ([id number]) BSA (Body Surface Area) 1.81 m2 01-30-2019 Comprehe nsive Internal Medicine ([id number]) Head Circumference 0 cm 05-12-2009 [facility] (47491) Head Circumference 0 cm 04-29-2009 [facility] (17034) Head Circumference 0 cm 12-24-2008 [facility] (09476) Head Circumference 0 cm 06-08-2008 [facility] (06494) Head Circumference 0 cm 04-01-2008 [facility] (33785) Height 167.64 cm 03-21-2020 [facility] (48745) Height 167.64 cm 09-24-2019 [facility] (71724) Height 167.64 cm 07-31-2019 [facility] (93796) Height 167.64 cm 07-08-2019 [facility] (11299) Height 167.64 cm 01-30-2019 [facility] (11562) Pulse (Heart Rate) 67 /min 03-21-2020 [facility] (56401) Pulse (Heart Rate) 70 /min 09-24-2019 [facility] (53055) Pulse (Heart Rate) 63 /min 07-31-2019 [facility] (18549) Pulse (Heart Rate) 70 /min 07-08-2019 [facility] (42043) Pulse (Heart Rate) 65 /min 01-30-2019 [facility] (54077) Pulse Oximetry 97 % 03-21-2020 [facility] (40842) Pulse Oximetry 97 % 07-31-2019 [facility] (75298) Pulse Oximetry 97 % 07-08-2019 [facility] (63725) Pulse Oximetry 95 % 01-30-2019 [facility] (74732) Pulse Oximetry 98 % 12-19-2018 [facility] (29385) Respiratory Rate 16 /min 03-21-2020 [facility] I nternal Medicine (84700) Respiratory Rate 16 /min 07-31-2019 [facility] I nternal Medicine (14549) Respiratory Rate 20 /min 07-08-2019 [facility] I nternal Medicine (03899) Respiratory Rate 18 /min 01-30-2019 [facility] I nternal Medicine (25990) Respiratory Rate 18 /min 12-19-2018 [facility] I nternal Medicine (76732) Encounters Date Type Reason Provider Location 07-18-2017 Ambulatory Unilateral primary ARMANDO Gonzalez [place] Stat e osteoarthritis, left knee [place] [facility] [place] ([id number]) CHELSEA AVINA 07-18-2017 Ambulatory Follow-up ARMANDO Gonzalez [facility] [facility] Shayna NICOLE ([id number]) YOUNGKA 09-20-2011 Annotation/Adden Leukorrhea, not specified Comprehensive - dum as infective (623.5) Interna l Medicine 09-20-2011 01-11-2010 Historical Comprehensive - Summary Internal Medici ne 01-11-2010 12-09-2008 Historical Comprehensive - Summary Internal Medici ne 12-09-2008 06-26-2006 Historical Comprehensive - Summary Internal Medici ne 06-26-2006 03-14-2010 Nursing Comprehensive - evaluation of Internal Medic ine 03-15-2010 patient and report 04-16-2008 Nursing Need for prophylactic Compre hensive - evaluation of vaccination and Internal Me dicine 04-16-2008 patient and inoculation against report influenza 12-19-2018 Office Comprehensive - outpatient visit Internal Me dicine 12-19-2018 10 minutes 02-13-2018 Office Comprehensive - outpatient visit Internal Me dicine 02-13-2018 10 minutes 11-25-2017 Office Comprehensive - outpatient visit Internal Me dicine 11-25-2017 10 minutes 07-09-2017 Office Comprehensive - outpatient visit Internal Me dicine 07-09-2017 10 minutes 03-22-2017 Office Comprehensive - outpatient visit Internal Me dicine 03-22-2017 10 minutes 03-15-2017 Office Comprehensive - outpatient visit Internal Me dicine 03-15-2017 10 minutes 03-08-2017 Office Comprehensive - outpatient visit Internal Me dicine 03-08-2017 10 minutes 06-01-2016 Office Comprehensive - outpatient visit Internal Me dicine 06-01-2016 10 minutes 02-16-2016 Office Comprehensive - outpatient visit Internal Me dicine 02-16-2016 10 minutes 02-08-2016 Office Comprehensive - outpatient visit Internal Me dicine 02-08-2016 10 minutes 12-20-2015 Office Comprehensive - outpatient visit Internal Me dicine 12-20-2015 10 minutes 02-09-2015 Office Comprehensive - outpatient visit Internal Me dicine 02-09-2015 10 minutes 03-21-2020 Office Comprehensive - outpatient visit Internal [facility] 03-21-2020 15 minutes 07-31-2019 Office Comprehensive - outpatient visit Internal Nv dicine 07-31-2019 15 minutes 07-08-2019 Office Dysuria Comprehensive - outpatient visit Internal Nv dicine 07-08-2019 15 minutes 01-30-2019 Office Comprehensive - outpatient visit Internal [facility] 01-30-2019 15 minutes 09-05-2018 Office Comprehensive - outpatient visit Internal [facility] 09-05-2018 15 minutes 08-23-2017 Office Comprehensive - outpatient visit Internal [facility] 08-23-2017 15 minutes 04-30-2017 [facility] minutes 09-05-2016 [facility] 09-05-2016 15 minutes 05-09-2015 [facility] 05-09-2015 15 minutes 10-19-2013 [facility] 10-19-2013 15 minutes 04-30-2012 Office [facility] 04-30-2012 15 minutes 04-04-2012 [facility] 04-04-2012 15 minutes 06-08-2008 Office [facility] 06-08-2008 15 minutes 09-24-2019 [facility] 09-24-2019 25 minutes 04-04-2017 Office [facility] 04[facility]04-2017 25 minutes 07-14-2015 Office [facility] 07-14-2015 25 minutes 05-02-2015 [facility] 05-02-2015 25 minutes 03-08-2014 Office Comprehensive - outpatient visit [facility] 03-08-2014 25 minutes 09-12-2011 Office Comprehensive - outpatient visit [facility] 09-12-2011 25 minutes 12-07-2009 Office Comprehensive - outpatient visit [facility] 12-07-2009 25 minutes 03-12-2007 Office Comprehensive - outpatient visit [facility] 03-12-2007 25 minutes 03-29-2017 Office Comprehensive - outpatient visit [facility] 03-29-2017 40 minutes 08-31-2015 Office Comprehensive - outpatient visit [facility] 08-31-2015 40 minutes 03-03-2020 Office Comprehensive - outpatient visit [facility] 03-03-2020 5 minutes 03-27-2019 Office Comprehensive - outpatient visit Internal [facility] 03-27-2019 5 minutes 03-04-2017 Office Comprehensive - outpatient visit Internal [facility] 03-04-2017 5 minutes 03-09-2016 Office Comprehensive - outpatient visit Internal [facility] 03-09-2016 5 minutes 08-04-2014 Office Essential hypertension Compr ehensive - outpatient visit Internal [facility] 08-04-2014 5 minutes 03-12-2014 Office Comprehensive - outpatient visit Internal [facility] 03-15-2014 5 minutes 11-30-2015 Patient Encounter for screening Comp rehensive - encounter for malignant neoplasm of In ternal Medicine 11-30-2015 procedure colon (Renamed from Special screening for malignant neoplasms, colon) 11-03-2013 Patient Comprehensive - encounter Internal Medici ne 11-03-2013 procedure 08-10-2013 Patient Comprehensive - encounter Internal Medici ne 08-10-2013 procedure 07-20-2013 Patient Comprehensive - encounter Internal Medici ne 07-20-2013 procedure 07-14-2013 Patient Comprehensive - encounter Internal Medici ne 07-14-2013 procedure 04-24-2013 Patient Foot pain, left Comprehensiv e - encounter Internal Medici ne 04-24-2013 procedure 02-27-2013 Patient Comprehensive - encounter Internal Medici ne 02-27-2013 procedure 08-08-2012 Patient Comprehensive - encounter Internal Medici ne 08-08-2012 procedure 07-09-2012 Patient Comprehensive - encounter Internal Medici ne 07-09-2012 procedure 03-14-2012 Patient Comprehensive - encounter Internal Medici ne 03-14-2012 procedure 02-15-2012 Patient Comprehensive - encounter Internal Medici ne 02-15-2012 procedure 01-18-2012 Patient Comprehensive - encounter Internal Medici ne 01-18-2012 procedure 12-14-2011 Patient Comprehensive - encounter Internal Medici ne 12-14-2011 procedure 11-29-2011 Patient Comprehensive - encounter Internal Medici ne 11-29-2011 procedure 09-24-2011 Patient Menopausal syndrome Comprehe nsive - encounter Internal Medici ne 09-24-2011 procedure 08-17-2011 Patient Comprehensive - encounter Internal Medici ne 08-20-2011 procedure 04-13-2011 Patient Comprehensive - encounter Internal Medici ne 04-13-2011 procedure 03-23-2011 Patient Comprehensive - encounter Internal Medici ne 03-23-2011 procedure 02-22-2011 Patient Comprehensive - encounter Internal Medici ne 02-22-2011 procedure 02-07-2011 Patient Comprehensive - encounter Internal Medici ne 02-07-2011 procedure 04-10-2010 Patient Comprehensive - encounter Internal Medici ne 04-10-2010 procedure 12-26-2009 Patient Comprehensive - encounter Internal Medici ne 12-26-2009 procedure 12-20-2009 Patient Comprehensive - encounter Internal Medici ne 12-20-2009 procedure 05-12-2009 Patient Comprehensive - encounter Internal Medici ne 05-12-2009 procedure 04-29-2009 Patient Comprehensive - encounter Internal Medici ne 04-29-2009 procedure 12-24-2008 Patient vaginal discharge 623.5 Comp rehensive - encounter (Renamed from Leukorrhea, In ternal Medicine 12-24-2008 procedure not specified as infective (623.5)) 04-01-2008 Patient Comprehensive - encounter Internal Medici ne 04-01-2008 procedure 02-06-2008 Patient Comprehensive - encounter Internal Medici ne 02-06-2008 procedure 12-09-2007 Patient Comprehensive - encounter Internal Medici ne 12-09-2007 procedure 10-06-2007 Patient Comprehensive - encounter Internal Medici ne 10-06-2007 procedure 09-29-2007 Patient Comprehensive - encounter Internal Medici ne 09-29-2007 procedure 09-10-2007 Patient Comprehensive - encounter Internal Medici ne 09-10-2007 procedure 04-23-2007 Patient Comprehensive - encounter Internal Medici ne 04-23-2007 procedure 02-24-2007 Patient Comprehensive - encounter Internal Medici ne 02-24-2007 procedure 06-28-2006 Patient Comprehensive - encounter Internal Medici ne 06-28-2006 procedure 03-18-2017 Periodic Comprehensive - preventive med Internal Medi cine 03-18-2017 est patient 65yrs& older 10-12-2015 Periodic Comprehensive - preventive med Internal Medi cine 10-12-2015 est patient 65yrs& older 12-07-2019 Phone Encounter Exposure to SARS virus Co mprehensive - Internal Medici ne 12-07-2019 05-29-2019 Phone Encounter Allergic rhinitis due to Comprehensive - other allergen Internal Medi cine 05-29-2019 08-01-2016 Phone Encounter History of hip replacement Comprehensive - Internal Medici ne 08-01-2016 02-16-2016 Phone Encounter Wrist pain, acute, right Comprehensive - Internal Medici ne 02-16-2016 09-05-2015 Phone Encounter Hyperpotassemia Comprehen sive - Internal Medici ne 09-05-2015 07-15-2015 Phone Encounter Post-menopausal Comprehen sive - Internal Medici ne 07-15-2015 07-27-[address] of Comprehens [place] - Abdomen(794.9) Internal Medi cine 07-27-2013 03-05-2012 Phone Encounter LYMPHEDEMA NEC (457.1) Co mprehensive - Internal Medici ne 03-05-2012 11-23-2011 Phone Encounter Hypercholesterolemia Comp rehensive - Internal Medici ne 11-23-2011 10-22-2011 Phone Encounter Unspecified Diagnosis Com prehensive - Internal Medici ne 10-22-2011 09-21-2011 Phone Encounter Leukorrhea, not specified Comprehensive - as infective (623.5) Interna l Medicine 09-21-2011 08-31-2009 Phone Encounter Comprehensiv e - Internal Medici ne 08-31-2009 12-19-2018 Review Comprehensive Internal Medici ne Procedures Procedure Name Date Provider Location Extremity Upper without 02-12-2020 - Comprehe nsive Internal Contra 02-13-2020 Medicine ([id number]) Elbow min 3 Views 02-08-2020 - Comprehensive Internal 02-08-2020 Medicine ([id number]) Orthopedic Visit Report 02-08-2020 - Comprehe nsive Internal 02-09-2020 Medicine ([id number]) Discharge Instruction 02-02-2020 - [facility]prehens [place] Internal 02-02-2020 Medicine ([id number]) Emergency Department 02-02-2020 - Comprehensi ve Internal Summary 02-02-2020 Medicine ([id number]) Forearm 2 Views 02-02-2020 - Comprehensive In ternal 02-02-2020 Medicine ([id number]) Knee 1 or 2 Views 02-02-2020 - Comprehensive Internal 02-02-2020 Medicine ([id number]) Orthopedic Visit Report 12-07-2019 - Comprehe nsive Internal 12-07-2019 Medicine ([id number]) Orthopedic Visit Report 11-26-2019 - Comprehe nsive Internal 12-01-2019 Medicine ([id number]) Lower Ext Joint Only 11-06-2019 - Deb Alba Compr ehensive Internal (Routine) 11-06-2019 Medicine ([id number]) MR/BMS.VV 10-22-2019 - Comprehensive In ternal 11-12-2019 Medicine ([id number]) Discharge Instruction 10-12-2018 - Comprehens [place] Internal 10-12-2018 Medicine ([id number]) Emergency Department 10-12-2018 - Comprehensi ve Internal Summary 10-12-2018 Medicine ([id number]) CTA Abdomen W/WO Contrast 10-12-2018 - Compre hensive Internal 10-12-2018 Medicine ([id number]) CTA Chest W/WO Contrast 10-12-2018 - Comprehe nsive Internal 10-12-2018 Medicine ([id number]) Abdomen/Pelvis without 10-12-2018 - Comprehen sive Internal Cont 10-12-2018 Medicine ([id number]) OT D/C of Non Returning 07-02-2018 - Comprehe nsive Internal Pt 07-02-2018 Medicine ([id number]) Orthopedic Visit Report 04-15-2018 - Comprehe nsive Internal 04-15-2018 Medicine ([id number]) Wrist min 3 Views 04-15-2018 - Comprehensive Internal 04-17-2018 Medicine ([id number]) Orthopedic Visit Report 02-25-2018 - Comprehe nsive Internal 02-25-2018 Medicine ([id number]) OT General Evaluation 01-28-2018 - [facility] Internal 01-28-2018 Medicine ([id number]) Orthopedic Visit Report 01-28-2018 - Comprehe nsive Internal 01-28-2018 Medicine ([id number]) Wrist min 3 Views 01-28-2018 - Comprehensive Internal 01-28-2018 Medicine ([id number]) 12 lead ECG 01-20-2018 - Comprehensive In ternal 01-20-2018 Medicine ([id number]) Operative Report 01-17-2018 - Comprehensive I nternal 01-17-2018 Medicine ([id number]) Discharge Instruction 01-15-2018 - [facility] Internal 01-15-2018 Medicine ([id number]) Wrist min 3 Views 01-15-2018 - Comprehensive Internal 01-15-2018 Medicine ([id number]) Orthopedic Visit Report 01-10-2018 - Comprehe nsive Internal 01-10-2018 Medicine ([id number]) Emergency Department 01-04-2018 - Comprehensi ve Internal Summary 01-04-2018 Medicine ([id number]) Wrist min 3 Views 01-04-2018 - Comprehensive Internal 01-04-2018 Medicine ([id number]) PT D/C Summary (1) 10-14-2017 - Comprehensive Internal 10-14-2017 Medicine ([id number]) Re-Evaluation - PT (1) 03-22-2018 - Comprehen sive Internal 08-29-2017 Medicine ([id number]) Re-Evaluation - PT (1) 07-22-2017 - Comprehen sive Internal 07-22-2017 Medicine ([id number]) Orthopedic Visit Report 07-03-2017 - Comprehe nsive Internal 07-03-2017 Medicine ([id number]) Inital Evaluation (1) - 06-27-2017 - Comprehe nsive Internal PT 06-27-2017 Medicine ([id number]) Operative Report 06-11-2017 - Comprehensive I nternal 06-11-2017 Medicine ([id number]) Discharge Instruction 06-11-2017 - Comprehens [place] Internal 06-11-2017 Medicine ([id number]) Orthopedic Visit Report 05-29-2017 - Comprehe nsive Internal 05-29-2017 Medicine ([id number]) Emergency Department 04-03-2017 - Comprehensi ve Internal Summary 04-03-2017 Medicine ([id number]) Discharge Instruction 04-02-2017 - [place]prehens [place] Internal 04-03-2017 Medicine ([id number]) Spine Cervical W/WO 04-02-2017 - Comprehensiv e Internal Contrast 04-03-2017 Medicine ([id number]) Spine Thoracic W/WO 04-02-2017 - Comprehensiv e Internal Contrast 04-03-2017 Medicine ([id number]) Knee 4 or More Views 03-29-2017 - Chelsea Kailyn Comprehensi ve Internal 03-29-2017 Medicine ([id number]) SCREENING MAMM (CAD), 03-29-2017 - Chelsea Kailyn Comprehens [place] Internal BILAT 03-29-2017 Medicine ([id number]) Arthrocentesis aspir&/inj 01-02-2017 - [facility]t/bursa w/o us 01-07-2017 [facility] (44 691) Drain/inject, joint/bursa 01-02-2017 - [facility] 01-07-2017 [facility] (44 691) Lower Ext Joint Only 12-29-2016 - [facility] Tejedai ve Internal (Routine) 12-29-2016 Medicine ([id number]) Knee 4 or More Views 12-20-2016 - [facility] Tejedai ve Internal 12-20-2016 Medicine ([id number]) Arthrocentesis aspir&/inj 11-12-2016 [facility] us 11-22-2016 Sports [facility] Orthopaed[facility] (44 691) Knee 4 or More Views 11-12-2016 - [facility] Kurtis Ramírez Comprehensi ve Internal 11-12-2016 Medicine ([id number]) Drain/inject, joint/bursa 11-12-2016 - [facility] [place] 11-22-2016 [facility] ([id number] 691) PT D/C Summary (1) 07-11-2016 - Comprehensive Internal 07-11-2016 Medicine ([id number]) Inital Evaluation (1) - 06-05-2016 - Comprehe nsive Internal PT 06-05-2016 Medicine ([id number]) OT D/C Summary 04-18-2016 - Comprehensive In ternal 04-18-2016 Medicine ([id number]) Arthrocentesis aspir&/inj [facility]-05-2016 [facility] 04-12-2016 Sports Med icine and Orthopaedics (44 691) Drain/inject, joint/bursa 04-05-2016 [facility] 04-12-2016 [facility] Orthopa[facility]ics (44 691) NCS and/or EMG Patient 04-04-2016 - Comprehen sive Internal 04-04-2016 Medicine ([id number]) OT General Evaluation 03-14-2016 - Comprehens [place] Internal 03-14-2016 Medicine ([id number]) Spine Thoracic (Routine) 03-05-2016 - Compreh ensive Internal 03-05-2016 Medicine ([id number]) Spine Cervical without 03-05-2016 - Comprehen sive Internal Contras 03-05-2016 Medicine ([id number]) Spine Thoracic without 03-05-2016 - Comprehen sive Internal Contras 03-05-2016 Medicine ([id number]) PT D/C Summary (1) 02-22-2016 - Comprehensive Internal 02-22-2016 Medicine ([id number]) Wrist min 3 Views 02-16-2016 - Chelsea Kailyn Comprehensive Internal 02-16-2016 Medicine ([id number]) Inital Evaluation (1) - 01-25-2016 - Comprehe nsive Internal PT 01-25-2016 Medicine ([id number]) Spine Cervical (Routine) 01-21-2016 - Evans Elmore Compreh ensive Internal 01-22-2016 Medicine ([id number]) Cerv Spine 4 or 5 Views 01-18-2016 - Evans Elmore Comprehe nsive Internal 01-18-2016 Medicine ([id number]) Bilat Scrn Digital AND 10-25-2015 - Chelsea Kailyn Comprehen sive Internal CAD 10-28-2015 Medicine ([id number]) PT D/C of Non Returning 10-19-2015 - Comprehe nsive Internal Pt (1) 10-19-2015 Medicine ([id number]) Emergency Department 08-28-2015 - Comprehensi ve Internal Summary 08-28-2015 Medicine ([id number]) Discharge Instruction 08-26-2015 - Comprehens [place] Internal 08-26-2015 Medicine ([id number]) Ankle min 3 Views 08-26-2015 - Comprehensive Internal 08-26-2015 Medicine ([id number]) Dexa Bone Density Study 07-28-2015 - Chelsea Kailyn Comprehe nsive Internal (HP) 07-28-2015 Medicine ([id number]) Inital Evaluation (1) - 07-19-2015 - Comprehe nsive Internal PT 07-19-2015 Medicine ([id number]) Cerv Spine 4 or 5 Views 07-14-2015 - Chelsea Kailyn Comprehe nsive Internal 07-15-2015 Medicine ([id number]) Thoracic Spine 3 Views 07-14-2015 - Chelsea Kailyn Comprehen sive Internal 07-15-2015 Medicine ([id number]) Ecg routine ecg w/least 05-02-2015 - Chelsea Kailyn Comprehe nsive Internal 12 lds w/i&r 05-02-2015 Medicine ([id number]) Comment: nsr no acute chg PT Discharge Summary 07-08-2014 - Comprehensi ve Internal 07-08-2014 Medicine ([id number]) Arthrocentesis aspir&/inj 05-10-2014 - [facility] jt/bursa w/o us 05-13-2014 Sports [facility] Orthopaedics (44 691) Drain/inject, joint/bursa 05-10-2014 - [facility] 05-13-2014 [facility] (44 691) Spine Lumbar (Routine) 05-04-2014 - [facility] Internal 05-04-2014 Medicine ([id number]) Documentation of current 04-15-2014 - Evans Elmore [facility] medications 04-18-2014 [facility] Orth[facility] (44 691) Documentation of current 04-15-2014 - Evans Elmore [facility] medications 04-18-2014 [facility] Orthopa[facility]ics (44 691) Inital Evaluation - PT 02-10-2014 - Comprehen sive Internal 02-10-2014 Medicine ([id number]) Operative Report 01-15-2014 - [facility] Elmore Comprehensive I nternal 01-15-2014 Medicine ([id number]) Discharge Instruction 01-14-2014 - [facility] Elmore Comprehens [place] Internal 01-14-2014 Medicine ([id number]) PT Discharge Summary 01-14-2014 - Comprehensi ve Internal 01-14-2014 Medicine ([id number]) Pelvis (Routine) 12-18-2013 - [facility] Kurtis Ramírez Comprehensive I nternal 12-18-2013 Medicine ([id number]) Hip min 2 Views 11-30-2013 - [facility] Comprehensive In ternal 11-30-2013 Medicine ([id number]) Knee 4 or More Views 11-30-2013 - [facility]more Comprehensi ve Internal 11-30-2013 Medicine ([id number]) Pelvis 1 or 2 Views 11-30-2013 - [facility] Kurtis Ramírez Comprehensiv e Internal 11-30-2013 Medicine ([id number]) Inital Evaluation - PT 09-25-2013 - Carline [facility] 09-25-2013 Medicine ([id number]) Abdomen w/wo IV Contrast 07-24-2013 - Chelsea Avina Compreh ensive Internal 07-24-2013 Medicine ([id number]) Abdomen Limited 07-15-2013 - Chelsea Avina Comprehensive In ternal 07-15-2013 Medicine ([id number]) Foot min 3 Views 04-24-2013 - Chelsea Kailyn Comprehensive I nternal 04-24-2013 Medicine ([id number]) Plan of Treatment Plan Description Date Location Procedure Education Eprescribed 03-21-2020 Comprehensiv e Internal prescriptions (G8553) Medicine ( 27701) URINE ALEXANDRU URINE ALEXANDRU 03-21-2020 Comprehensive In ternal CULTURE-IDENTIFICATN CULTURE-IDENTIFICATN Medici [place] (62206) (57948) (78972) Provider Instructions HTN/CAD Red Flags 09-24-2019 Comprehe nsive Internal for Treatment Medicine ([id number]) Procedure Education Eprescribed 07-31-2019 Comprehensiv e Internal prescriptions (G8553) Medicine ( 02963) Provider Instructions Knee Injections-L 12-19-2018 Comprehe nsive Internal for Treatment Medicine ([id number]) Procedure Education Eprescribed 09-05-2018 Comprehensiv e Internal prescriptions (G8553) Medicine ( 06048) Provider Instructions no information 09-05-2018 Comprehens [place] Internal for Treatment Medicine ([id number]) Provider Instructions no information 02-13-2018 Comprehens [place] Internal for Treatment Medicine (43963) Procedure Education Eprescribed 11-25-2017 Comprehensiv e Internal prescriptions (G8553) Medicine ( 31455) Procedure Education Eprescribed 08-23-2017 Comprehensiv e Internal prescriptions (G8553) Medicine ( 78949) Provider Instructions Continue Current 07-09-2017 Comprehen sive Internal for Treatment Prescription(s) Medicine ([id number]) Procedure Education Eprescribed 04-30-2017 Comprehensiv e Internal prescriptions (G8553) Medicine ( 56228) Provider Instructions Follow up if no 04-30-2017 Comprehens [place] Internal for Treatment improvement or if Medicine (4469 1) symptoms worsen THROAT CULTURE (22768) THROAT CULTURE (28505) 04-30-2017 Co mprehensive Internal Medicine (59296) Provider Instructions no information 04-04-2017 Comprehens [place] Internal for Treatment Medicine (08545) Provider Instructions Euflexxa injection 03-22-2017 Compreh ensive Internal for Treatment Medicine (97303) Provider Instructions no information 03-18-2017 Comprehens [place] Internal for Treatment Medicine (62339) Provider Instructions Euflexxa injection 03-15-2017 Compreh ensive Internal for Treatment Medicine (34140) Provider Instructions Euflexxa injection: lot 03-08-2017 Co mprehensive Internal for Treatment [id number] 26-03-09 Medicine (44 691) Appointment Appointment [facility]-02-2017 - [facility] 01-[facility]-2017 [facility] Medicine and Orthopaedics (44 691) MRI Joint Lower MRI Joint Lower 12-20-2016 - [facility] Extremity Extremity 12-20-2016 [facility] (44 691) X-Ray, Knee X-Ray, Knee 12-20-2016 - [facility] 12-20-2016 Sports Medicine and Orthopaedics (44 691) Appointment Appointment 12-20-2016 - [facility] 12-20-2016 [facility] Orthopaedics (44 691) MRI Joint Lower MRI Joint Lower 12-20-2016 - [facility] Extremity Extremity 12-20-2016 [facility] (44 691) X-Ray, Knee X-Ray, Knee 12-20-2016 - [facility] 12-20-2016 Sports Medicine and Orthopaedics (44 691) X-Ray, Knee X-Ray, Knee 11-12-2016 - [facility] 11-12-2016 [facility] Medicine and Orthopaedics (44 691) X-Ray, Knee X-Ray, Knee 11-12-2016 - [facility] 11-12-2016 Sports Medicine and Orthopaedics (44 691) Provider Instructions Knee Injections-L 09-05-2016 Comprehe nsive Internal for Treatment Medicine (43975) Procedure Education Eprescribed 06-01-2016 Comprehensiv e Internal prescriptions (G8553) Medicine ( 90844) Occupational Therapy Occupational Therapy 03-14-2016 - [facility] General Rehab Services, General Rehab Services, 03-14-2016 Sports Medicine and [address] [place] [address], [address] [place] [address] Orthopaedics ([address]) [place], [address] [place], [phone] + + Occupational Therapy Occupational Therapy 03-14-2016 - [facility] General Rehab Services, General Rehab Services, 03-14-2016 Sports Medicine and [address] [place] [address], [address] [place] [address] Orthopaedics ([address]) [place], [address] [place], [phone] + + CT Cervical Spine CT Cervical Spine 02-20-2016 - [facility] 02-27-2016 Sports Medicine and Orthopaedics (44 691) CT Thoracic Spine CT Thoracic Spine 02-20-2016 - [facility] 02-27-2016 Sports Medicine and Orthopaedics (44 691) EMG EMG 02-20-2016 - [facility] Medical [facility] er 02-27-2016 Sports Medicine and Orthopaedics (44 691) MRI Cervical Spine MRI [facility]ine [facility] Medicine and Orthopaedics (44 691) MRI Thoracic Spine MRI Thoracic Spine [facility] Sports Medicine and Orthopaedics (44 691) Nerve Conduction Nerve Conduction 02-20-2016 - [facility] Medical Ce nter 02-27-2016 Sports Medicine and Orthopaedics (44 691) CT Thoracic Spine CT Thoracic Spine 02-20-2016 - [facility] 02-27-2016 Sports Medicine and Orthopaedics (44 691) CT Cervical Spine CT Cervical Spine 02-20-2016 - [facility] 02-27-2016 Sports Medicine and Orthopaedics (44 691) EMG EMG 02-20-2016 - [facility] Medical [facility] er 02-27-2016 Sports Medicine and Orthopaedics (44 691) MRI Thoracic Spine MRI Thoracic Spine 02-20-2016 - [facility] 02-27-2016 Sports Medicine and Orthopaedics (44 691) MRI Cervical Spine MRI Cervical Spine 02-20-2016 - [facility] 02-27-2016 Sports Medicine and Orthopaedics (44 691) Nerve Conduction Nerve Conduction 02-20-2016 - [facility] Medical nter 02-27-2016 Sports Medicine and Orthopaedics (44 691) Provider Instructions Reviewed Diagnostic 02-16-2016 [facility] Internal for Treatment Tests Medicine (71185) Physical Therapy Physical Therapy General 01-25-2016 [facility] Rehab Services, Rehab Services, [facility]01-25-2016 [facility] Medicine and [address] [place] [address], Ortho paedics (03089) [place] Jack, [address] JO[place] Jack, [phone] Physical Therapy Physical Therapy General 01-25-2016 [facility] Rehab Services, Rehab Services, [facility]01-25-2016 [facility] Medicine and [address] [place] [address], Ortho paedics (22120) JOANA Jack, [address] [place], [phone] + MRI Cervical Spine MRI Cervical Spine [facility] and Orthopaedics (44 691) X-Ray, Spine, Cervical X-Ray, Spine, Cervical 01-18-2016 - [facility] 2-3 views 2-3 views 01-18-2016 Sports Medicine and Orthopaedics (44 691) MRI Cervical Spine MRI Cervical Spine [facility]-18-2016 [facility] Sports Medicine and Orthopaedics (44 691) X-Ray, Spine, Cervical X-Ray, Spine, Cervical 01-18-2016 - [facility] 2-3 views 2-3 views 01-18-2016 Sports Medicine and Orthopaedics (44 691) Patient Education Water in diet, brief 12-20-2015 Comprehen sive Internal version Medicine (89874) Procedure Education Eprescribed 12-20-2015 Comprehensiv e Internal prescriptions (G8553) Medicine ( 88674) Provider Instructions Follow up if no 12-20-2015 [facility]prehens [facility] Internal for Treatment improvement or if Medicine (4469 1) symptoms worsen Procedure Education Eprescribed 10-12-2015 Comprehensiv e Internal prescriptions (G8553) Medicine ( 82580) Provider Instructions no information 10-12-2015 Comprehens [facility] Internal for Treatment Medicine (38425) FECAL OCCULT- Tubes FECAL OCCULT- Tubes sent 10-12-2015 Com prehensive Internal sent home (66372) home (53920) Medicine (4469 1) OCCULT BLOOD FECES OCCULT BLOOD FECES 10-12-2015 Comprehens [facility] Internal SCREEN - card done in SCREEN - card done in [facility] (58708) office (98130) office (90477) POTASSIUM SERUM (87718) POTASSIUM SERUM (29396) 09-05-2015 [facility] (46600) Comment: stat stat stat Procedure Education Eprescribed 08-31-2015 Comprehensiv e Internal prescriptions (G8553) Medicine ( 71707) Provider Instructions no information 08-31-2015 Comprehens [facility] Internal for Treatment Medicine (05078) Provider Instructions Knee Injections 05-09-2015 Comprehens [facility] Internal for Treatment Medicine (05566) Patient Education Blood Pressure: high 05-02-2015 Comprehen sive Internal blood pressure Medicine (51122) Procedure Education Eprescribed 05-02-2015 Comprehensiv e Internal prescriptions (G8553) Medicine ( 04566) Provider Instructions no information 05-02-2015 Comprehens [place] Internal for Treatment Medicine (54177) Procedure Education Eprescribed 02-09-2015 Comprehensiv e Internal prescriptions (G8553) Medicine ( 66305) Provider Instructions Continue Current 08-04-2014 Comprehen sive Internal for Treatment Prescription(s) Medicine (65681) MRI Lumbar Spine MRI Lumbar Spine 04-28-2014 [facility] 04-[facility]-2014 [facility] and Orthopaedics (44 691) MRI Lumbar Spine MRI Lumbar Spine 04-28-2014 - [facility] 04-28-2014 [facility] Medicine and Orthopaedics (44 691) Procedure Education Eprescribed 03-08-2014 Comprehensiv e Internal prescriptions (G8553) Medicine ( 01216) Provider Instructions Follow up if no 11-03-2013 Comprehens [facility] Internal for Treatment improvement or if Medicine (4469 1) symptoms worsen Patient Education Water in diet, brief 10-19-2013 Comprehen sive Internal version Medicine (75120) Provider Instructions Continue Current 08-10-2013 Comprehen sive Internal for Treatment Prescription(s) Medicine (03369) Provider Instructions no information 07-20-2013 Comprehens [facility] Internal for Treatment Medicine (13054) Provider Instructions no information 07-14-2013 Comprehens [place] Internal for Treatment Medicine (69642) Patient Education no information 02-27-2013 [facility] (53339) Provider Instructions no information 02-27-2013 Comprehens [place] Internal for Treatment Medicine (67897) Patient Education Water in diet, brief 07-09-2012 Comprehen sive Internal version Medicine (65250) Provider Instructions no information 07-09-2012 Comprehens [place] Internal for Treatment Medicine (29407) Provider Instructions no information 04-30-2012 Comprehens [place] Internal for Treatment Medicine (44071) Provider Instructions Follow up in 2 weeks 04-04-2012 Compr ehensive Internal for Treatment Medicine (36475) CALCIFEDIOL (63449) CALCIFEDIOL (50680) 04-04-2012 Comprehe nsive Internal Medicine (20069) Provider Instructions Reviewed Diagnostic 03-14-2012 Compre hensive Internal for Treatment Tests Medicine (40586) Provider Instructions Follow [facility] 4 weeks [facility]09970[facility] Provider Instructions Continue Current [facility]2012 [facility] for Treatment Prescription(s) Medicine (62416) Provider Instructions Follow up in 1 month 12-14-2011 [facility] (08285) Provider Instructions Follow up in 2 week 11-29-2011 [facility] (66150) GLUCOSE, 2HR POST GLUCOSE, 2HR POST 11-23-2011 Comprehensiv e Internal PRANDIAL 75gm (72368) PRANDIAL 75gm (03845) Medi cine (14165) HEMOGLOBIN GLYCLATED HEMOGLOBIN GLYCLATED 11-23-2011 [facility] (HGB A1C) (25570) (HGB A1C) (85719) Medicine (44 691) HEMOGLOBIN GLYCLATED HEMOGLOBIN GLYCLATED 10-22-2011 [facility] (HGB A1C) (09087) (HGB A1C) (89305) Medicine (44 691) GLUCOSE, 2HR POST GLUCOSE, 2HR POST 10-22-2011 Comprehensiv e Internal PRANDIAL 75gm (81133) PRANDIAL 75gm (36396) Medi cine (30647) URINE ALEXANDRU CULTURE-EMILY URINE ALEXANDRU CULTURE-EMILY 09-24-2011 [facility] Internal COL COUNT (93160) COL COUNT (10452) Medicine (44 691) Provider Instructions Reviewed Lab 09-24-2011 [facility] for Treatment Medicine (09447) URINE ALEXANDRU CULTURE-EMILY URINE ALEXANDRU CULTURE-EMILY 09-21-2011 [facility] Internal COL COUNT (46604) COL COUNT (05338) Medicine (44 691) URINE ALEXANDRU URINE ALEXANDRU 09-20-2011 [facility]al CULTURE-IDENTIFICATN CULTURE-IDENTIFICATN Medici ne (19742) (74099) (30649) Provider Instructions no information 09-12-2011 [facility] for Treatment Medicine (34357) TSH (54885) TSH (71081) 08-20-2011 [facility] Medicine (84315) URINALYSIS, W/ MICRO URINALYSIS, W/ MICRO 08-20-2011 [facility] (36945) (41065) Medicine (21207) MICROALBUMIN: MICROALBUMIN: 08-20-2011 [facility] CREATININE RATIO CREATININE RATIO Medicine (4469 1) (85086) AND (66625) (83517) AND (80599) METABOLIC PANEL, METABOLIC PANEL, 08-20-2011 [facility] Internal COMPREHENSIVE (03434) COMPREHENSIVE (20031) Medi cine (39077) LIPID PANEL (96069) LIPID PANEL (59198) 08-20-2011 Comprehe nsive Internal Medicine (84877) CBC WITH MANUAL DIFF CBC WITH MANUAL DIFF 08-20-2011 [facility] (28955) (62134) Medicine (01389) Provider Instructions no information 08-17-2011 Comprehens [place] Internal for Treatment Medicine (39021) Provider Instructions no information 02-07-2011 Comprehens [place] Internal for Treatment Medicine (08420) Provider Instructions no information 12-20-2009 Comprehens [place] Internal for Treatment Medicine (35222) FECAL OCCULT HGB FECAL OCCULT HGB 12-20-2009 [facility] ASSAY- tubes sent home ASSAY- tubes sent home Me dicine (68122) (26551) (76052) Thin prep Pap (35755) Thin prep Pap (41124) 12-20-2009 Comp rehensive Internal Medicine (03099) Provider Instructions no information 04-29-2009 Comprehens [place] Internal for Treatment Medicine (94678) CULTURE, GONOCOCCUS CULTURE, GONOCOCCUS 12-24-2008 Comprehe nsive Internal (62318) (95663) Medicine (70647) CULTURE CHLAMYDIA CULTURE CHLAMYDIA 12-24-2008 Comprehensiv e Internal (77033) (69105) Medicine (75240) INFCT ANTGN TRICH INFCT ANTGN TRICH 12-24-2008 Comprehensiv e Internal VAGIN DIRECT PRB VAGIN DIRECT PRB Medicine (4469 1) (75719) (65808) GARDNERELLA VAG, GARDNERELLA VAG, 12-24-2008 [facility] Internal NUCLEIC ACID DIR PROBE NUCLEIC ACID DIR PROBE Me dicine (61363) (01935) (28429) CORA, NUCLEIC ACID CORA, NUCLEIC ACID 12-24-2008 Comp rehensive Internal DIRECT PROBE (57812) DIRECT PROBE (60897) [place] (38582) CORA, NUCLEIC ACID CORA, NUCLEIC ACID 12-24-2008 Comp rehensive Internal DIRECT PROBE (51161) DIRECT PROBE (87579) Medici ne (63270) Provider Instructions no information 06-08-2008 Comprehens [place] Internal for Treatment Medicine (69773) Provider Instructions Abd Pain Red Flags 02-06-2008 Compreh ensive Internal for Treatment Medicine (77656) Amylase (38341) Amylase (32426) 02-06-2008 [facility] Medicine (38679) Lipase (44358) Lipase (79183) 02-06-2008 [facility] Medicine (98045) Metabolic Panel, Metabolic Panel, 02-06-2008 [facility] Internal Comprehensive (08490) Comprehensive (42218) Medi cine (11443) Sed Rate Erythrocyte Sed Rate Erythrocyte 02-06-2008 Compre hensive Internal (73417) (06511) Medicine (44003) CBC with manual diff CBC with manual diff 02-06-2008 Compre hensive Internal (96323) (68537) Medicine (04410) URINALYSIS W/O MICRO URINALYSIS W/O MICRO 10-06-2007 Compre hensive Internal (07362) (70937) Medicine (77429) TSH (60766) TSH (46092) 10-06-2007 [facility] Medicine (19477) MICROALBUMIN URINE MICROALBUMIN URINE 10-06-2007 Comprehens [place] Internal QUANT (50021) QUANT (90905) Medicine (77174) METABOLIC PANEL, METABOLIC PANEL, 10-06-2007 [facility] COMPREHENSIVE (06535) COMPREHENSIVE (45486) Medi cine (14487) LIPID PANEL (69860) LIPID PANEL (35770) 10-06-2007 Comprehe nsive Internal Medicine (53419) CBC WITH MANUAL DIFF CBC WITH MANUAL DIFF 10-06-2007 Compre hensive Internal (90387) (97228) Medicine (18554) Provider Instructions no information 10-06-2007 Comprehens [place] Internal for Treatment Medicine (24505) Provider Instructions no information 09-29-2007 Comprehens [place] Internal for Treatment Medicine (10637) URINE ALEXANDRU CULTURE-EMILY URINE ALEXANDRU CULTURE-EMILY 09-10-2007 [facility] Internal COL COUNT (73732) COL COUNT (61558) Medicine (44 691) FECAL OCCULT HGB FECAL OCCULT HGB 09-10-2007 [facility] ASSAY- tubes sent home ASSAY- tubes sent home Me dicine (87738) (38466) (84725) Provider Instructions no information 09-10-2007 Comprehens [place] Internal for Treatment Medicine (40593) Provider Instructions no information 04-23-2007 Comprehens [place] Internal for Treatment Medicine (60940) URINALYSIS W/O MICRO URINALYSIS W/O MICRO 02-24-2007 Compre hensive Internal (00536) (22778) Medicine (51937) TSH (16058) TSH (83233) 02-24-2007 [facility] Medicine (64576) MICROALBUMIN URINE MICROALBUMIN URINE 02-24-2007 Comprehens [place] Internal QUANT (67028) QUANT (83784) Medicine (42686) LIPID PANEL (44878) LIPID PANEL (06232) 02-24-2007 Comprehe nsive Internal Medicine (19635) METABOLIC PANEL, METABOLIC PANEL, 02-24-2007 [facility] COMPREHENSIVE (06849) COMPREHENSIVE (78991) Medi cine (02562) CBC WITH MANUAL DIFF CBC WITH MANUAL DIFF 02-24-2007 [facility] (50445) (79569) Medicine (61238) Provider Instructions no information 02-24-2007 Comprehens [place] Internal for Treatment Medicine (66912) Provider Instructions no information 06-28-2006 Comprehens [place] Internal for Treatment Medicine (48652) Thin prep Pap (53422) Thin prep Pap (84065) 06-28-2006 Comp rehensive Internal Medicine (27391) Patient education no information [facility] and Orthopaedics (44 691) no information [facility] (07705) no information [facility] (66466) no information [facility] (65247) no information [facility] (97161) no information [facility] (49805) no information [facility] (78132) no information [facility] (18507) no information [facility] (89672) no information [facility] (90061) no information [facility] (94673) no information [facility] (89689) no information [facility] (09673) no information [facility] (74514) no information [facility] (32253) no information [facility] (94986) no information [facility] (31758) no information [facility] (55180) no information [facility] (12761) no information [facility] (53929) no information [facility] (94201) no information [facility] (47402) no information [facility] (01444) no information [facility] (45957) no information [facility] (81725) no information [facility] (75680) no information [facility] (31728) no information [facility] (95707) no information [facility] (38492) no information [facility] (43819) no information [facility] (98371) no information [facility] (99959) no information [facility] (41248) no information [facility] (95971) no information [facility] (35801) no information [facility] (27674) no information [facility] (31530) no information [facility] (54771) no information [facility] (83635) no information [facility] (26756) no information [facility] (21811) no information [facility] (34125) no information [facility] (31520) no information [facility] (81561) no information [facility] (92468) no information [facility] (90017) no information [facility] (14328) no information [facility] (52417) no information [facility] (39985) no information [facility] (73635) no information [facility] (25848) no information [facility] (48298) no information [facility] (80619) no information [facility] (16675) no information [facility] (05607) INJECTION, [facility] In [facility]al TRIAMCINOLONE Medicine (49400) ACETONIDE, NOT OTHERWISE SPECIFIED, 10 MG Ordered: 08-Feb-2016 Kailyn FORTUNE, Chelsea Davidson DO Pending Immunizations Vaccine Notes Status Date Location Influenza (3 years influenza, (completed) 04-16-2008 - Comprehen sive Internal and up) seasonal, 04-16-2008 Medicine (78028 ) injectable Comment: Lot #:Expiration date:Amount given:Route: IMSite given:rt. gluteal Given by: esequiel Payers Payer Name Policy Number Location MEDICARE A AND B [id number] [facility] (60194) [facility] (75390) Social History Type Social History Description Date Locat ion Alcohol Use [facility] (89335) Comment: Occasional wine updated 02-07-11 Tobacco use: Tobacco use: [facility] (37560) The following information is from the original human readable contentNo Social History Records Found Functional Status Status Assessment Result Location LP-IR Score LP-IR Score 40 [facility] (44467) Comment: INSULIN RESISTANCE MARKER <- -Insulin Sensitive Insulin Resistant--> Percentile in Reference Popu lationInsulin Resistance ScoreLP-IR Score Low 25th 50th 75th High <27 27 4 5 63 >63LP-IR Score is inaccurate if patient is non-fasting. .The LP-IR scor e is a laboratory developed index that has beenassociated with insulin resistance and diabetes risk and should beused as one component of a physic alfredo's clinical assessment. Test(s) 647415-AAH-W; 219402 -LDL-C; 525341-TUM-I; 620707-Yxlprchpeevha; 826998-Htvnaehytwj, Total; 8 45631-DRH-E (Total);155026-Xvisk LDL-P; 733168-IHY Size; 307945-SF-A R Scorewas developed and its performance characteristics determinedby [facility]. It has not been cleared or approved by the Foodand Drug Administrat ion.PATIENT WAS FASTINGPERFORMED BY: Lab[address] [id number] BY: LETICIA [facility] [id number] [facility] [id number] Family History Unknown Family Member Name Dates Details Father Comments: at 71 in accident, had CV disease Status: Active Mother Comments: In good he alth Status: Active Unknown Family Member Name Dates Details Father Comments: at 71 in accident, had CV disease Status: Active Mother Comments: In good he alth Status: Active Unknown Family Member Name Dates Details Father Comments: at 71 in accident, had CV disease Status: Active Mother Comments: In good he alth Status: Active Unknown Family Member Name Dates Details Father Comments: at 71 in accident, had CV disease Status: Active Mother Comments: In good he alth Status: Active Unknown Family Member Name Dates Details Father Comments: at 71 in accident, had CV disease Status: Active Mother Comments: In good he alth Status: Active Unknown Family Member Name Dates Details Father Comments: at 71 in accident, had CV disease Status: Active Mother Comments: In good he alth Status: Active Unknown Family Member Name Dates Details Father Comments: at 71 in accident, had CV disease Status: Active Mother Comments: In good he alth Status: Active Unknown Family Member Name Dates Details Father Comments: at 71 in accident, had CV disease Status: Active Mother Comments: In good he alth Status: Active Unknown Family Member Name Dates Details Father Comments: at 71 in accident, had CV disease Status: Active Mother Comments: In good he alth Status: Active Unknown Family Member Name Dates Details Father Comments: at 71 in accident, had CV disease Status: Active Mother Comments: In good he alth Status: Active Unknown Family Member Name Dates Details Father Comments: at 71 in accident, had CV disease Status: Active Mother Comments: In good he alth Status: Active Instructions Name Dates Details How to access health information online Start: 19-Dec-2018 Instruction Type: Patient Education Indication: Non-smoker How to access health information online - Detail Start: Dec-2018 Instruction Type: Patient Education Indication: Non-smoker Patient Instructions Start: 19-Dec-2018 Instruction Type: Provider Instructions for Treatment Indication: Non-smoker How to access health information online Start: 05-Sep-2018 Instruction Type: Patient Education Indication: Non-smoker How to access health information online - Detail Start: Aug-2018 Instruction Type: Patient Education Indication: Non-smoker Patient Instructions Start: 05-Sep-2018 Instruction Type: Provider Instructions for Treatment Indication: Non-smoker How to access health information online - Detail Start: Nov-2017 Instruction Type: Patient Education Indication: Urinary frequency Patient Instructions Start: 25-Nov-2017 Instruction Type: Provider Instructions for Treatment Indication: Urinary frequency How to access health information online Start: 23-Aug-2017 Instruction Type: Patient Education Indication: Non-smoker How to access health information online - Detail Start: Aug-2017 Instruction Type: Patient Education Indication: Non-smoker Patient Instructions Start: 23-Aug-2017 Instruction Type: Provider Instructions for Treatment Indication: Non-smoker How to access health information online Start: 09-Jul-2017 Instruction Type: Patient Education Indication: Varicose vein of leg How to access health information online - Detail Start: Jun-2017 Instruction Type: Patient Education Indication: Varicose vein of leg Patient Instructions Start: 09-Jul-2017 Instruction Type: Provider Instructions for Treatment Indication: Varicose vein of leg How to access health information online Start: 30-Apr-2017 Instruction Type: Patient Education Indication: BMI 25.0-25.9,adult How to access health information online - Detail Start: Apr-2017 Instruction Type: Patient Education Indication: BMI 25.0-25.9,adult Patient Instructions Start: 30-Apr-2017 Instruction Type: Provider Instructions for Treatment Indication: Cough How to access health information online Start: 04-Apr-2017 Instruction Type: Patient Education Indication: Current non-smoker How to access health information online - Detail Start: Mar-2017 Instruction Type: Patient Education Indication: Current non-smoker Patient Instructions Start: 04-Apr-2017 Instruction Type: Provider Instructions for Treatment Indication: Current non-smoker How to access health information online Start: 29-Mar-2017 Instruction Type: Patient Education Indication: Current non-smoker How to access health information online - Detail Start: Mar-2017 Instruction Type: Patient Education Indication: Current non-smoker Patient Instructions Start: 29-Mar-2017 Instruction Type: Provider Instructions for Treatment Indication: Current non-smoker How to access health information online Start: 22-Mar-2017 Instruction Type: Patient Education Indication: Current non-smoker How to access health information online - Detail Start: Mar-2017 Instruction Type: Patient Education Indication: Current non-smoker Patient Instructions Start: 22-Mar-2017 Instruction Type: Provider Instructions for Treatment Indication: Current non-smoker How to access health information online Start: 18-Mar-2017 Instruction Type: Patient Education Indication: Current non-smoker How to access health information online - Detail Start: Instruction Type: Patient Education Indication: Current non-smoker Patient Instructions Start: 18-Mar-2017 Instruction Type: Provider Instructions for Treatment Indication: Current non-smoker How to access health information online Start: 15-Mar-2017 Instruction Type: Patient Education Indication: BMI 26.0-26.9,adult How to access health information online - Detail Start: Instruction Type: Patient Education Indication: BMI 26.0-26.9,adult Patient Instructions Start: 15-Mar-2017 Instruction Type: Provider Instructions for Treatment Indication: BMI 26.0-26.9,adult How to access health information online Start: 08-Mar-2017 Instruction Type: Patient Education Indication: Current non-smoker How to access health information online - Detail Start: Feb-2017 Instruction Type: Patient Education Indication: Current non-smoker Patient Instructions Start: 08-Mar-2017 Instruction Type: Provider Instructions for Treatment Indication: Current non-smoker Patient Instructions Start: 05-Sep-2016 Instruction Type: Provider Instructions for Treatment Indication: Sciatica of left side How to access health information online Start: 01-Jun-2016 Instruction Type: Patient Education Indication: Bursitis of left hip How to access health information online - Detail Start: May-2016 Instruction Type: Patient Education Indication: Bursitis of left hip Patient Instructions Start: 01-Jun-2016 Instruction Type: Provider Instructions for Treatment Indication: Bursitis of left hip How to access health information online Start: 08-Feb-2016 Instruction Type: Patient Education Indication: Iliotibial band tendonitis How to access health information online - Detail Start: Jan-2016 Instruction Type: Patient Education Indication: Iliotibial band tendonitis Patient Instructions Start: 08-Feb-2016 Instruction Type: Provider Instructions for Treatment Indication: Iliotibial band tendonitis How to access health information online Start: 20-Dec-2015 Instruction Type: Patient Education Indication: UTI symptoms How to access health information online - Detail Start: Dec-2015 Instruction Type: Patient Education Indication: UTI symptoms Patient Instructions Start: 20-Dec-2015 Instruction Type: Provider Instructions for Treatment Indication: UTI symptoms How to access health information online Start: 12-Oct-2015 Instruction Type: Patient Education Indication: Annual Medicare Phyiscal WIT HOUT abnormal findings (Renamed from Encounter for general adult medical examination without abnormal findings) How to access health information online - Detail Start: Instruction Type: Patient Education Indication: Annual Medicare Phyiscal WIT HOUT abnormal findings (Renamed from Encounter for general adult medical examination without abnormal findings) Patient Instructions Start: 31-Aug-2015 Instruction Type: Provider Instructions for Treatment Indication: Benign essential hypertension How to access health information online Start: 31-Aug-2015 Instruction Type: Patient Education Indication: Benign essential hypertension How to access health information online - Detail Start: Aug-2015 Instruction Type: Patient Education Indication: Benign essential hypertension How to access health information online Start: 09-May-2015 Instruction Type: Patient Education Indication: Abnormal TSH How to access health information online - Detail Start: Apr-2015 Instruction Type: Patient Education Indication: Abnormal TSH Patient Instructions Start: 09-May-2015 Instruction Type: Provider Instructions for Treatment Indication: Abnormal TSH How to access health information online Start: 02-May-2015 Instruction Type: Patient Education Indication: Benign essential hypertension How to access health information online - Detail Start: Apr-2015 Instruction Type: Patient Education Indication: Benign essential hypertension Patient Instructions Start: 02-May-2015 Instruction Type: Provider Instructions for Treatment Indication: Benign essential hypertension How to access health information online Start: 09-Feb-2015 Instruction Type: Patient Education Indication: Hip pain How to access health information online - Detail Start: Instruction Type: Patient Education Indication: Hip pain Patient Instructions Start: 08-Mar-2014 Instruction Type: Provider Instructions for Treatment Indication: Urinary frequency Patient Instructions Start: 20-Jul-2013 Instruction Type: Provider Instructions for Treatment Indication: Epigastric Pain (Renamed from Abdominal pain, ep igastric) Patient Instructions Start: 27-Feb-2013 Instruction Type: Provider Instructions for Treatment Indication: Candidiasis of vulva and vagina Name Dates Details Urinary frequency : How to access health information online - Detail Indication: Urinary frequency Urinary frequency : Patient Instructions Indication: Urinary frequency Non-smoker : How to access health information online Indication: Non-smoker Non-smoker : How to access health information online - Detai l Indication: Non-smoker Non-smoker : Patient Instructions Indication: Non-smoker Varicose vein of leg : How to access health information onli ne Indication: Varicose vein of leg Varicose vein of leg : How to access health information onli ne - Detail Indication: Varicose vein of leg Varicose vein of leg : Patient Instructions Indication: Varicose vein of leg BMI 25.0-25.9,adult : How to access health information onlin e Indication: BMI 25.0-25.9,adult BMI 25.0-25.9,adult : How to access health information onlin e - Detail Indication: BMI 25.0-25.9,adult Cough : Patient Instructions Indication: Cough Current non-smoker : How to access health information online Indication: Current non-smoker Current non-smoker : How to access health information online - Detail Indication: Current non-smoker Current non-smoker : Patient Instructions Indication: Current non-smoker BMI 26.0-26.9,adult : How to access health information onlin e Indication: BMI 26.0-26.9,adult BMI 26.0-26.9,adult : How to access health information onlin e - Detail Indication: BMI 26.0-26.9,adult BMI 26.0-26.9,adult : Patient Instructions Indication: BMI 26.0-26.9,adult Sciatica of left side : Patient Instructions Indication: Sciatica of left side Bursitis of left hip : How to access health information onli ne Indication: Bursitis of left hip Bursitis of left hip : How to access health information onli ne - Detail Indication: Bursitis of left hip Bursitis of left hip : Patient Instructions Indication: Bursitis of left hip Iliotibial band tendonitis : How to access health informatio n online Indication: Iliotibial band tendonitis Iliotibial band tendonitis : How to access health informatio n online - Detail Indication: Iliotibial band tendonitis Iliotibial band tendonitis : Patient Instructions Indication: Iliotibial band tendonitis UTI symptoms : How to access health information online Indication: UTI symptoms UTI symptoms : How to access health information online - Det ail Indication: UTI symptoms UTI symptoms : Patient Instructions Indication: UTI symptoms Annual Medicare Phyiscal WITHOUT abnorma l findings (Renamed from Encounter for general adult medical examination without abnormal findings) : How to access health information online Indication: Annual Medicare Phyiscal WIT HOUT abnormal findings (Renamed from Encounter for general adult medical examination without abnormal findings) Annual Medicare Phyiscal WITHOUT abnorma l findings (Renamed from Encounter for general adult medical examination without abnormal findings) : How to access health information online - Detail Indication: Annual Medicare Phyiscadolfo CRUZ abnormal findings (Renamed from Encounter for general adult medical examination without abnormal findings) Benign essential hypertension : Patient Instructions Indication: Benign essential hypertension Benign essential hypertension : How to access health informa tion online Indication: Benign essential hypertension Benign essential hypertension : How to a ccess health information online - Detail Indication: Benign essential hypertension Abnormal TSH : How to access health information online Indication: Abnormal TSH Abnormal TSH : How to access health information online - Det ail Indication: Abnormal TSH Abnormal TSH : Patient Instructions Indication: Abnormal TSH Hip pain : How to access health information online Indication: Hip pain Hip pain : How to access health information online - Detail Indication: Hip pain Epigastric Pain (Renamed from Abdominal pain, epigastric) : Patient Instructions Indication: Epigastric Pain (Renamed from Abdominal pain, ep igastric) Candidiasis of vulva and vagina : Patient Instructions Indication: Candidiasis of vulva and vagina Name Dates Details Non-smoker : How to access health information online Indication: Non-smoker Non-smoker : How to access health information online - Detai l Indication: Non-smoker Non-smoker : Patient Instructions Indication: Non-smoker Urinary frequency : How to access health information online - Detail Indication: Urinary frequency Urinary frequency : Patient Instructions Indication: Urinary frequency Varicose vein of leg : How to access health information onli ne Indication: Varicose vein of leg Varicose vein of leg : How to access health information onli ne - Detail Indication: Varicose vein of leg Varicose vein of leg : Patient Instructions Indication: Varicose vein of leg BMI 25.0-25.9,adult : How to access health information onlin e Indication: BMI 25.0-25.9,adult BMI 25.0-25.9,adult : How to access health information onlin e - Detail Indication: BMI 25.0-25.9,adult Cough : Patient Instructions Indication: Cough Current non-smoker : How to access health information online Indication: Current non-smoker Current non-smoker : How to access health information online - Detail Indication: Current non-smoker Current non-smoker : Patient Instructions Indication: Current non-smoker BMI 26.0-26.9,adult : How to access health information onlin e Indication: BMI 26.0-26.9,adult BMI 26.0-26.9,adult : How to access health information onlin e - Detail Indication: BMI 26.0-26.9,adult BMI 26.0-26.9,adult : Patient Instructions Indication: BMI 26.0-26.9,adult Sciatica of left side : Patient Instructions Indication: Sciatica of left side Bursitis of left hip : How to access health information onli ne Indication: Bursitis of left hip Bursitis of left hip : How to access health information onli ne - Detail Indication: Bursitis of left hip Bursitis of left hip : Patient Instructions Indication: Bursitis of left hip Iliotibial band tendonitis : How to access health informatio n online Indication: Iliotibial band tendonitis Iliotibial band tendonitis : How to access health informatio n online - Detail Indication: Iliotibial band tendonitis Iliotibial band tendonitis : Patient Instructions Indication: Iliotibial band tendonitis UTI symptoms : How to access health information online Indication: UTI symptoms UTI symptoms : How to access health information online - Det ail Indication: UTI symptoms UTI symptoms : Patient Instructions Indication: UTI symptoms Annual Medicare Phyiscal WITHOUT abnorma l findings (Renamed from Encounter for general adult medical examination without abnormal findings) : How to access health information online Indication: Annual Medicare Phyiscal WIT HOUT abnormal findings (Renamed from Encounter for general adult medical examination without abnormal findings) Annual Medicare Phyiscal WITHOUT abnorma l findings (Renamed from Encounter for general adult medical examination without abnormal findings) : How to access health information online - Detail Indication: Annual Medicare Phyiscal WIT HOUT abnormal findings (Renamed from Encounter for general adult medical examination without abnormal findings) Benign essential hypertension : Patient Instructions Indication: Benign essential hypertension Benign essential hypertension : How to access health informa tion online Indication: Benign essential hypertension Benign essential hypertension : How to a ccess health information online - Detail Indication: Benign essential hypertension Abnormal TSH : How to access health information online Indication: Abnormal TSH Abnormal TSH : How to access health information online - Det ail Indication: Abnormal TSH Abnormal TSH : Patient Instructions Indication: Abnormal TSH Hip pain : How to access health information online Indication: Hip pain Hip pain : How to access health information online - Detail Indication: Hip pain Epigastric Pain (Renamed from Abdominal pain, epigastric) : Patient Instructions Indication: Epigastric Pain (Renamed from Abdominal pain, ep igastric) Candidiasis of vulva and vagina : Patient Instructions Indication: Candidiasis of vulva and vagina Name Dates Details How to access health information online Start: 05-Sep-2018 Instruction Type: Patient Education Indication: Non-smoker How to access health information online - Detail Start: Aug-2018 Instruction Type: Patient Education Indication: Non-smoker Patient Instructions Start: 05-Sep-2018 Instruction Type: Provider Instructions for Treatment Indication: Non-smoker How to access health information online - Detail Start: Nov-2017 Instruction Type: Patient Education Indication: Urinary frequency Patient Instructions Start: 25-Nov-2017 Instruction Type: Provider Instructions for Treatment Indication: Urinary frequency How to access health information online Start: 23-Aug-2017 Instruction Type: Patient Education Indication: Non-smoker How to access health information online - Detail Start: Aug-2017 Instruction Type: Patient Education Indication: Non-smoker Patient Instructions Start: 23-Aug-2017 Instruction Type: Provider Instructions for Treatment Indication: Non-smoker How to access health information online Start: 09-Jul-2017 Instruction Type: Patient Education Indication: Varicose vein of leg How to access health information online - Detail Start: Jun-2017 Instruction Type: Patient Education Indication: Varicose vein of leg Patient Instructions Start: 09-Jul-2017 Instruction Type: Provider Instructions for Treatment Indication: Varicose vein of leg How to access health information online Start: 30-Apr-2017 Instruction Type: Patient Education Indication: BMI 25.0-25.9,adult How to access health information online - Detail Start: Apr-2017 Instruction Type: Patient Education Indication: BMI 25.0-25.9,adult Patient Instructions Start: 30-Apr-2017 Instruction Type: Provider Instructions for Treatment Indication: Cough How to access health information online Start: 04-Apr-2017 Instruction Type: Patient Education Indication: Current non-smoker How to access health information online - Detail Start: Mar-2017 Instruction Type: Patient Education Indication: Current non-smoker Patient Instructions Start: 04-Apr-2017 Instruction Type: Provider Instructions for Treatment Indication: Current non-smoker How to access health information online Start: 29-Mar-2017 Instruction Type: Patient Education Indication: Current non-smoker How to access health information online - Detail Start: Mar-2017 Instruction Type: Patient Education Indication: Current non-smoker Patient Instructions Start: 29-Mar-2017 Instruction Type: Provider Instructions for Treatment Indication: Current non-smoker How to access health information online Start: 22-Mar-2017 Instruction Type: Patient Education Indication: Current non-smoker How to access health information online - Detail Start: Mar-2017 Instruction Type: Patient Education Indication: Current non-smoker Patient Instructions Start: 22-Mar-2017 Instruction Type: Provider Instructions for Treatment Indication: Current non-smoker How to access health information online Start: 18-Mar-2017 Instruction Type: Patient Education Indication: Current non-smoker How to access health information online - Detail Start: Instruction Type: Patient Education Indication: Current non-smoker Patient Instructions Start: 18-Mar-2017 Instruction Type: Provider Instructions for Treatment Indication: Current non-smoker How to access health information online Start: 15-Mar-2017 Instruction Type: Patient Education Indication: BMI 26.0-26.9,adult How to access health information online - Detail Start: Instruction Type: Patient Education Indication: BMI 26.0-26.9,adult Patient Instructions Start: 15-Mar-2017 Instruction Type: Provider Instructions for Treatment Indication: BMI 26.0-26.9,adult How to access health information online Start: 08-Mar-2017 Instruction Type: Patient Education Indication: Current non-smoker How to access health information online - Detail Start: Feb-2017 Instruction Type: Patient Education Indication: Current non-smoker Patient Instructions Start: 08-Mar-2017 Instruction Type: Provider Instructions for Treatment Indication: Current non-smoker Patient Instructions Start: 05-Sep-2016 Instruction Type: Provider Instructions for Treatment Indication: Sciatica of left side How to access health information online Start: 01-Jun-2016 Instruction Type: Patient Education Indication: Bursitis of left hip How to access health information online - Detail Start: May-2016 Instruction Type: Patient Education Indication: Bursitis of left hip Patient Instructions Start: 01-Jun-2016 Instruction Type: Provider Instructions for Treatment Indication: Bursitis of left hip How to access health information online Start: 08-Feb-2016 Instruction Type: Patient Education Indication: Iliotibial band tendonitis How to access health information online - Detail Start: Jan-2016 Instruction Type: Patient Education Indication: Iliotibial band tendonitis Patient Instructions Start: 08-Feb-2016 Instruction Type: Provider Instructions for Treatment Indication: Iliotibial band tendonitis How to access health information online Start: 20-Dec-2015 Instruction Type: Patient Education Indication: UTI symptoms How to access health information online - Detail Start: Dec-2015 Instruction Type: Patient Education Indication: UTI symptoms Patient Instructions Start: 20-Dec-2015 Instruction Type: Provider Instructions for Treatment Indication: UTI symptoms How to access health information online Start: 12-Oct-2015 Instruction Type: Patient Education Indication: Annual Medicare Phyiscal WIT HOUT abnormal findings (Renamed from Encounter for general adult medical examination without abnormal findings) How to access health information online - Detail Start: Instruction Type: Patient Education Indication: Annual Medicare Phyiscal WIT HOUT abnormal findings (Renamed from Encounter for general adult medical examination without abnormal findings) Patient Instructions Start: 31-Aug-2015 Instruction Type: Provider Instructions for Treatment Indication: Benign essential hypertension How to access health information online Start: 31-Aug-2015 Instruction Type: Patient Education Indication: Benign essential hypertension How to access health information online - Detail Start: Aug-2015 Instruction Type: Patient Education Indication: Benign essential hypertension How to access health information online Start: 09-May-2015 Instruction Type: Patient Education Indication: Abnormal TSH How to access health information online - Detail Start: Apr-2015 Instruction Type: Patient Education Indication: Abnormal TSH Patient Instructions Start: 09-May-2015 Instruction Type: Provider Instructions for Treatment Indication: Abnormal TSH How to access health information online Start: 02-May-2015 Instruction Type: Patient Education Indication: Benign essential hypertension How to access health information online - Detail Start: Apr-2015 Instruction Type: Patient Education Indication: Benign essential hypertension Patient Instructions Start: 02-May-2015 Instruction Type: Provider Instructions for Treatment Indication: Benign essential hypertension How to access health information online Start: 09-Feb-2015 Instruction Type: Patient Education Indication: Hip pain How to access health information online - Detail Start: Instruction Type: Patient Education Indication: Hip pain Patient Instructions Start: 08-Mar-2014 Instruction Type: Provider Instructions for Treatment Indication: Urinary frequency Patient Instructions Start: 20-Jul-2013 Instruction Type: Provider Instructions for Treatment Indication: Epigastric Pain (Renamed from Abdominal pain, ep igastric) Patient Instructions Start: 27-Feb-2013 Instruction Type: Provider Instructions for Treatment Indication: Candidiasis of vulva and vagina Name Dates Details How to access health information online Start: 19-Dec-2018 Instruction Type: Patient Education Indication: Non-smoker How to access health information online - Detail Start: Dec-2018 Instruction Type: Patient Education Indication: Non-smoker Patient Instructions Start: 19-Dec-2018 Instruction Type: Provider Instructions for Treatment Indication: Non-smoker How to access health information online Start: 05-Sep-2018 Instruction Type: Patient Education Indication: Non-smoker How to access health information online - Detail Start: Aug-2018 Instruction Type: Patient Education Indication: Non-smoker Patient Instructions Start: 05-Sep-2018 Instruction Type: Provider Instructions for Treatment Indication: Non-smoker How to access health information online - Detail Start: Nov-2017 Instruction Type: Patient Education Indication: Urinary frequency Patient Instructions Start: 25-Nov-2017 Instruction Type: Provider Instructions for Treatment Indication: Urinary frequency How to access health information online Start: 23-Aug-2017 Instruction Type: Patient Education Indication: Non-smoker How to access health information online - Detail Start: Aug-2017 Instruction Type: Patient Education Indication: Non-smoker Patient Instructions Start: 23-Aug-2017 Instruction Type: Provider Instructions for Treatment Indication: Non-smoker How to access health information online Start: 09-Jul-2017 Instruction Type: Patient Education Indication: Varicose vein of leg How to access health information online - Detail Start: Jun-2017 Instruction Type: Patient Education Indication: Varicose vein of leg Patient Instructions Start: 09-Jul-2017 Instruction Type: Provider Instructions for Treatment Indication: Varicose vein of leg How to access health information online Start: 30-Apr-2017 Instruction Type: Patient Education Indication: BMI 25.0-25.9,adult How to access health information online - Detail Start: Apr-2017 Instruction Type: Patient Education Indication: BMI 25.0-25.9,adult Patient Instructions Start: 30-Apr-2017 Instruction Type: Provider Instructions for Treatment Indication: Cough How to access health information online Start: 04-Apr-2017 Instruction Type: Patient Education Indication: Current non-smoker How to access health information online - Detail Start: Mar-2017 Instruction Type: Patient Education Indication: Current non-smoker Patient Instructions Start: 04-Apr-2017 Instruction Type: Provider Instructions for Treatment Indication: Current non-smoker How to access health information online Start: 29-Mar-2017 Instruction Type: Patient Education Indication: Current non-smoker How to access health information online - Detail Start: Mar-2017 Instruction Type: Patient Education Indication: Current non-smoker Patient Instructions Start: 29-Mar-2017 Instruction Type: Provider Instructions for Treatment Indication: Current non-smoker How to access health information online Start: 22-Mar-2017 Instruction Type: Patient Education Indication: Current non-smoker How to access health information online - Detail Start: Mar-2017 Instruction Type: Patient Education Indication: Current non-smoker Patient Instructions Start: 22-Mar-2017 Instruction Type: Provider Instructions for Treatment Indication: Current non-smoker How to access health information online Start: 18-Mar-2017 Instruction Type: Patient Education Indication: Current non-smoker How to access health information online - Detail Start: Instruction Type: Patient Education Indication: Current non-smoker Patient Instructions Start: 18-Mar-2017 Instruction Type: Provider Instructions for Treatment Indication: Current non-smoker How to access health information online Start: 15-Mar-2017 Instruction Type: Patient Education Indication: BMI 26.0-26.9,adult How to access health information online - Detail Start: Instruction Type: Patient Education Indication: BMI 26.0-26.9,adult Patient Instructions Start: 15-Mar-2017 Instruction Type: Provider Instructions for Treatment Indication: BMI 26.0-26.9,adult How to access health information online Start: 08-Mar-2017 Instruction Type: Patient Education Indication: Current non-smoker How to access health information online - Detail Start: Feb-2017 Instruction Type: Patient Education Indication: Current non-smoker Patient Instructions Start: 08-Mar-2017 Instruction Type: Provider Instructions for Treatment Indication: Current non-smoker Patient Instructions Start: 05-Sep-2016 Instruction Type: Provider Instructions for Treatment Indication: Sciatica of left side How to access health information online Start: 01-Jun-2016 Instruction Type: Patient Education Indication: Bursitis of left hip How to access health information online - Detail Start: May-2016 Instruction Type: Patient Education Indication: Bursitis of left hip Patient Instructions Start: 01-Jun-2016 Instruction Type: Provider Instructions for Treatment Indication: Bursitis of left hip How to access health information online Start: 08-Feb-2016 Instruction Type: Patient Education Indication: Iliotibial band tendonitis How to access health information online - Detail Start: Jan-2016 Instruction Type: Patient Education Indication: Iliotibial band tendonitis Patient Instructions Start: 08-Feb-2016 Instruction Type: Provider Instructions for Treatment Indication: Iliotibial band tendonitis How to access health information online Start: 20-Dec-2015 Instruction Type: Patient Education Indication: UTI symptoms How to access health information online - Detail Start: Dec-2015 Instruction Type: Patient Education Indication: UTI symptoms Patient Instructions Start: 20-Dec-2015 Instruction Type: Provider Instructions for Treatment Indication: UTI symptoms How to access health information online Start: 12-Oct-2015 Instruction Type: Patient Education Indication: Annual Medicare Phy[employer] WIT HOUT abnormal findings (Renamed from Encounter for general adult medical examination without abnormal findings) How to access health information online - Detail Start: Instruction Type: Patient Education Indication: Annual Medicare Phyiscal WIT HOUT abnormal findings (Renamed from Encounter for general adult medical examination without abnormal findings) Patient Instructions Start: 31-Aug-2015 Instruction Type: Provider Instructions for Treatment Indication: Benign essential hypertension How to access health information online Start: 31-Aug-2015 Instruction Type: Patient Education Indication: Benign essential hypertension How to access health information online - Detail Start: Aug-2015 Instruction Type: Patient Education Indication: Benign essential hypertension How to access health information online Start: 09-May-2015 Instruction Type: Patient Education Indication: Abnormal TSH How to access health information online - Detail Start: Apr-2015 Instruction Type: Patient Education Indication: Abnormal TSH Patient Instructions Start: 09-May-2015 Instruction Type: Provider Instructions for Treatment Indication: Abnormal TSH How to access health information online Start: 02-May-2015 Instruction Type: Patient Education Indication: Benign essential hypertension How to access health information online - Detail Start: Apr-2015 Instruction Type: Patient Education Indication: Benign essential hypertension Patient Instructions Start: 02-May-2015 Instruction Type: Provider Instructions for Treatment Indication: Benign essential hypertension How to access health information online Start: 09-Feb-2015 Instruction Type: Patient Education Indication: Hip pain How to access health information online - Detail Start: Instruction Type: Patient Education Indication: Hip pain Patient Instructions Start: 08-Mar-2014 Instruction Type: Provider Instructions for Treatment Indication: Urinary frequency Patient Instructions Start: 20-Jul-2013 Instruction Type: Provider Instructions for Treatment Indication: Epigastric Pain (Renamed from Abdominal pain, ep igastric) Patient Instructions Start: 27-Feb-2013 Instruction Type: Provider Instructions for Treatment Indication: Candidiasis of vulva and vagina Name Dates Details How to access health information online Start: 30-Jan-2019 Instruction Type: Patient Education Indication: Non-smoker How to access health information online - Detail Start: Jan-2019 Instruction Type: Patient Education Indication: Non-smoker Patient Instructions Start: 30-Jan-2019 Instruction Type: Provider Instructions for Treatment Indication: Non-smoker How to access health information online Start: 19-Dec-2018 Instruction Type: Patient Education Indication: Non-smoker How to access health information online - Detail Start: Dec-2018 Instruction Type: Patient Education Indication: Non-smoker Patient Instructions Start: 19-Dec-2018 Instruction Type: Provider Instructions for Treatment Indication: Non-smoker How to access health information online Start: 05-Sep-2018 Instruction Type: Patient Education Indication: Non-smoker How to access health information online - Detail Start: Aug-2018 Instruction Type: Patient Education Indication: Non-smoker Patient Instructions Start: 05-Sep-2018 Instruction Type: Provider Instructions for Treatment Indication: Non-smoker How to access health information online - Detail Start: Nov-2017 Instruction Type: Patient Education Indication: Urinary frequency Patient Instructions Start: 25-Nov-2017 Instruction Type: Provider Instructions for Treatment Indication: Urinary frequency How to access health information online Start: 23-Aug-2017 Instruction Type: Patient Education Indication: Non-smoker How to access health information online - Detail Start: Aug-2017 Instruction Type: Patient Education Indication: Non-smoker Patient Instructions Start: 23-Aug-2017 Instruction Type: Provider Instructions for Treatment Indication: Non-smoker How to access health information online Start: 09-Jul-2017 Instruction Type: Patient Education Indication: Varicose vein of leg How to access health information online - Detail Start: Jun-2017 Instruction Type: Patient Education Indication: Varicose vein of leg Patient Instructions Start: 09-Jul-2017 Instruction Type: Provider Instructions for Treatment Indication: Varicose vein of leg How to access health information online Start: 30-Apr-2017 Instruction Type: Patient Education Indication: BMI 25.0-25.9,adult How to access health information online - Detail Start: Apr-2017 Instruction Type: Patient Education Indication: BMI 25.0-25.9,adult Patient Instructions Start: 30-Apr-2017 Instruction Type: Provider Instructions for Treatment Indication: Cough How to access health information online Start: 04-Apr-2017 Instruction Type: Patient Education Indication: Current non-smoker How to access health information online - Detail Start: Mar-2017 Instruction Type: Patient Education Indication: Current non-smoker Patient Instructions Start: 04-Apr-2017 Instruction Type: Provider Instructions for Treatment Indication: Current non-smoker How to access health information online Start: 29-Mar-2017 Instruction Type: Patient Education Indication: Current non-smoker How to access health information online - Detail Start: Mar-2017 Instruction Type: Patient Education Indication: Current non-smoker Patient Instructions Start: 29-Mar-2017 Instruction Type: Provider Instructions for Treatment Indication: Current non-smoker How to access health information online Start: 22-Mar-2017 Instruction Type: Patient Education Indication: Current non-smoker How to access health information online - Detail Start: Mar-2017 Instruction Type: Patient Education Indication: Current non-smoker Patient Instructions Start: 22-Mar-2017 Instruction Type: Provider Instructions for Treatment Indication: Current non-smoker How to access health information online Start: 18-Mar-2017 Instruction Type: Patient Education Indication: Current non-smoker How to access health information online - Detail Start: Instruction Type: Patient Education Indication: Current non-smoker Patient Instructions Start: 18-Mar-2017 Instruction Type: Provider Instructions for Treatment Indication: Current non-smoker How to access health information online Start: 15-Mar-2017 Instruction Type: Patient Education Indication: BMI 26.0-26.9,adult How to access health information online - Detail Start: Instruction Type: Patient Education Indication: BMI 26.0-26.9,adult Patient Instructions Start: 15-Mar-2017 Instruction Type: Provider Instructions for Treatment Indication: BMI 26.0-26.9,adult How to access health information online Start: 08-Mar-2017 Instruction Type: Patient Education Indication: Current non-smoker How to access health information online - Detail Start: Feb-2017 Instruction Type: Patient Education Indication: Current non-smoker Patient Instructions Start: 08-Mar-2017 Instruction Type: Provider Instructions for Treatment Indication: Current non-smoker Patient Instructions Start: 05-Sep-2016 Instruction Type: Provider Instructions for Treatment Indication: Sciatica of left side How to access health information online Start: 01-Jun-2016 Instruction Type: Patient Education Indication: Bursitis of left hip How to access health information online - Detail Start: May-2016 Instruction Type: Patient Education Indication: Bursitis of left hip Patient Instructions Start: 01-Jun-2016 Instruction Type: Provider Instructions for Treatment Indication: Bursitis of left hip How to access health information online Start: 08-Feb-2016 Instruction Type: Patient Education Indication: Iliotibial band tendonitis How to access health information online - Detail Start: Jan-2016 Instruction Type: Patient Education Indication: Iliotibial band tendonitis Patient Instructions Start: 08-Feb-2016 Instruction Type: Provider Instructions for Treatment Indication: Iliotibial band tendonitis How to access health information online Start: 20-Dec-2015 Instruction Type: Patient Education Indication: UTI symptoms How to access health information online - Detail Start: Dec-2015 Instruction Type: Patient Education Indication: UTI symptoms Patient Instructions Start: 20-Dec-2015 Instruction Type: Provider Instructions for Treatment Indication: UTI symptoms How to access health information online Start: 12-Oct-2015 Instruction Type: Patient Education Indication: Annual Medicare Phy[employer]cal WIT HOUT abnormal findings (Renamed from Encounter for general adult medical examination without abnormal findings) How to access health information online - Detail Start: Instruction Type: Patient Education Indication: Annual Medicare Phy[employer]cal WIT HOUT abnormal findings (Renamed from Encounter for general adult medical examination without abnormal findings) Patient Instructions Start: 31-Aug-2015 Instruction Type: Provider Instructions for Treatment Indication: Benign essential hypertension How to access health information online Start: 31-Aug-2015 Instruction Type: Patient Education Indication: Benign essential hypertension How to access health information online - Detail Start: Aug-2015 Instruction Type: Patient Education Indication: Benign essential hypertension How to access health information online Start: 09-May-2015 Instruction Type: Patient Education Indication: Abnormal TSH How to access health information online - Detail Start: Apr-2015 Instruction Type: Patient Education Indication: Abnormal TSH Patient Instructions Start: 09-May-2015 Instruction Type: Provider Instructions for Treatment Indication: Abnormal TSH How to access health information online Start: 02-May-2015 Instruction Type: Patient Education Indication: Benign essential hypertension How to access health information online - Detail Start: Apr-2015 Instruction Type: Patient Education Indication: Benign essential hypertension Patient Instructions Start: 02-May-2015 Instruction Type: Provider Instructions for Treatment Indication: Benign essential hypertension How to access health information online Start: 09-Feb-2015 Instruction Type: Patient Education Indication: Hip pain How to access health information online - Detail Start: Instruction Type: Patient Education Indication: Hip pain Patient Instructions Start: 08-Mar-2014 Instruction Type: Provider Instructions for Treatment Indication: Urinary frequency Patient Instructions Start: 20-Jul-2013 Instruction Type: Provider Instructions for Treatment Indication: Epigastric Pain (Renamed from Abdominal pain, ep igastric) Patient Instructions Start: 27-Feb-2013 Instruction Type: Provider Instructions for Treatment Indication: Candidiasis of vulva and vagina Name Dates Details How to access health information online Start: 30-Jan-2019 Instruction Type: Patient Education Indication: Non-smoker How to access health information online - Detail Start: Jan-2019 Instruction Type: Patient Education Indication: Non-smoker Patient Instructions Start: 30-Jan-2019 Instruction Type: Provider Instructions for Treatment Indication: Non-smoker How to access health information online Start: 19-Dec-2018 Instruction Type: Patient Education Indication: Non-smoker How to access health information online - Detail Start: Dec-2018 Instruction Type: Patient Education Indication: Non-smoker Patient Instructions Start: 19-Dec-2018 Instruction Type: Provider Instructions for Treatment Indication: Non-smoker How to access health information online Start: 05-Sep-2018 Instruction Type: Patient Education Indication: Non-smoker How to access health information online - Detail Start: Aug-2018 Instruction Type: Patient Education Indication: Non-smoker Patient Instructions Start: 05-Sep-2018 Instruction Type: Provider Instructions for Treatment Indication: Non-smoker How to access health information online - Detail Start: Nov-2017 Instruction Type: Patient Education Indication: Urinary frequency Patient Instructions Start: 25-Nov-2017 Instruction Type: Provider Instructions for Treatment Indication: Urinary frequency How to access health information online Start: 23-Aug-2017 Instruction Type: Patient Education Indication: Non-smoker How to access health information online - Detail Start: Aug-2017 Instruction Type: Patient Education Indication: Non-smoker Patient Instructions Start: 23-Aug-2017 Instruction Type: Provider Instructions for Treatment Indication: Non-smoker How to access health information online Start: 09-Jul-2017 Instruction Type: Patient Education Indication: Varicose vein of leg How to access health information online - Detail Start: Jun-2017 Instruction Type: Patient Education Indication: Varicose vein of leg Patient Instructions Start: 09-Jul-2017 Instruction Type: Provider Instructions for Treatment Indication: Varicose vein of leg How to access health information online Start: 30-Apr-2017 Instruction Type: Patient Education Indication: BMI 25.0-25.9,adult How to access health information online - Detail Start: Apr-2017 Instruction Type: Patient Education Indication: BMI 25.0-25.9,adult Patient Instructions Start: 30-Apr-2017 Instruction Type: Provider Instructions for Treatment Indication: Cough How to access health information online Start: 04-Apr-2017 Instruction Type: Patient Education Indication: Current non-smoker How to access health information online - Detail Start: Mar-2017 Instruction Type: Patient Education Indication: Current non-smoker Patient Instructions Start: 04-Apr-2017 Instruction Type: Provider Instructions for Treatment Indication: Current non-smoker How to access health information online Start: 29-Mar-2017 Instruction Type: Patient Education Indication: Current non-smoker How to access health information online - Detail Start: Mar-2017 Instruction Type: Patient Education Indication: Current non-smoker Patient Instructions Start: 29-Mar-2017 Instruction Type: Provider Instructions for Treatment Indication: Current non-smoker How to access health information online Start: 22-Mar-2017 Instruction Type: Patient Education Indication: Current non-smoker How to access health information online - Detail Start: Mar-2017 Instruction Type: Patient Education Indication: Current non-smoker Patient Instructions Start: 22-Mar-2017 Instruction Type: Provider Instructions for Treatment Indication: Current non-smoker How to access health information online Start: 18-Mar-2017 Instruction Type: Patient Education Indication: Current non-smoker How to access health information online - Detail Start: Instruction Type: Patient Education Indication: Current non-smoker Patient Instructions Start: 18-Mar-2017 Instruction Type: Provider Instructions for Treatment Indication: Current non-smoker How to access health information online Start: 15-Mar-2017 Instruction Type: Patient Education Indication: BMI 26.0-26.9,adult How to access health information online - Detail Start: Instruction Type: Patient Education Indication: BMI 26.0-26.9,adult Patient Instructions Start: 15-Mar-2017 Instruction Type: Provider Instructions for Treatment Indication: BMI 26.0-26.9,adult How to access health information online Start: 08-Mar-2017 Instruction Type: Patient Education Indication: Current non-smoker How to access health information online - Detail Start: Feb-2017 Instruction Type: Patient Education Indication: Current non-smoker Patient Instructions Start: 08-Mar-2017 Instruction Type: Provider Instructions for Treatment Indication: Current non-smoker Patient Instructions Start: 05-Sep-2016 Instruction Type: Provider Instructions for Treatment Indication: Sciatica of left side How to access health information online Start: 01-Jun-2016 Instruction Type: Patient Education Indication: Bursitis of left hip How to access health information online - Detail Start: May-2016 Instruction Type: Patient Education Indication: Bursitis of left hip Patient Instructions Start: 01-Jun-2016 Instruction Type: Provider Instructions for Treatment Indication: Bursitis of left hip How to access health information online Start: 08-Feb-2016 Instruction Type: Patient Education Indication: Iliotibial band tendonitis How to access health information online - Detail Start: Jan-2016 Instruction Type: Patient Education Indication: Iliotibial band tendonitis Patient Instructions Start: 08-Feb-2016 Instruction Type: Provider Instructions for Treatment Indication: Iliotibial band tendonitis How to access health information online Start: 20-Dec-2015 Instruction Type: Patient Education Indication: UTI symptoms How to access health information online - Detail Start: Dec-2015 Instruction Type: Patient Education Indication: UTI symptoms Patient Instructions Start: 20-Dec-2015 Instruction Type: Provider Instructions for Treatment Indication: UTI symptoms How to access health information online Start: 12-Oct-2015 Instruction Type: Patient Education Indication: Annual Medicare Phy[employer]cal WIT HOUT abnormal findings (Renamed from Encounter for general adult medical examination without abnormal findings) How to access health information online - Detail Start: Instruction Type: Patient Education Indication: Annual Medicare Phy[employer]cal WIT HOUT abnormal findings (Renamed from Encounter for general adult medical examination without abnormal findings) Patient Instructions Start: 31-Aug-2015 Instruction Type: Provider Instructions for Treatment Indication: Benign essential hypertension How to access health information online Start: 31-Aug-2015 Instruction Type: Patient Education Indication: Benign essential hypertension How to access health information online - Detail Start: Aug-2015 Instruction Type: Patient Education Indication: Benign essential hypertension How to access health information online Start: 09-May-2015 Instruction Type: Patient Education Indication: Abnormal TSH How to access health information online - Detail Start: Apr-2015 Instruction Type: Patient Education Indication: Abnormal TSH Patient Instructions Start: 09-May-2015 Instruction Type: Provider Instructions for Treatment Indication: Abnormal TSH How to access health information online Start: 02-May-2015 Instruction Type: Patient Education Indication: Benign essential hypertension How to access health information online - Detail Start: Apr-2015 Instruction Type: Patient Education Indication: Benign essential hypertension Patient Instructions Start: 02-May-2015 Instruction Type: Provider Instructions for Treatment Indication: Benign essential hypertension How to access health information online Start: 09-Feb-2015 Instruction Type: Patient Education Indication: Hip pain How to access health information online - Detail Start: Instruction Type: Patient Education Indication: Hip pain Patient Instructions Start: 08-Mar-2014 Instruction Type: Provider Instructions for Treatment Indication: Urinary frequency Patient Instructions Start: 20-Jul-2013 Instruction Type: Provider Instructions for Treatment Indication: Epigastric Pain (Renamed from Abdominal pain, ep igastric) Patient Instructions Start: 27-Feb-2013 Instruction Type: Provider Instructions for Treatment Indication: Candidiasis of vulva and vagina Name Dates Details How to access health information online Start: 24-Sep-2019 Instruction Type: Patient Education Indication: BMI 25.0-25.9,adult How to access health information online - Detail Start: Sep-2019 Instruction Type: Patient Education Indication: BMI 25.0-25.9,adult Patient Instructions Start: 24-Sep-2019 Instruction Type: Provider Instructions for Treatment Indication: BMI 25.0-25.9,adult How to access health information online Start: 31-Jul-2019 Instruction Type: Patient Education Indication: Non-smoker How to access health information online - Detail Start: Jul-2019 Instruction Type: Patient Education Indication: Non-smoker Patient Instructions Start: 31-Jul-2019 Instruction Type: Provider Instructions for Treatment Indication: Non-smoker How to access health information online Start: 08-Jul-2019 Instruction Type: Patient Education Indication: BMI 25.0-25.9,adult How to access health information online - Detail Start: Jun-2019 Instruction Type: Patient Education Indication: BMI 25.0-25.9,adult Patient Instructions Start: 08-Jul-2019 Instruction Type: Provider Instructions for Treatment Indication: BMI 25.0-25.9,adult How to access health information online Start: 30-Jan-2019 Instruction Type: Patient Education Indication: Non-smoker How to access health information online - Detail Start: Jan-2019 Instruction Type: Patient Education Indication: Non-smoker Patient Instructions Start: 30-Jan-2019 Instruction Type: Provider Instructions for Treatment Indication: Non-smoker How to access health information online Start: 19-Dec-2018 Instruction Type: Patient Education Indication: Non-smoker How to access health information online - Detail Start: Dec-2018 Instruction Type: Patient Education Indication: Non-smoker Patient Instructions Start: 19-Dec-2018 Instruction Type: Provider Instructions for Treatment Indication: Non-smoker How to access health information online Start: 05-Sep-2018 Instruction Type: Patient Education Indication: Non-smoker How to access health information online - Detail Start: Aug-2018 Instruction Type: Patient Education Indication: Non-smoker Patient Instructions Start: 05-Sep-2018 Instruction Type: Provider Instructions for Treatment Indication: Non-smoker How to access health information online - Detail Start: Nov-2017 Instruction Type: Patient Education Indication: Urinary frequency Patient Instructions Start: 25-Nov-2017 Instruction Type: Provider Instructions for Treatment Indication: Urinary frequency How to access health information online Start: 23-Aug-2017 Instruction Type: Patient Education Indication: Non-smoker How to access health information online - Detail Start: Aug-2017 Instruction Type: Patient Education Indication: Non-smoker Patient Instructions Start: 23-Aug-2017 Instruction Type: Provider Instructions for Treatment Indication: Non-smoker How to access health information online Start: 09-Jul-2017 Instruction Type: Patient Education Indication: Varicose vein of leg How to access health information online - Detail Start: Jun-2017 Instruction Type: Patient Education Indication: Varicose vein of leg Patient Instructions Start: 09-Jul-2017 Instruction Type: Provider Instructions for Treatment Indication: Varicose vein of leg How to access health information online Start: 30-Apr-2017 Instruction Type: Patient Education Indication: BMI 25.0-25.9,adult How to access health information online - Detail Start: Apr-2017 Instruction Type: Patient Education Indication: BMI 25.0-25.9,adult Patient Instructions Start: 30-Apr-2017 Instruction Type: Provider Instructions for Treatment Indication: Cough How to access health information online Start: 04-Apr-2017 Instruction Type: Patient Education Indication: Current non-smoker How to access health information online - Detail Start: Mar-2017 Instruction Type: Patient Education Indication: Current non-smoker Patient Instructions Start: 04-Apr-2017 Instruction Type: Provider Instructions for Treatment Indication: Current non-smoker How to access health information online Start: 29-Mar-2017 Instruction Type: Patient Education Indication: Current non-smoker How to access health information online - Detail Start: Mar-2017 Instruction Type: Patient Education Indication: Current non-smoker Patient Instructions Start: 29-Mar-2017 Instruction Type: Provider Instructions for Treatment Indication: Current non-smoker How to access health information online Start: 22-Mar-2017 Instruction Type: Patient Education Indication: Current non-smoker How to access health information online - Detail Start: Mar-2017 Instruction Type: Patient Education Indication: Current non-smoker Patient Instructions Start: 22-Mar-2017 Instruction Type: Provider Instructions for Treatment Indication: Current non-smoker How to access health information online Start: 18-Mar-2017 Instruction Type: Patient Education Indication: Current non-smoker How to access health information online - Detail Start: Instruction Type: Patient Education Indication: Current non-smoker Patient Instructions Start: 18-Mar-2017 Instruction Type: Provider Instructions for Treatment Indication: Current non-smoker How to access health information online Start: 15-Mar-2017 Instruction Type: Patient Education Indication: BMI 26.0-26.9,adult How to access health information online - Detail Start: Instruction Type: Patient Education Indication: BMI 26.0-26.9,adult Patient Instructions Start: 15-Mar-2017 Instruction Type: Provider Instructions for Treatment Indication: BMI 26.0-26.9,adult How to access health information online Start: 08-Mar-2017 Instruction Type: Patient Education Indication: Current non-smoker How to access health information online - Detail Start: Feb-2017 Instruction Type: Patient Education Indication: Current non-smoker Patient Instructions Start: 08-Mar-2017 Instruction Type: Provider Instructions for Treatment Indication: Current non-smoker Patient Instructions Start: 05-Sep-2016 Instruction Type: Provider Instructions for Treatment Indication: Sciatica of left side How to access health information online Start: 01-Jun-2016 Instruction Type: Patient Education Indication: Bursitis of left hip How to access health information online - Detail Start: May-2016 Instruction Type: Patient Education Indication: Bursitis of left hip Patient Instructions Start: 01-Jun-2016 Instruction Type: Provider Instructions for Treatment Indication: Bursitis of left hip How to access health information online Start: 08-Feb-2016 Instruction Type: Patient Education Indication: Iliotibial band tendonitis How to access health information online - Detail Start: Jan-2016 Instruction Type: Patient Education Indication: Iliotibial band tendonitis Patient Instructions Start: 08-Feb-2016 Instruction Type: Provider Instructions for Treatment Indication: Iliotibial band tendonitis How to access health information online Start: 20-Dec-2015 Instruction Type: Patient Education Indication: UTI symptoms How to access health information online - Detail Start: Dec-2015 Instruction Type: Patient Education Indication: UTI symptoms Patient Instructions Start: 20-Dec-2015 Instruction Type: Provider Instructions for Treatment Indication: UTI symptoms How to access health information online Start: 12-Oct-2015 Instruction Type: Patient Education Indication: Annual Medicare Ph[employer] WIT HOUT abnormal findings (Renamed from Encounter for general adult medical examination without abnormal findings) How to access health information online - Detail Start: Instruction Type: Patient Education Indication: Annual Medicare Phyiscal WIT HOUT abnormal findings (Renamed from Encounter for general adult medical examination without abnormal findings) Patient Instructions Start: 31-Aug-2015 Instruction Type: Provider Instructions for Treatment Indication: Benign essential hypertension How to access health information online Start: 31-Aug-2015 Instruction Type: Patient Education Indication: Benign essential hypertension How to access health information online - Detail Start: Aug-2015 Instruction Type: Patient Education Indication: Benign essential hypertension How to access health information online Start: 09-May-2015 Instruction Type: Patient Education Indication: Abnormal TSH How to access health information online - Detail Start: Apr-2015 Instruction Type: Patient Education Indication: Abnormal TSH Patient Instructions Start: 09-May-2015 Instruction Type: Provider Instructions for Treatment Indication: Abnormal TSH How to access health information online Start: 02-May-2015 Instruction Type: Patient Education Indication: Benign essential hypertension How to access health information online - Detail Start: Apr-2015 Instruction Type: Patient Education Indication: Benign essential hypertension Patient Instructions Start: 02-May-2015 Instruction Type: Provider Instructions for Treatment Indication: Benign essential hypertension How to access health information online Start: 09-Feb-2015 Instruction Type: Patient Education Indication: Hip pain How to access health information online - Detail Start: Instruction Type: Patient Education Indication: Hip pain Patient Instructions Start: 08-Mar-2014 Instruction Type: Provider Instructions for Treatment Indication: Urinary frequency Patient Instructions Start: 20-Jul-2013 Instruction Type: Provider Instructions for Treatment Indication: Epigastric Pain (Renamed from Abdominal pain, ep igastric) Patient Instructions Start: 27-Feb-2013 Instruction Type: Provider Instructions for Treatment Indication: Candidiasis of vulva and vagina Name Dates Details How to access health information online Start: 24-Sep-2019 Instruction Type: Patient Education Indication: BMI 25.0-25.9,adult How to access health information online - Detail Start: Sep-2019 Instruction Type: Patient Education Indication: BMI 25.0-25.9,adult Patient Instructions Start: 24-Sep-2019 Instruction Type: Provider Instructions for Treatment Indication: BMI 25.0-25.9,adult How to access health information online Start: 31-Jul-2019 Instruction Type: Patient Education Indication: Non-smoker How to access health information online - Detail Start: Jul-2019 Instruction Type: Patient Education Indication: Non-smoker Patient Instructions Start: 31-Jul-2019 Instruction Type: Provider Instructions for Treatment Indication: Non-smoker How to access health information online Start: 08-Jul-2019 Instruction Type: Patient Education Indication: BMI 25.0-25.9,adult How to access health information online - Detail Start: Jun-2019 Instruction Type: Patient Education Indication: BMI 25.0-25.9,adult Patient Instructions Start: 08-Jul-2019 Instruction Type: Provider Instructions for Treatment Indication: BMI 25.0-25.9,adult How to access health information online Start: 30-Jan-2019 Instruction Type: Patient Education Indication: Non-smoker How to access health information online - Detail Start: Jan-2019 Instruction Type: Patient Education Indication: Non-smoker Patient Instructions Start: 30-Jan-2019 Instruction Type: Provider Instructions for Treatment Indication: Non-smoker How to access health information online Start: 19-Dec-2018 Instruction Type: Patient Education Indication: Non-smoker How to access health information online - Detail Start: Dec-2018 Instruction Type: Patient Education Indication: Non-smoker Patient Instructions Start: 19-Dec-2018 Instruction Type: Provider Instructions for Treatment Indication: Non-smoker How to access health information online Start: 05-Sep-2018 Instruction Type: Patient Education Indication: Non-smoker How to access health information online - Detail Start: Aug-2018 Instruction Type: Patient Education Indication: Non-smoker Patient Instructions Start: 05-Sep-2018 Instruction Type: Provider Instructions for Treatment Indication: Non-smoker How to access health information online - Detail Start: Nov-2017 Instruction Type: Patient Education Indication: Urinary frequency Patient Instructions Start: 25-Nov-2017 Instruction Type: Provider Instructions for Treatment Indication: Urinary frequency How to access health information online Start: 23-Aug-2017 Instruction Type: Patient Education Indication: Non-smoker How to access health information online - Detail Start: Aug-2017 Instruction Type: Patient Education Indication: Non-smoker Patient Instructions Start: 23-Aug-2017 Instruction Type: Provider Instructions for Treatment Indication: Non-smoker How to access health information online Start: 09-Jul-2017 Instruction Type: Patient Education Indication: Varicose vein of leg How to access health information online - Detail Start: Jun-2017 Instruction Type: Patient Education Indication: Varicose vein of leg Patient Instructions Start: 09-Jul-2017 Instruction Type: Provider Instructions for Treatment Indication: Varicose vein of leg How to access health information online Start: 30-Apr-2017 Instruction Type: Patient Education Indication: BMI 25.0-25.9,adult How to access health information online - Detail Start: Apr-2017 Instruction Type: Patient Education Indication: BMI 25.0-25.9,adult Patient Instructions Start: 30-Apr-2017 Instruction Type: Provider Instructions for Treatment Indication: Cough How to access health information online Start: 04-Apr-2017 Instruction Type: Patient Education Indication: Current non-smoker How to access health information online - Detail Start: Mar-2017 Instruction Type: Patient Education Indication: Current non-smoker Patient Instructions Start: 04-Apr-2017 Instruction Type: Provider Instructions for Treatment Indication: Current non-smoker How to access health information online Start: 29-Mar-2017 Instruction Type: Patient Education Indication: Current non-smoker How to access health information online - Detail Start: Mar-2017 Instruction Type: Patient Education Indication: Current non-smoker Patient Instructions Start: 29-Mar-2017 Instruction Type: Provider Instructions for Treatment Indication: Current non-smoker How to access health information online Start: 22-Mar-2017 Instruction Type: Patient Education Indication: Current non-smoker How to access health information online - Detail Start: Mar-2017 Instruction Type: Patient Education Indication: Current non-smoker Patient Instructions Start: 22-Mar-2017 Instruction Type: Provider Instructions for Treatment Indication: Current non-smoker How to access health information online Start: 18-Mar-2017 Instruction Type: Patient Education Indication: Current non-smoker How to access health information online - Detail Start: Instruction Type: Patient Education Indication: Current non-smoker Patient Instructions Start: 18-Mar-2017 Instruction Type: Provider Instructions for Treatment Indication: Current non-smoker How to access health information online Start: 15-Mar-2017 Instruction Type: Patient Education Indication: BMI 26.0-26.9,adult How to access health information online - Detail Start: Instruction Type: Patient Education Indication: BMI 26.0-26.9,adult Patient Instructions Start: 15-Mar-2017 Instruction Type: Provider Instructions for Treatment Indication: BMI 26.0-26.9,adult How to access health information online Start: 08-Mar-2017 Instruction Type: Patient Education Indication: Current non-smoker How to access health information online - Detail Start: Feb-2017 Instruction Type: Patient Education Indication: Current non-smoker Patient Instructions Start: 08-Mar-2017 Instruction Type: Provider Instructions for Treatment Indication: Current non-smoker Patient Instructions Start: 05-Sep-2016 Instruction Type: Provider Instructions for Treatment Indication: Sciatica of left side How to access health information online Start: 01-Jun-2016 Instruction Type: Patient Education Indication: Bursitis of left hip How to access health information online - Detail Start: May-2016 Instruction Type: Patient Education Indication: Bursitis of left hip Patient Instructions Start: 01-Jun-2016 Instruction Type: Provider Instructions for Treatment Indication: Bursitis of left hip How to access health information online Start: 08-Feb-2016 Instruction Type: Patient Education Indication: Iliotibial band tendonitis How to access health information online - Detail Start: Jan-2016 Instruction Type: Patient Education Indication: Iliotibial band tendonitis Patient Instructions Start: 08-Feb-2016 Instruction Type: Provider Instructions for Treatment Indication: Iliotibial band tendonitis How to access health information online Start: 20-Dec-2015 Instruction Type: Patient Education Indication: UTI symptoms How to access health information online - Detail Start: Dec-2015 Instruction Type: Patient Education Indication: UTI symptoms Patient Instructions Start: 20-Dec-2015 Instruction Type: Provider Instructions for Treatment Indication: UTI symptoms How to access health information online Start: 12-Oct-2015 Instruction Type: Patient Education Indication: Annual Medicare Phy[employer]cal WIT HOUT abnormal findings (Renamed from Encounter for general adult medical examination without abnormal findings) How to access health information online - Detail Start: Instruction Type: Patient Education Indication: Annual Medicare Phy[employer]cal WIT HOUT abnormal findings (Renamed from Encounter for general adult medical examination without abnormal findings) Patient Instructions Start: 31-Aug-2015 Instruction Type: Provider Instructions for Treatment Indication: Benign essential hypertension How to access health information online Start: 31-Aug-2015 Instruction Type: Patient Education Indication: Benign essential hypertension How to access health information online - Detail Start: Aug-2015 Instruction Type: Patient Education Indication: Benign essential hypertension How to access health information online Start: 09-May-2015 Instruction Type: Patient Education Indication: Abnormal TSH How to access health information online - Detail Start: Apr-2015 Instruction Type: Patient Education Indication: Abnormal TSH Patient Instructions Start: 09-May-2015 Instruction Type: Provider Instructions for Treatment Indication: Abnormal TSH How to access health information online Start: 02-May-2015 Instruction Type: Patient Education Indication: Benign essential hypertension How to access health information online - Detail Start: Apr-2015 Instruction Type: Patient Education Indication: Benign essential hypertension Patient Instructions Start: 02-May-2015 Instruction Type: Provider Instructions for Treatment Indication: Benign essential hypertension How to access health information online Start: 09-Feb-2015 Instruction Type: Patient Education Indication: Hip pain How to access health information online - Detail Start: Instruction Type: Patient Education Indication: Hip pain Patient Instructions Start: 08-Mar-2014 Instruction Type: Provider Instructions for Treatment Indication: Urinary frequency Patient Instructions Start: 20-Jul-2013 Instruction Type: Provider Instructions for Treatment Indication: Epigastric Pain (Renamed from Abdominal pain, ep igastric) Patient Instructions Start: 27-Feb-2013 Instruction Type: Provider Instructions for Treatment Indication: Candidiasis of vulva and vagina Name Dates Details How to access health information online Start: 24-Sep-2019 Instruction Type: Patient Education Indication: BMI 25.0-25.9,adult How to access health information online - Detail Start: Sep-2019 Instruction Type: Patient Education Indication: BMI 25.0-25.9,adult Patient Instructions Start: 24-Sep-2019 Instruction Type: Provider Instructions for Treatment Indication: BMI 25.0-25.9,adult How to access health information online Start: 31-Jul-2019 Instruction Type: Patient Education Indication: Non-smoker How to access health information online - Detail Start: Jul-2019 Instruction Type: Patient Education Indication: Non-smoker Patient Instructions Start: 31-Jul-2019 Instruction Type: Provider Instructions for Treatment Indication: Non-smoker How to access health information online Start: 08-Jul-2019 Instruction Type: Patient Education Indication: BMI 25.0-25.9,adult How to access health information online - Detail Start: Jun-2019 Instruction Type: Patient Education Indication: BMI 25.0-25.9,adult Patient Instructions Start: 08-Jul-2019 Instruction Type: Provider Instructions for Treatment Indication: BMI 25.0-25.9,adult How to access health information online Start: 30-Jan-2019 Instruction Type: Patient Education Indication: Non-smoker How to access health information online - Detail Start: Jan-2019 Instruction Type: Patient Education Indication: Non-smoker Patient Instructions Start: 30-Jan-2019 Instruction Type: Provider Instructions for Treatment Indication: Non-smoker How to access health information online Start: 19-Dec-2018 Instruction Type: Patient Education Indication: Non-smoker How to access health information online - Detail Start: Dec-2018 Instruction Type: Patient Education Indication: Non-smoker Patient Instructions Start: 19-Dec-2018 Instruction Type: Provider Instructions for Treatment Indication: Non-smoker How to access health information online Start: 05-Sep-2018 Instruction Type: Patient Education Indication: Non-smoker How to access health information online - Detail Start: Aug-2018 Instruction Type: Patient Education Indication: Non-smoker Patient Instructions Start: 05-Sep-2018 Instruction Type: Provider Instructions for Treatment Indication: Non-smoker How to access health information online - Detail Start: Nov-2017 Instruction Type: Patient Education Indication: Urinary frequency Patient Instructions Start: 25-Nov-2017 Instruction Type: Provider Instructions for Treatment Indication: Urinary frequency How to access health information online Start: 23-Aug-2017 Instruction Type: Patient Education Indication: Non-smoker How to access health information online - Detail Start: Aug-2017 Instruction Type: Patient Education Indication: Non-smoker Patient Instructions Start: 23-Aug-2017 Instruction Type: Provider Instructions for Treatment Indication: Non-smoker How to access health information online Start: 09-Jul-2017 Instruction Type: Patient Education Indication: Varicose vein of leg How to access health information online - Detail Start: Jun-2017 Instruction Type: Patient Education Indication: Varicose vein of leg Patient Instructions Start: 09-Jul-2017 Instruction Type: Provider Instructions for Treatment Indication: Varicose vein of leg How to access health information online Start: 30-Apr-2017 Instruction Type: Patient Education Indication: BMI 25.0-25.9,adult How to access health information online - Detail Start: Apr-2017 Instruction Type: Patient Education Indication: BMI 25.0-25.9,adult Patient Instructions Start: 30-Apr-2017 Instruction Type: Provider Instructions for Treatment Indication: Cough How to access health information online Start: 04-Apr-2017 Instruction Type: Patient Education Indication: Current non-smoker How to access health information online - Detail Start: Mar-2017 Instruction Type: Patient Education Indication: Current non-smoker Patient Instructions Start: 04-Apr-2017 Instruction Type: Provider Instructions for Treatment Indication: Current non-smoker How to access health information online Start: 29-Mar-2017 Instruction Type: Patient Education Indication: Current non-smoker How to access health information online - Detail Start: Mar-2017 Instruction Type: Patient Education Indication: Current non-smoker Patient Instructions Start: 29-Mar-2017 Instruction Type: Provider Instructions for Treatment Indication: Current non-smoker How to access health information online Start: 22-Mar-2017 Instruction Type: Patient Education Indication: Current non-smoker How to access health information online - Detail Start: Mar-2017 Instruction Type: Patient Education Indication: Current non-smoker Patient Instructions Start: 22-Mar-2017 Instruction Type: Provider Instructions for Treatment Indication: Current non-smoker How to access health information online Start: 18-Mar-2017 Instruction Type: Patient Education Indication: Current non-smoker How to access health information online - Detail Start: Instruction Type: Patient Education Indication: Current non-smoker Patient Instructions Start: 18-Mar-2017 Instruction Type: Provider Instructions for Treatment Indication: Current non-smoker How to access health information online Start: 15-Mar-2017 Instruction Type: Patient Education Indication: BMI 26.0-26.9,adult How to access health information online - Detail Start: Instruction Type: Patient Education Indication: BMI 26.0-26.9,adult Patient Instructions Start: 15-Mar-2017 Instruction Type: Provider Instructions for Treatment Indication: BMI 26.0-26.9,adult How to access health information online Start: 08-Mar-2017 Instruction Type: Patient Education Indication: Current non-smoker How to access health information online - Detail Start: Feb-2017 Instruction Type: Patient Education Indication: Current non-smoker Patient Instructions Start: 08-Mar-2017 Instruction Type: Provider Instructions for Treatment Indication: Current non-smoker Patient Instructions Start: 05-Sep-2016 Instruction Type: Provider Instructions for Treatment Indication: Sciatica of left side How to access health information online Start: 01-Jun-2016 Instruction Type: Patient Education Indication: Bursitis of left hip How to access health information online - Detail Start: May-2016 Instruction Type: Patient Education Indication: Bursitis of left hip Patient Instructions Start: 01-Jun-2016 Instruction Type: Provider Instructions for Treatment Indication: Bursitis of left hip How to access health information online Start: 08-Feb-2016 Instruction Type: Patient Education Indication: Iliotibial band tendonitis How to access health information online - Detail Start: Jan-2016 Instruction Type: Patient Education Indication: Iliotibial band tendonitis Patient Instructions Start: 08-Feb-2016 Instruction Type: Provider Instructions for Treatment Indication: Iliotibial band tendonitis How to access health information online Start: 20-Dec-2015 Instruction Type: Patient Education Indication: UTI symptoms How to access health information online - Detail Start: Dec-2015 Instruction Type: Patient Education Indication: UTI symptoms Patient Instructions Start: 20-Dec-2015 Instruction Type: Provider Instructions for Treatment Indication: UTI symptoms How to access health information online Start: 12-Oct-2015 Instruction Type: Patient Education Indication: Annual Medicare Phyiscal WIT HOUT abnormal findings (Renamed from Encounter for general adult medical examination without abnormal findings) How to access health information online - Detail Start: Instruction Type: Patient Education Indication: Annual Medicare Phyiscal WIT HOUT abnormal findings (Renamed from Encounter for general adult medical examination without abnormal findings) Patient Instructions Start: 31-Aug-2015 Instruction Type: Provider Instructions for Treatment Indication: Benign essential hypertension How to access health information online Start: 31-Aug-2015 Instruction Type: Patient Education Indication: Benign essential hypertension How to access health information online - Detail Start: Aug-2015 Instruction Type: Patient Education Indication: Benign essential hypertension How to access health information online Start: 09-May-2015 Instruction Type: Patient Education Indication: Abnormal TSH How to access health information online - Detail Start: Apr-2015 Instruction Type: Patient Education Indication: Abnormal TSH Patient Instructions Start: 09-May-2015 Instruction Type: Provider Instructions for Treatment Indication: Abnormal TSH How to access health information online Start: 02-May-2015 Instruction Type: Patient Education Indication: Benign essential hypertension How to access health information online - Detail Start: Apr-2015 Instruction Type: Patient Education Indication: Benign essential hypertension Patient Instructions Start: 02-May-2015 Instruction Type: Provider Instructions for Treatment Indication: Benign essential hypertension How to access health information online Start: 09-Feb-2015 Instruction Type: Patient Education Indication: Hip pain How to access health information online - Detail Start: Instruction Type: Patient Education Indication: Hip pain Patient Instructions Start: 08-Mar-2014 Instruction Type: Provider Instructions for Treatment Indication: Urinary frequency Patient Instructions Start: 20-Jul-2013 Instruction Type: Provider Instructions for Treatment Indication: Epigastric Pain (Renamed from Abdominal pain, ep igastric) Patient Instructions Start: 27-Feb-2013 Instruction Type: Provider Instructions for Treatment Indication: Candidiasis of vulva and vagina Name Dates Details How to access health information online - Detail Start: Mar-2020 Instruction Type: Patient Education Indication: Non-smoker Patient Instructions Start: 21-Mar-2020 Instruction Type: Provider Instructions for Treatment Indication: Non-smoker How to access health information online Start: 24-Sep-2019 Instruction Type: Patient Education Indication: BMI 25.0-25.9,adult How to access health information online - Detail Start: Sep-2019 Instruction Type: Patient Education Indication: BMI 25.0-25.9,adult Patient Instructions Start: 24-Sep-2019 Instruction Type: Provider Instructions for Treatment Indication: BMI 25.0-25.9,adult How to access health information online Start: 31-Jul-2019 Instruction Type: Patient Education Indication: Non-smoker How to access health information online - Detail Start: Jul-2019 Instruction Type: Patient Education Indication: Non-smoker Patient Instructions Start: 31-Jul-2019 Instruction Type: Provider Instructions for Treatment Indication: Non-smoker How to access health information online Start: 08-Jul-2019 Instruction Type: Patient Education Indication: BMI 25.0-25.9,adult How to access health information online - Detail Start: Jun-2019 Instruction Type: Patient Education Indication: BMI 25.0-25.9,adult Patient Instructions Start: 08-Jul-2019 Instruction Type: Provider Instructions for Treatment Indication: BMI 25.0-25.9,adult How to access health information online Start: 30-Jan-2019 Instruction Type: Patient Education Indication: Non-smoker How to access health information online - Detail Start: Jan-2019 Instruction Type: Patient Education Indication: Non-smoker Patient Instructions Start: 30-Jan-2019 Instruction Type: Provider Instructions for Treatment Indication: Non-smoker How to access health information online Start: 19-Dec-2018 Instruction Type: Patient Education Indication: Non-smoker How to access health information online - Detail Start: Dec-2018 Instruction Type: Patient Education Indication: Non-smoker Patient Instructions Start: 19-Dec-2018 Instruction Type: Provider Instructions for Treatment Indication: Non-smoker How to access health information online Start: 05-Sep-2018 Instruction Type: Patient Education Indication: Non-smoker How to access health information online - Detail Start: Aug-2018 Instruction Type: Patient Education Indication: Non-smoker Patient Instructions Start: 05-Sep-2018 Instruction Type: Provider Instructions for Treatment Indication: Non-smoker How to access health information online - Detail Start: Nov-2017 Instruction Type: Patient Education Indication: Urinary frequency Patient Instructions Start: 25-Nov-2017 Instruction Type: Provider Instructions for Treatment Indication: Urinary frequency How to access health information online Start: 23-Aug-2017 Instruction Type: Patient Education Indication: Non-smoker How to access health information online - Detail Start: Aug-2017 Instruction Type: Patient Education Indication: Non-smoker Patient Instructions Start: 23-Aug-2017 Instruction Type: Provider Instructions for Treatment Indication: Non-smoker How to access health information online Start: 09-Jul-2017 Instruction Type: Patient Education Indication: Varicose vein of leg How to access health information online - Detail Start: Jun-2017 Instruction Type: Patient Education Indication: Varicose vein of leg Patient Instructions Start: 09-Jul-2017 Instruction Type: Provider Instructions for Treatment Indication: Varicose vein of leg How to access health information online Start: 30-Apr-2017 Instruction Type: Patient Education Indication: BMI 25.0-25.9,adult How to access health information online - Detail Start: Apr-2017 Instruction Type: Patient Education Indication: BMI 25.0-25.9,adult Patient Instructions Start: 30-Apr-2017 Instruction Type: Provider Instructions for Treatment Indication: Cough How to access health information online Start: 04-Apr-2017 Instruction Type: Patient Education Indication: Current non-smoker How to access health information online - Detail Start: Mar-2017 Instruction Type: Patient Education Indication: Current non-smoker Patient Instructions Start: 04-Apr-2017 Instruction Type: Provider Instructions for Treatment Indication: Current non-smoker How to access health information online Start: 29-Mar-2017 Instruction Type: Patient Education Indication: Current non-smoker How to access health information online - Detail Start: Mar-2017 Instruction Type: Patient Education Indication: Current non-smoker Patient Instructions Start: 29-Mar-2017 Instruction Type: Provider Instructions for Treatment Indication: Current non-smoker How to access health information online Start: 22-Mar-2017 Instruction Type: Patient Education Indication: Current non-smoker How to access health information online - Detail Start: Mar-2017 Instruction Type: Patient Education Indication: Current non-smoker Patient Instructions Start: 22-Mar-2017 Instruction Type: Provider Instructions for Treatment Indication: Current non-smoker How to access health information online Start: 18-Mar-2017 Instruction Type: Patient Education Indication: Current non-smoker How to access health information online - Detail Start: Instruction Type: Patient Education Indication: Current non-smoker Patient Instructions Start: 18-Mar-2017 Instruction Type: Provider Instructions for Treatment Indication: Current non-smoker How to access health information online Start: 15-Mar-2017 Instruction Type: Patient Education Indication: BMI 26.0-26.9,adult How to access health information online - Detail Start: Instruction Type: Patient Education Indication: BMI 26.0-26.9,adult Patient Instructions Start: 15-Mar-2017 Instruction Type: Provider Instructions for Treatment Indication: BMI 26.0-26.9,adult How to access health information online Start: 08-Mar-2017 Instruction Type: Patient Education Indication: Current non-smoker How to access health information online - Detail Start: Feb-2017 Instruction Type: Patient Education Indication: Current non-smoker Patient Instructions Start: 08-Mar-2017 Instruction Type: Provider Instructions for Treatment Indication: Current non-smoker Patient Instructions Start: 05-Sep-2016 Instruction Type: Provider Instructions for Treatment Indication: Sciatica of left side How to access health information online Start: 01-Jun-2016 Instruction Type: Patient Education Indication: Bursitis of left hip How to access health information online - Detail Start: May-2016 Instruction Type: Patient Education Indication: Bursitis of left hip Patient Instructions Start: 01-Jun-2016 Instruction Type: Provider Instructions for Treatment Indication: Bursitis of left hip How to access health information online Start: 08-Feb-2016 Instruction Type: Patient Education Indication: Iliotibial band tendonitis How to access health information online - Detail Start: Jan-2016 Instruction Type: Patient Education Indication: Iliotibial band tendonitis Patient Instructions Start: 08-Feb-2016 Instruction Type: Provider Instructions for Treatment Indication: Iliotibial band tendonitis How to access health information online Start: 20-Dec-2015 Instruction Type: Patient Education Indication: UTI symptoms How to access health information online - Detail Start: Dec-2015 Instruction Type: Patient Education Indication: UTI symptoms Patient Instructions Start: 20-Dec-2015 Instruction Type: Provider Instructions for Treatment Indication: UTI symptoms How to access health information online Start: 12-Oct-2015 Instruction Type: Patient Education Indication: Annual Medicare Phyiscal WIT HOUT abnormal findings (Renamed from Encounter for general adult medical examination without abnormal findings) How to access health information online - Detail Start: Instruction Type: Patient Education Indication: Annual Medicare Phyiscal WIT HOUT abnormal findings (Renamed from Encounter for general adult medical examination without abnormal findings) Patient Instructions Start: 31-Aug-2015 Instruction Type: Provider Instructions for Treatment Indication: Benign essential hypertension How to access health information online Start: 31-Aug-2015 Instruction Type: Patient Education Indication: Benign essential hypertension How to access health information online - Detail Start: Aug-2015 Instruction Type: Patient Education Indication: Benign essential hypertension How to access health information online Start: 09-May-2015 Instruction Type: Patient Education Indication: Abnormal TSH How to access health information online - Detail Start: Apr-2015 Instruction Type: Patient Education Indication: Abnormal TSH Patient Instructions Start: 09-May-2015 Instruction Type: Provider Instructions for Treatment Indication: Abnormal TSH How to access health information online Start: 02-May-2015 Instruction Type: Patient Education Indication: Benign essential hypertension How to access health information online - Detail Start: Apr-2015 Instruction Type: Patient Education Indication: Benign essential hypertension Patient Instructions Start: 02-May-2015 Instruction Type: Provider Instructions for Treatment Indication: Benign essential hypertension How to access health information online Start: 09-Feb-2015 Instruction Type: Patient Education Indication: Hip pain How to access health information online - Detail Start: Instruction Type: Patient Education Indication: Hip pain Patient Instructions Start: 08-Mar-2014 Instruction Type: Provider Instructions for Treatment Indication: Urinary frequency Patient Instructions Start: 20-Jul-2013 Instruction Type: Provider Instructions for Treatment Indication: Epigastric Pain (Renamed from Abdominal pain, ep igastric) Patient Instructions Start: 27-Feb-2013 Instruction Type: Provider Instructions for Treatment Indication: Candidiasis of vulva and vagina Summary Purpose Advance Directives No Advanced Directives Records Found Additional Source Comments FOR RECORDS PERTAINING TO PATIENTS WHO ARE OR HAVE BEEN ENROLLED IN A CHEMICAL DEPENDENCY/SUBSTANCE ABUSE PROGRAM, SOME INFORMATION MAY BE OMITTED. This clinical summary was aggregated from multiple sources. Caution should be exercised in using it in the provision of clinical care. This summary normalizes information from multiple sources, and as a consequence, information in this document may materially changethe coding, format and clinical context of patient data. In addition, data may be omittedin some cases. CLINICAL DECISIONS SHOULD BE BASED ON THE PRIMARY CLINICAL RECORDS. [facility] provides no warranty or guarantee of the accuracy or completeness of information in this document. UNRECOGNIZED CONTENT PROVIDED BELOW FOR UNRECOGNIZED SECTION INFORMATION SOURCE DATE CREATED AUTHOR AUTHOR'S MARIAM Al 12/02/2017 [facility]
== END ==
PROVIDERS: PCP Internal Medicine; Referring Provider Orthopaedic Surgery; Visit Provider Orthopaedic Surgery
DX: M23.91 Unspecified internal derangement of right knee (principal); S83.281A Other tear of lateral meniscus, current injury, right knee, initial encounter
CPT/HCPCS: 73721

== ENCOUNTER 2020-02-02 21:13 | Emergency (ER) | payer MEDICARE, OTHER, SELFPAY ==
[2019-12-07 10:04] VITALS: BMI 27.8
[2020-02-02 21:14] VITALS: BP 147/99; PULSE 61; RESP 14; TEMP 36.6; O2SAT 95; BMI 27.4
--- NOTE | 2020-02-02 21:19 | RAD_ITS ---
STUDY: X-RAY - RIGHT KNEE REASON FOR EXAM: Female, 69 years old. Knee pain after fall. TECHNIQUE: 4 view(s) of the knee. COMPARISON: None. FINDINGS: Normal visualized distal femur. Normal visualized proximal tibia and fibula. Normal proximal tibiofibular articulation. Note acute fracture, dislocation or destructive osseous pathology. There is mild degenerative arthrosis of the medial femorotibial compartment. There is severe degenerative arthrosis of the lateral femorotibial compartment with severe joint space narrowing. There is mild degenerative arthrosis of the patellofemoral articulation. There is a soft tissue prominence in the suprapatellar region suggesting a small volume joint effusion. The soft tissue structures are unremarkable. RAD/Knee 1 or 2 Views IMPRESSION: Degenerative changes of the knee with a minimal suprapatellar joint effusion. There is no acute fracture or dislocation. Electronically Signed: Romario Zamarripa DO at 21:57 EDT Tel [phone], Service support ,
--- NOTE | 2020-02-02 21:33 | RAD_ITS ---
STUDY: X-RAY - LEFT RADIUS AND ULNA REASON FOR EXAM: Female, 69 years old. Fall tonight. Pain in the elbow. TECHNIQUE: 2 view(s) of the forearm. COMPARISON: Left wrist, 04/15/2018 FINDINGS: There is no demonstrated soft tissue swelling. There is a stable plate and screws along the volar aspect of the distal radius unchanged from prior study. There is now a fracture through the radial head with slight caudal displacement of the lateral aspect of the radial head. There is elevation of the fat pads. Normal visualized ulna. Otherwise normal elbow. RAD/Forearm 2 Views IMPRESSION: 1. Mildly displaced acute fracture of the radial head. 2. Healed fracture of the distal radius with evidence of internal fixation. Electronically Signed: Romario Zamarripa DO at 21:55 EDT Tel [phone], Service support ,
--- NOTE | 2020-02-02 22:11 | ED.DCSUM_ITS ---
History of Present Illness Chief Complaint: Fall Narrative: Sustained a mechanical fall down steps. She injured her right knee and left elbow. She is able to ambulate she sustained an abrasion over the right knee but no other injuries. She has no head injury no neck pain no loss consciousness. Past Medical History - Allergies and Home Meds Allergies/Adverse Reactions: Allergies amoxicillin [From Augmentin] Allergy (Mild, Verified 02/02/20 21:18) diarrhea, nausea clavulanic acid [From Augmentin] Allergy (Mild, Verified 02/02/20 21:18) diarrhea, nausea pseudoephedrine [From Bettye-D] Allergy (Mild, Verified 02/02/20 21:18) unknown prochlorperazine edisylate [From Compazine] Adverse Reaction (Verified 02/02/20 21:18) Nausea/Vom/Diarrhea Primary Care Physician: Chelsea Moss DO [Primary Care Provider] - Past Medical History: - - Viewed and noncontributory Surgical History: appendectomy, cholecystectomy, hysterectomy, - - Tubal liga tion Smoking Status: Never smoker Review of Systems General: Reports: - - No head injury or loss consciousness Cardiovascular: Denies: Chest pain Gastrointestinal: Denies: Abdominal pain, Nausea Musculoskeletal: Reports: Extremity Pain Skin: Reports: Abrasions Neurological: Denies: Headache, Weakness, Parasthesia Hematologic: Denies: Easy bruising Physical Exam Vital Signs/Narrative: Vital Signs Temp Pulse Resp BP Pulse Ox 02/02/20 21:14 97.9 F 61 14 147/99 H 95 General: - - She appears in slight distress Head: Normocephalic, Atraumatic ENT: Moist mucous membranes, - - Facial injuries Neck: - - No C-spine tenderness Cardiovascular: Regular rate Respiratory: No distress. Negative for: Chest tenderness Abdomen: Soft, Nontender Back: Nontender, Normal Inspection. Negative for: CVA tenderness Extremities: - - There is a right knee abrasion, full range of motion of the knee without any laxity normal extensor mechanism. Right elbow shows tenderness at the proximal radial region. She has pain with pronation supination as well as flexion and extension. Skin: - - Right knee abrasion Neurological: Normal Strength, Normal Sensation Diagnostic/Tx/Re-eval Right elbow x-ray shows a proximal radial fracture, this was reviewed by me and read by the radiologist. - Medical Decision Making Patient is found to have a radial head fracture, she was splinted knee x-rays normal. Otherwise she has no other injuries. I will discharge in stable condition. Procedures Procedure(s): Orthopedic procedure: Long-arm splint was placed by me it was Ortho-Glass patient tolerated procedure well ED Disposition - Plan for ED Patient: Disposition: Home or Assisted Living Diagnosis: Radial head fracture, Knee contusion Instructions: ED EXTREMITY CONTUSION Lower, ED Fx Radial Head Prescriptions: Hydrocodone Bitart/Apap 5-325 [Louin 5MG-325MG] 1 tablet PO Q4H PRN PRN 2 Days #10 tablet PRN Reason: Pain Transmission Status: Sent to [facility] Referrals: Deb Alba DO [STAFF PHYSICIAN] - 3-5 Days
[2020-02-02] MEDS: HYDROcodone Bitartrate/Apap 5/325 Tablet PO (22:38)
--- NOTE | 2020-02-02 22:39 | ED.RN ---
pit and auxiliaries supervisor dimitris called for pt, no drug testing required per pt pit and auxiliaries supervisor. FROI completed by pt.
[2020-02-02 23:01] VITALS: BP 145/89; PULSE 76; RESP 17; O2SAT 96
--- NOTE | 2020-02-02 23:21 | DCINST.ED_ITS ---
ED Disposition - Plan for ED Patient: Disposition: Home or Assisted Living Diagnosis: Radial head fracture, Knee contusion Instructions: ED EXTREMITY CONTUSION Lower, ED Fx Radial Head Prescriptions: Hydrocodone Bitart/Apap 5-325 [Keiser 5MG-325MG] 1 tab PO Q4H PRN PRN 2 Days #10 tab PRN Reason: Pain Transmission Status: Received by [facility] Hydrocodone Bitart/Apap 5-325 [Keiser 5MG-325MG] 1 tab PO Q4H PRN PRN 3 Days #18 tab PRN Reason: Pain Prescription Printed Referrals: Deb Alba DO [STAFF PHYSICIAN] - 3-5 Days
== END 2020-02-02 23:07 | disposition home or self-care (01) ==
PROVIDERS: Emergency Provider Emergency Medicine; PCP Internal Medicine
DX: S52.121A Displaced fracture of head of right radius, initial encounter for closed fracture (principal); S80.211A Abrasion, right knee, initial encounter; S80.01XA Contusion of right knee, initial encounter; W10.9XXA Fall (on) (from) unspecified stairs and steps, initial encounter; Y93.9 Activity, unspecified; Y92.9 Unspecified place or not applicable
CPT/HCPCS: 29105; 29125; 73090; 73560; 99283

== ENCOUNTER → 2020-02-08 11:03 | Outpatient (CLI) | payer MEDICARE, OTHER, SELFPAY ==
[2020-02-08 10:48] VITALS: BMI 27.4
--- NOTE | 2020-02-08 11:15 | RAD_ITS ---
STUDY: X-RAY - LEFT ELBOW REASON FOR EXAM: Female, 69 years old. INJURY TECHNIQUE: 3 view(s) of the elbow. COMPARISON: None. FINDINGS: Normal visualized humerus and ulna. Radial head fracture is noted. Normal radiocapitellar and ulnotrochlear articulations. The soft tissue structures are unremarkable. Mild effusion. RAD/Elbow min 3 Views IMPRESSION: Radial head fracture. Electronically Signed: Sanjiv Yanes DO at 23:29 EDT Tel [phone], Service support ,
== END ==
PROVIDERS: PCP Internal Medicine; Referring Provider Physician Assistant; Visit Provider Physician Assistant
DX: S52.122A Displaced fracture of head of left radius, initial encounter for closed fracture (principal)
CPT/HCPCS: 73080

== ENCOUNTER → 2020-02-12 16:40 | Outpatient (CLI) | payer MEDICARE, OTHER, SELFPAY ==
[2020-02-08 10:48] VITALS: BMI 27.4
--- NOTE | 2020-02-12 16:48 | CT_ITS ---
STUDY: CT LEFT ELBOW WITHOUT CONTRAST REASON FOR EXAM: Female, 69 years old. LT RADIAL HEAD FX after fall 02/01/20 RADIATION DOSAGE (If Supplied By Facility): CTDIvol = ( 24.58 ) mGy, DLP = ( 376.22 ) mGycm TECHNIQUE: Transaxial CT imaging of the elbow was performed. Sagittal and coronal images were reconstructed. Individualized dose optimization techniques were used for this CT. COMPARISON: 02/08/2020 FINDINGS: The visualized humerus is normal. Fracture of the anterior radial head is redemonstrated with fracture line extending to the articular surface on image 27 of series 601. There is 1.3 mm of cortical step-off of the articular surface. No additional fractures seen. Very small (304 mm) bony density along the posterior radioulnar articulation (axial image 19 of series 3) suggesting a small avulsion fragment, likely arising from the adjacent ulna. The olecranon and ulnar shaft are intact. Normal radiocapitellar and ulnotrochlear articulations. The soft tissue structures are unremarkable. CT/Extremity Upper without Contra IMPRESSION: 1. Nondisplaced intra-articular radial head fracture. 2. Tiny avulsion along the posterior radioulnar articulation. Electronically Signed: Scottie Natarajan MD ([place]) at 15:41 EDT , Service support ,
== END ==
PROVIDERS: PCP Internal Medicine; Referring Provider Physician Assistant; Visit Provider Physician Assistant
DX: S52.122A Displaced fracture of head of left radius, initial encounter for closed fracture (principal)
CPT/HCPCS: 73200

== ENCOUNTER → 2020-04-28 12:42 | Outpatient (CLI) | payer MEDICARE, OTHER, SELFPAY ==
[2020-02-08 10:48] VITALS: BMI 27.4
--- NOTE | 2020-04-28 12:44 | BI_ITS ---
MAMMOGRAPHY - BILATERAL SCREENING REASON FOR EXAM: Female, 69 years old. Routine annual screening examination. PERTINENT HISTORY: Non-contributory. History of remote bilateral breast reduction surgery. TECHNIQUE: Digital bilateral breast damion (3D mammographic acquisition) in the CC and MLO projections. 2-D mediolateral oblique (MLO) and craniocaudad (CC) views of both breasts were obtained. CAD: Full Field Digital Mammography with Computer Added Detection was performed. COMPARISON: Comparison is made with prior study dated 03/29/2017 and 10/25/2015. FINDINGS: Breast Composition: The breasts are almost entirely fatty. There are no dominant masses or suspicious calcifications. A tissue clip marker is seen in the medial retroareolar region of the left breast this is unchanged. No other significant abnormalities are identified. There has been no significant change since the prior study. BI/SCREEN MAMM (CAD) W/DAMION BILAT IMPRESSION: Stable bilateral screening mammogram. Yearly follow-up mammogram recommended. (A) ASSESSMENT CATEGORY: BIRADS Category 2: Benign. A letter regarding these results will be sent to the patient by the facility within 30 days. Approximately 10% of breast cancers are not detected by mammography. A normal mammogram should not delay biopsy of a clinically suspicious abnormality. [id number] Electronically Signed: Leonel Horvath, at 13:51 EST , Service support ,
--- NOTE | 2020-04-28 13:00 | BD_ITS ---
STUDY: DUAL ENERGY X-RAY ABSORPTIOMETRY / DXA REASON FOR EXAM: Female, 69 years old. 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 COMPARISON: Comparison is made with prior study dated 07/28/2015. FINDINGS: Lumbar Spine (L1-L4): g/cm2 (1.254) / T-score (0.7) / Z-score (2.4) Findings are suggestive of normal bone density with a low fracture risk. Right Femur Total: g/cm2 (0.931) / T-score (-0.6) / Z-score (0.8) Right Femoral Neck: g/cm2 (0.821) / T-score (-1.6) / Z-score (0.1) The T-Scores on the most recent prior examination were: Lumbar Spine (L1-L4): There has been no change of bone density since the previous examination. Right Femur Total: which represents a worsening of 2.7%. BD/Dexa Bone Density Study IMPRESSION: The patient is considered osteopenic as outlined below according to World Heri Organization (WHO) criteria with a moderate fracture risk. There has been worsening of bone density since the previous examination. Reference Information: The T-score is the number of standard deviations above or below the standard which is normal for young adults at their peak bone mineral density. The World Health Organization (WHO) interprets the T-scores as follows: Above -1 Normal bone density Between -1 and -2.5 Osteopenia Equal to / or below -2.5 Osteoporosis As a practical clinical guideline, osteopenia may be graded as follows: Mild -1 through -1.5 Moderate -1.6 through -2.0 Severe -2.1 through -2.4 The Z-score is the number of standard deviations above or below age-matched controls. A Z-score of less than -1.5 would be considered abnormal. References: 1. NIH Osteoporosis and Related Bone Diseases www osteo.org 2. International Society for Clinical Densitometry www iscd.org 3. National Osteoporosis Foundation www nof.org Electronically Signed: Leonel Horvath, at 10:46 EST , Service support ,
== END ==
PROVIDERS: PCP Internal Medicine; Referring Provider Internal Medicine; Visit Provider Internal Medicine
DX: Z12.31 Encounter for screening mammogram for malignant neoplasm of breast (principal); Z78.0 Asymptomatic menopausal state
CPT/HCPCS: 77063; 77067; 77080

== ENCOUNTER 2021-01-29 10:51 | Emergency (ER) | payer MEDICARE, OTHER, SELFPAY ==
[2021-01-29 10:53] VITALS: BP 147/85; PULSE 71; RESP 16; TEMP 37.3; O2SAT 99; BMI 27.4
--- NOTE | 2021-01-29 11:10 | EDS_ITS ---
HPI History of Present Illness Chief Complaint: Wound Check Detail of Chief Complaint: Redness and swelling to right knee x4 days Informant: patient Narrative Narrative: Patient presents to the emergency department with redness and swelling to the right knee that started 4 days ago. Patient states that she had right total knee replacement on January 18 at [facility] by Dr. Aden Ro. Patient's been having a lot of pain and called his office 5 days ago and was told to take Tylenol along with oxycodone. Patient started having redness and swelling that is progressively worsened over the last 4 days. She denies fevers or chills or sweats. Patient denies any chest pain or shortness of breath. Patient is not a diabetic. Patient states that she received IV antibiotics while in the hospital. Prior similar symptoms: No PFSH PFSH Medical History (Updated 01/29/21 @ 12:[address] Lily Kong DO) Hypertension Home Medications cholecalciferol (vitamin D3) 5,000 unit PO DAILY 04/02/17 [History Last Taken 04/02/17] escitalopram oxalate 10 mg PO DAILY 04/02/17 [History Last Taken 06/11/17 07:00 10 MG] fexofenadine 60 mg PO DAILY 04/02/17 [History Last Taken 04/02/17] hydrochlorothiazide 25 mg PO DAILY 04/02/17 [History Last Taken 04/02/17] lorazepam 0.25 mg PO DAILY PRN PRN 04/02/17 [History Last Taken 06/11/17 07:00 0.25 MG] lactobacillus combination no.4 1 ea PO CONT 06/04/17 [History Last Taken Unknown] turmeric 400 mg capsule mg PO 02/08/20 [History Last Taken Unknown] cefadroxil 500 mg PO BID #20 cap 01/29/21 [Rx Last Taken Unknown] Allergy/AdvReac Type Severity Reaction Status Date / Time amoxicillin [From Augmentin] Allergy Mild diarrhea, Verified 01/29/21 10:53 nausea clavulanic acid Allergy Mild diarrhea, Verified 01/29/21 10:53 [From Augmentin] nausea pseudoephedrine Allergy Mild unknown Verified 01/29/21 10:53 [From Bettye-D] prochlorperazine edisylate AdvReac Nausea/Vom/ Verified 01/29/21 10:53 [From Compazine] Diarrhea Family History Mother Arthritis Surgical History (Updated 01/15/18 @ 14:[address] Deb Alba, DO) H/O total hip arthroplasty History of hysterectomy S/P appendectomy Social History (Updated 04/11/20 @ 12:25 by Pablo COOPER, PA) Smoking Status: Never smoker ROS ROS ED Constitutional Constitutional ED: Reports systems reviewed and no addt'l complaints, except as documented; Denies body ache(s), change in weight or chills Eyes Eyes: Denies acute decrease in peripheral vision, change in vision, double vision or loss of vision ENT ENT ED: Reports none; Denies ear pain, lip swelling, loss taste/smell, neck pain, otalgia or sore throat Cardiovascular Cardiovascular: Reports none; Denies abdominal pain, chest pain with activity, leg edema, lightheadedness, palpitations, rapid heart rate or syncope Respiratory/Chest Respiratory/Chest: Reports none; Denies change in mental status, dry cough, dyspnea, hemoptysis, shortness of breath at rest or shortness of breath with exertion Gastrointestinal Gastrointestinal: Reports none; Denies abdominal pain, change in stool character, diarrhea, hematemesis, hematochezia, melena, rectal bleeding or vomiting Genitourinary Genitourinary ED: Reports none; Denies abdominal discomfort, anuria, dysuria, genital pain or polyuria Musculoskeletal Musculoskeletal: Reports none and other Details: Right knee pain ; Denies arthralgias, back pain, difficulty walking, extremity pain, muscle weakness or myalgias Integumentary Reports none and other Details: Redness and swelling to right knee ; Denies abscess or rash Neurologic Neurologic: Reports none; Denies abnormal gait, confusion, focal weakness, frequent falls, headache(s), loss of vision, numbness, paresthesias, radicular pain, vertigo or weakness Psychiatric Psychiatric: Reports systems reviewed and no addt'l complaints, except as documented and none; Denies behavioral changes, confusion, difficulty concentrating, hallucinations, suicidal ideation, tactile hallucinations or visual hallucinations Endocrine Endocrinology: Denies none, cold intolerance, excessive sweating, fatigue or heat intolerance Hematologic/Lymphatic Hematologic/Lymphatic: Reports none; Denies anemia, easy bleeding or easy bruising Allergic/Immunologic Allergic/Immunologic ED: Denies as per HPI, none, lip swelling, mouth swelling, throat swelling, tongue swelling or hives EXAM Physical Exam Const Vital Signs: 01/29/21 10:53 Temperature 99.1 F Temperature Source Temporal Pulse Rate 71 Respiratory Rate 16 Blood Pressure 147/85 H Blood Pressure Mean 105 Pulse Ox 99 Oxygen Delivery Method Room Air Positive well nourished and well developed General Appearance ED: well developed and NAD HEENT Reports TM's clear and moist mucous membranes normocephalic and atraumatic; Negative for trauma or tenderness Tympanic Membrane ED: Yes TM's clear Eyes PERRL and EOMs intact bilaterally General Eye ED: Negative for pale conjunctiva or scleral icterus Neck no lymphadenopathy, supple and no JVD General: Negative for tenderness Chest Wall inspection of chest normal and palpation of chest normal Chest: Negative for tenderness Resp normal respiratory effort and clear to auscultation bilaterally Effort and Inspection: Negative for respiratory distress or pain with movement Auscultation: Negative for rhonchi, wheezes or diminished lung sounds Cardio regular rate, regular rhythm, S1 normal heart sound, S2 normal heart sound and no murmurs Peripheral Pulses: pulses 2+ throughout GI normal to inspection, nondistended, normoactive bowel sounds, soft to palpation, non-tender, non-distended and no masses Back/Spine no CVA tenderness and no thoracic nor lumbar tenderness Extremity normal to inspection Extremity Narrative: Patient has diffuse erythema and warmth noted to the right knee. Sutures are intact. There is no purulent drainage from the wound noted. Mild diffuse tenderness to palpation of the right knee. Neurovascular intact distally. Negative Homans' sign. General Extremety ED: Negative for edema General Extremity: Negative for edema Neuro oriented x3, CN's II-XII intact bilaterally, no sensory deficits noted and gait normal Sensorium / Orientation: awake, alert, oriented to person, oriented to place and oriented to time Motor Exam: strength 5/5 throughout and strength abnormal Psych mental status grossly normal Skin no rashes or lesions noted and no wounds MDM MDM MDM Narrative Medical decision making narrative: Case discussed with who was covering for . At this point patient really not complaining of more pain with range of motion but has pain all the time. My suspicion is that patient likely has a superficial skin/wound infection. I do not feel she has a septic joint at this time. Given the extensive erythema around the knee joint no arthrocentesis was performed. I was asked to start patient on Duricef 500 mg twice daily and able contact her for follow-up tomorrow or the next day. Patient has a scheduled follow-up in 2 days. I did outline the area of erythema with marker and advised her to return if worsening redness, fever, chills, sweats, or condition should worsen anyway. Lab Data Labs: Laboratory Results - last 24 hr 01/29/21 01/29/21 01/29/21 11:34 11:34 11:34 WBC 7.5 RBC 3.96 L Hgb 12.2 Hct 37.5 MCV 94.7 MCH 30.8 MCHC 32.5 RDW Std Deviation 49.1 H RDW Coeff of Price 14.4 Plt Count 433 MPV 8.8 Immature Gran % (Auto) 1.200 H Neut % (Auto) 68.7 Lymph % (Auto) 17.6 L [place] % (Auto) 7.8 Eos % (Auto) 4.2 Baso % (Auto) 0.5 Absolute Neuts (auto) 5.1 Absolute Lymphs (auto) 1.31 Nucleated RBC % 0 ESR 25 Sodium 138 Potassium 3.9 Chloride 102 Carbon Dioxide 29.0 Anion Gap 7 BUN 16 Creatinine 0.85 Estim Creat Clear Calc 55.42 Est GFR (MDRD) Af Amer 84 Est GFR (MDRD) Non-Af 70 BUN/Creatinine Ratio 18.7 Glucose 103 Lactic Acid 1.1 Calcium 8.9 C-React Prot Ext Range 40.30 H Discharge Plan Triage Chief Complaint: Wound Check ED Provider: Lily Kong Dx/Rx/DC Orders Clinical Impression: Postoperative wound infection Instructions: ED Wound Check (Infection) Prescriptions: New cefadroxil 500 mg capsule 500 mg PO BID Qty: 20 RF: 0 No Action turmeric 400 mg capsule PO RF: 0 fexofenadine 60 MG tablet 60 mg PO DAILY RF: 0 lorazepam 0.5 MG tablet 0.25 mg PO DAILY PRN PRN (Reason: Anxiety) RF: 0 hydrochlorothiazide 25 MG tablet 25 mg PO DAILY RF: 0 cholecalciferol (vitamin D3) 5,000 UNIT capsule 5,000 unit PO DAILY RF: 0 escitalopram oxalate 10 MG tablet 10 mg PO DAILY RF: 0 lactobacillus combination no.4 1 EACH capsule 1 ea PO CONT RF: 0 Primary Care Provider: Chelsea Moss Referrals: Chelsea Moss DO [Primary Care Provider] - Activity Restrictions/Additional Instructions: See your surgeon tomorrow or the next day for repeat exam Disposition Disposition: Home, Self Care
[2021-01-29 11:46] LABS: Absolute Lymphocyte Count 1.31 X10^3/uL (0.83-4.51); Absolute Neutrophil Count 5.1 X10^3/uL (2.0-7.7); Basophil# 0.04 X10^3/uL; Basophil% 0.5 % (0-1); Eosinophil# 0.31 X10^3/uL; Eosinophils% 4.2 % (0-5); Hematocrit 37.5 % (37-47); Hemoglobin 12.2 g/dL (12.0-15.0); Lymphocyte # 1.31 X10^3/ul (0.83-4.51); Lymphocyte % 17.6 % (19-41); Mean Corp Hgb Conc 32.5 g/dL (32-36); Mean Corpuscular Hgb 30.8 pg (27.0-32.0); Mean Corpuscular Volume 94.7 fL (81-99); Mean Platelet Vol. 8.8 fl (6.2-12.0); Monocyte# 0.58 X10^3/uL; Monocyte% 7.8 % (0-10); NRBC Flagged by Analyzer 0 % (0-5); Neutrophil # 5.12 X10^3/uL (2.7-7.7); Neutrophil % 68.7 % (47-70); Platelet Count 433 K/mm3 (150-450); RBC Distribution Width CV 14.4 % (11.6-14.6); RBC Distribution Width SD 49.1 fl (35.1-43.9); Red Blood Count 3.96 M/mm3 (4.2-5.4); White Blood Count 7.5 K/mm3 (4.4-11.0)
[2021-01-29 11:52] VITALS: BP 147/85; PULSE 71; RESP 16; TEMP 37.3; O2SAT 99
[2021-01-29 11:53] LABS: Erythrocyte Sedimentation Rate 25 mm/hr (0-30)
[2021-01-29 12:01] LABS: Anion Gap 7 (5-15); BUN 16 mg/dL (7-18); BUN/Creat Ratio 18.7 RATIO (10-20); Calcium,Total 8.9 mg/dL (8.5-10.1); Chloride 102 mmol/L (98-107); Creatinine, Serum 0.85 mg/dL (0.55-1.02); EST Glomerular Filtration Rate 70 mL/min (>60); Est Glom Filt Rate - Afr Amer 84 mL/min (>60); Estimated Creatinine Clearance 55.42 ml/min; Glucose 103 mg/dL (74-106); Potassium 3.9 mmol/L (3.5-5.1); Sodium Level 138 mmol/L (136-145)
[2021-01-29 12:05] LABS: Lactic Acid 1.1 mmol/L (0.4-1.9)
[2021-01-29] MEDS: 0.9% Normal Saline 1,000 ML 150 ML IV (12:37)
== END 2021-01-29 14:06 | disposition home or self-care (01) ==
PROVIDERS: Emergency Provider Emergency Medicine; PCP Internal Medicine
DX: T81.41XA Infection following a procedure, superficial incisional surgical site, initial encounter (principal); Y83.8 Other surgical procedures as the cause of abnormal reaction of the patient, or of later complication, without mention of misadventure at the time of the procedure; Z96.651 Presence of right artificial knee joint; I10 Essential (primary) hypertension; Z79.899 Other long term (current) drug therapy
CPT/HCPCS: 36415; 80048; 83605; 85025; 85652; 86140; 87040; 96365; 99283; J7030; A4216; J0295

== ENCOUNTER 2021-03-31 12:00 | Outpatient (RCR) | payer MEDICARE, OTHER, SELFPAY ==
--- NOTE | 2021-02-10 11:47 | HP.PTEVAL ---
Patient's Visit Information DANIS CARRILLO is a 70 year old F referred to Physical Therapy by ANI COREY with a diagnosis of UNILATERAL PRIMARY OSTEOARTHRITIS RIGHT KNEE. Date of Evaluation: 02/10/21 Physical Therapist: Giovanni Johnson, PT, Cert MDT, OCS - Visit Plan Frequency: 3x /Week Duration: 3 Weeks Plan: S/P TKA 01/18/21 ..POST OP COMPLICATION DEVELOPED INFECTION. FOCUS ON ROM. PT INTERVETIONS ROM -AROM/STRETCHING ,STRENGTHENING QUADS/HAMS ,FUNCTIONAL STRENGTHENING ,BIKE /NUSTEP ,CP AND GAIT TRAINING - Subjective This 70 y/o female presents to physical therapy with right TKA on 01/18/[address] Corey at [facility]. Patient d/c next day with FWW. Patient had in home PT . Patient had some redness thus had infection 01/29/21 ER IV antibiotics ,then had 10 day prescription antibiotic. RTD DR Corey 2 week check up and recommended PT. Infection is better. Patient continues to have some pain worse 5-6/10. Patient progressed to no device weaned self from cane MED -oxycodone every 6 hours. C/O paresthesia knee. Patient had block and used [employer] technology. Patient has difficulty with walking long distance. Stairs one step at time. Patient has had knee pain~3 years . Patient TKA affects QOL and function . Goals to return to function walk normal no pain. Patient had left THR. SOCAIL: . VOACTION: retired - Pain Right Knee Pain Intensity (Out of 10): 4 Pain Intensity Range: 9 - Objective POSTURE: mild forward posture knee slightly flexed. GAIT : ambulated with decrease swing phase stance time during gait cycle. BALANCE: good-. PALPTION: tender calf ,knee. GIRTH PATELLA: 43.3 cm. GIRTH 6 SUPRAPATELLAR: 45.5 CM. AROM: 4-90 degrees supine knee flexion. MMT: quads 30 peak force ,hamstrings 22.3 peak force, HIP FLEXION 40 peak force, ankle 5/5. INSCION: well approximate. STAIRS: one step at time with rails. -Homans. FLEXABLITY: hams mild tight - Goals Goal 1:: I with HEP Goal Time Frame: 4-6 Weeks Goal 2:: Patient to normalize gait Goal Time Frame: 4-6 Weeks Goal 3:: Patient increase AROM knee flexion 0-110 degrees to improve stairs Goal Time Frame: 4-6 Weeks Goal 4:: Patient to increase strength peak force quads 50 ,hams 45 to improve function Goal Time Frame: 6-8 Weeks Goal 5:: Patient to improve LFES score by 10 points or > to improve function and gait Goal Time Frame: 4-6 Weeks Goal 6:: Patient to improve TUG score less than 7 seconds Goal Time Frame: 4-6 Weeks - Rehabilitation Potential Physical Therapy Diagnosis: This patient underwent s/p right TKA done with decrease ROM ,strength ,gait ,transfers and stairs thus will benefit from skilled PT Rehabilitation Potential: Good - Anticipated Interventions Patient/Client Instruction: Educate patient on: Condition, Plan of Care For the Purpose of:: To decrease pain, To increase ROM, To improve muscle performance and motor function, To improve ability to perform ADL's, To increase tolerance to activity/condition/position, To improve ability of physical actions for home/community/work/leisure, To improve gait and locomotor functions, To improve health of tissue, To decrease soft tissue restriction, To increase flexibility/ROM, To reduce risk of recurrence, To prevent re-injury Therapeutic Exercise to Include: Strength training, Endurance training, Balance training, Flexibilty training, Gait and locomotor training, Passive ROM, Dynamic Lumbar Stabilization Comment: QUADS/HAMS For the Purpose of:: To decrease pain, To increase ROM, To improve muscle performance and motor function, To improve ability to perform ADL's, To increase tolerance to activity/condition/position, To improve performance and independence with ADL's, To improve ability of physical actions for home/community/work/leisure, To improve health of tissue, To decrease soft tissue restriction, To increase flexibility/ROM, To reduce risk of recurrence, To improve health and function, To prevent re-injury Thank you for the opportunity to evaluate your patient. For Medicare and Medicare HMO plans, please review the plan of care and approve it. It will need to be FAXED BACK to us at [phone] for Medicare purposes. For Medicare only, by signing this I certify the plan of care. Please let me know if there are questions or concerns regarding this plan of care. Physician Signature: Date:
--- NOTE | 2021-02-10 11:51 | HP.PTEVAL ---
Patient's Visit Information DANIS CARRILLO is a 70 year old F referred to Physical Therapy by ANI COREY with a diagnosis of UNILATERAL PRIMARY OSTEOARTHRITIS RIGHT KNEE. Date of Evaluation: 02/10/21 Physical Therapist: Giovanni Johnson, PT, Cert MDT, OCS - Visit Plan Frequency: 3x /Week Duration: 3 Weeks Plan: S/P TKA 01/18/21 ..POST OP COMPLICATION DEVELOPED INFECTION. FOCUS ON ROM. PT INTERVETIONS ROM -AROM/STRETCHING ,STRENGTHENING QUADS/HAMS ,FUNCTIONAL STRENGTHENING ,BIKE /NUSTEP ,CP AND GAIT TRAINING - Subjective This 70 y/o female presents to physical therapy with right TKA on 01/18/[address] Corey at [facility]. Patient d/c next day with FWW. Patient had in home PT . Patient had some redness thus had infection 01/29/21 ER IV antibiotics ,then had 10 day prescription antibiotic. RTD DR Corey 2 week check up and recommended PT. Infection is better. Patient continues to have some pain worse 5-6/10. Patient progressed to no device weaned self from cane MED -oxycodone every 6 hours. C/O paresthesia knee. Patient had block and used [email or web address] technology. Patient has difficulty with walking long distance. Stairs one step at time. Patient has had knee pain~3 years . Patient TKA affects QOL and function . Goals to return to function walk normal no pain. Patient had left THR. SOCAIL: . VOACTION: retired - Pain Right Knee Pain Intensity (Out of 10): 4 Pain Intensity Range: 9 - Objective POSTURE: mild forward posture knee slightly flexed. GAIT : ambulated with decrease swing phase stance time during gait cycle. BALANCE: good-. PALPTION: tender calf ,knee. GIRTH PATELLA: 43.3 cm. GIRTH 6 SUPRAPATELLAR: 45.5 CM. AROM: 4-90 degrees supine knee flexion. MMT: quads 30 peak force ,hamstrings 22.3 peak force, HIP FLEXION 40 peak force, ankle 5/5. INSCION: well approximate. STAIRS: one step at time with rails. -Homans. FLEXABLITY: hams mild tight. WOMAC: 58% - Goals Goal 1:: I with HEP Goal Time Frame: 4-6 Weeks Goal 2:: Patient to normalize gait Goal Time Frame: 4-6 Weeks Goal 3:: Patient increase AROM knee flexion 0-110 degrees to improve stairs Goal Time Frame: 4-6 Weeks Goal 4:: Patient to increase strength peak force quads 50 ,hams 45 to improve function Goal Time Frame: 6-8 Weeks Goal 5:: Patient to improve LFES score by 10 points or > to improve function and gait Goal Time Frame: 4-6 Weeks Goal 6:: Patient to improve TUG score less than 7 seconds Goal Time Frame: 4-6 Weeks - Rehabilitation Potential Physical Therapy Diagnosis: This patient underwent s/p right TKA done with decrease ROM ,strength ,gait ,transfers and stairs thus will benefit from skilled PT Rehabilitation Potential: Good - Anticipated Interventions Patient/Client Instruction: Educate patient on: Condition, Plan of Care For the Purpose of:: To decrease pain, To increase ROM, To improve muscle performance and motor function, To improve ability to perform ADL's, To increase tolerance to activity/condition/position, To improve ability of physical actions for home/community/work/leisure, To improve gait and locomotor functions, To improve health of tissue, To decrease soft tissue restriction, To increase flexibility/ROM, To reduce risk of recurrence, To prevent re-injury Therapeutic Exercise to Include: Strength training, Endurance training, Balance training, Flexibilty training, Gait and locomotor training, Passive ROM, Dynamic Lumbar Stabilization Comment: QUADS/HAMS For the Purpose of:: To decrease pain, To increase ROM, To improve muscle performance and motor function, To improve ability to perform ADL's, To increase tolerance to activity/condition/position, To improve performance and independence with ADL's, To improve ability of physical actions for home/community/work/leisure, To improve health of tissue, To decrease soft tissue restriction, To increase flexibility/ROM, To reduce risk of recurrence, To improve health and function, To prevent re-injury Thank you for the opportunity to evaluate your patient. For Medicare and Medicare HMO plans, please review the plan of care and approve it. It will need to be FAXED BACK to us at [phone] for Medicare purposes. For Medicare only, by signing this I certify the plan of care. Please let me know if there are questions or concerns regarding this plan of care. Physician Signature: Date:
--- NOTE | 2021-03-06 18:50 | HP.PTREVAL_ITS ---
ANI COREY, It has been my pleasure to treat DANIS CARRILLO over the last 10 visits for UNILATERAL PRIMARY OSTEOARTHRITIS RIGHT KNEE. Please see the progress note below for an update on the physical therapy plan of care! Subjective: Had manipulation today ..Doing well Objective/Function: GAIT: RECIPROCAL PATTERN MILD DECREASE STANCE TIME RLE. EDEMA: ABSENT. SKIN: INTACT. AAROM: SUPINE KNEE FLEXION 0-105 DEGRREES. MMT : QUADS/HAMS / Plan Plan: S/P MANTIPULATION 03/06. S/P TKA 01/18/21 ..POST OP COMPLICATION DEVELOPED INFECTION. FOCUS ON ROM TO ESURE IMPROVING. PT INTERVETIONS ROM - AROM/STRETCHING ,STRENGTHENING QUADS/HAMS ,FUNCTIONAL STRENGTHENING ,BIKE /NUSTEP ,CP AND GAIT TRAINING added estim Balance/Gait/Functional tests - Balance/Special Test Scores Lower Extremity Functional Score: 29 Tug Test: <10 sec.=free mobile Goals Goal 1:: I with HEP Goal Time Frame: 4-6 Weeks Goal Progress: Progressing Goal 2:: Patient to normalize gait Goal Time Frame: 4-6 Weeks Goal 3:: Patient increase AROM knee flexion 0-110 degrees to improve stairs Goal Time Frame: 4-6 Weeks Goal Progress: Progressing Goal 4:: Patient to increase strength peak force quads 50 ,hams 45 to improve function Goal Time Frame: 6-8 Weeks Goal Progress: Progressing Goal 5:: Patient to improve LFES score by 10 points or > to improve function and gait Goal Time Frame: 4-6 Weeks Goal Progress: Progressing Goal 6:: Patient to improve TUG score less than 7 seconds Goal Time Frame: 4-6 Weeks Goal Progress: Progressing Anticipated Interventions Patient/Client Instruction: Educate patient on: Condition, Plan of Care For the Purpose of:: To decrease pain, To increase ROM, To improve muscle performance and motor function, To improve ability to perform ADL's, To increase tolerance to activity/condition/position, To improve ability of physical actions for home/community/work/leisure, To improve gait and locomotor functions, To improve health of tissue, To decrease soft tissue restriction, To increase flexibility/ROM, To reduce risk of recurrence, To prevent re-injury Therapeutic Exercise to Include: Strength training, Endurance training, Balance training, Flexibilty training, Gait and locomotor training, Passive ROM, Dynamic Lumbar Stabilization Comment: QUADS/HAMS For the Purpose of:: To decrease pain, To increase ROM, To improve muscle performance and motor function, To improve ability to perform ADL's, To increase tolerance to activity/condition/position, To improve performance and independence with ADL's, To improve ability of physical actions for home/community/work/leisure, To improve health of tissue, To decrease soft tissue restriction, To increase flexibility/ROM, To reduce risk of recurrence, To improve health and function, To prevent re-injury Please do not hesitate to contact me at [phone] by phone or if you have questions or concerns regarding this new plan of care! Sincerely, Giovanni Johnson, PT, Cert MDT, OCS
--- NOTE | 2021-03-24 11:23 | HP.PTREVAL ---
ANI COREY, It has been my pleasure to treat DANIS CARRILLO over the last 19 visits for UNILATERAL PRIMARY OSTEOARTHRITIS RIGHT KNEE. Please see the progress note below for an update on the physical therapy plan of care! Subjective: Wasnt feeling good yesterday Objective/Function: GAIT: reciprocal pattern. AROM 0-115 DEGREES supine knee flexion. MMT: quads/hams 4/5,hip flexion 4-/5. STAIRS: alternating one steps at time with rails Plan Plan: S/P MANTIPULATION 03/06. S/P TKA 01/18/21 ..POST OP COMPLICATION DEVELOPED INFECTION. FOCUS ON ROM. PT INTERVETIONS ROM -AROM/STRETCHING ,STRENGTHENING QUADS/HAMS ,FUNCTIONAL STRENGTHENING ,BIKE /NUSTEP ,CP AND GAIT TRAINING Balance/Gait/Functional tests - Balance/Special Test Scores Lower Extremity Functional Score: 45 Tug Test: <10 sec.=free mobile Goals Goal 1:: I with HEP Goal Time Frame: 4-6 Weeks Goal Progress: Progressing Goal 2:: Patient to normalize gait Goal Time Frame: 4-6 Weeks Goal 3:: Patient increase AROM knee flexion 0-110 degrees to improve stairs Goal Time Frame: 4-6 Weeks Goal Progress: Progressing Goal 4:: Patient to increase strength peak force quads 50 ,hams 45 to improve function Goal Time Frame: 6-8 Weeks Goal Progress: Progressing Goal 5:: Patient to improve LFES score by 10 points or > to improve function and gait Goal Time Frame: 4-6 Weeks Goal Progress: Progressing Goal 6:: Patient to improve TUG score less than 7 seconds Goal Time Frame: 4-6 Weeks Goal Progress: Progressing Anticipated Interventions Patient/Client Instruction: Educate patient on: Condition, Plan of Care For the Purpose of:: To decrease pain, To increase ROM, To improve muscle performance and motor function, To improve ability to perform ADL's, To increase tolerance to activity/condition/position, To improve ability of physical actions for home/community/work/leisure, To improve gait and locomotor functions, To improve health of tissue, To decrease soft tissue restriction, To increase flexibility/ROM, To reduce risk of recurrence, To prevent re-injury Therapeutic Exercise to Include: Strength training, Endurance training, Balance training, Flexibilty training, Gait and locomotor training, Passive ROM, Dynamic Lumbar Stabilization Comment: QUADS/HAMS For the Purpose of:: To decrease pain, To increase ROM, To improve muscle performance and motor function, To improve ability to perform ADL's, To increase tolerance to activity/condition/position, To improve performance and independence with ADL's, To improve ability of physical actions for home/community/work/leisure, To improve health of tissue, To decrease soft tissue restriction, To increase flexibility/ROM, To reduce risk of recurrence, To improve health and function, To prevent re-injury Please do not hesitate to contact me at [phone] by phone or if you have questions or concerns regarding this new plan of care! Sincerely, Giovanni Johnson, PT, Cert MDT, OCS
--- NOTE | 2021-03-31 12:34 | HP.PTDCSUM_ITS ---
It has been my pleasure to treat DANIS CARRILLO referred by ANI COREY, with the diagnosis of UNILATERAL PRIMARY OSTEOARTHRITIS RIGHT KNEE for a total of 22 visit(s). Discharge Date: 03/31/21 Please see the following information for a summary of their discharge status. Subjective: Ready for d/c Right Knee Pain Intensity (Out of 10): 2 % Improvement: 85 Objective/Function: POSTURE: WFL. GAIT: reciprocal pattern. BALANCE: GOOD. STAIRS: ALTERNATING WITH RAIL DESCENDING. MMT: QUADS/HAMS/HIP 4/5. AAROM: 0- 115 SUPINE KNEE FLEXION Goal 1:: I with HEP Goal Progress: Goal Met Goal 2:: Patient to normalize gait Goal Progress: Goal Met Goal 3:: Patient increase AROM knee flexion 0-110 degrees to improve stairs Goal Progress: Goal Met Goal 4:: Patient to increase strength peak force quads 50 ,hams 45 to improve function Goal Progress: Goal Met Goal 5:: Patient to improve LFES score by 10 points or > to improve function and gait Goal Progress: Goal Met Goal 6:: Patient to improve TUG score less than 7 seconds Goal Progress: Progressing Plan: D/C TO HEP Discharge Comments: HEP If there are questions or concerns regarding this patient's physical therapy, please feel free to call me at [phone]. Thank you for the referral of this patient. Sincerely, Giovanni Johnson, PT, Cert MDT, OCS Balance/Gait/Functional tests - Balance/Special Test Scores Lower Extremity Functional Score: 55 Tug Test: <10 sec.=free mobile WOMAC Total Score: 11 WOMAC Percentage: 88.5500
== END 2021-03-31 19:00 | disposition home or self-care (01) ==
LOC: PT 12:00
PROVIDERS: PCP Internal Medicine
DX: M17.11 Unilateral primary osteoarthritis, right knee (principal)
CPT/HCPCS: 97110; 97162

== ENCOUNTER → 2021-05-16 14:39 | Outpatient (CLI) | payer MEDICARE, OTHER, SELFPAY ==
--- NOTE | 2021-05-16 14:42 | BI_ITS ---
MAMMOGRAPHY - BILATERAL SCREENING REASON FOR EXAM: Female, 70 years old. Routine annual screening examination. PERTINENT HISTORY: Non-contributory. History of prior bilateral breast reduction surgery. TECHNIQUE: Digital bilateral breast damion (3D mammographic acquisition) in the CC and MLO projections. 2-D mediolateral oblique (MLO) and craniocaudad (CC) views of both breasts were obtained. CAD: Full Field Digital Mammography with Computer Added Detection was performed. COMPARISON: Comparison is made with prior study dated 04/28/2020 and 03/29/2017. FINDINGS: Breast Composition: The breasts are almost entirely fatty. There are no dominant masses or suspicious calcifications. A tissue clip marker is once again seen in the retroareolar region of the left breast. No other significant abnormalities are identified. There has been no significant change since the prior study. BI/SCRN MAMM (CAD)W/DAMION BILAT IMPRESSION: Stable bilateral screening mammogram. Yearly follow-up mammogram recommended. (A) ASSESSMENT CATEGORY: BIRADS Category 2: Benign. A letter regarding these results will be sent to the patient by the facility within 30 days. Approximately 10% of breast cancers are not detected by mammography. A normal mammogram should not delay biopsy of a clinically suspicious abnormality. [id number] Electronically Signed: Leonel Horvath MD at 8:27 EST , Service support ,
== END ==
PROVIDERS: PCP Internal Medicine; Referring Provider Internal Medicine; Visit Provider Internal Medicine
DX: Z12.31 Encounter for screening mammogram for malignant neoplasm of breast (principal); Z78.0 Asymptomatic menopausal state
CPT/HCPCS: 77063; 77067

== ENCOUNTER 2022-08-27 16:00 | Outpatient (RCR) | payer MEDICARE, OTHER, SELFPAY ==
--- NOTE | 2022-06-05 15:05 | HP.PTEVAL ---
Patient's Visit Information DANIS CARRILLO is a 71 year old F referred to Physical Therapy by ANI COREY with a diagnosis of L TKA. Date of Evaluation: 06/05/22 Physical Therapist: Anurag Beatty, PT, ATC - Visit Plan Frequency: 2-3x /Week Duration: 4-6 Weeks Plan: L knee PROM/mobs, stretching and strengthening, balance and proprio, core stab ex's, nustep, and HEP - Subjective DOS: 05/18/22. Pt reports she had a L TKA performed at that time. Pt reports she has been having home health for the last couple of weeks. Pt reports she had a chronic Hx of L knee pain prior to the surgery. Pt reports she is glad to have had the surgery at this time, although the pain is still severe. Pt reports no tingling or numbness in L LE with exception to tissue surrounding the incision. Pt reports sleep difficulty at this time if she doesnt take her meds. Pt reports she has stairs at home and has to negotiate them one step at a time. Pt reports her knee flexion was 103 degrees with her home health. Pt reports she works at [employer] and hopes to return to that in the beginning of June. 6/10 pain while sitting here at rest. - Pain L knee Pain Intensity (Out of 10): 6 Pain Intensity Range: 6 - Objective Neuro: B LE sensation is WNL to light touch. B achilles reflex= 2/3. ROM: R knee 0-115, L knee 0-10-101 degrees. MMT: R knee flex= 31, ext= 40 #F; L knee flex= 13, ext= 16 #F. Gait: Pt ambulates with the use of a cane. Slower edith at this time. TU.01 sec - Balance/Special Test Scores Lower Extremity Functional Score: 17 - Goals Goal 1:: Decrease L knee pain x 50% to aid with sleep Goal Time Frame: 4-6 Weeks Goal 2:: Increase L knee strength x 10 #F to aid with stair negotiation Goal Time Frame: 4-6 Weeks Goal 3:: Increase L knee ROM x 20 degrees to aid with restoring a more normalized gait pattern Goal Time Frame: 4-6 Weeks Goal 4:: I with HEP Goal Time Frame: 4-6 Weeks - Rehabilitation Potential Physical Therapy Diagnosis: L knee pain, weakness, and limited ROM secondary to L TKA Rehabilitation Potential: Good - Anticipated Interventions Patient/Client Instruction: Educate patient on: Condition, Plan of Care For the Purpose of:: To improve self management Therapeutic Exercise to Include: Strength training For the Purpose of:: To decrease pain, To increase ROM, To improve muscle performance and motor function Cryotherapy (ice pack, ice massage): Yes For the Purpose of:: To decrease pain Thank you for the opportunity to evaluate your patient. For Medicare and Medicare HMO plans, please review the plan of care and approve it. It will need to be FAXED BACK to us at [phone] for Medicare purposes. For Medicare only, by signing this I certify the plan of care. Please let me know if there are questions or concerns regarding this plan of care. Physician Signature: Date:
--- NOTE | 2022-08-27 16:32 | HP.PTDCSUM_ITS ---
It has been my pleasure to treat DANIS CARRILLO referred by ANI COREY, with the diagnosis of L TKA 05/18/22 for a total of 31 visit(s). Discharge Date: Please see the following information for a summary of their discharge status. Subjective: I am ready for discharge Right Ankle Pain Intensity (Out of 10): 1 L knee Pain Intensity (Out of 10): 1 % Improvement: 95 Objective/Function: L knee pain 06/19. L knee ROM 0-127. L knee MMT: flex= 34, ext= 44 #F. TU.7 sec Goal 1:: Decrease L knee pain x 50% to aid with sleep Goal Progress: Goal Met Goal 2:: Increase L knee strength x 10 #F to aid with stair negotiation Goal Progress: Goal Met Goal 3:: Increase L knee ROM x 20 degrees to aid with restoring a more normalized gait pattern Goal Progress: Goal Met Goal 4:: I with HEP Goal Progress: Goal Met Plan: Discharge to [facility] If there are questions or concerns regarding this patient's physical therapy, please feel free to call me at [phone]. Thank you for the referral of this patient. Sincerely, Anurag Beatty, PT, ATC Balance/Gait/Functional tests - Balance/Special Test Scores Lower Extremity Functional Score: 44
== END 2022-08-27 19:00 | disposition home or self-care (01) ==
LOC: PT 16:00
PROVIDERS: PCP Internal Medicine
DX: M17.12 Unilateral primary osteoarthritis, left knee (principal)
CPT/HCPCS: 97110; 97140; 97161; 97164

== ENCOUNTER → 2022-10-23 | Outpatient (CLI) | payer MEDICARE, OTHER, SELFPAY ==
--- NOTE | 2022-10-23 12:04 | BI_ITS ---
MAMMOGRAPHY - BILATERAL SCREENING REASON FOR EXAM: Female, 72 years old. Routine annual screening examination. PERTINENT HISTORY: Non-contributory. Patient has a history of prior bilateral breast reduction surgery. History of prior left needle breast biopsy. TECHNIQUE: Digital bilateral breast damion (3D mammographic acquisition) in the CC and MLO projections. 2-D mediolateral oblique (MLO) and craniocaudad (CC) views of both breasts were obtained. CAD: Full Field Digital Mammography with Computer Added Detection was performed. COMPARISON: Comparison is made with prior study of May 16, 2021 and April 28, 2020. FINDINGS: Breast Composition: The breasts are almost entirely fatty. There are no dominant masses or suspicious calcifications. Once again, a tissue clip marker is seen in the retroareolar region of the left breast. No other significant abnormalities are identified. There has been no significant change since the prior study. BI/SCRN MAMM (CAD)W/DAMION BILAT IMPRESSION: Stable bilateral screening mammogram. Yearly follow-up mammogram recommended. (A) ASSESSMENT CATEGORY: BIRADS Category 2: Benign. A letter regarding these results will be sent to the patient by the facility within 30 days. Approximately 10% of breast cancers are not detected by mammography. A normal mammogram should not delay biopsy of a clinically suspicious abnormality. [id number] Electronically Signed: Leonel Horvath MD at 13:51 EDT ,
== END | disposition home or self-care (01) ==
LOC: OPBI 12:00
PROVIDERS: PCP Internal Medicine; Referring Provider Internal Medicine; Visit Provider Internal Medicine
DX: Z12.31 Encounter for screening mammogram for malignant neoplasm of breast (principal)
CPT/HCPCS: 77063; 77067

== ENCOUNTER 2023-01-07 09:30 | Outpatient (RCR) | payer MEDICARE, OTHER, SELFPAY ==
--- NOTE | 2022-12-06 11:01 | HP.PTEVAL_ITS ---
Patient's Visit Information Visit Information Visit Information: DANIS CARRILLO is a 72 year old F referred to Physical Therapy by ANI COREY with a diagnosis of L TKR in 05/2023. Date of Evaluation: 12/06/22 Physical Therapist: VERO España Visit Plan Frequency: 2x /Week Duration: 4 Weeks Plan: 2X/ week for 4 weeks for L hip abd and hip ext strength, functional strength with sit to stand, steps, SLB, gait mechanics (Equal stance time), L knee strength with HEP HEP: L SLS, Gait with weight shift to the L, Stairs with knee straight and not in valgus position, sit to stand with stand with feet even, Bike Subjective Subjective: Had L TKR in and R knee was done in 2020. She is still having stiffness and some soreness and went to for a check up and they agreed to additional PT. When she straightens out her knee she does not have the knee extension. Stairs: she goes up and down with a railing but she can tell a dif ference. Squatting down to the floor she can get up but it is painful. She seems to be back sliding a little bit. She can walk a mile and it does swell some and she feel stiffness afterwards. She was playing a lot of golf when she went to [place]. She struggles sometimes with sit to stand at times and uses her arms. Pain L knee: Pain Intensity (Out of 10): 2 Objective Objective: Gait: walks with decrease stance time on the L LE and entire L LE seems to be more stiff legged with walking Sitting posture: likes to sit on her R buttcheek and likes to sit with L Leg out in front sit to stand: uses R leg to stand mostly Hip flexion R 17.5 and L 15 Knee ext R 20.7 and L 19.2 Knee flex R 12.6 and L 11.1 Hip abd R 11.5 and L 10.1 Stairs: up and down recip but does tend to have valgus of the L knee when ascending the stairs SLS: 15 seconds with decrease weight shift onto the L Side R knee AROM 0-119 L knee AROM -1 to 120 Bridge 1/2 normal ROM Balance/Special Test Scores Lower Extremity Functional Score: 45 Goals Goal 1:: I HEP Goal Time Frame: 6-8 Weeks Goal 2:: Pt to feel L knee is 50% less stiff and painful Goal Time Frame: 6-8 Weeks Goal 3:: sit to stand with equal weight bearing on B legs with no UE support 5/5 times Goal Time Frame: 6-8 Weeks Goal 4:: Be able to walk with equal stance time on B LE's Goal Time Frame: 6-8 Weeks Goal 5:: Be able to asccend and descend the stairs with no signs of weakness Goal Time Frame: 6-8 Weeks Rehabilitation Potential Rehabilitation Potential: Good Anticipated Interventions Text: Thank you for the opportunity to evaluate your patient. For Medicare and Medicare HMO plans, please review the plan of care and approve it. It will need to be FAXED BACK to us at [phone] for Medicare purposes. For Medicare only, by signing this I certify the plan of care. Please let me know if there are questions or concerns regarding this plan of care. Physician Signature: Date:
--- NOTE | 2023-01-07 09:59 | HP.PTDCSUM ---
Discharge Summary D/C summary: It has been my pleasure to treat DANIS CARRILLO referred by ANI COREY, with the diagnosis of L TKR in 05/2023 for a total of 8 visit(s). Discharge Date: 01/07/23 Please see the following information for a summary of their discharge status. Subjective Subjective: Swelling has decreased and ROM is better. Her stride is much better and she is conscious of her walking now. It is not perfect yet but it is getting there. Pain L knee: Pain Intensity (Out of 10): 0 Overall Improvement % Improvement: 75 Objective Objective/Function: Stairs: up and down recip with no hand rail. Did explain to keep knees more straight ahead when ascending the stairs to avoid valgus Gait: Pt walks with no antalgic gait Sit to stand X 5 with no UE support (did advise the patient to not have knees together and more apart with sit to stand). Goals Goal 1:: I HEP Goal Progress: Goal Met Goal 2:: Pt to feel L knee is 50% less stiff and painful Goal Progress: Goal Met Goal 3:: sit to stand with equal weight bearing on B legs with no UE support 5/5 times Goal Progress: Goal Met Goal 4:: Be able to walk with equal stance time on B LE's Goal Progress: Goal Met Goal 5:: Be able to asccend and descend the stairs with no signs of weakness Goal Progress: Goal Met Plan Plan: DC PT to HEP and [facility] D/C Information Discharge Comments: DC PT to HEP d/c sentence: If there are questions or concerns regarding this patient's physical therapy, please feel free to call me at [phone]. Thank you for the referral of this patient. Sincerely, Itzel Baker, MPT Balance/Gait/Functional tests Balance/Special Test Scores Lower Extremity Functional Score: 57
== END 2023-01-07 10:16 | disposition home or self-care (01) ==
LOC: PT 09:30
PROVIDERS: PCP Internal Medicine
DX: Z96.652 Presence of left artificial knee joint (principal)
CPT/HCPCS: 97110; 97161; 97530

== ENCOUNTER 2023-05-18 16:38 | Emergency (ER) | payer MEDICARE, OTHER, SELFPAY ==
[2023-05-18 16:38] VITALS: BP 152/89; PULSE 65; RESP 14; TEMP 36.8; O2SAT 98; BMI 28.8
--- NOTE | 2023-05-18 16:56 | RAD_ITS ---
INDICATION: fall EXAMINATION/TECHNIQUE: X-RAY - XR Chest 2 Views COMPARISON: July 12, 2013. FINDINGS: Cardiac silhouette and mediastinal contours are stable. No focal airspace consolidation or pleural effusion. Left breast clip. Cholecystectomy clips. There are degenerative changes of the spine which are moderate. Atherosclerotic aortic disease. RAD/Chest PA and Lateral IMPRESSION: No acute cardiopulmonary disease identified radiographically. No definitive acute fracture. Electronically Signed: William Dumont MD at 18:08 EST ,
--- NOTE | 2023-05-18 16:56 | RAD_ITS ---
INDICATION: pain EXAMINATION/TECHNIQUE: X-RAY - LEFT XR Knee Complete 4 Views COMPARISON: None. FINDINGS: Left knee arthroplasty without obvious hardware failure/loosening. There is no dislocation. Patellar resurfacing. No effusion. No significant focal soft tissue abnormality. RAD/Knee 4 or More Views IMPRESSION: No dislocation, fracture or hardware failure appreciated. Total left knee arthroplasty in near anatomic alignment. Electronically Signed: William Dumont MD at 18:04 EST ,
--- NOTE | 2023-05-18 17:05 | EX.ED.DYSGE1 ---
HPI <ALLISON Beyer - Last Filed: 05/18/23 18:13> History of Present Illness Chief Complaint: Fall Narrative Narrative: Patient was on a 1 step stepstool when she accidentally fell and injured her left side and caught herself with her right wrist. She has pain and swelling of the right wrist and is right-hand dominant. No weakness or paresthesias. She also states her left hip and mostly the left knee is sore. She was able to stand and ambulate. She has a history of left hip and knee replacements. She denies head injury and is not on blood thinners. [facility] <ALLISON Beyer - Last Filed: 05/18/23 18:13> [facility] Medical History (Updated 05/18/23 @ 18:[address] Torito Ortiz MD) Hypertension Home Medications cholecalciferol (vitamin D3) 125 mcg (5,000 unit) capsule 5,000 unit PO DAILY supplement 04/02/17 [History Last Taken 04/02/17] escitalopram oxalate 10 mg tablet 10 mg PO DAILY depression 04/02/17 [History Last Taken 06/11/17 07:00 10 MG] fexofenadine 60 mg tablet 60 mg PO DAILY allergies 04/02/17 [History Last Taken 04/02/17] hydrochlorothiazide 25 mg tablet 25 mg PO DAILY diuretic/water pill 04/02/17 [History Last Taken 04/02/17] lorazepam 0.5 mg tablet 0.25 mg PO DAILY PRN PRN Anxiety 04/02/17 [History Last Taken 06/11/17 07:00 0.25 MG] lactobacillus combination no.4 3 billion cell capsule 1 ea PO CONT SUPPLEMENT 06/04/17 [History Last Taken Unknown] turmeric 400 mg capsule mg PO 02/08/20 [History Last Taken Unknown] cefadroxil 500 mg capsule 500 mg PO BID #20 caps 01/29/21 [Rx Last Taken Unknown] Allergy/AdvReac Type Severity Reaction Status Date / Time amoxicillin [From Augmentin] Allergy Mild diarrhea, Verified 05/18/23 16:41 nausea clavulanic acid Allergy Mild diarrhea, Verified 05/18/23 16:41 [From Augmentin] nausea pseudoephedrine Allergy Mild unknown Verified 05/18/23 16:41 [From Bettye-D] prochlorperazine edisylate AdvReac Nausea/Vom/ Verified 05/18/23 16:41 [From Compazine] Diarrhea Family History Mother Arthritis Surgical History H/O total hip arthroplasty History of hysterectomy S/P appendectomy Social History (Updated 04/11/20 @ 12:25 by ALLISON Phelps) Smoking Status: Never smoker ROS <ALLISON Beyer - Last Filed: 05/18/23 18:13> ROS ED ROS Narrative Neuro: Negative for motor/sensory dysfunction. Skin: Negative for wound. Musc: Positive for extremity pain, trauma. Heme: Negative for easy bruising, bleeding, lymphadenopathy. EXAM <ALLISON Beyer - Last Filed: 05/18/23 18:13> Physical Exam Narrative Exam Narrative: CONST: Patient sitting in no acute distress. EYES: Normal inspection. NECK: Normal inspection. RESP: No respiratory distress, CTAB. Tender palpation left anterior lateral ribs under left breast, no deformity or crepitus. CVS: Regular rate and rhythm, no murmur, no gallop. ABD: Soft and nontender, no guarding or rebound, nondistended. Back: Normal inspection, no tenderness SKIN: Color normal, no rash, warm, dry, intact. EXTREMITIES: Localized swelling and tenderness right dorsal hand over scapoid and base of 2nd metacarpal. No deformity or crepitus. Full range of motion, 2+ radial pulse, normal motor and sensory function median radial ulnar distributions. No other tenderness of upper extremities. Bilateral lower extremities are symmetric with no shortening or rotation, no reproducible left hip tenderness and no pain with logroll. She is diffusely tender over the knee with normal extension, stable ligamentous, distal strength sensation and 2+ DP pulses intact. NEURO: Oriented x4. PSYCH: Normal affect. Const Vital Signs: 05/18/23 16:38 05/18/23 16:50 Temperature 98.2 F Temperature Source Temporal Pulse Rate 65 Respiratory Rate 14 Respiratory Effort Normal Blood Pressure 152/89 H Blood Pressure Mean 110 Pulse Ox 98 Oxygen Delivery Method Room Air <Dr. Torito Ortiz MD - Last Filed: 05/18/23 18:39> Physical Exam Const Vital Signs: 05/18/23 16:38 05/18/23 16:50 Temperature 98.2 F Temperature Source Temporal Pulse Rate 65 Respiratory Rate 14 Respiratory Effort Normal Blood Pressure 152/89 H Blood Pressure Mean 110 Pulse Ox 98 Oxygen Delivery Method Room Air [facility] <ALLISON Beyer - Last Filed: 05/18/23 18:13> [facility] Narrative Medical decision making narrative: History gathered from: Patient and spouse Patient had mechanical fall injuring her right wrist, left ribs, and left knee. No head injury. She ambulated into the ER today. She has right dorsal wrist swelling and tenderness over the scaphoid but no deformity. Neurovascularly intact. There is no signs of trauma to her left ribs and left knee but she is tender. Normal heart and lung sounds. No abdominal tenderness. Moving all extremities to full range of motion and neurovascularly intact. X-rays of affected area show no acute traumatic injuries. With her scaphoid tenderness I will place in a thumb spica Ortho-Glass splint for precautionary measures and instructed her to have a repeat x-ray in 7 to 10 days. She is NVI after application. She was discharged in stable condition. Differential: Wrist fracture versus contusion Radiography Diagnostic Testing: Clinical Impression(s) from Imaging Studies Chest X-Ray 05/18/23 16:56 IMPRESSION: No acute cardiopulmonary disease identified radiographically. No definitive acute fracture. Electronically Signed: William Dumont MD at 18:08 EST Reading Location ID and State: [facility] / [place] Tel , Service support , Knee X-Ray 05/18/23 16:56 IMPRESSION: No dislocation, fracture or hardware failure appreciated. Total left knee arthroplasty in near anatomic alignment. Electronically Signed: William Dumont MD at 18:04 EST , Wrist X-Ray 05/18/23 17:25 IMPRESSION: Soft tissue swelling. No acute fracture detected. Postsurgical change without hardware failure. Demineralization. Electronically Signed: William Dumont MD at 18:06 EST , ED attending interpretation of 2 view chest x-ray shows no evidence of displaced rib fracture or pneumothorax. ED attending interpretation of right wrist shows no fracture or dislocation, hardware intact. ED attending interpretation of left knee shows no fracture dislocation, knee arthroplasty intact. <Dr. Torito Ortiz MD - Last Filed: 05/18/23 18:39> [facility] MDM Narrative Medical decision making narrative: History gathered from: Patient and spouse Patient had mechanical fall injuring her right wrist, left ribs, and left knee. No head injury. She ambulated into the ER today. She has right dorsal wrist swelling and tenderness over the scaphoid but no deformity. Neurovascularly intact. There is no signs of trauma to her left ribs and left knee but she is tender. Normal heart and lung sounds. No abdominal tenderness. Moving all extremities to full range of motion and neurovascularly intact. X-rays of affected area show no acute traumatic injuries. With her scaphoid tenderness I will place in a thumb spica Ortho-Glass splint for precautionary measures and instructed her to have a repeat x-ray in 7 to 10 days. She is NVI after application. She was discharged in stable condition. Differential: Wrist fracture versus contusion I have personally performed a face to face assessment of the patient and have reviewed the ALEX Note. I performed a substantive portion of the visit including all aspects of the following. My taylor findings include: History is remarkable for fall with injury to her right wrist, left knee and left hip. Joint as well as chest. She is right-hand dominant. She denies paresthesia, anesthesia medics. She denies loss of consciousness or amnesia. She denies head trauma. Denies neck pain. She is not on anticoagulant or antithrombotic. She denies shortness of breath. She denies abdominal pain. Denies low back pain. Exam is remarkable for swelling of the right wrist in the proximity of the anatomical snuffbox. There is pain outpatient over the anatomical snuffbox. There is no pain with axial loading of the thumb. There is no pain palpation over the distal radius or ulna. There is no pain ovation over the metacarpal bones or phalanges. Median, radial and ulnar function intact. Capillary fill is normal. There is no subungual hematoma of the thumb or fingers. Flexor and extensor mechanism intact. Examination of the left knee reveals mild swelling. There is joint line tenderness. The patella is not ballotable and there is an effusion. Patient has pain with full extension but and is able to extend 108 degrees. Is able to flex up 100 degrees prior to experiencing pain. There is no laxity with varus valgus rest testing. Modified Joye's test was negative but she complained of pain. Jong's test was negative. There is no pain or fullness in the popliteal fossa. James Omar test was negative for pain. Medical Decision Making will obtain x-ray of the wrist with navicular view. 4 view x-ray of the wrist was obtained and reviewed interpreted by me as negative for fracture. There is no asymmetry of the carpal bones. There is no volar fat pad. There is no fracture to suggest a avulsion fracture involving the triquetrum. The distal radius and ulna is normal. The scaphoid view reveals no evidence of fracture. Multiview, 4, of the left knee was obtained. Prosthesis noted. There is no asymmetry. There is no effusion. There is no fracture of the patella. There is no Hima prosthetic fracture noted either. 2 view chest x-ray reveals no evidence of pneumothorax, hemothorax. Cardiac silhouette and size normal. Lung parenchyma normal. There is no fractured ribs noted. All films were independent reviewed interpreted by me. Other additions or changes: Because of patient having pain in the anatomical snuffbox with soft tissue swelling concerned she has a clinical navicular fracture. She was placed in a thumb spica splint and referred to orthopedics. Radiography Diagnostic Testing: Clinical Impression(s) from Imaging Studies Chest X-Ray 05/18/23 16:56 IMPRESSION: No acute cardiopulmonary disease identified radiographically. No definitive acute fracture. Electronically Signed: William Dumont MD at 18:08 EST , Knee X-Ray 05/18/23 16:56 IMPRESSION: No dislocation, fracture or hardware failure appreciated. Total left knee arthroplasty in near anatomic alignment. Electronically Signed: William Dumont MD at 18:04 EST , Wrist X-Ray 05/18/23 17:25 IMPRESSION: Soft tissue swelling. No acute fracture detected. Postsurgical change without hardware failure. Demineralization. Electronically Signed: William Dumont MD at 18:06 EST , Discharge Plan Triage Chief Complaint: Fall ED Midlevel Provider: Cari Marinelli ED Provider: Torito Ortiz Dx/Rx/DC Orders Clinical Impression: Contusion of rib on left side, Contusion of left knee, Contusion of right wrist, Injury due to fall Instructions: Bruises (Contusions) Prescriptions: No Action turmeric 400 mg capsule PO fexofenadine 60 MG tablet 60 mg PO DAILY lorazepam 0.5 MG tablet 0.25 mg PO DAILY PRN PRN (Reason: Anxiety) hydrochlorothiazide 25 MG tablet 25 mg PO DAILY cholecalciferol (vitamin D3) 5,000 UNIT capsule 5,000 unit PO DAILY escitalopram oxalate 10 MG tablet 10 mg PO DAILY lactobacillus combination no.4 1 EACH capsule 1 ea PO CONT cefadroxil 500 mg capsule 500 mg PO BID Qty: 20 0RF Primary Care Provider: Chelsea Moss Referrals: Chelsea Moss DO [Primary Care Provider] - Activity Restrictions/Additional Instructions: The x-rays did not show any broken bones. Where you are tender on your wrist there is sometimes an underlying fracture that cannot be seen on the first x-ray so I am placing you in a splint to keep it immobilized and it needs another x-ray in 7 to 10 days. I would follow-up with your orthopedic doctor for this. Disposition Disposition: Home, Self Care Discharge Date/Time: 05/18/23 18:21
--- NOTE | 2023-05-18 17:25 | RAD_ITS ---
INDICATION: pain -- please get scaphoid view EXAMINATION/TECHNIQUE: X-RAY - RIGHT XR Wrist 4 views COMPARISON: None. FINDINGS: This patient has side-plate and screw hardware transfixing the distal radius. Radioulnar joint shows mild degenerative change. Mild radiocarpal joint space narrowing. Moderate degenerative change at the triscaphe and first CMC articulation. The bones do appear to be demineralized. Mild diffuse MCP joint space narrowing is present. A scaphoid fracture is not definitive. Radial styloid intact. On lateral view there does appear to be some mild dorsal soft tissue swelling. RAD/Wrist min 3 Views IMPRESSION: Soft tissue swelling. No acute fracture detected. Postsurgical change without hardware failure. Demineralization. Electronically Signed: William Dumont MD at 18:06 EST ,
== END 2023-05-18 18:21 | disposition home or self-care (01) ==
PROVIDERS: Emergency Provider Emergency Medicine; PCP Internal Medicine; Visit Provider Emergency Medicine
DX: S60.211A Contusion of right wrist, initial encounter (principal); S80.02XA Contusion of left knee, initial encounter; S20.212A Contusion of left front wall of thorax, initial encounter; I10 Essential (primary) hypertension; W17.89XA Other fall from one level to another, initial encounter; Z96.659 Presence of unspecified artificial knee joint; Z96.649 Presence of unspecified artificial hip joint; Z79.899 Other long term (current) drug therapy; Z90.710 Acquired absence of both cervix and uterus; Z90.49 Acquired absence of other specified parts of digestive tract
CPT/HCPCS: 29130; 71046; 73110; 73564; 99282

== ENCOUNTER → 2023-10-30 | Outpatient (CLI) | payer MEDICARE, OTHER, SELFPAY ==
--- NOTE | 2023-10-30 12:34 | BI_ITS ---
MAMMOGRAPHY - BILATERAL SCREENING 3-D TOMOSYNTHESIS REASON FOR EXAM: Female, 73 years old. Breast cancer screening PERTINENT HISTORY: No significant family history. TECHNIQUE: 2-D mammograms and 3-D Tomosynthesis of the breast (s) were performed. CAD was performed. COMPARISON: 10/23/2022 FINDINGS: The breast composition is composed of scattered fibroglandular density. Scattered benign calcifications are seen. No dense spiculated masses or suspicious microcalcifications are identified. No architectural distortion is identified. There is no skin thickening or retraction. There has been no significant change since the prior study. BI/SCRN MAMM (CAD)W/DAMION BILAT IMPRESSION: No mammographic signs of malignancy. Routine yearly mammograms recommended. ASSESSMENT CATEGORY: BIRADS Category 1: Negative. A letter regarding these results will be sent to the patient by the facility within 30 days. FOLLOW UP RECOMMENDATION: Yearly follow up mammogram recommended. (A) Approximately 10% of breast cancers are not detected by mammography. A normal mammogram should not delay biopsy of a clinically suspicious abnormality. Electronically Signed: Jerrod Weston MD at 14:38 EDT ,
== END | disposition home or self-care (01) ==
LOC: OPBI 12:34
PROVIDERS: PCP Internal Medicine; Referring Provider Internal Medicine; Visit Provider Internal Medicine
DX: Z12.31 Encounter for screening mammogram for malignant neoplasm of breast (principal)
CPT/HCPCS: 77063; 77067

== ENCOUNTER 2024-03-13 09:30 | Outpatient (RCR) | payer MEDICARE, OTHER, SELFPAY ==
--- NOTE | 2024-02-07 12:58 | HP.PTEVAL ---
Patient's Visit Information Visit Information Visit Information: DANIS CARRILLO is a 73 year old F referred to Physical Therapy by Aden Ro MD with a diagnosis of R hip trochanteric bursitis.. Date of Evaluation: 02/07/24 Physical Therapist: Levon Beavers, DPT, OCS, CSCS Visit Plan Frequency: 2-3x /Week Duration: 4-6 Weeks Plan: 2-3x/week for 3-6 for 1. US nonthermal to R piriformis 2. roollout and stretch R priformis, glut adn ITB 3. strengthen R hip and core 4. TENS with ice as needed. IE: itb sidelying stretch 3 min, piriformis stretch 30 5x, hip ROM R throughout day, SKC R 10x 2x/day and activitiy modification. Subjective Subjective: R hip hurting and had it x rayed as she thought it was OA, but only slight narrowing. gave her an injection and said maybe bursitis or ITB. Has h/o sciatica in L. Injection in R bursa helped completely for a month. 5 days ago it came back. No reason, maybe shot wore off. Pain is posterior lateral over priformis area. it is constant and sometimes radiating around to groin or down to knee. Saturday almost fell getting out of bed when it hurt with weight through it. Took some tramadol and using heat and they help somewhat. 505 BETTER SINCE SATURDAY. Walking is worse and typically is comfortable sitting. Sleep is not effected by this. Sometimes wakes her up with turning. Not employed. basic ADLS: all are getting done. Hobbies: golf and snow skiing.Avoids goolfing partially due to pain. Landscapes and has been limited due to pain on feet. No numbness or tingling in legs. Pain R hip: Pain Intensity (Out of 10): 0 Pain Intensity Range: 0 and 8 Objective Objective: R antalgia and trendelenberg in gait pattern today but I. Trasnfers chair and bed I with pain in rolling and L sidelying in R hip. steps are reciprocal with more pain WB R. Tender to palpation R piriformis area, not specifically on ITB or GT. LB AROM ext and flexion min limited without pain. reflexes 2/3 patella adn achilles B. Sensation LE WNL to gross light touch. Strength in hips is 3 abd and ext B, pain on r abd and ext. flexion is 4- and no pain. knee flex ext are 4- without pain. ankles are 4 no pain. tightness obvious in B ITB, psoas, quad on R and HS B at -30 90/90 test. Balance/Special Test Scores Lower Extremity Functional Score: 32 Goals Goal 1:: Walk without antalgia in community Goal Time Frame: 4-6 Weeks Goal 2:: steps reciprocal with one rail without pain Goal Time Frame: 4-6 Weeks Goal 3:: Pain 75% better and 2/10 at worst. Goal Time Frame: 4-6 Weeks Goal 4:: I appropriate management of condition Goal Time Frame: 4-6 Weeks Rehabilitation Potential Physical Therapy Diagnosis: R soft tissue pain and tenderness causing mobility deficits. Rehabilitation Potential: Fair Anticipated Interventions Patient/Client Instruction: Educate patient on: Condition and Plan of Care For the Purpose of:: To decrease pain, To increase ROM, To improve muscle performance and motor function and To improve gait and locomotor functions Therapeutic Exercise to Include: Strength training, Postural training, Flexibilty training, Passive ROM and Active ROM For the Purpose of:: To decrease pain, To increase ROM, To improve nutrient delivery to tissue, To increase tolerance to activity/condition/position and To improve gait and locomotor functions Manual Therapy Techniques to Include: Mobilization and Soft tissue mobilization For the Purpose of:: To decrease pain, To increase ROM and To improve nutrient delivery to tissue TENS: Yes Cryotherapy (ice pack, ice massage): Yes Ultrasound (thermal/non thermal): Yes (nonthermal) For the Purpose of:: To decrease pain, To increase ROM, To improve nutrient delivery to tissue and To increase tolerance to activity/condition/position Text: Thank you for the opportunity to evaluate your patient. For Medicare and Medicare HMO plans, please review the plan of care and approve it. It will need to be FAXED BACK to us at [phone] for Medicare purposes. For Medicare only, by signing this I certify the plan of care. Please let me know if there are questions or concerns regarding this plan of care. Physician Signature: Date:
--- NOTE | 2024-03-13 09:52 | HP.PTDCSUM ---
Discharge Summary D/C summary: It has been my pleasure to treat DANIS CARRILLO referred by Aden Ro MD, with the diagnosis of R hip trochanteric bursitis. for a total of 7 visit(s). Discharge Date: 03/13/24 Please see the following information for a summary of their discharge status. Subjective Subjective: Hip is doing good. No pain. Very little pain and typically sitting with leg up. Only 2/10 and transient. Activities are normal. Exercises are now and then. Pain R hip: Pain Intensity (Out of 10): 0 Overall Improvement % Improvement: 100 Objective Objective/Function: walks without antalgia, steps reciprocally without rail. Tender in upper glut mildly, strength hip abd 4- and ext 4- without pain. Goals Goal 1:: Walk without antalgia in community Goal Progress: Goal Met Goal 2:: steps reciprocal with one rail without pain Goal Progress: Goal Met Goal 3:: Pain 75% better and 2/10 at worst. Goal Progress: 100 Goal 4:: I appropriate management of condition Goal Progress: Goal Met Plan Plan: d/c to HEP D/C Information d/c sentence: If there are questions or concerns regarding this patient's physical therapy, please feel free to call me at [phone]. Thank you for the referral of this patient. Sincerely, Levon Beavers, DPT, OCS, CSCS Balance/Gait/Functional tests Balance/Special Test Scores Lower Extremity Functional Score: 48 Improvement % Improvement: 100
== END 2024-03-13 19:00 | disposition home or self-care (01) ==
LOC: PT 09:30
PROVIDERS: PCP Internal Medicine; Referring Provider Orthopaedic Surgery; Visit Provider Orthopaedic Surgery
DX: M70.61 Trochanteric bursitis, right hip (principal)
CPT/HCPCS: 97035; 97110; 97140; 97161; 97530

== ENCOUNTER → 2024-07-16 | Outpatient (CLI) | payer MEDICARE, OTHER, SELFPAY ==
[2024-07-16 12:22] LABS: Absolute Neutrophil Count 2.8 X10^3/uL (2.0-7.7); Basophil# 0.03 X10^3/uL; Basophil% 0.6 % (0-1); Eosinophil# 0.24 X10^3/uL; Eosinophils% 4.8 % (0-5); Hematocrit 46.2 % (37-47); Hemoglobin 14.7 g/dL (12.0-15.0); Lymphocyte % 29.9 % (19-41); Mean Corp Hgb Conc 31.8 g/dL (32-36); Mean Corpuscular Hgb 29.5 pg (27.0-32.0); Mean Corpuscular Volume 92.8 fL (81-99); Mean Platelet Vol. 9.6 fl (6.2-12.0); Monocyte# 0.46 X10^3/uL; Monocyte% 9.2 % (0-10); NRBC Flagged by Analyzer 0 % (0-5); Neutrophil # 2.77 X10^3/uL (2.7-7.7); Neutrophil % 55.1 % (47-70); Platelet Count 360 K/mm3 (150-450); RBC Distribution Width CV 13.3 % (11.6-14.6); RBC Distribution Width SD 45.6 fl (35.1-43.9); Red Blood Count 4.98 M/mm3 (4.2-5.4)
[2024-07-16 12:47] LABS: ALB/GLOB Ratio 0.9 RATIO (0.9-2.4); AST(SGOT) 26 U/L (15-37); Alanine Aminotransfer ALT/SGPT 28 U/L (13-56); Albumin, Serum 3.8 g/dL (3.2-5.0); Alkaline Phosphatase 117 U/L (45-117); Anion Gap 5 (5-15); BUN 20 mg/dL (7-18); BUN/Creat Ratio 21.1 RATIO (10-20); Calcium,Total 9.8 mg/dL (8.5-10.1); Chloride 104 mmol/L (98-107); Creatinine, Serum 0.95 mg/dL (0.55-1.02); EST Glomerular Filtration Rate 61 mL/min (>60); Est Glom Filt Rate - Afr Amer 74 mL/min (>60); Globulin 4.3 g/dL (2.2-4.2); Glucose 86 mg/dL (74-106); Potassium 5.1 mmol/L (3.5-5.1); Protein, Total 8.1 g/dL (6.4-8.2); Sodium Level 139 mmol/L (136-145); Troponin-I HS 7 pg/mL (3.0-54.0)
== END | disposition home or self-care (01) ==
PROVIDERS: PCP Internal Medicine; Referring Provider Internal Medicine; Visit Provider Internal Medicine
DX: R07.9 Chest pain, unspecified (principal)
CPT/HCPCS: 80053; 84443; 84484; 85025

== ENCOUNTER → 2024-08-04 | Outpatient (CLI) | payer MEDICARE, OTHER, SELFPAY ==
--- NOTE | 2024-08-04 09:01 | ECHOD_ITS ---
Reason For Study Reason For Study: Chest Pain Procedure This was a 2D Doppler, Color Flow transthoracic echocardiogram. Exam performed in department. Left Ventricle Normal LV size. The estimated ejection fraction is 65 %. No evidence for diastolic dysfunction. No regional wall motion abnormalities noted. Right Ventricle Normal RV size. Normal systolic function. Atria The left and right atria are normal. No doppler evidence for ASD. Mitral Valve There is no mitral valve stenosis. Trivial mitral valve insufficiency. Tricuspid Valve There is no tricuspid stenosis. Trivial tricuspid valve insufficiency. Pulmonary artery systolic pressure is 30 mmHg. Aortic Valve Trisinus/trileaflet aortic valve. There is no aortic stenosis. Trivial aortic valve insufficiency. Pulmonic Valve There is no pulmonic valvular stenosis. Trivial pulmonic valve insufficiency. Great Vessels Normal sized aortic root. Pericardium/Pleural No pericardial effusion. MMode/2D Measurements & Calculations LVIDd: 4.0 cm IVSd: 1.3 cm Ao root diam: 3.6 cm LVIDs: 2.5 cm LVPWd: 1.0 cm RVDd: 3.3 cm FS: 37.9 % LAV(MOD-bp): 39.8 ml LVAd ap4: 20.3 cm2 SV(MOD-sp4): 34.0 ml LAV(MOD-bp) Indexed: 21.5 ml/m2 LVLd ap4: 6.9 cm SI(MOD-sp4): 18.4 ml/m2 LAV(MOD-sp2): 44.6 ml EDV(MOD-sp4): 49.9 ml LAV(MOD-sp4): 34.5 ml EDV(sp4-el): 50.5 ml LVAs ap4: 9.9 cm2 LVLs ap4: 5.4 cm ESV(MOD-sp4): 15.9 ml ESV(sp4-el): 15.5 ml EF(MOD-sp4): 68.1 % EF(sp4-el): 69.4 % SV(sp4-el): 35.0 ml LA A4 area: 14.7 cm2 LA dimension(2D): 3.4 cm RA A4 area: 12.3 cm2 TAPSE: 2.0 cm Time Measurements MV dec time: 0.24 sec Doppler Measurements & Calculations MV E max rupesh: 56.3 cm/sec Lat Peak E' Rupesh: 9.8 cm/sec Med Peak E' Rupesh: 8.1 cm/sec MV A max rupesh: 82.2 cm/sec E/E' lat: 5.7 E/E' med: 7.0 MV E/A: 0.68 MV V2 max: 87.4 cm/sec MV P1/2t max rupesh: 58.2 cm/sec Ao V2 max: 113.7 cm/sec MV max P.1 mmHg MV P1/2t: 77.2 msec Ao max P.2 mmHg MV V2 mean: 38.4 cm/sec Ao V2 mean: 78.1 cm/sec MV mean P.74 mmHg MV dec slope: 221.0 cm/sec2 Ao mean P.8 mmHg MV V2 VTI: 22.4 cm MVA(P1/2t): 2.8 cm2 Ao V2 VTI: 28.9 cm AV (velocity ratio): 0.95 LV V1 max: 95.2 cm/sec PA V2 max: 88.6 cm/sec TR max rupesh: 246.0 cm/sec LV V1 max P.6 mmHg TR max P.2 mmHg LV V1 mean P.1 mmHg LV V1 mean: 67.0 cm/sec LV V1 VTI: 27.4 cm ECHO/Echo Complete Interpretation Summary The estimated ejection fraction is 65 %. No evidence for diastolic dysfunction. Trivial mitral valve insufficiency. Trivial aortic valve insufficiency. Ordering Physician: Chelsea Moss Referring Physician: Chelsea Moss Performed By: Srini Coe RCS
== END | disposition home or self-care (01) ==
LOC: CVS 09:00
PROVIDERS: PCP Internal Medicine; Referring Provider Internal Medicine; Visit Provider Internal Medicine
DX: R07.9 Chest pain, unspecified (principal)
CPT/HCPCS: 93306

== ENCOUNTER → 2024-08-05 | Outpatient (CLI) | payer MEDICARE, OTHER, SELFPAY ==
--- NOTE | 2024-08-05 07:19 | CT_ITS ---
PROCEDURE: LIMITED CHEST CT CARDIAC ONLY TECHNIQUE: Chest CTA without intravenous contrast and 3D reconstructions. Abdomen and pelvis CT using the same contrast dose. COMPARISON: None. FINDINGS: CHEST: Lines and tubes: None. Mediastinum: No evidence of mediastinal hemorrhage. Heart: Minimal anterior pericardial thickening. Mild degree of coronary artery calcification. Thoracic Aorta: Atherosclerotic plaque formation of the ascending thoracic aorta. Lungs and Airways: Mild increased linear markings at the lung bases more prominent on the right side suggestive of basilar atelectasis and/or scarring. Pleura: No pleural effusion. No pneumothorax. Bones: Degenerative changes of the spine. CT/Limited Chest CT Cardiac Only IMPRESSION: Mild degree of coronary artery calcification. Mild linear atelectasis and/or scarring at the lung bases. One or more dose reduction techniques were used (e.g., Automated exposure contr ol, adjustment of the mA and/or kV according to patient size, use of iterative reconstruction technique). Reading Location: [id number]
--- NOTE | 2024-08-06 18:39 | CA.SCORE ---
Calcium Scoring Date of Study:: 08/05/24 Indications Indications: Hyperlipidemia Coronary Calcium Scoring: High-resolution Computed Tomographic imaging of the chest was performed on [08/05/24 ], with particular attention paid to the coronary arteries. Images from the examination were analyzed for the presence and extent of coronary artery calcification , using coronary calcium quantification software. The patient tolerated the procedure well and there were no complications. The results of the coronary calcification analysis are provided below. Findings Coronary Artery Left Main (LM): 0 Left Anterior Descending (LAD): 4.5 Left Circumflex (LCX): 0 Right Coronary Artery (RCA): 2 Total Agatston Score: 6.5 Percentile Rankin-50% Calcium Scoring Interpretation: Different methods to categorize the overall amount of coronary plaque. Overall amount CAC SIS Visual of coronary plaque P1 Mild -100 <2 1-2 vessels with mild amount of plaque P2 Moderate 101-300 3-4 1-2 vessels with moderate amount, 3 vessels with mild amount of plaque P3 Severe 301-999 5-7 3 vessels with moderate amount, 1 vessel with severe amount of plaque P4 Extensive >1000 >8 2-3 vessels with severe amount of plaque Calcium Score: Mild: 1-2 vessels w/mild amount of plaque Conclusion: Mild atherosclerotic plaque only noted
== END | disposition home or self-care (01) ==
LOC: CT 07:17
PROVIDERS: PCP Internal Medicine; Referring Provider Internal Medicine; Visit Provider Internal Medicine
DX: I25.10 Atherosclerotic heart disease of native coronary artery without angina pectoris (principal); Z82.49 Family history of ischemic heart disease and other diseases of the circulatory system
CPT/HCPCS: 75571; 76380

== ENCOUNTER → 2024-08-11 | Outpatient (CLI) | payer MEDICARE, OTHER, SELFPAY ==
--- NOTE | 2024-08-11 09:44 | STRESSREP ---
Stress Test Report Date: 08/11/2024 Procedure: Exercise tolerance test/imaging study Indications: Chest pain Consent: Per the patient Procedure: The patient exercised on a Dominick protocol for 7 minutes and 10 seconds achieving a peak heart rate of 122 bpm (83% predicted maximal heart rate) with a peak blood pressure 152/64 mmHg and a peak MET capacity of 10.1 METs. The baseline ECG demonstrated sinus rhythm. The peak exercise ECG demonstrated [address] depressions in inferior and lateral leads suggestive of ischemia. There were no cardiac dysrhythmias pretest, during exercise, or recovery. The functional capacity was considered good. There was complaint of mild left-sided chest discomfort at peak exercise which resolved shortly in recovery. The examination was discontinued secondary to fatigue. The patient was injected with 12.0 mCi of technetium 99m Cardiolite and subsequently rest SPECT Cardiolite nuclear imaging was obtained in the horizontal long, vertical long, and short axis views. Post-exercise, the patient was injected with 36.0 mCi of technetium 99m Cardiolite and subsequently stress SPECT Cardiolite nuclear imaging was obtained in the horizontal long, vertical long, and short axis views. A gated Cardiolite study at peak stress was obtained. Rest and stress SPECT Cardiolite nuclear imaging status post realignment, normalization, and attenuation correction, demonstrates the appearance of relative uniform tracer uptake and myocardial perfusion appearing within normal limits. There is end systolic thickening and brightening. The gated Cardiolite study demonstrates myocardial thickening and inward wall motion. The reported LVEF is 84%. Impression: 1. Technically adequate exercise tolerance test 2. Peak exercise ECG with ST changes suggestive of ischemia. Chest pain reported at peak exercise. 3. There were no cardiac dysrhythmias pretest, during exercise, or recovery 4. Rest and stress SPECT Cardiolite nuclear imaging demonstrate relative uniform tracer uptake and myocardial perfusion appearing within normal limits. 5. The gated Cardiolite study reports an LVEF of 82%. This note was generated with [employer] software. It may contain incorrect words, spelling, and punctuation that were not noted in checking the note before signing.
== END | disposition home or self-care (01) ==
LOC: CVS 06:43
PROVIDERS: PCP Internal Medicine; Referring Provider Internal Medicine; Visit Provider Internal Medicine
DX: R07.9 Chest pain, unspecified (principal)
CPT/HCPCS: 78452; 93017; A9500; A4216

== ENCOUNTER 2024-08-27 16:08 | Observation (INO) | payer MEDICARE, OTHER, SELFPAY ==
[2024-08-27] VITALS (9 sets, daily range): BP systolic 101–124; BP diastolic 68–87; PULSE 59–77; RESP 16–22; TEMP 36.6–37; O2SAT 92–100; BMI 28.3; BMI 28.4
--- NOTE | 2024-08-27 16:40 | EDS_ITS ---
HPI History of Present Illness Chief Complaint: Chest Pain Onset/Context/Timing Onset: Today Activity at onset: sudden Timing: Continuous Quality: Positive for Heaviness and Pressure Location: Substernal (Upper substernal with radiation into her back between her shoulder blades and down both arms) Worsened By: Nothing Relieved By: Nothing Associated Symptoms: Positive for Nausea, Diaphoresis, Dyspnea, Lightheadedness and Palpitations; Negative for Vomiting, Cough, Fever or Acid Reflux Narrative Narrative: Patient presents with chest pain that began approximately 30 minutes prior to arrival. Patient states it began rather suddenly. Patient states she just finished eating lunch at the [employer]. Patient states she had half of a jose ramon and a chicken quesadilla. Patient describes it as heaviness and pressure over the upper substernal area. Patient states it radiates into her back and down both arms. Patient states she felt her heart racing. Patient admits to some nausea but denies any vomiting. Patient admits to some diaphoresis. Patient admits to some shortness of breath and lightheadedness. Patient denies any fevers or chills. CVD Risk Factors: Positive for Hypertension; Negative for Diabetes, Hy percholesterolemia, Family History 1' </=55 or Smoking PE Risk Factors: Negative for Recent Travel/Surgery, Recent Immobilization, Prior DVT or PE, Cancer or OCP + Smoking + >/=35 [facility] Medical History Allergic rhinitis Paroxysmal atrial fibrillation Anxiety and depression Hypertension Home Medications ?Medication ?Instructions ?Recorded ?Last Taken ?Type cholecalciferol (vitamin D3) 125 5,000 unit PO DAILY s upplement 04/02/17 08/27/24 10:19 History mcg (5,000 unit) capsule fexofenadine 60 mg tablet 60 mg PO DAILY allergies 08/27/24 10:20 History fluticasone propionate 50 1 spray intranasal DAILY 05/0408/27/24 10:20 History mcg/actuation nasal spray,suspension (Flonase Allergy Relief) Lactobacillus acidophilus 20 20,000 mmu cells PO DAILY 08/27/24 08/27/24 10:19 History billion cell capsule (Florajen Acidophilus) azelastine 0.05 % eye drops 1 drp ophthalmic (eye) BID PRN eye 08/27/24 Unknown History irritation celecoxib 200 mg capsule 200 mg PO DAILY 08/27/24 10:19 History escitalopram oxalate 20 mg tablet 10 mg PO DAILY 08/2708/27/24 10:20 History hydrochlorothiazide 25 mg tablet 25 mg PO DAILY 08/27/24 10:19 History Allergy/AdvReac Type Severity Reaction Status Date / Time amoxicillin (From Augmentin) Allergy Mild diarrhea, Verified 08/27/24 16:11 nausea clavulanic acid (From Allergy Mild diarrhea, Verified 08/27/24 16:11 Augmentin) nausea pseudoephedrine (From Allergy Mild unknown Verified 08/27/24 16:11 Bettye-D) prochlorperazine edisylate AdvReac Nausea/Vom/ Verified 08/27/24 16:11 (From Compazine) Diarrhea Family History Mother Arthritis Father Heart disease Brother CVA (cerebral vascular accident) Surgical History Hx of cholecystectomy Hx of total knee replacement H/O total hip arthroplasty S/P appendectomy History of hysterectomy Social History (Updated 08/27/24 @ 21:[address] Anabela Gould MD) household members: spouse housing: house Smoking Status: Never smoker alcohol intake: never substance use type: does not use ROS ROS ED Constitutional Constitutional ED: Denies chills or fever(s) Eyes Eyes: Reports blurry vision; Denies diplopia ENT ENT ED: Denies rhinorrhea or sore throat Cardiovascular Cardiovascular: Reports as per HPI, chest pain and palpitations Respiratory/Chest Respiratory/Chest: Reports dyspnea; Denies cough Gastrointestinal Gastrointestinal: Reports nausea; Denies vomiting Genitourinary Genitourinary ED: Denies dysuria or hematuria Musculoskeletal Musculoskeletal: Denies back pain or neck pain Integumentary Denies abscess or rash Neurologic Neurologic: Denies headache(s) or weakness Allergic/Immunologic Allergic/Immunologic ED: Denies mouth swelling or urticaria EXAM Physical Exam Const Vital Signs: 08/27/24 16:09 08/27/24 16:18 08/27/24 17:00 Temperature 98.1 F Temperature Source Temporal Pulse Rate 59 L 77 Respiratory Rate 16 18 Respiratory Effort Normal Non-Labored Blood Pressure 109/70 107/87 H Blood Pressure Mean 83 93 Pulse Ox 100 94 Oxygen Delivery Method Room Air 08/27/24 17:05 08/27/24 18:00 08/27/24 19:00 Temperature Temperature Source Pulse Rate 76 68 Respiratory Rate 22 H 18 Respiratory Effort Blood Pressure 107/87 H 107/68 Blood Pressure Mean 93 81 Pulse Ox 93 92 99 Oxygen Delivery Method Room Air 08/27/24 20:00 08/27/24 20:05 Temperature 98 F Temperature Source Pulse Rate 68 68 Respiratory Rate 16 18 Respiratory Effort Blood Pressure 101/78 107/68 Blood Pressure Mean 85 81 Pulse Ox 98 99 Oxygen Delivery Method Positive well nourished and well developed General Appearance ED: well developed and NAD HEENT Reports moist mucous membranes Neck supple and no JVD Chest Wall palpation of chest normal Resp normal respiratory effort and clear to auscultation bilaterally Cardio regular rate and regular rhythm GI soft to palpation, non-tender and non-distended Neuro oriented x3, CN's II-XII intact bilaterally and no sensory deficits noted Sensorium / Orientation: awake and alert Motor Exam: strength 5/5 throughout Heart Score History: Moderately Suspicious ECG: Nonspecific Repolarization Age: >/= 65 years Risk Factors: 1 or 2 Risk Factors Troponin: </= Normal Limit Score: 5 MDM MDM MDM Narrative Medical decision making narrative: Differential diagnosis includes cardiac dysrhythmia, cardiac ischemia, pneumonia, bronchitis, electrolyte abnormality, gastroesophageal reflux disease, and anxiety. EKG will be obtained to assess for cardiac dysrhythmia and cardiac ischemia. Chest x-ray will be obtained to assess for pneumonia and bronchitis. CBC will be obtained to assess for leukocytosis and anemia. Basic metabolic profile will be obtained to assess for electrolyte abnormality and renal function. High-sensitivity troponin will be obtained to assess for cardiac ischemia. 2-hour repeat high-sensitivity troponin will be obtained to assess for ongoing cardiac ischemia. PT with INR PTT will be obtained to assess for coagulopathy. Lab Data Attestation: I reviewed the patient's lab results. Lab results narrative: CBC was reviewed and was within normal limits. Basic metabolic profile was reviewed. BUN was slightly elevated at 23. Creatinine was normal. The rem ainder is within normal limits. PT with INR and PTT were reviewed and were within normal limits. Initial high-sensitivity troponin was reviewed and was normal at 9. 2-hour repeat high-sensitivity troponin was reviewed and was slightly elevated at 19. Labs: Laboratory Results - last 24 hr 08/27/24 08/27/24 16:20 19:00 WBC 8.4 RBC 4.88 Hgb 14.7 Hct 44.2 MCV 90.6 MCH 30.1 MCHC 33.3 RDW Std Deviation 45.0 H RDW Coeff of Price 13.4 Plt Count 362 MPV 10.0 Immature Gran % (Auto) 0.400 Neut % (Auto) 60.9 Lymph % (Auto) 28.8 [place] % (Auto) 7.7 Eos % (Auto) 1.7 Baso % (Auto) 0.5 Absolute Neuts (auto) 5.1 Absolute Lymphs (auto) 2.43 Nucleated RBC % 0 PT 12.8 INR 0.9 APTT 22.9 L Sodium 138 Potassium 3.0 L Chloride 101 Carbon Dioxide 21.3 Anion Gap 16 H BUN 23 H Creatinine 1.14 Estim Creat Clear Calc 44.46 L Est GFR (MDRD) Non-Af 51 L BUN/Creatinine Ratio 20.4 H Glucose 67 L Calcium 9.9 Magnesium 2.2 Troponin T High Sens 9 Troponin T Hi Sens 2 Hr 19 H Radiography Diagnostic Testing: Clinical Impression(s) from Imaging Studies Chest X-Ray 08/27/24 17:10 IMPRESSION: No Acute Findings. Reading Location: [facility] Portable 1 view chest x-ray was obtained. On my independent interpretation, lung roger are clear. There is normal cardiac silhouette. Bony thorax is normal. There is no acute process noted. Radiologist also interpreted the x- ray and agrees. EKG Initial EKG: Attestation: I personally reviewed and interpreted this EKG as follows: Interpretation: Atrial Fibrillation (162) and S-T Depression Comments: EKG was obtained. On my independent interpretation it shows atrial fibrillation with a rate of 162. QRS interval was normal at 82 ms. QTc interval was normal [place] 30 ms. [place] was normal at 54. There is some ST depression in leads II, III, aVF, and V2 through V6. Prior EKG tracings: available for review Prior: Changed (Compared to EKG from stress test on 08/11/2024, the atrial fibrillation is new. The ST depression may be rate related.) Follow-up EKG: Attestation: I personally reviewed and interpreted this EKG as follows: Interpretation: Sinus Rhythm (72) and Non-Specific ST Changes Comments: EKG was obtained. On my independent interpretation, it showed a normal sinus rhythm with a rate of 72. CT interval, QRS interval, and QTc intervals were all normal. [place] was normal. There are nonspecific ST-T wave changes. Compared to EKG from stress test, the ST-T wave changes were present during the stress test. Prior EKG tracings: available for review Treatment and Re-Evaluation :: Patient was given aspirin. Patient refused nitroglycerin. Patient was advised of her findings. Patient has a HEART score of 5. Patient also had a recent stress test which showed ST changes with exertion and tachycardia. Because of this, I recommended admission to the hospital. Case was discussed with the hospitalist. She will admit the patient to her service. Case was also discussed with Dr. Smith from cardiology. He had no further recommendations. Patient and family understood and were agreeable with the plan. All questions were answered. Discharge Plan Dx/Rx/DC Orders Clinical Impression: Chest pain, Paroxysmal atrial fibrillation, Abnormal stress test Disposition Disposition: Acute Care Hospital [facility] Discharge Date/Time: 08/27/24 21:54
--- NOTE | 2024-08-27 16:55 | EKG12_ITS ---
Test Reason : AM EKG Blood Pressure : */* mmHG Vent. Rate : 58 BPM Atrial Rate : 58 BPM P-R Int : 156 ms QRS Dur : 86 ms QT Int : 442 ms P-R-T Axes : 68 13 84 degrees QTcB Int : 433 ms Sinus bradycardia Nonspecific ST and T wave abnormality Abnormal ECG Confirmed by DEZ PARK, PARISA ([id number]), non linear editor TACO JOHNSON ([id number]) on 08/28/2024 7:58:37 AM Referred By: Levon Andrews Confirmed By: PARISA GARCES MD
--- NOTE | 2024-08-27 17:00 | EKG12_ITS ---
Test Reason : CONVERT Blood Pressure : */* mmHG Vent. Rate : 72 BPM Atrial Rate : 72 BPM P-R Int : 158 ms QRS Dur : 82 ms QT Int : 416 ms P-R-T Axes : 68 48 82 degrees QTcB Int : 455 ms Normal sinus rhythm Nonspecific ST and T wave abnormality Abnormal ECG Confirmed by DEZ PARK, PARISA ([id number]), editor sound TACO JOHNSON ([id number]) on 08/28/2024 8:11:10 AM Referred By: Levon Andrews Confirmed By: PARISA GARCES MD
[2024-08-27] MEDS: Aspirin 81 MG TAB.CHEW 324 MG PO (17:01)
[2024-08-27 17:08] LABS: Absolute Lymphocyte Count 2.43 X10^3/uL (0.83-4.51); Absolute Neutrophil Count 5.1 X10^3/uL (2.0-7.7); Basophil# 0.04 X10^3/uL; Basophil% 0.5 % (0-1); Eosinophil# 0.14 X10^3/uL; Eosinophils% 1.7 % (0-5); Hematocrit 44.2 % (37-47); Hemoglobin 14.7 g/dL (12.0-15.0); Lymphocyte # 2.43 X10^3/ul (0.83-4.51); Lymphocyte % 28.8 % (19-41); Mean Corp Hgb Conc 33.3 g/dL (32-36); Mean Corpuscular Hgb 30.1 pg (27.0-32.0); Mean Corpuscular Volume 90.6 fL (81-99); Monocyte# 0.65 X10^3/uL; Monocyte% 7.7 % (0-10); NRBC Flagged by Analyzer 0 % (0-5); Neutrophil # 5.14 X10^3/uL (2.7-7.7); Neutrophil % 60.9 % (47-70); Platelet Count 362 K/mm3 (150-450); RBC Distribution Width CV 13.4 % (11.6-14.6); Red Blood Count 4.88 M/mm3 (4.2-5.4); White Blood Count 8.4 K/mm3 (4.4-11.0)
--- NOTE | 2024-08-27 17:10 | RAD_ITS ---
PROCEDURE: CHEST 1 VIEW (PORTABLE) 08/27/2024 REASON FOR EXAM: CHEST PAIN TECHNIQUE: Frontal view of the chest. COMPARISON: 05/18/2023 FINDINGS: Hardware: None Heart: The heart size is normal. Lungs: No focal consolidation. No pneumothorax. No pleural effusion. Bones: No acute osseous abnormality. Other: RAD/Chest 1 View (Portable) IMPRESSION: No Acute Findings. Reading Location: [facility]
[2024-08-27 17:13] LABS: International Normalized Ratio 0.9; Prothrombin Time (Protime)PT. 12.8 SECONDS (11.7-14.9)
[2024-08-27 17:19] LABS: Partial Thromboplast Time 22.9 Seconds (24.1-36.2)
[2024-08-27 17:39] LABS: Anion Gap 16 (5-15); BUN 23 mg/dL (4-19); BUN/Creat Ratio 20.4 RATIO (10-20); Calcium,Total 9.9 mg/dL (7.6-11.0); Carbon Dioxide 21.3 mmol/L (21.0-32.0); Chloride 101 mmol/L (98-108); Creatinine, Serum 1.14 mg/dL (0.70-1.20); EST Glomerular Filtration Rate 51 (>60); Estimated Creatinine Clearance 44.46 ml/min (50-250); Glucose 67 mg/dL (70-99); Sodium Level 138 mmol/L (133-145); Troponin T High Sensitivity 9 ng/L (<=14)
[2024-08-27 19:28] LABS: Troponin T High Sens 2 HR 19 ng/L (<=14)
--- NOTE | 2024-08-27 20:29 | PCM.HP.STD ---
HPI - General General Date of Admission: 08/27/24 Date of Service: 08/27/24 Chief Complaint: Chest pain HPI Narrative The patient is a 74 y/o F w/ PMHx: CKD stage II per GFR trending, HTN, Allergic rhinitis, Anxiety and Depression who presents to the [facility] ED on 08/27/24 with history of ongoing outpatient evaluations for abnormal chest discomfort specifically pressure that radiated toward her left upper extremity at that time with EKG changes with exercise treadmill stress testing with cardiology evaluation noted 08/18/2024 with also noted follow-up coronary calcium scoring demonstrating total calcium score 6.5 with plan for consideration of CTA at least potentially initially and possible cardiac catheterization however patient is yet to perform this presenting to the ED today with significant initial 10 out of 10 chest heaviness/pressure in the substernal region specifically upper with radiation toward her back as well as between her shoulder blades and down both upper extremities with associated nausea without emesis, diaphoresis, dyspnea, lightheadedness and sensation of palpitations starting approximately 30 minutes prior to ED arrival following just completing eating lunch at a [employer] restaurant including half of an alcoholic beverage describing the pressure is like something was sitting on her chest prompting ED evaluation to be cautious. She does report that she spoke to be going to [place] in approximately a week. She notes she is regularly active and has never had this previously until recently. Workup in the ED included currently she notes the chest discomfort has improved and is rating it primarily 3 out of 10 in severity with pressure with resolution of all other symptoms aside this including radiation. workup in the ED included T98.1, heart rate 59, BP 109/70, respiratory rate 16, 100% on room air with most recent repeat vitals heart rate 70, BP 118/69, respiratory rate 16, 98% on room air with no specific vital signs obtained during episode of RVR of note, CBC with WC 8.4, human 14.7, platelet 362 without marked shift, unremarkable coags aside PT 22.9, BMP with potassium 3.0, anion gap 16, BUN/creatinine 23/1.14, GFR 51 EKG with initial A-fib with RVR with ST depressions in leads II, III, aVF and V2 through V6 change from previous 08/11/2024 with repeat follow-up EKG with sinus rhythm following spontaneous conversion with nonspecific ST changes which were present during previous stress testing of notes, chest x-ray with no acute cardiopulmonary findings. In the ED patient administered full-strength aspirin therapy and sublingual nitroglycerin. ED did discuss case with cardiology on-call Dr. Smith. [facility] Medical History Allergic rhinitis Paroxysmal atrial fibrillation Anxiety and depression Hypertension Home Medications ?Medication ?Instructions ?Recorded ?Last Taken ?Type cholecalciferol (vitamin D3) 125 5,000 unit PO DAILY supplement 04/02/17 04/02/17 History mcg (5,000 unit) capsule fexofenadine 60 mg tablet 60 mg PO DAILY allergies 04/02/17 04/02/17 History fluticasone propionate 50 1 spray intranasal DAILY 08/18/24 Unknown History mcg/actuation nasal spray,suspension (Flonase Allergy Relief) Lactobacillus acidophilus 20 20,000 mmu cells PO DAILY 08/27/24 Unknown History billion cell capsule (Florajen Acidophilus) azelastine 0.05 % eye drops 1 drp ophthalmic (eye) BID PRN eye 08/27/24 Unknown History irritation celecoxib 200 mg capsule 200 mg PO DAILY 08/27/24 Unknown History escitalopram oxalate 20 mg tablet 10 mg PO DAILY 08/27/24 Unknown History hydrochlorothiazide 25 mg tablet 25 mg PO DAILY 08/27/24 Unknown History Allergy/AdvReac Type Severity Reaction Status Date / Time amoxicillin (From Augmentin) Allergy Mild diarrhea, Verified 08/27/24 16:11 nausea clavulanic acid (From Allergy Mild diarrhea, Verified 08/27/24 16:11 Augmentin) nausea pseudoephedrine (From Allergy Mild unknown Verified 08/27/24 16:11 Bettye-D) prochlorperazine edisylate AdvReac Nausea/Vom/ Verified 08/27/24 16:11 (From Compazine) Diarrhea Family History Mother Arthritis Father Heart disease Brother CVA (cerebral vascular accident) Surgical History Hx of cholecystectomy Hx of total knee replacement H/O total hip arthroplasty S/P appendectomy History of hysterectomy Social History (Updated 08/27/24 @ 21:[address] Anabela Gould MD) household members: spouse housing: house Smoking Status: Never smoker alcohol intake: never substance use type: does not use ROS ROS Narrative Admission Review of Systems: CONSTITUTIONAL: No weight loss, fever, chills, + weakness or fatigue. HEENT: + Lightheadedness, dizziness. Eyes: No visual loss, blurred vision, double vision or yellow sclerae. Ears, Nose, Throat: No hearing loss, sneezing, congestion, runny nose or sore throat. SKIN: No rash or itching, lesions, wounds. CARDIOVASCULAR: + Chest pain, pressure, palpitations, lightheadedness/dizziness. No edema, orthopnea, syncopal events. RESPIRATORY: + Dyspnea. No cough or sputum, wheezing, hemoptysis. GASTROINTESTINAL: + Nausea. No anorexia, vomiting or diarrhea, abdominal pain, melena, BRBPR. GENITOURINARY: No dysuria, frequency, urgency or retention. NEUROLOGICAL: + Lightheadedness, dizziness. No headache, syncope, paralysis, ataxia, numbness or tingling in the extremities, focal weakness, change in bowel or bladder control, seizure. MUSCULOSKELETAL: + muscle, back pain, joint pain or stiffness. HEMATOLOGIC: No anemia, bleeding or bruising. LYMPHATICS: No enlarged nodes. No history of splenectomy. PSYCHIATRIC: + History of anxiety and depression. ENDOCRINOLOGIC: + reports of sweating. No cold or heat intolerance. No polyuria or polydipsia. ALLERGIES: + History of allergic rhinitis. Vital Signs Vital Signs Vital Signs: 08/27/24 16:09 08/27/24 16:18 08/27/24 17:00 Temperature 98.1 F Temperature Source Temporal Pulse Rate 59 L 77 Respiratory Rate 16 18 Respiratory Effort Normal Non-Labored Blood Pressure 109/70 107/87 H Blood Pressure Mean 83 93 Pulse Ox 100 94 Oxygen Delivery Method Room Air 08/27/24 17:05 08/27/24 18:00 08/27/24 19:00 Temperature Temperature Source Pulse Rate 76 68 Respiratory Rate 22 H 18 Respiratory Effort Blood Pressure 107/87 H 107/68 Blood Pressure Mean 93 81 Pulse Ox 93 92 99 Oxygen Delivery Method Room Air 08/27/24 20:00 08/27/24 20:05 Temperature 98 F Temperature Source Pulse Rate 68 68 Respiratory Rate 16 18 Respiratory Effort Blood Pressure 101/78 107/68 Blood Pressure Mean 85 81 Pulse Ox 98 99 Oxygen Delivery Method Weight Weight: 170 lb Body Mass Index (BMI) 28.3 Physical Exam Narrative Physical Examination: General: Awake, alert, oriented x 3 and cooperative, seated upright in the ED bed, notes significantly improved since initial arrival, currently notes chest pressure still very mild, 2-3 out of 10 in severity with no other radiating symptoms or other symptoms associated currently. Skin: Normal color, normal turgor, no icterus, no cyanosis. HEENT: AT/NC, EOMI, PERRLA, mildly dry MM, no carotid bruits or JVD noted. Lungs: Mildly diminished, greater bases, appropriate effort, no rales, ronchi or wheezing. Heart: Improved, regular rate and rhythm; no gallop, rub audible. Abdomen: Soft, overweight, NTTP, ND, mildly hyperactive BS, no no appreciated HSM. Extremities: No cyanosis, clubbing, or edema. Neurological: Patient awake, alert, oriented as noted, cognitive function intact; pupils equally reactive to light and accommodation, cranial nerves grossly normal, moving all 4 extremities, no focal deficits, strength mildly to moderately globally decreased secondary to acute presentation complaints as noted Psychiatric: Affect appears fatigued, no acute evidence of depressive or anxiety feelings but does have underlying history. Results Lab / Micro Data 08/27/24 16:20 08/27/24 16:20 Labs: Laboratory Results - last 24 hr 08/27/24 16:20: WBC 8.4, RBC 4.88, Hgb 14.7, Hct 44.2, MCV 90.6, MCH 30.1, MCHC 33.3, RDW Std Deviation 45.0 H, RDW Coeff of Price 13.4, Plt Count 362, MPV 10.0, Immature Gran % (Auto) 0.400, Neut % (Auto) 60.9, Lymph % (Auto) 28.8, [place] % (Auto) 7.7, Eos % (Auto) 1.7, Baso % (Auto) 0.5, Absolute Neuts (auto) 5.1, Absolute Lymphs (auto) 2.43, Nucleated RBC % 0, PT 12.8, INR 0.9, APTT 22.9 L, Sodium 138, Potassium 3.0 L, Chloride 101, Carbon Dioxide 21.3, Anion Gap 16 H, BUN 23 H, Creatinine 1.14, Estim Creat Clear Calc 44.46 L, Est GFR (MDRD) Non-Af 51 L, BUN/Creatinine Ratio 20.4 H, Glucose 67 L, Calcium 9.9, Troponin T High Sens 9 08/27/24 19:00: Troponin T Hi Sens 2 Hr 19 H Imaging Radiology Impression Chest X-Ray 08/27/24 17:10 IMPRESSION: No Acute Findings. Reading Location: [facility] Assessment & Plan Assessment/Plan (1) Chest pain: (2) Paroxysmal atrial fibrillation: PLAN: Plan The patient is a 74 y/o F w/ PMHx: CKD stage II per GFR trending, HTN, Allergic rhinitis, Anxiety and Depression who presents to the [facility] ED on 08/27/24 with history of ongoing outpatient evaluations for abnormal chest discomfort specifically pressure that radiated toward her left upper extremity at that time with EKG changes with exercise treadmill stress testing with cardiology evaluation noted 08/18/2024 with also noted follow-up coronary calcium scoring demonstrating total calcium score 6.5 with plan for consideration of CTA at least potentially initially and possible cardiac catheterization however patient is yet to perform this presenting to the ED today with significant initial 10 out of 10 chest heaviness/pressure in the substernal region specifically upper with radiation toward her back as well as between her shoulder blades and down both upper extremities with associated nausea without emesis, diaphoresis, dyspnea, lightheadedness and sensation of palpitations starting approximately 30 minutes prior to ED arrival following just completing eating lunch at a [employer] restaurant including half of an alcoholic beverage describing the pressure is like something was sitting on her chest prompting ED evaluation to be cautious. #1. Chest pain concerning for ACS with EKG changes with recent abnormal stress testing complicated by #2: EKG in ED initially atrial fibrillation with RVR with significant diffuse ST changes/depressions, repeat eventually with conversion to sinus rhythm with nonspecific changes similar to recent stress testing, CXR w/ no acute cardiopulmonary findings, initial trop 9 with repeat delta 19. Will admit to PCU, place on a monitored bed to assure no acute myocardial infarction with serial cardiac enzymes and EKGs. Given recent abnormal stress testing at this time we will continue with consultation with cardiology as previous evaluation had contemplated potential further imaging however at this time would expect potential transition in a.m. to cardiac catheterization ideally. Given troponin delta 19 we will defer therapeutic anticoagulation at this time and only continue chemoprophylaxis, maintain on baby aspirin. FLP in AM. Magnesium level requested. #2. New onset Paroxsymal atrial fibrillation w/ RVR: EKG in ED w/ atrial fibrillation w/ RVR. Will maintain on telemetry, obtain cardiac enzyme serial set, obtain magnesium level, obtain TSH level. Recent echocardiogram 08/05/2024 with EF 65%, no evidence of diastolic dysfunction, trivial MVI and ASTRID. Will hold on anticoagulant therapy given plan for likely cardiac catheterization with consideration of initiation in conjunction with cardiology following. Patient currently in sinus rhythm, spontaneously converted, will defer decision for initial agent to cardiology at this time. #3. Hypokalemia: Admission K+ 3.0, magnesium level requested, supplementation given, repeat level in AM. #4. Hyperglycemia: No diabetic history, admission glucose 67, not markedly symptomatic, we will continue to monitor. #5. Hypertension: Given presentation will temporally hold hydrochlorothiazide, judiciously hydrating given plan cardiac catheterization, appearing IV hydralazine in the interim. #6. Chronic Kidney Disease Stage II per GFR trend: Admission BUN/Cr 23/1.14, GFR 51 although primarily has been consistent with stage II per GFR trending, baseline renal function 0.8-0.9, mildly increased today but minimally, repeat BMP in AM. #7. Anxiety and depression: We will continue patient home escitalopram regimen. #8. Allergic rhinitis: We will continue patient on Flonase and fexofenadine home regimen. #9. DVT prophylaxis: Lovenox. #10. CODE status: Patient's is her medical decision-maker. Discussed CODE status at length including difference between FULL code, DNR-CCA and DNR-CC status. Following discussions about the differences in these status, requested Full Code status. Charges/Coding Visit Charges Inpatient E&M: 98038 Init Hosp L3
--- NOTE | 2024-08-27 20:55 | PCM.CONS.C ---
Assessment & Plan Assessment/Plan (1) Chest pain: PLAN: Patient presents with chest discomfort which has some features which are typical but others which are not typical. She also had EKG changes on her stress test which were concerning. Based on the above it to be prudent to definitively exclude coronary artery disease with a left heart catheterization rather than a CT angiogram. The risk benefits alternatives have been explained to her she understands and agrees to proceed. We will perform the above in AM. (2) Abnormal stress test: PLAN: She did have an abnormal stress test with lateral ST changes but no nuclear images. Her coronary calcium score was also noted to be low and my suspicion is that this is possibly a false positive or small vessel disease. This to be further evaluated with a cardiac catheterization. Electrolytes should be replaced as appropriate (3) Paroxysmal atrial fibrillation: PLAN: She did present with an episode of atrial fibrillation with a rapid ventricular response rate. The etiology is not entirely clear. Coronary disease needs to be excluded with a left heart catheterization. She does have a [id number] score of 2 and she may need to be on anticoagulation and may be a candidate for the react A-fib trial. This will be decided after the catheterization in AM. Thank you for allowing me to participate in the care of your patient. Please don't hesitate to call if any issues arise. HPI Consult Data Date of Consult: 08/27/24 HPI Narrative HPI Narrative: DANIS CARRILLO, is a 74 F who presents to the emergency room with palpitations and chest discomfort. She was recently seen in the office for initial consultation because she had been having intermittent chest discomfort radiating down her left arm. She said that she did not know any exacerbating or relieving factors. She was put on isosorbide but she did not tolerate this and was also put on metoprolol which she also did not tolerate and stopped it. She underwent a stress test where she exercised 9:53 0.1 metabolic equivalents and was noted to have some ST changes in the lateral leads but the nuclear images did not demonstrate any evidence of ischemia. She also underwent a coronary calcium score which demonstrated a calcium score of 6.5. An echocardiogram performed in July of this year demonstrated preserved ejection fraction of 65% with no wall motion abnormalities and no valvular abnormalities present. She had been scheduled to undergo a CTA of the chest but she presented today and was noted to be in atrial fibrillation with a rapid ventricular response rate with lateral ST depression and then spontaneously converted to sinus rhythm which did not demonstrate any significant abnormalities. Cardiology was called for further evaluation and management. She is currently pain-free. [facility] Medical History Cholecystectomy planned FH: total knee replacement Hypertension Home Medications ?Medication ?Instructions ?Recorded ?Last Taken ?Type cholecalciferol (vitamin D3) 125 5,000 unit PO DAILY supplement 04/02/17 04/02/17 History mcg (5,000 unit) capsule fexofenadine 60 mg tablet 60 mg PO DAILY allergies 04/02/17 04/02/17 History fluticasone propionate 50 1 spray intranasal DAILY 08/18/24 Unknown History mcg/actuation nasal spray,suspension (Flonase Allergy Relief) Lactobacillus acidophilus 20 20,000 mmu cells PO DAILY 08/27/24 Unknown History billion cell capsule (Florajen Acidophilus) azelastine 0.05 % eye drops 1 drp ophthalmic (eye) BID PRN eye 08/27/24 Unknown History irritation celecoxib 200 mg capsule 200 mg PO DAILY 08/27/24 Unknown History escitalopram oxalate 20 mg tablet 10 mg PO DAILY 08/27/24 Unknown History hydrochlorothiazide 25 mg tablet 25 mg PO DAILY 08/27/24 Unknown History Allergy/AdvReac Type Severity Reaction Status Date / Time amoxicillin (From Augmentin) Allergy Mild diarrhea, Verified 08/27/24 16:11 nausea clavulanic acid (From Allergy Mild diarrhea, Verified 08/27/24 16:11 Augmentin) nausea pseudoephedrine (From Allergy Mild unknown Verified 08/27/24 16:11 Bettye-D) prochlorperazine edisylate AdvReac Nausea/Vom/ Verified 08/27/24 16:11 (From Compazine) Diarrhea Family History Mother Arthritis Father Heart disease Brother CVA (cerebral vascular accident) Surgical History Hx of cholecystectomy Hx of total knee replacement H/O total hip arthroplasty S/P appendectomy History of hysterectomy Social History household members: spouse housing: house Smoking Status: Never smoker ROS Constitutional Constitutional: Denies fever(s) or weight loss Eyes Eyes: Reports systems reviewed and no addt'l complaints, except as documented ENT HEENT: Reports systems reviewed and no addt'l complaints, except as documented Cardiovascular Cardiovascular: Reports chest pain with activity and palpitations; Denies chest pain at rest, dyspnea at rest, dyspnea on exertion, edema or paroxysmal nocturnal dyspnea Respiratory/Chest Respiratory/Chest: Denies dyspnea on exertion, productive cough, shortness of breath at rest or shortness of breath with exertion Gastrointestinal Gastrointestinal: Denies change in bowel habits, nausea, vomiting or weight changes Genitourinary Genitourinary: Denies difficulty urinating Musculoskeletal Musculoskeletal: Denies joint stiffness or muscle weakness Integumentary Integumentary: Denies lesions Neurologic Neurologic: Denies dizziness or syncope Psychiatric Psychiatric: Denies anxiety Endocrine Endocrinology: Denies excessive sweating or fatigue Hematologic/Lymphatic Hematologic/Lymphatic: Denies anemia Allergic/Immunologic Allergic/Immunologic: Denies seasonal rhinorrhea Physical Exam Const alert, oriented x3 and no apparent distress General Appearance: cooperative HEENT hearing grossly normal bilaterally Head and Scalp: atraumatic Eyes EOMs intact bilaterally Neck General: normal visual inspection Chest inspection of chest normal and palpation of chest normal Resp normal respiratory effort Auscultation: clear to auscultation bilaterally Cardio regular rate, regular rhythm, S1 normal heart sound and S2 normal heart sound Jugular Venous Distention: JVD GI normal to inspection, nondistended, normoactive bowel sounds Extremity normal capillary refill and no pedal edema Peripheral Pulses: Yes pulses 2+ throughout and femoral pulses present Skin no rashes or lesions noted Neuro oriented x3 and CN's II-XII intact bilaterally Psych Appearance: grossly normal and appropriate Risk Stratification Risk Stratification Applicable: Yes Age >/= 65: Yes >/= 3 CAD Risk Factors (HTN, HLD, DM, family hx of CAD, or current smoker): No Aspirin Use in the Past 7 Days: No Severe Angina (>/= episodes in 24 hours): No EKG ST Changes >/= 0.5mm: Yes Positive Cardiac Marker: No ANGÉLICA Risk Stratification Score: 2 ANGÉLICA % Risk: 8% Risk Objective Data Vital Signs: Vital Signs Temp Pulse Resp BP Pulse Ox O2 Del Method 98 F 68 18 107/68 99 Room Air 08/27/24 20:05 08/27/24 20:05 08/27/24 20:05 08/27/24 20:05 08/27/24 20:05 08/27/24 17:05 Oxygen Delivery Method Room Air Weight: 170 lb Body Mass Index (BMI) 28.3 Lab / Micro Data 08/27/24 16:20 08/27/24 16:20 Labs: Laboratory Results - last 24 hr 08/27/24 16:20: WBC 8.4, RBC 4.88, Hgb 14.7, Hct 44.2, MCV 90.6, MCH 30.1, MCHC 33.3, RDW Std Deviation 45.0 H, RDW Coeff of Price 13.4, Plt Count 362, MPV 10.0, Immature Gran % (Auto) 0.400, Neut % (Auto) 60.9, Lymph % (Auto) 28.8, [place] % (Auto) 7.7, Eos % (Auto) 1.7, Baso % (Auto) 0.5, Absolute Neuts (auto) 5.1, Absolute Lymphs (auto) 2.43, Nucleated RBC % 0, PT 12.8, INR 0.9, APTT 22.9 L, Sodium 138, Potassium 3.0 L, Chloride 101, Carbon Dioxide 21.3, Anion Gap 16 H, BUN 23 H, Creatinine 1.14, Estim Creat Clear Calc 44.46 L, Est GFR (MDRD) Non-Af 51 L, BUN/Creatinine Ratio 20.4 H, Glucose 67 L, Calcium 9.9, Troponin T High Sens 9 08/27/24 19:00: Troponin T Hi Sens 2 Hr 19 H Cardiology Labs/Tests 08/27/24 16:20: WBC 8.4, RBC 4.88, Hgb 14.7, Hct 44.2, MCV 90.6, MCH 30.1, MCHC 33.3, Plt Count 362, MPV 10.0, Immature Gran % (Auto) 0.400, Neut % (Auto) 60.9, Lymph % (Auto) 28.8, [place] % (Auto) 7.7, Eos % (Auto) 1.7, Baso % (Auto) 0.5, Absolute Neuts (auto) 5.1, Nucleated RBC % 0, PT 12.8, INR 0.9, APTT 22.9 L, Sodium 138, Potassium 3.0 L, Chloride 101, Carbon Dioxide 21.3, Anion Gap 16 H, BUN 23 H, Creatinine 1.14, Est GFR (MDRD) Non-Af 51 L, BUN/Creatinine Ratio 20.4 H, Glucose 67 L, Calcium 9.9 Rhythm: EKG: ECHO: Stress Test: Cardiac Cath: PCI: CT Surgery: Holter monitor: EPS: PPM: CXR: Chest CT Scan: Radiography Diagnostic Testing: Radiology Impression Chest X-Ray 08/27/24 17:10 IMPRESSION: No Acute Findings. Reading Location: [facility]
--- NOTE | 2024-08-27 20:56 | EKG12_ITS ---
Test Reason : CP ADMIT Blood Pressure : */* mmHG Vent. Rate : 67 BPM Atrial Rate : 67 BPM P-R Int : 154 ms QRS Dur : 86 ms QT Int : 366 ms P-R-T Axes : 74 20 96 degrees QTcB Int : 386 ms Normal sinus rhythm Low voltage QRS Nonspecific ST and T wave abnormality Abnormal ECG When compared with ECG of 27-Aug-2024 16:36, MANUAL COMPARISON REQUIRED DATA IS UNCONFIRMED Confirmed by DEZ PARK, PARISA ([id number]), editor producer LISA OBRIEN ([id number]) on 08/31/2024 7:32:29 AM Referred By: Levon Andrews Confirmed By: PARISA GARCES MD
[2024-08-27 21:34] LABS: Magnesium 2.2 mg/dL (1.5-2.2)
[2024-08-27 21:59] LABS: Troponin T High Sens 4 HR 18 ng/L (<=14)
[2024-08-27] MEDS: Potassium Chloride Oral Tablet 20 MEQ 40 MEQ PO (23:20)
[2024-08-27] MEDS: 0.9% Normal Saline (1000mL) 1,000 ML 100 ML IV (23:21)
[2024-08-28] VITALS (9 sets, daily range): BP systolic 100–134; BP diastolic 60–75; PULSE 55–65; RESP 14–16; TEMP 36.3–36.5; O2SAT 92–97; BMI 28.3
[2024-08-28] MEDS: Aspirin E.C. 81 MG Tablet PO (05:55)
--- NOTE | 2024-08-28 05:55 | EKG12_ITS ---
Test Reason : CP Blood Pressure : */* mmHG Vent. Rate : 162 BPM Atrial Rate : * BPM P-R Int : * ms QRS Dur : 82 ms QT Int : 262 ms P-R-T Axes : * 54 256 degrees QTcB Int : 430 ms Critical Test Result: High HR Atrial fibrillation with rapid ventricular response Marked ST abnormality, possible inferior subendocardial injury Marked ST abnormality, possible anterolateral subendocardial injury Abnormal ECG Confirmed by PARISA GARCES MD ([id number]), assistant film editor TACO JOHNSON ([id number]) on 08/28/2024 8:10:51 AM Referred By: Levon Andrews Confirmed By: PARISA GARCES MD
[2024-08-28 06:00] LABS: Absolute Neutrophil Count 2.8 X10^3/uL (2.0-7.7); Basophil# 0.03 X10^3/uL; Basophil% 0.6 % (0-1); Eosinophil# 0.23 X10^3/uL; Eosinophils% 4.3 % (0-5); Hematocrit 40.2 % (37-47); Hemoglobin 13.2 g/dL (12.0-15.0); Lymphocyte % 33.6 % (19-41); Mean Corp Hgb Conc 32.8 g/dL (32-36); Mean Corpuscular Hgb 30.5 pg (27.0-32.0); Mean Corpuscular Volume 92.8 fL (81-99); Mean Platelet Vol. 9.6 fl (6.2-12.0); Monocyte# 0.51 X10^3/uL; Monocyte% 9.5 % (0-10); NRBC Flagged by Analyzer 0 % (0-5); Neutrophil # 2.76 X10^3/uL (2.7-7.7); Neutrophil % 51.4 % (47-70); Platelet Count 310 K/mm3 (150-450); RBC Distribution Width CV 13.6 % (11.6-14.6); RBC Distribution Width SD 46.7 fl (35.1-43.9); Red Blood Count 4.33 M/mm3 (4.2-5.4); White Blood Count 5.4 K/mm3 (4.4-11.0)
[2024-08-28 06:35] LABS: Cholesterol 169 mg/dL (<=200); High Density Lipoprotein 56 mg/dL; Low Density Lipoprotein Calc. 94 mg/dL; Triglycerides 94 mg/dL; Very Low Density Lipoprotein 19 mg/dL (5-40); cholesterol:hdl ratio screen 3.01
[2024-08-28 06:56] LABS: ALB/GLOB Ratio 1.2 RATIO (0.9-2.4); AST(SGOT) 20 U/L (<=31); Alanine Aminotransfer ALT/SGPT 13 U/L (<=34); Albumin, Serum 3.7 g/dL (3.4-4.8); Alkaline Phosphatase 100 U/L (35-104); Anion Gap 11 (5-15); BUN 18 mg/dL (4-19); BUN/Creat Ratio 19.6 RATIO (10-20); Carbon Dioxide 23.2 mmol/L (21.0-32.0); Chloride 107 mmol/L (98-108); Creatinine, Serum 0.92 mg/dL (0.70-1.20); EST Glomerular Filtration Rate 66 (>60); Estimated Creatinine Clearance 55.08 ml/min (50-250); Globulin 2.9 g/dL (2.2-4.2); Glucose 89 mg/dL (70-99); Potassium 4.4 mmol/L (3.3-5.1); Protein, Total 6.6 g/dL (5.9-8.4); Sodium Level 140 mmol/L (133-145); Total Bilirubin 0.33 mg/dL (0.00-1.30)
[2024-08-28] MEDS: 0.9% Normal Saline (1000mL) 1,000 ML 15 ML IV (08:00)
--- NOTE | 2024-08-28 08:12 | NURSING ---
Report called to research lab assistant RN Alphonse
--- NOTE | 2024-08-28 08:30 | PCM.PN.HOSP ---
Reason for Visit Reason for Visit: Diagnoses Paroxysmal atrial fibrillation (08/27/24) Chest pain, unspecified (08/27/24) Abnormal result of other cardiovascular function study (08/27/24) Objective Data Objective Data Vital Signs: Vital Signs Temp Pulse Resp BP Pulse Ox O2 Del Method 97.7 F L 57 L 16 134/75 H 96 Room Air 08/28/24 06:00 08/28/24 06:00 08/28/24 06:00 08/28/24 06:00 08/28/24 08:01 08/28/24 08:01 Oxygen Delivery Method Room Air Weight: 169 lb 15.622 oz Body Mass Index (BMI) 28.3 Intake & Output: Intake and Output for Last 24 Hours 08/26/24 08/27/24 08/28/24 23:59 23:59 23:59 Intake Total 1350.25 / 1350.25 Balance 1350.25 / 1350.25 Lab / Micro Data 08/28/24 05:23 08/28/24 05:23 Labs: Laboratory Results - last 24 hr 08/27/24 16:20: WBC 8.4, RBC 4.88, Hgb 14.7, Hct 44.2, MCV 90.6, MCH 30.1, MCHC 33.3, RDW Std Deviation 45.0 H, RDW Coeff of Price 13.4, Plt Count 362, MPV 10.0, Immature Gran % (Auto) 0.400, Neut % (Auto) 60.9, Lymph % (Auto) 28.8, [place] % (Auto) 7.7, Eos % (Auto) 1.7, Baso % (Auto) 0.5, Absolute Neuts (auto) 5.1, Absolute Lymphs (auto) 2.43, Nucleated RBC % 0, PT 12.8, INR 0.9, APTT 22.9 L, Sodium 138, Potassium 3.0 L, Chloride 101, Carbon Dioxide 21.3, Anion Gap 16 H, BUN 23 H, Creatinine 1.14, Estim Creat Clear Calc 44.46 L, Est GFR (MDRD) Non-Af 51 L, BUN/Creatinine Ratio 20.4 H, Glucose 67 L, Calcium 9.9, Troponin T High Sens 9 08/27/24 19:00: Magnesium 2.2, Troponin T Hi Sens 2 Hr 19 H 08/27/24 21:10: Troponin T Hi Sens 4Hr 18 H 08/28/24 05:23: WBC 5.4, RBC 4.33, Hgb 13.2, Hct 40.2, MCV 92.8, MCH 30.5, MCHC 32.8, RDW Std Deviation 46.7 H, RDW Coeff of Price 13.6, Plt Count 310, MPV 9.6, Immature Gran % (Auto) 0.600, Neut % (Auto) 51.4, Lymph % (Auto) 33.6, [place] % (Auto) 9.5, Eos % (Auto) 4.3, Baso % (Auto) 0.6, Absolute Neuts (auto) 2.8, Absolute Lymphs (auto) 1.80, Nucleated RBC % 0, Sodium 140, Potassium 4.4, Chloride 107, Carbon Dioxide 23.2, Anion Gap 11, BUN 18, Creatinine 0.92, Estim Creat Clear Calc 55.08, Est GFR (MDRD) Non-Af 66, BUN/Creatinine Ratio 19.6, Glucose 89, Calcium 9.0, Total Bilirubin 0.33, AST 20, ALT 13, Alkaline Phosphatase 100, Total Protein 6.6, Albumin 3.7, Globulin 2.9, Albumin/Globulin Ratio 1.2, Triglycerides 94, Cholesterol 169, LDL Cholesterol, Calc 94, VLDL Cholesterol 19, HDL Cholesterol 56, Cholesterol/HDL Ratio 3.01, TSH 2.580 Radiography Diagnostic Testing: Radiology Impression Chest X-Ray 08/27/24 17:10 IMPRESSION: No Acute Findings. Reading Location: [facility] Assessment & Plan Assessment/Plan (1) Chest pain: (2) Paroxysmal atrial fibrillation: PLAN: Plan The patient is a 74 y/o F was admitted with chest a proximal 30 minutes minutes prior to arrival with radiation to the back and both arms associated with heart racing. It was sudden onset pressure, started after she finished lunch, half of jose [place]on and associated with some nausea and diaphoresis but no vomiting. No fever or chills #1. Chest pain concerning for ACS with EKG changes with recent abnormal stress testing complicated by #2: Twelve-lead EKG in ED shows A-fib with RVR with lateral ST depression, spontaneous converted to sinus rhythm. Initial troponin 9 with repeat troponin 19. The student liaison officer was consulted. Plan for cardiac catheter today. Fasting profile within normal limit, LDL 94. HDL 56. TSH 2.58 Patient had some EKG changes on the stress test on 08/11 although nuclear images did not demonstrate evidence of ischemia. Her coronary calcium score was 6.5. Echo in July 2024 reported preserved EF 65% with no RWMA and no valvular abnormalities #2. New onset Paroxsymal atrial fibrillation w/ RVR: EKG in ED w/ atrial fibrillation w/ RVR. Recent echocardiogram 08/05/2024 with EF 65%, he spontaneously converted admission #3. Hypokalemia: Admission K+ 3.0, repeat potassium 4.4. Serum magnesium 2.2. #4. HypOglycemia: No diabetic history, admission glucose 67, previously euglycemic, glucose normal 86 and 89 #5. Hypertension: Given presentation will temporally hold hydrochlorothiazide, judiciously hydrating given plan cardiac catheterization, appearing IV hydralazine in the interim. #6. Chronic Kidney Disease Stage II per GFR trend: Admission BUN/Cr 23/1.14, GFR 51 although primarily has been consistent with stage II per GFR trending, baseline renal function 0.8-0.9, mildly increased today but minimally, repeat BMP in AM. #7. Anxiety and depression: We will continue patient home escitalopram regimen. #8. Allergic rhinitis: We will continue patient on Flonase and fexofenadine home regimen. #9. DVT prophylaxis: Lovenox. #10. CODE status: Patient's is her medical decision-maker. Discussed CODE status at length including difference between FULL code, DNR-CCA and DNR-CC status. Following discussions about the differences in these status, requested Full Code status.
--- NOTE | 2024-08-28 08:56 | PCM.PN.CARD ---
Subjective Subjective Patient seen and evaluated. Doing well. Underwent cardiac catheterization this morning Objective Data Vital Signs: Vital Signs Temp Pulse Resp BP Pulse Ox O2 Del Method 97.7 F L 57 L 16 134/75 H 96 Room Air 08/28/24 06:00 08/28/24 06:00 08/28/24 06:00 08/28/24 06:00 08/28/24 08:01 08/28/24 08:01 Oxygen Delivery Method Room Air Weight: 169 lb 15.622 oz Body Mass Index (BMI) 28.3 Intake & Output: Intake and Output for Last 24 Hours 08/26/24 08/27/24 08/28/24 23:59 23:59 23:59 Intake Total 1350.25 / 1350.25 Balance 1350.25 / 1350.25 Lab / Micro Data 08/28/24 05:23 08/28/24 05:23 Labs: Laboratory Results - last 24 hr 08/27/24 16:20: WBC 8.4, RBC 4.88, Hgb 14.7, Hct 44.2, MCV 90.6, MCH 30.1, MCHC 33.3, RDW Std Deviation 45.0 H, RDW Coeff of Price 13.4, Plt Count 362, MPV 10.0, Immature Gran % (Auto) 0.400, Neut % (Auto) 60.9, Lymph % (Auto) 28.8, [place] % (Auto) 7.7, Eos % (Auto) 1.7, Baso % (Auto) 0.5, Absolute Neuts (auto) 5.1, Absolute Lymphs (auto) 2.43, Nucleated RBC % 0, PT 12.8, INR 0.9, APTT 22.9 L, Sodium 138, Potassium 3.0 L, Chloride 101, Carbon Dioxide 21.3, Anion Gap 16 H, BUN 23 H, Creatinine 1.14, Estim Creat Clear Calc 44.46 L, Est GFR (MDRD) Non-Af 51 L, BUN/Creatinine Ratio 20.4 H, Glucose 67 L, Calcium 9.9, Troponin T High Sens 9 08/27/24 19:00: Magnesium 2.2, Troponin T Hi Sens 2 Hr 19 H 08/27/24 21:10: Troponin T Hi Sens 4Hr 18 H 08/28/24 05:23: WBC 5.4, RBC 4.33, Hgb 13.2, Hct 40.2, MCV 92.8, MCH 30.5, MCHC 32.8, RDW Std Deviation 46.7 H, RDW Coeff of Price 13.6, Plt Count 310, MPV 9.6, Immature Gran % (Auto) 0.600, Neut % (Auto) 51.4, Lymph % (Auto) 33.6, [place] % (Auto) 9.5, Eos % (Auto) 4.3, Baso % (Auto) 0.6, Absolute Neuts (auto) 2.8, Absolute Lymphs (auto) 1.80, Nucleated RBC % 0, Sodium 140, Potassium 4.4, Chloride 107, Carbon Dioxide 23.2, Anion Gap 11, BUN 18, Creatinine 0.92, Estim Creat Clear Calc 55.08, Est GFR (MDRD) Non-Af 66, BUN/Creatinine Ratio 19.6, Glucose 89, Calcium 9.0, Total Bilirubin 0.33, AST 20, ALT 13, Alkaline Phosphatase 100, Total Protein 6.6, Albumin 3.7, Globulin 2.9, Albumin/Globulin Ratio 1.2, Triglycerides 94, Cholesterol 169, LDL Cholesterol, Calc 94, VLDL Cholesterol 19, HDL Cholesterol 56, Cholesterol/HDL Ratio 3.01, TSH 2.580 Cardiology Labs/Tests 08/27/24 16:20: WBC 8.4, RBC 4.88, Hgb 14.7, Hct 44.2, MCV 90.6, MCH 30.1, MCHC 33.3, Plt Count 362, MPV 10.0, Immature Gran % (Auto) 0.400, Neut % (Auto) 60.9, Lymph % (Auto) 28.8, [place] % (Auto) 7.7, Eos % (Auto) 1.7, Baso % (Auto) 0.5, Absolute Neuts (auto) 5.1, Nucleated RBC % 0, PT 12.8, INR 0.9, APTT 22.9 L, Sodium 138, Potassium 3.0 L, Chloride 101, Carbon Dioxide 21.3, Anion Gap 16 H, BUN 23 H, Creatinine 1.14, Est GFR (MDRD) Non-Af 51 L, BUN/Creatinine Ratio 20.4 H, Glucose 67 L, Calcium 9.9 08/27/24 19:00: Magnesium 2.2 08/28/24 05:23: WBC 5.4, RBC 4.33, Hgb 13.2, Hct 40.2, MCV 92.8, MCH 30.5, MCHC 32.8, Plt Count 310, MPV 9.6, Immature Gran % (Auto) 0.600, Neut % (Auto) 51.4, Lymph % (Auto) 33.6, [place] % (Auto) 9.5, Eos % (Auto) 4.3, Baso % (Auto) 0.6, Absolute Neuts (auto) 2.8, Nucleated RBC % 0, Sodium 140, Potassium 4.4, Chloride 107, Carbon Dioxide 23.2, Anion Gap 11, BUN 18, Creatinine 0.92, Est GFR (MDRD) Non-Af 66, BUN/Creatinine Ratio 19.6, Glucose 89, Calcium 9.0, Total Bilirubin 0.33, Triglycerides 94, Cholesterol 169, VLDL Cholesterol 19, HDL Cholesterol 56, Cholesterol/HDL Ratio 3.01 Rhythm: EKG: ECHO: Stress Test: Cardiac Cath: PCI: CT Surgery: Holter monitor: EPS: PPM: CXR: Chest CT Scan: Radiography Diagnostic Testing: Radiology Impression Chest X-Ray 08/27/24 17:10 IMPRESSION: No Acute Findings. Reading Location: [facility] Physical Exam Const alert, oriented x3 and no apparent distress General Appearance: cooperative HEENT hearing grossly normal bilaterally Head and Scalp: atraumatic Eyes EOMs intact bilaterally Neck General: normal visual inspection Chest inspection of chest normal and palpation of chest normal Resp normal respiratory effort Auscultation: clear to auscultation bilaterally Cardio regular rate, regular rhythm, S1 normal heart sound and S2 normal heart sound Jugular Venous Distention: JVD GI normal to inspection, nondistended, normoactive bowel sounds Extremity normal capillary refill and no pedal edema Peripheral Pulses: Yes pulses 2+ throughout and femoral pulses present Skin no rashes or lesions noted Neuro oriented x3 and CN's II-XII intact bilaterally Psych Appearance: grossly normal and appropriate Assessment & Plan Assessment/Plan (1) Chest pain: PLAN: Patient presents with chest discomfort which has some features which are typical but others which are not typical. She also had EKG changes on her stress test which were concerning. Cardiac catheterization this morning demonstrated essentially normal coronary arteries. (2) Abnormal stress test: PLAN: She did have an abnormal stress test with lateral ST changes but no nuclear images. Her coronary calcium score was also noted to be low and my suspicion is that this is possibly a false positive or small vessel disease. The cardiac catheterization did corroborate the above that he was follows EKG readings. (3) Paroxysmal atrial fibrillation: PLAN: She did present with an episode of atrial fibrillation with a rapid ventricular response rate. The etiology is not entirely clear. With a normal cardiac catheterization and only 1 episode I would recommend that we treat her with a pill in the pocket approach with metoprolol. If this fails a low-dose antiarrhythmic can be utilized. Will discuss this further with primary passenger elevator operator. Thank you for allowing me to participate in the care of your patient. Please don't hesitate to call if any issues arise.
--- NOTE | 2024-08-28 09:18 | CL.D_ITS ---
Patient Name: DANIS CARRILLO [facility] Study Date: 08/28/2024 Performing: Toro Smith MD Ht: 165.1 inches 419.354 cm : 1950 Wt: 77.1 lbs 34.972 kg Age: 74 Gender: female BSA: 2.59 PROCEDURE(S) PERFORMED [id number])LHC/COR/LV CLINICAL PROFILE AND INDICATIONS Indications: Suspected CAD Heart Failure: None Stress/Imaging Date: 06/29/24Stress Test with SPECT MPI: Negative CAD Presentations: Symptom unlikely to be ischemic. CONCLUSIONS Normal coronary arteries Normal LV size, wall motion,and systolic function RECOMMENDATIONS Medical therapy DESCRIPTION OF PROCEDURE The patient arrived to the procedure lab. The risks and benefits of the procedure as well as a full description of our services here and current unavailability of surgical backup were fully explained to the patient and/or their significant other prior to the catheterization. The Timeout was completed, verifying the correct patient and procedure. The patient's procedural site was prepped and draped in the usual fashion. Local anesthetic was given subcutaneously to right radial region with Lidocaine 2%. Using a modified Seldinger technique, arterial access was obtained via the right radial artery, a 6Fr sheath was inserted. Left Coronary Artery selective angiography was performed in multiple views using a 5 Fr. 4.0 [place] catheter. Right Coronary Artery selective angiography was then performed in multiple views using a 5 Fr. JR 4 catheter. Left Ventriculography was performed in ÁLVAREZ projection using a 5 Fr. Pigtail catheter. LV to AO pullback pressures were then recorded.The arterial sheath was pulled and a TR Band was applied for hemostasis CORONARY ANGIOGRAPHY DOMINANCE: Right Dominant LEFT HEART ASSESSMENT Left Ventricular Ejection Fraction: by LV Gram 60 % Normal LV wall motion Normal Left Ventricular systolic function Normal Left Ventricular systolic function LEFT MAIN: Angiographically normal LEFT ANTERIOR DESCENDING ARTERY: Angiographically normal CIRCUMFLEX ARTERY: Angiographically normal RIGHT CORONARY ARTERY: Angiographically normal COMPLICATIONS No Complications PROCEDURE MEDICATIONS Fentanyl 50 mcg IV Versed 1 mg IV Oxygen: 2 L/min via nasal cannula Heparin given IA 08/28/2024 08:42:01 Verapamil 2.5mg, Ntg 100mcgs, 3000 units of Heparin given IA 08/28/2024 08:42:01 SUMMARY OF HEMODYNAMIC DATA Time AIR REST ECG 08:31:15 AO 92/49 (69) SA 08:46:46 LV 120/1, 8 08:52:27 LV 123/4, 10 08:52:35 LV 119/6, 15 08:53:21 LVp 118/2, 16 08:53:24 AOp 124/64 (90) 08:53:31 Signed By Toro Smith MD On 08/28/2024 09:16:52 Toro Smith MD
--- NOTE | 2024-08-28 10:11 | DCINST_ITS ---
Discharge Instructions Diet Discharge Diet: 2000 mg Sodium Diet DC O2, CPAP, BIPAP needs Home O2 Discharge instructions: No Dressing / Incision Discharge Activity: Return to Normal Activity Weight Bearing Status: Weight bearing as tolerated Dressing / Incision Call your doctor if you observe: Fever of 101 or Higher, Coldness, Increased Pain, Numbness or Tingling, Change in Color, Inability to urinate, Inability to have a bowel movement, Shortness of breath, Dizziness, Fainting spells, Swelling in the ankles, Chest pain, Prolonged hiccupping, Increased palpitations (irregular heartbeat) and Calf discomfort Follow Up Care When: IN 2 WEEKS Test Results: Test results from this visit will be discussed in further detail at your follow- up appointment, if applicable. Discharge Plan Admission Admit Date/Time: 08/27/24 20:29 Primary Reason for Your Visit: A-fib RVR, atypical chest pain. Heart cath negative Attending Provider: Gregory Anand Primary Care Provider: Chelsea Moss Consulting Providers: Toro Smith; Anabela Gould Discharge Orders/Prescriptions Prescriptions: Continued fluticasone propionate [Flonase Allergy Relief] 50 mcg/actuation spray,suspension 1 spray intranasal DAILY Rx Instructions: administer into each nostril fexofenadine 60 MG tablet 60 mg PO DAILY cholecalciferol (vitamin D3) 5,000 UNIT capsule 5,000 unit PO DAILY escitalopram oxalate 20 mg tablet 10 mg PO DAILY celecoxib 200 mg capsule 200 mg PO DAILY hydrochlorothiazide 25 mg tablet 25 mg PO DAILY Florajen Acidophilus 20 billion cell capsule 20,000 mmu cells PO DAILY azelastine 0.05 % drops 1 drp ophthalmic (eye) BID PRN (Reason: eye irritation) Referrals / Follow Up: Chelsea Moss DO [Primary Care Provider] - Evans Draper MD [Med Staff - Active Staff] - Within 1 Month (On metoprolol 25 mg, pill in the pocket approach) Disposition Disposition (needs filled in before D/C Order can be placed): Home, Self Care
--- NOTE | 2024-08-28 10:19 | PCM.DC.SUM ---
Providers Date of Admission: 08/27/24 Date of Discharge: 08/28/24 Primary Care Physician: Dr. Chelsea Moss, Consultations 08/27/24 22:03 Consult: Cardiology Routine Consulting Provider: Toro Smith Reason for Consult: Chest Pain EMERGENT Consult: No MD Notified: Yes Date Notified: 08/27/24 Time Notified: 20:54 Method of Notification: ED Physician Initiated Reason For Visit: CHEST PAIN Diagnosis Discharge Diagnosis (1) Chest pain: Status: Acute Code(s): R07.9 - Chest pain, unspecified (2) Abnormal stress test: Status: Acute Code(s): R94.39 - Abnormal result of other cardiovascular function study (3) Paroxysmal atrial fibrillation: Status: Inactive Code(s): I48.0 - Paroxysmal atrial fibrillation Plan The patient is a 74 y/o F was admitted with chest a proximal 30 minutes minutes prior to arrival with radiation to the back and both arms associated with heart racing. It was sudden onset pressure, started after she finished lunch, half of jose ramon and associated with some nausea and diaphoresis but no vomiting. No fever or chills #1. Chest pain concerning for ACS with EKG changes with recent abnormal stress testing complicated by #2: Twelve-lead EKG in ED shows A-fib with RVR with lateral ST depression, spontaneous converted to sinus rhythm. Initial troponin 9 with repeat troponin 19 and 18. The [facility] reactor operator head was consulted. 08/28: Patient had some EKG changes on the stress test on 08/11 although nuclear images did not demonstrate evidence of ischemia. Her coronary calcium score was 6.5. Echo in July 2024 reported preserved EF 65% with no RWMA and no valvular abnormalities Cardiac cath shows EF 60%, normal LV wall motion and systolic function. Angiographically normal coronary arteries. Fasting profile within normal limit, LDL 94. HDL 56. TSH 2.58 Discussed with the [employer] reactor operator head. Patient is being discharged home. She follows Dr. Evans Draper. #2. New onset Paroxsymal atrial fibrillation w/ RVR: EKG in ED w/ atrial fibrillation w/ RVR. Recent echocardiogram 08/05/2024 with EF 65%, he spontaneously converted admission 08/28: Converted to sinus rhythm yesterday. Discussed with [employer] reactor operator head. Patient on metoprolol 25 mg daily pill in the pocket approach, she takes it when she feels heart racing or irregular heartbeat. She said she has pills at home but will check at home and will let [facility] know if she needs refill #3. Hypokalemia: Admission K+ 3.0, repeat potassium 4.4. Serum magnesium 2.2. #4. HypOglycemia: No diabetic history, admission glucose 67, previously euglycemic, glucose normal 86 and 89 #5. Hypertension: Given presentation will temporally hold hydrochlorothiazide, judiciously hydrating given plan cardiac catheterization, appearing IV hydralazine in the interim. #6. Chronic Kidney Disease Stage II per GFR trend: Admission BUN/Cr 23/.14, GFR 51 although primarily has been consistent with stage II per GFR trending, baseline renal function 0.8-0.9, mildly increased today but minimally, repeat BMP in AM. #7. Anxiety and depression: We will continue patient home escitalopram regimen. #8. Allergic rhinitis: We will continue patient on Flonase and fexofenadine home regimen. #9. DVT prophylaxis: Lovenox. #10. CODE status: Patient's is her medical decision-maker. Discussed CODE status at length including difference between FULL code, DNR-CCA and DNR-CC status. Following discussions about the differences in these status, requested Full Code status. Discharge medication reconciliation done. Discharge follow-up instructions completed. Discharge process discussed with the patient and all questions were answered to patient's satisfaction. Follow with PCP in 1 to 2 weeks Total time spent, exact 35 minutes on discharge meds reconciliation, examination, coordination of care with nurses and ancillary staff, review of imaging and blood test and discussion with the patient on follow-up instructions. Medications at Discharge Home Medications cholecalciferol (vitamin D3) 125 mcg (5,000 unit) capsule 5,000 unit PO DAILY supplement 04/02/17 fexofenadine 60 mg tablet 60 mg PO DAILY allergies 04/02/17 fluticasone propionate 50 mcg/actuation nasal spray,suspension (Flonase Allergy Relief) 1 spray intranasal DAILY 08/18/24 Lactobacillus acidophilus 20 billion cell capsule (Florajen Acidophilus) 20,000 mmu cells PO DAILY 08/27/24 azelastine 0.05 % eye drops 1 drp ophthalmic (eye) BID PRN eye irritation 03/20/25 celecoxib 200 mg capsule 200 mg PO DAILY 08/27/24 escitalopram oxalate 20 mg tablet 10 mg PO DAILY 08/27/24 hydrochlorothiazide 25 mg tablet 25 mg PO DAILY 08/27/24 Physical Exam Narrative Seen and examined traffic monitor specialist shows sinus rhythm 62 bpm. Patient was converted yesterday. Returned from the cardiac cath. Normal coronaries. Does not have chest pressure or shortness of breath. Physical exam General: Alert, Oriented x3, Cooperative HEENT: Atraumatic, PERRLA, EOMI, Normocephalic Oral: Oral mucosa moist no Gingival or Mucosal Lesions/ Ulcerations Neck: Supple, No JVD, Negative Carotid Bruits Chest wall/Lungs: Air entry equal in bilateral lung bases. No crepitation/rhonchi Cardiovascular: Regular rate, Regular Rhythm, Normal S1, Normal S2, No M/G/R Abdomen: Bowel Sounds Present, Soft, Non Tender, Non-Distended : No dysuria. No renal angle tenderness. No suprapubic tenderness. Extremities: No edema, Capillary Refill Less than 3 Seconds Skin: Right wrist bandage for radial artery approach. No bleeding or hematoma Musculoskeletal: No Tenderness to Palpation of Joints or Extremities Neurological: Cranial nerves II-XII grossly intact, DTR 2+/4. No acute focal neurological deficit. Psych/Mental Status: Normal Affect, Appropriate. Weight / BMI Weight Weight: 169 lb 15.622 oz Body Mass Index (BMI) 28.3 ABG / Lab / Microbiology Data 08/28/24 05:23 08/28/24 05:23 Laboratory: Laboratory Results - last 24 hr 08/27/24 16:20: WBC 8.4, RBC 4.88, Hgb 14.7, Hct 44.2, MCV 90.6, MCH 30.1, MCHC 33.3, RDW Std Deviation 45.0 H, RDW Coeff of Price 13.4, Plt Count 362, MPV 10.0, Immature Gran % (Auto) 0.400, Neut % (Auto) 60.9, Lymph % (Auto) 28.8, [place] % (Auto) 7.7, Eos % (Auto) 1.7, Baso % (Auto) 0.5, Absolute Neuts (auto) 5.1, Absolute Lymphs (auto) 2.43, Nucleated RBC % 0, PT 12.8, INR 0.9, APTT 22.9 L, Sodium 138, Potassium 3.0 L, Chloride 101, Carbon Dioxide 21.3, Anion Gap 16 H, BUN 23 H, Creatinine 1.14, Estim Creat Clear Calc 44.46 L, Est GFR (MDRD) Non-Af 51 L, BUN/Creatinine Ratio 20.4 H, Glucose 67 L, Calcium 9.9, Troponin T High Sens 9 08/27/24 19:00: Magnesium 2.2, Troponin T Hi Sens 2 Hr 19 H 08/27/24 21:10: Troponin T Hi Sens 4Hr 18 H 08/28/24 05:23: WBC 5.4, RBC 4.33, Hgb 13.2, Hct 40.2, MCV 92.8, MCH 30.5, MCHC 32.8, RDW Std Deviation 46.7 H, RDW Coeff of Price 13.6, Plt Count 310, MPV 9.6, Immature Gran % (Auto) 0.600, Neut % (Auto) 51.4, Lymph % (Auto) 33.6, [place] % (Auto) 9.5, Eos % (Auto) 4.3, Baso % (Auto) 0.6, Absolute Neuts (auto) 2.8, Absolute Lymphs (auto) 1.80, Nucleated RBC % 0, Sodium 140, Potassium 4.4, Chloride 107, Carbon Dioxide 23.2, Anion Gap 11, BUN 18, Creatinine 0.92, Estim Creat Clear Calc 55.08, Est GFR (MDRD) Non-Af 66, BUN/Creatinine Ratio 19.6, Glucose 89, Calcium 9.0, Total Bilirubin 0.33, AST 20, ALT 13, Alkaline Phosphatase 100, Total Protein 6.6, Albumin 3.7, Globulin 2.9, Albumin/Globulin Ratio 1.2, Triglycerides 94, Cholesterol 169, LDL Cholesterol, Calc 94, VLDL Cholesterol 19, HDL Cholesterol 56, Cholesterol/HDL Ratio 3.01, TSH 2.580 Radiography Diagnostic Testing: Radiology Impression Chest X-Ray 08/27/24 17:10 IMPRESSION: No Acute Findings. Reading [facility]: [facility] D/C Instructions Discharge Diet: 2000 mg Sodium Diet Weight Bearing Status: Weight bearing as tolerated Call your doctor if you observe: Fever of 101 or Higher, Coldness, Increased Pain, Numbness or Tingling, Change in Color, Inability to urinate, Inability to have a bowel movement, Shortness of breath, Dizziness, Fainting spells, Swelling in the ankles, Chest pain, Prolonged hiccupping, Increased palpitations (irregular heartbeat) and Calf discomfort DC O2, CPAP, BIPAP Needs Home O2 Discharge instructions: No When: IN 2 WEEKS Meaningful Use Info Meaningful Use Meaningful Use Diagnoses (Choose all that apply): None applicable Ischemic Stroke Statin Dosing Therapy Reference: STATIN DOSE THERAPY REFERENCE: * Patients > 75 years receive moderate or high dose statin therapy. * Patients 75 years or YOUNGER should receive HIGH intensity statin dose unless contraindicated. You will be required to document reason for non-treatment if statin daily dose does not meet guidelines. HIGH DOSE STATIN THERAPY DAILY Atorvastatin > than or = to 40 mg Rosuvastatin > than or = to 20 mg Amlodipine + Atorvastatin > than or = to 2.5/40 mg Ezetimibe + Simvastatin 10/80 mg Simvastatin 80mg Discharge Plan Admission Admit Date/Time: 08/27/24 20:29 Primary Reason for Your Visit: A-fib RVR, atypical chest pain. Heart cath negative Attending Provider: Gregory Anand Primary Care Provider: Chelsea Moss Consulting Providers: Toro Smith; Anabela Gould Discharge Orders/Prescriptions Prescriptions: Continued fluticasone propionate [Flonase Allergy Relief] 50 mcg/actuation spray,suspension 1 spray intranasal DAILY Rx Instructions: administer into each nostril fexofenadine 60 MG tablet 60 mg PO DAILY cholecalciferol (vitamin D3) 5,000 UNIT capsule 5,000 unit PO DAILY escitalopram oxalate 20 mg tablet 10 mg PO DAILY celecoxib 200 mg capsule 200 mg PO DAILY hydrochlorothiazide 25 mg tablet 25 mg PO DAILY Florajen Acidophilus 20 billion cell capsule 20,000 mmu cells PO DAILY azelastine 0.05 % drops 1 drp ophthalmic (eye) BID PRN (Reason: eye irritation) Referrals / Follow Up: Chelsea Moss DO [Primary Care Provider] - Evans Draper MD [Med Staff - Active Staff] - Within 1 Month (On metoprolol 25 mg, pill in the pocket approach) Disposition Disposition (needs filled in before D/C Order can be placed): Home, Self Care Charges/Coding Visit Charges Inpatient E&M: 38122 Disch Hosp >30min
--- NOTE | 2024-08-28 10:55 | PHA.DC.MR.R ---
Pharmacy [place] [facility] Reconciliation Pharmacy Service has performed discharge medication reconciliation for this patient. The patient's discharge medication list was reviewed for discrepancies and discrepancies were resolved. Medications at Discharge Home Medications cholecalciferol (vitamin D3) 125 mcg (5,000 unit) capsule 5,000 unit PO DAILY supplement 04/02/17 fexofenadine 60 mg tablet 60 mg PO DAILY allergies 04/02/17 fluticasone propionate 50 mcg/actuation nasal spray,suspension (Flonase Allergy Relief) 1 spray intranasal DAILY 08/18/24 Lactobacillus acidophilus 20 billion cell capsule (Florajen Acidophilus) 20,000 mmu cells PO DAILY 08/27/24 azelastine 0.05 % eye drops 1 drp ophthalmic (eye) BID PRN eye irritation 08/27/24 celecoxib 200 mg capsule 200 mg PO DAILY 08/27/24 escitalopram oxalate 20 mg tablet 10 mg PO DAILY 08/27/24 hydrochlorothiazide 25 mg tablet 25 mg PO DAILY 08/27/24
--- NOTE | 2024-08-28 11:08 | CASEMGMT ---
Patient has order for discharge. RN CM in to discuss needs at discharge. Patient denies needs or help at discharge. Patient had no further questions or concerns.
== END 2024-08-28 12:46 | disposition home or self-care (01) ==
LOC: ED 21:10 → PCU 21:36
PROVIDERS: Admitting Provider Family Medicine; Emergency Provider Emergency Medicine; PCP Internal Medicine; Referring Provider Emergency Medicine; Visit Provider Internal Medicine
DX: R07.89 Other chest pain (principal); I48.0 Paroxysmal atrial fibrillation; I12.9 Hypertensive chronic kidney disease with stage 1 through stage 4 chronic kidney disease, or unspecified chronic kidney disease; N18.2 Chronic kidney disease, stage 2 (mild); E16.2 Hypoglycemia, unspecified; E87.6 Hypokalemia; R11.0 Nausea; R94.39 Abnormal result of other cardiovascular function study; J30.9 Allergic rhinitis, unspecified; F41.9 Anxiety disorder, unspecified; Z79.899 Other long term (current) drug therapy
CPT/HCPCS: 36415; 71045; 80048; 80053; 80061; 83735; 84443; 84484; 85025; 85610; 85730; 93005; 93458; 96360; 96361; 99152; 99153; 99221; 99285; Q9967; A4216; C1769; C1894; G0378

== ENCOUNTER → 2024-10-16 | Outpatient (CLI) | payer MEDICARE, OTHER, SELFPAY | END | disposition home or self-care (01) | LOC: PSN 08:12 | PROVIDERS: PCP Internal Medicine; Referring Provider Physician Assistant Medical; Visit Provider Physician Assistant Medical | DX: I48.0 Paroxysmal atrial fibrillation (principal); I48.92 Unspecified atrial flutter; R00.1 Bradycardia, unspecified; R00.0 Tachycardia, unspecified; R00.2 Palpitations | CPT/HCPCS: 93225; 93226 ==

== ENCOUNTER → 2025-04-01 | Outpatient (CLI) | payer MEDICARE, OTHER, SELFPAY ==
[2025-04-01 15:10] LABS: Hematocrit 43.6 % (37-47); Hemoglobin 14.2 g/dL (12.0-15.0); Immature Granulocytes Count 0.070 X10^3/uL (0.0-0.0); Mean Corp Hgb Conc 32.6 g/dL (32-36); Mean Corpuscular Volume 93.6 fL (81-99); Mean Platelet Vol. 9.5 fl (6.2-12.0); NRBC Flagged by Analyzer 0 % (0-5); Platelet Count 328 K/mm3 (150-450); RBC Distribution Width CV 13.8 % (11.6-14.6); RBC Distribution Width SD 47.5 fl (35.1-43.9); Red Blood Count 4.66 M/mm3 (4.2-5.4); White Blood Count 5.5 K/mm3 (4.4-11.0)
[2025-04-01 16:03] LABS: Anion Gap 10 (5-15); BUN 21 mg/dL (4-19); BUN/Creat Ratio 20.3 RATIO (10-20); CRP 3.54 mg/L (0.0-3.0); Calcium,Total 9.9 mg/dL (7.6-11.0); Carbon Dioxide 28.4 mmol/L (21.0-32.0); Chloride 103 mmol/L (98-108); Glucose 103 mg/dL (70-99); Potassium 5.0 mmol/L (3.3-5.1); Pro- Brain NATRIURETIC PEPTIDE 89 pg/mL (<=900)
== END | disposition home or self-care (01) ==
LOC: LAB 14:43
PROVIDERS: PCP Internal Medicine; Referring Provider Nurse Practitioner Family; Visit Provider Nurse Practitioner Family
DX: I48.0 Paroxysmal atrial fibrillation (principal); R06.09 Other forms of dyspnea; R07.89 Other chest pain
CPT/HCPCS: 36415; 80048; 83880; 85025; 86140